=== PATIENT | female | born 1955 | race Caucasian/White ===

== ENCOUNTER → 2023-08-22 16:07 | Outpatient (REF) | payer MEDICARE, OTHER, SELFPAY | LOC: RAD 16:07 | PROVIDERS: ATTENDING PHYSICIAN Orthopaedic Surgery; FAMILY PHYSICIAN Family Medicine | DX: M19.011 Primary osteoarthritis, right shoulder (principal) | CPT/HCPCS: 73200 ==

== ENCOUNTER → 2023-10-01 15:14 | Outpatient (REF) | payer MEDICARE, OTHER, SELFPAY | LOC: RCS 15:14 | PROVIDERS: ATTENDING PHYSICIAN Internal Medicine Cardiovascular Disease; FAMILY PHYSICIAN Family Medicine | DX: R94.31 Abnormal electrocardiogram [ECG] [EKG] (principal); Z01.810 Encounter for preprocedural cardiovascular examination | CPT/HCPCS: 93017 ==

== ENCOUNTER 2023-11-14 11:59 | Inpatient (IN) | payer MEDICARE, OTHER, SELFPAY ==
[2023-11-11 21:44] VITALS: BP 138/75
[2023-11-11 22:17] LABS: % Basophils 0.5 % (0-2); % Eosinophils 3.3 % (0-6); % Immature Granulocytes 0.1 % (0-0.5); % Lymphocytes 22.7 % (20.5-51.1); % Monocytes 9.4 % (1.7-9.3); Absolute Eosinophils 0.3 10^3/uL (0-0.7); Absolute Lymphocytes 1.7 10^3/uL (1.2-3.4); Absolute Monocytes 0.7 10^3/uL (0.1-0.6); Absolute Neutrophils 4.9 10^3/uL (1.4-6.5); Hematocrit 33.3 % (37.0-47.0); Hemoglobin 10.8 g/dL (12.0-16.0); Mean Corp Hgb Conc. 32.4 g/dL (33.0-37.0); Mean Corpuscular Hgb 30.1 pg (27.0-31.0); Mean Corpuscular Volume 92.8 fL (81.0-99.0); Mean Platelet Volume 9.3 fL (7.4-10.4); Nucleated Red Blood Cells % 0 %; Platelet Count 256 10^3/uL (130-400); Red Blood Cell Count 3.59 10^6/uL (4.20-5.40); Red Cell Dist. Width 12.8 % (11.5-14.5); White Blood Cell Count 7.6 10^3/uL (4.8-10.8)
[2023-11-11 22:24] LABS: Lactic Acid 0.7 mmol/L (0.7-2.0)
[2023-11-11 22:31] LABS: ALT (SGPT) 15 U/L (0-35); AST (SGOT) 28 U/L (14-36); Albumin 3.9 g/dl (3.5-5.0); Alkaline Phosphatase 87 U/L (38-126); Blood Urea Nitrogen 15 mg/dl (7-17); Calcium 9.6 mg/dl (8.4-10.2); Carbon Dioxide 30 mmol/L (22-30); Chloride 98 mmol/L (98-107); Glucose 116 mg/dl (70-99); Potassium 4.3 mmol/L (3.5-5.1); Sodium 134 mmol/L (135-145); Total Bilirubin 0.3 mg/dl (0.2-1.3); Total Protein 6.5 g/dl (6.3-8.2); eGFR > 60.00
--- NOTE | 2023-11-11 23:16 | ED.GENMED ---
Addendum entered and electronically signed by Conner Virgen DO 11/12/23 02:30:
Reviewed with spouse labs urine, he is concerned that she could have taken extra pain meds or anxiolytics quantitative drug levels for salicylate acetaminophen are undetectable here
Reviewed indication for inpatient versus outpatient treatment spouse prefers that she be admitted
On exam vital signs are relatively stable the patient is resting, she was confused earlier
Original Note:
History of Present Illness
General
Chief Complaint: Fever
Source: patient, records and spouse
Exam Limitations: altered mental status
Time Seen by Provider: 11/11/23 22:53
Nursing documentation reviewed up to this point in time: agreed with
Travel History
Have you had any contact with someone who has COVID-19?: No
Do you have any symptoms of coronavirus? Fever > 100 degrees, chills, cough, shortness of breath, sore throat, loss of taste or smell, muscle aches, or headache?: No
History of Present Illness
History of Present Illness:
68-year-old female presents with fatigue fever confusion subacute onset fever of 100.3, spouse concerned could have UTI, she has no cough, no abdominal pain no diarrhea she underwent a total shoulder Memo few weeks ago healing well,
concerned she may be took her medications inappropriately, could explain her confusion denies any alcohol,
Past History
Past History
ED Past Medical History: Psychiatric (Anxiety, ) and Other ( Back problems. Colitis, UTI, Vertigo, Lyme, Chronic fatigue); Negative Asthma, HTN, Hypercholesterolemia or NIDDM
ED Past Surgical History: Orthopedic (Left hip replacement) and Other (Multiple breast surgery, Adenoid removed, Deviated septum)
Patient has exhibited threatening behavior?: No
PSI?: No
Social History
Tobacco: Non-smoker
Alcohol: None
Drug: None
Personal:
Living: with family
Employment: Employed
Review of Systems
Review of Systems
All Other Systems: Not applicable
Constitutional: Reports fever and fatigue
EENT: Reports no symptoms
Respiratory: Reports no symptoms
Cardiac: Reports no symptoms
ABD/GI: Reports no symptoms
: Reports urgency
Musculoskeletal: Reports no symptoms
Skin: Reports no symptoms
Neurological: Reports weakness
Hematologic/Lymphatic: Reports no symptoms
Phy Exam
Physical Exam
Physical Exam:
Physical Exam
General: Elderly female flat affect
Neck: No jaundice
Heart: s1/s2 regular rate and rhythm, no murmur. equal radial pulses.
Lungs: Faint crackles at the
Abdomen: Nontender
Neuro: alert and oriented. no focal neurological deficits
Skin: no rash
Psychiatric: cooperative
Extremities: Surgical scar in the right shoulder clean dry and intact no calf pain
Course
Orders/Labs/Results
Orders:
Orders
11/11/23 21:50
Electrocardiogram (*1) Urgent
Reason for Study: Other
Other Reason for Exam: Possible Sepsis
Cardiac Monitoring- Treatment ONCE
EKG- Treatment ONCE
IV Insert/Care/Rem.- Treatment PRN
Urinalysis Reflex To Culture Urgent
Date Specimen was Collected: 11/11/23
Time Specimen was Collected: 21:50
O2 Therapy [RESP] Urgent
Titrate/Wean O2 to maintain O2 sat greater than (%): 93
Special Instructions: TO MAINTAIN CONTINUOUS O2 SATS > OR = 93%
Pulse Ox/cont/shift [RESP] Urgent
Quantity: 1
Special Instructions: CONTINUOUS
11/11/23 22:06
Acetaminophen Urgent
Complete Blood Count/With Diff Urgent
Comprehensive Metabolic Panel Urgent
Lactic Acid Q4H
Comment: ON ICE, CANCEL 2ND ORDER IF FIRST LACTIC ACID LEVEL <2
Salicylate Urgent
Blood Culture Q30M
ASH Source: Blood/Venous
Specimen Description:
Comment: FROM 2 SEPARATE SITES
11/11/23 22:30
Blood Culture Q30M
ASH Source: Blood/Venous
Specimen Description:
Comment: FROM 2 SEPARATE SITES
11/11/23 23:09
0.9% Sodium Chloride 1000 ml [Nss] 1,000 ml IV BOLUS
Acetaminophen [Tylenol] 650 mg PO NOW STA
CR Chest - 2 Views Urgent
Comment:
Reason For Exam: fever
11/11/23 23:14
Add On- LAB Urgent
Tests Added?: Salicylate/acetaminophen
11/12/23 02:00
Lactic Acid Q4H
Comment: ON ICE, CANCEL 2ND ORDER IF FIRST LACTIC ACID LEVEL <2
Abnormal Lab Results
11/11/23
22:06
RBC 3.59 L 10^6/uL
(4.20-5.40)
Hgb 10.8 L g/dL
(12.0-16.0)
Hct 33.3 L %
(37.0-47.0)
MCHC 32.4 L g/dL
(33.0-37.0)
Absolute Monos (auto) 0.7 H 10^3/uL
(0.1-0.6)
Monocytes % 9.4 H %
(1.7-9.3)
Sodium 134 L mmol/L
(135-145)
Glucose 116 H mg/dl
(70-99)
11/11/23 22:06
11/11/23 22:06
Vital Signs
Initial and Last Documented VS:
Initial Vital Signs
Temp Pulse Resp BP Pulse Ox
100.0 F 102 18 138/75 96
11/11/23 21:44 11/11/23 21:44 11/11/23 21:44 11/11/23 21:44 11/11/23 21:44
Last Documented Vital Signs
Temp Pulse Resp BP Pulse Ox
100.0 F 102 18 138/75 96
11/11/23 21:44 11/11/23 21:44 11/11/23 21:44 11/11/23 21:44 11/11/23 21:44
MDM/Problems Addressed
Differential Diagnosis Includes:
Infection toxic metabolic deconditioning viral syndrome
MDM/Problems Addressed:
Fever confusion
Chronic conditions affecting care: Neurological disorder and Psychiatric illness
Acute Exacerbation and/or Progression of Chronic Illness: Neurological disorder and Psychiatric illness
*Radiology
Radiology exam reviewed: preliminary read by ED provider
*Pulse Oximetry
Patient hypoxic: no
*Oven Stripper Interpretation
Rate: normal
Interpretation: normal
Heart Rate: 78
Rhythm: sinus
*Critical Care Note
Total Time (30-74mins, 75-104mins- exclusive of procedures): Not Applicable
Data Reviewed
Review of Other/Old Records Reveals: Labs, Progress Notes and Discharge Summary
Source: patient and records
ED Attending Note
-
Portions of this chart may have been created with voice recognition software.� Occasional wrong word or��sound alike� substitutions may have occurred due to the inherent limitations of voice recognition software.
Discharge Plan
Departure
Prescriptions:
No Action
ascorbic acid (vitamin C) [Vitamin C] 500 MG tablet
500 mg PO DAILY
cholecalciferol (vitamin D3) 1,000 UNITS tablet
1,000 units PO DAILY
multivitamin with folic acid [Tab-A-Luis F] 1 TABLET tablet
1 tab PO DAILY
budesonide 3 mg capsule,delayed,extend.release
3 mg PO .TAPER
Rx Instructions:
TAKE 3 CAPS DAILY FOR 30 DAYS, THEN 2 CAPS DAILY FOR 2 WEEKS, THEN ONE CAP DAILY FOR 2 WEEKS, THEN STOP
diphenoxylate-atropine 2.5-0.025 mg tablet
1 tab PO TID PRN (Reason: diarrhea)
Patient Comments:
11/28/2022: last filled 11/18/22, 90 tabs for 30 days from [facility]
hydrocodone-acetaminophen 10-325 mg tablet
1 tab PO Q6H PRN (Reason: moderate pain)
Patient Comments:
11/28/2022: last filled 11/26/22, 120 tabs for 30 days from [facility]
vitamin B complex Tablet
1 tab PO DAILY
gabapentin 100 mg capsule
100 mg PO DAILY
gabapentin 100 mg capsule
200 mg PO HS
Acidophilus Capsule
100 mg PO BID
alprazolam 2 mg tablet
1 mg PO TID Qty: 0 0RF
Patient Comments:
11/28/2022: last filled 11/18/22, 90 tabs for 30 days from [facility]
Referrals:
Litzy Rios, [Family Provider] -
Interventions
Interventions:
*Risk Screen - Suicide Last Done: 11/11/23 21:44
*General Assessment Last Done: 11/11/23 21:44
*Neglect/Abuse Screening Last Done: 11/11/23 21:44
Discharge Date and Time
Print Language: SUDANESE
[2023-11-11 23:46] LABS: Acetaminophen < 10 ug/ml (10-30); Salicylate < 1.0 mg/dl (2.0-20.0)
[2023-11-11] MEDS: NSS 1000 IV (23:51)
[2023-11-12] VITALS (13 sets, daily range): BP systolic 93–165; BP diastolic 48–82; PULSE 100
[2023-11-12 00:20] LABS: Urine Albumin Negative (Neg - Trace); Urine Bilirubin Negative (Negative); Urine Color Yellow; Urine Glucose Negative (Negative); Urine Ketone Negative (Negative); Urine Leukocyte 2+ (Negative); Urine Nitrite Positive (Negative); Urine Occult Blood 1+ (Negative); Urine Urobilinogen Negative (Neg - 1+)
[2023-11-12 00:37] LABS: Urine Character Cloudy (Clear)
[2023-11-12 01:07] LABS: Urine Bacteria Many (Negative); Urine White Cell >100 /HPF (0-5)
[2023-11-12] MEDS: ROCEPHIN 1000 MG IV (02:22)
--- NOTE | 2023-11-12 02:27 | ED.GENMED ---
History of Present Illness
General
Chief Complaint: Fever
Time Seen by Provider: 11/11/23 22:53
Travel History
Have you had any contact with someone who has COVID-19?: No
Do you have any symptoms of coronavirus? Fever > 100 degrees, chills, cough, shortness of breath, sore throat, loss of taste or smell, muscle aches, or headache?: No
Past History
Past History
ED Past Medical History: Psychiatric (Anxiety, ) and Other ( Back problems. Colitis, UTI, Vertigo, Lyme, Chronic fatigue); Negative Asthma, HTN, Hypercholesterolemia or NIDDM
ED Past Surgical History: Orthopedic (Left hip replacement) and Other (Multiple breast surgery, Adenoid removed, Deviated septum)
Patient has exhibited threatening behavior?: No
PSI?: No
Social History
Tobacco: Non-smoker
Alcohol: None
Drug: None
Personal:
Living: with family
Employment: Employed
Course
Orders/Labs/Results
Orders:
Orders
11/11/23 21:50
Electrocardiogram (*1) Urgent
Reason for Study: Other
Other Reason for Exam: Possible Sepsis
Cardiac Monitoring- Treatment ONCE
EKG- Treatment ONCE
IV Insert/Care/Rem.- Treatment PRN
O2 Therapy [RESP] Urgent
Titrate/Wean O2 to maintain O2 sat greater than (%): 93
Special Instructions: TO MAINTAIN CONTINUOUS O2 SATS > OR = 93%
Pulse Ox/cont/shift [RESP] Urgent
Quantity: 1
Special Instructions: CONTINUOUS
11/11/23 22:06
Acetaminophen Urgent
Comment: ADD ON
Complete Blood Count/With Diff Urgent
Comprehensive Metabolic Panel Urgent
Lactic Acid Q4H
Comment: ON ICE, CANCEL 2ND ORDER IF FIRST LACTIC ACID LEVEL <2
Salicylate Urgent
Comment: ADD ON
Blood Culture Q30M
ASH Source: Blood/Venous
Specimen Description:
Comment: FROM 2 SEPARATE SITES
11/11/23 23:09
0.9% Sodium Chloride 1000 ml [Nss] 1,000 ml IV BOLUS
Acetaminophen [Tylenol] 650 mg PO NOW STA
11/11/23 23:14
Add On- LAB Urgent
Tests Added?: Salicylate/acetaminophen
11/11/23 23:32
Straight cath- Treatment ONCE
11/11/23 23:49
Urinalysis Reflex To Culture Urgent
Date Specimen was Collected: 11/11/23
Time Specimen was Collected: 21:50
Urine Microscopic Reflex Cult Urgent
Blood Culture Q30M
ASH Source: Blood/Venous
Specimen Description:
Comment: FROM 2 SEPARATE SITES
Urine Culture Urgent
ASH Source: U
Specimen Description:
Date Specimen was Collected: 11/11/23
Time Specimen was Collected: 21:50
11/12/23 00:00
CR Chest - 2 Views Urgent
Reason For Exam: fever
11/12/23 01:11
CefTRIAXone [Rocephin] 1,000 mg IV NOW STA
Abnormal Lab Results
11/11/23 11/11/23
22:06 23:49
RBC 3.59 L 10^6/uL
(4.20-5.40)
Hgb 10.8 L g/dL
(12.0-16.0)
Hct 33.3 L %
(37.0-47.0)
MCHC 32.4 L g/dL
(33.0-37.0)
Absolute Monos (auto) 0.7 H 10^3/uL
(0.1-0.6)
Monocytes % 9.4 H %
(1.7-9.3)
Sodium 134 L mmol/L
(135-145)
Glucose 116 H mg/dl
(70-99)
Ur Occult Blood Reflex 1+ A
(Negative)
Urine Nitrite (Reflex) Positive A
(Negative)
Leukocyte Esterase Rfl 2+ A
(Negative)
Urine RBC 3-6 A /HPF
(0-2)
Urine WBC (Reflex) >100 A /HPF
(0-5)
Urine Bacteria (Reflex) Many A
(Negative)
Salicylates < 1.0 L mg/dl
(2.0-20.0)
Acetaminophen < 10 L ug/ml
(10-30)
11/11/23 22:06
11/11/23 22:06
Vital Signs
Initial and Last Documented VS:
Initial Vital Signs
Temp Pulse Resp BP Pulse Ox
100.0 F 102 18 138/75 96
11/11/23 21:44 11/11/23 21:44 11/11/23 21:44 11/11/23 21:44 11/11/23 21:44
Last Documented Vital Signs
Temp Pulse Resp BP Pulse Ox
100.0 F 102 18 138/75 96
11/11/23 21:44 11/11/23 21:44 11/11/23 21:44 11/11/23 21:44 11/11/23 21:44
Update Note
Update Note:
Update labs noted urinalysis noted culture pending patient resting comfortably
Reviewed extensively with spouse he is concerned that she could have issues her pain meds or gabapentin or anxiolytics
He prefers that she be admitted for antibiotics and monitoring which is not unreasonable
ED Attending Note
-
Portions of this chart may have been created with voice recognition software.� Occasional wrong word or��sound alike� substitutions may have occurred due to the inherent limitations of voice recognition software.
Discharge Plan
Departure
Patient Disposition: Home (Routine Discharge)
Date of Disposition: 11/12/23
Time of Disposition: 02:28
Patient with high blood pressure during this ER visit?: No
Condition: Fair
Discharge Problem:
Stuporous, Urinary tract infection, Change in mental status, Fever
Prescriptions:
No Action
ascorbic acid (vitamin C) [Vitamin C] 500 MG tablet
500 mg PO DAILY
multivitamin with folic acid [Tab-A-Luis F] 1 TABLET tablet
1 tab PO DAILY
gabapentin 100 mg capsule
100 mg PO TID
gabapentin 100 mg capsule
200 mg PO HS
oxycodone 15 mg Tablet
15 mg PO QID PRN (Reason: Post surgical pain)
lamotrigine [Lamictal] 100 mg Tablet
100 mg BID PRN (Reason: diarrhea)
Rx Instructions:
unsure of mg
alprazolam 2 mg tablet
1 mg PO QIDPRN PRN (Reason: anxiety )
Patient Comments:
11/28/2022: last filled 11/18/22, 90 tabs for 30 days from [facility]
Referrals:
Litzy Rios DO [Family Provider] -
Interventions
Interventions:
*Risk Screen - Suicide Last Done: 11/11/23 21:44
*General Assessment Last Done: 11/11/23 21:44
*Neglect/Abuse Screening Last Done: 11/11/23 21:44
ED- Neurological Assessment Last Done: 11/11/23 23:26
Discharge Date and Time
Print Language: VIETNAMESE
--- NOTE | 2023-11-12 07:14 | HPS.HSE ---
Family Physician
-
Family Physician: Litzy Ott Rech, DO
Chief Complaint
-
Confusion
History of Present Illness
Patient is a 68y F with PMH significant for chronic pain and chronic anxiety on multiple medications who presents to ED for evaluation of confusion noted by family last PM. Family stated that patient was confused and had a temperature at home of
100.3. Patient seen and examined and states that she felt 'achy' all over and was pale and weak. She denies any focal symptoms including sore throat, cough, abdominal pain, N/V/D or urinary complaints.
Patient underwent a R TSA at [facility] on 10/08/23.
raised concern this evening that she may be taking her medication inappropriately.
At the time of my exam, patient is awake and alert and in no distress.
Medical History
Past Medical History
Past Medical History: Reports Other
Additional Past Medical History:
Chronic Pain
Chronic Anxiety
Chronic Opioid Dependence
DJD
Collagenous Colitis
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
Past Surgical History: Reports Other
Additional Past Surgical History:
Right TSA (10/08/23)
Left Hip ORIF
T&A
Septoplasty
Breast Biopsies
Social History
Tobacco: Non-smoker
Alcohol: None
Personal:
Living: With Family
Family History
Family History: Not pertinent
Allergies / Home Medications
Allergies reflects when Allergies were last updated in [employer].
Home Medications with original date entered in [facility]
Allergy/Medication List:
Allergies
Allergy/AdvReac Type Severity Reaction Status Date / Time
Sulfa (Sulfonamide Allergy Hives Verified 11/12/23 01:57
Antibiotics)
Home Medications
ascorbic acid (vitamin C) 500 mg tablet (Vitamin C) 500 mg PO DAILY Supplement 08/14/20
multivitamin with folic acid 400 mcg tablet (Tab-A-Luis F) 1 tab PO DAILY Supplement 08/14/20
gabapentin 100 mg capsule 100 mg PO TID Pain 11/28/22
gabapentin 100 mg capsule 200 mg PO HS Pain 11/28/22
alprazolam 2 mg tablet 1 mg PO QIDPRN PRN anxiety 11/12/23
lamotrigine 100 mg tablet (Lamictal) 100 mg BID PRN diarrhea 11/12/23
oxycodone 15 mg tablet 15 mg PO QID PRN Post surgical pain 11/12/23
Review of Systems
-
History Source: Patient
A 12 point ROS was completed and negative except as noted: Yes
Constitutional: Reports Fatigue; Denies Fever or Chills
EENT: Denies Sore Throat
Respiratory: Denies Cough or Trouble Breathing
Cardiac: Denies Chest Pain or Palpitations
Abdomen/GI: Denies Abdominal Pain, Nausea, Vomiting or Diarrhea
: Denies Dysuria, Frequency or Flank Pain
Musculoskeletal: Reports Joint Pain (R shoulder s/p surgery one month ago.); Denies Edema
Neurological: Denies Dizzy or Headache
Psych: Denies Depression or Anxiety
Physical Exam
Vital Signs
Vital Signs
Temp Pulse Resp BP Pulse Ox
98.5 F 92 20 112/50 94
11/12/23 05:40 11/12/23 06:45 11/12/23 06:45 11/12/23 06:00 11/12/23 04:12
Physical Exam
General: Other (68y F in no acute distress.)
HEENT: Moist mucous membranes and PERRLA
Respiratory: Clear; No Wheezes, Rales or Rhonchi
Cardiac: S1/S2 and Regular Rhythm; No Murmur
GI: Soft, Non Tender, Non Distended and Normal Bowel Sounds
Genito-urinary: No costovertebral tender
Musculoskeletal: No Clubbing, No Cyanosis, No Edema and Other (R shoulder incision healing well. No significant bleeding, ecchymosis, etc.)
Neuro: Other (Awake and alert. Mildly confused re: presenting details.)
Laboratory Results
-
11/11/23 22:06
11/11/23 22:06
Laboratory Results
Lactic Acid Cancelled 11/12/23 02:00
Total Bilirubin 0.3 mg/dl (0.2-1.3) 11/11/23 22:06
AST 28 U/L (14-36) 11/11/23 22:06
ALT 15 U/L (0-35) 11/11/23 22:06
Alkaline Phosphatase 87 U/L (38-126) 11/11/23 22:06
Impression/Plan
-
A/P: Patient is a 68y F with PMH significant for chronic pain and chronci anxiety on multiple medications who presents to ED for evaluation of confusion.
Acute TME
Chronic Pain Syndrome
Chronic Anxiety
Chronic Opioid Dependence
- Observe for further evaluation and treatment.
- Seems very likely that this is due to med effect / polypharmacy.
- Patient is on significant doses of narcotics and BZDs.
- Hold sedating meds acutely.
- Follow for continued clinical improvement.
- Treat / investigate possible urinary infection as noted below.
Abnormal UA
- Patient has had UTI in the past with similar presentations.
- No urinary symptoms whatsoever though.
- Continue IV ceftriaxone for now.
- Follow-up culture data.
- Patient is afebrile.
Collagenous Colitis
- Stable. No current / active symptoms.
- Patient takes PRN Lomotil - not Lamotrigine.
- Follow for any GI symptoms.
s/p R TSA
- Surgery was now > 1 month ago.
- PT / OT evaluations.
- Site is well-appearing.
DVT Prophylaxis: SCDs
Code Status: Full
[2023-11-12 08:49] LABS: Amphetamines Negative (Negative); Barbiturates Negative (Negative); Benzodiazepines Positive (Negative); Buprenorphine Negative (Negative); Cocaine Negative (Negative); Marijuana Negative (Negative); Methadone Negative (Negative); Methamphetamines Negative (Negative); Opiates Positive (Negative); Phencyclidine Negative (Negative); Tricyclic Antidepressants Negative (Negative)
[2023-11-12 09:04] LABS: Fentanyl, Urine Negative (Negative)
[2023-11-12] MEDS: NEURONTIN 100 MG PO ×3 (10:42→21:35)
--- NOTE | 2023-11-12 13:51 | W.PN.HOSP.TC ---
Today's Communication/Plan
-
monitor mental status
abx
f/u cultures
Assessment / Plan
Assessment / Plan
Physical Exam
General: Other (68y F in no acute distress.)
HEENT: Moist mucous membranes and PERRLA
Respiratory: Clear; No Wheezes, Rales or Rhonchi
Cardiac: S1/S2 and Regular Rhythm; No Murmur
GI: Soft, Non Tender, Non Distended and Normal Bowel Sounds
Genito-urinary: No costovertebral tender
Musculoskeletal: No Clubbing, No Cyanosis, No Edema and Other (R shoulder incision healing well. No significant bleeding, ecchymosis, etc.)
Neuro: Other (Awake and alert. Mildly confused re: presenting details.)
A/P: Patient is a 68y F with PMH significant for chronic pain and chronci anxiety on multiple medications who presents to ED for evaluation of confusion.
Acute TME
Chronic Pain Syndrome
Chronic Anxiety
Chronic Opioid Dependence
- most likely 2/2 to UTI
-Hold nacrotics, sedatives
- Hold sedating meds acutely.
- Follow for continued clinical improvement.
- Treat / investigate possible urinary infection as noted below.
UTI
- Patient has had UTI in the past with similar presentations.
- No urinary symptoms whatsoever though.
- Continue IV ceftriaxone for now.
- Follow-up culture data.
- Patient is afebrile.
#Hyponatremia
-mild
ctm
Collagenous Colitis
- Stable. No current / active symptoms.
- Patient takes PRN Lomotil - not Lamotrigine.
- Follow for any GI symptoms.
s/p R TSA
- Surgery was now > 1 month ago.
- PT / OT evaluations.
- Site is well-appearing.
DVT Prophylaxis: HSQ
Code Status: Full
Anticipated Discharge: 24 - 48 hours
Subjective/Interval History
-
Date of Service: November 12, 2023
no acute events
Objective Data
-
Vital Signs:
Vital Signs
Temp Pulse Resp BP Pulse Ox
98.5 F 109 22 155/65 96
11/12/23 05:40 11/12/23 12:30 11/12/23 12:30 11/12/23 11:00 11/12/23 10:47
Review of Systems
-
History Source: Patient
All other systems: Not reviewed unless documented
Data Reviewed
-
Diagnostic Radiology: Image personally visualized and interpreted and Report Reviewed by me
Labs: Labs Reviewed by me
--- NOTE | 2023-11-12 14:43 | CM ---
CM following re: discharge planning.
Reviewed pt's chart, met with pt and pt's Sergey at bedside.
Pt is a 68 year old female, admitted with OBS status and primary dx of Acute TME. OBS status explained to the pt, pt expressed her understanding, signed, placed on chart, pt has a copy.
Pt reports she lives with in a [place], has 2 supportive children, stays on the first floor. Pt reports she ambulates with a walker, has a cane, shower chair, helps as needed.
PT evaluation noted - pt has no skilled PT needs.
PCP: Litzy Rios
Pharmacy: [facility].
D/C plan: home with no needs. to transport at discharge.
CM will follow with discharge plan updates as needed.
[2023-11-12] MEDS: HEPARIN 5000 UNITS SC ×2 (16:20→23:34)
[2023-11-12] MEDS: TORADOL 15 MG IV ×2 (17:20→23:35)
[2023-11-12 17:21] LABS: TSH Reflex To Free T4 1.12 uIU/ml (0.47-4.68)
[2023-11-13] MEDS: STERILE WATER FOR INJECTION 10 ML IV (01:10)
[2023-11-13] MEDS: ROCEPHIN 1000 MG IV (01:10)
[2023-11-13 06:00] VITALS: BMI 18.9
[2023-11-13 06:02] LABS: Hematocrit 33.6 % (37.0-47.0); Hemoglobin 11.1 g/dL (12.0-16.0); Mean Corpuscular Hgb 30.8 pg (27.0-31.0); Mean Corpuscular Volume 93.3 fL (81.0-99.0); Mean Platelet Volume 9.7 fL (7.4-10.4); Platelet Count 238 10^3/uL (130-400); Red Cell Dist. Width 12.6 % (11.5-14.5); White Blood Cell Count 7.2 10^3/uL (4.8-10.8)
[2023-11-13] MEDS: TORADOL 15 MG IV ×2 (06:07→21:52)
[2023-11-13 06:27] LABS: Blood Urea Nitrogen 8 mg/dl (7-17); Calcium 9.3 mg/dl (8.4-10.2); Carbon Dioxide 25 mmol/L (22-30); Chloride 105 mmol/L (98-107); Estimated Creatinine Clearance 81 ml/min; Glucose 104 mg/dl (70-99); Potassium 3.7 mmol/L (3.5-5.1); Sodium 139 mmol/L (135-145); eGFR > 60.00
[2023-11-13 08:20] VITALS: BP 167/70
[2023-11-13 08:24] VITALS: BMI 18.8
[2023-11-13] MEDS: NEURONTIN 100 MG PO ×3 (08:38→21:51)
[2023-11-13] MEDS: HEPARIN 5000 UNITS SC ×2 (08:38→17:24)
[2023-11-13] MEDS: ZOFRAN 4 MG IV (12:02)
--- NOTE | 2023-11-13 14:04 | W.PN.HOSP.TC ---
Today's Communication/Plan
-
abd xr
antiemetics, ppi
abx
f/u cultures
Assessment / Plan
Assessment / Plan
Physical Exam
General: Other (68y F in no acute distress.)
HEENT: Moist mucous membranes and PERRLA
Respiratory: Clear; No Wheezes, Rales or Rhonchi
Cardiac: S1/S2 and Regular Rhythm; No Murmur
GI: Soft, Non Tender, Non Distended and Normal Bowel Sounds
Genito-urinary: No costovertebral tender
Musculoskeletal: No Clubbing, No Cyanosis, No Edema and Other (R shoulder incision healing well. No significant bleeding, ecchymosis, etc.)
Neuro: Other (Awake and alert. Mildly confused re: presenting details.)
A/P: Patient is a 68y F with PMH significant for chronic pain and chronci anxiety on multiple medications who presents to ED for evaluation of confusion.
Acute TME
Chronic Pain Syndrome
Chronic Anxiety
Chronic Opioid Dependence
� Resolved
- most likely 2/2 to UTI
-Hold nacrotics, sedatives
- Hold sedating meds acutely.
- Follow for continued clinical improvement.
- Treat / investigate possible urinary infection as noted below.
UTI
- Patient has had UTI in the past with similar presentations. Should follow-up urology outpatient
- No urinary symptoms whatsoever though.
- Continue IV ceftriaxone for now.
- Follow-up culture data.
- Patient is afebrile.
Nausea/vomiting
� Most likely secondary antibiotics
� PPI, Zofran
� Abdominal x-ray
#Hyponatremia
-mild
ctm
- resolved
Collagenous Colitis
- Stable. No current / active symptoms.
- Patient takes PRN Lomotil - not Lamotrigine.
- Follow for any GI symptoms.
s/p R TSA
- Surgery was now > 1 month ago.
- PT / OT evaluations.
- Site is well-appearing.
DVT Prophylaxis: HSQ
Code Status: Full
Anticipated Discharge: 24 - 48 hours
Subjective/Interval History
-
Date of Service: November 13, 2023
Nauseous although status resolved
Objective Data
-
Labs:
Laboratory Results
11/13/23
05:34
WBC 7.2
Hgb 11.1 L
Hct 33.6 L
Plt Count 238
Sodium 139
Potassium 3.7
Chloride 105
Carbon Dioxide 25
BUN 8
Creatinine 0.4 L
Glucose 104 H
Calcium 9.3
Vital Signs:
Vital Signs
Temp Pulse Resp BP Pulse Ox
98.3 F 91 18 167/70 95
11/13/23 08:20 11/13/23 08:20 11/13/23 08:20 11/13/23 08:20 11/13/23 08:24
I&O
11/12/23 11/13/23 11/14/23
06:59 06:59 06:59
Intake Total 600 / 600
Balance 600 / 600
Review of Systems
-
History Source: Patient
All other systems: Not reviewed unless documented
Data Reviewed
-
Diagnostic Radiology: Image personally visualized and interpreted and Report Reviewed by me
Labs: Labs Reviewed by me
--- NOTE | 2023-11-13 14:14 | EDRN ---
Patient taken to room 408-1 by service desk technician.
[2023-11-13 14:29] VITALS: BP 189/91
[2023-11-13 14:32] VITALS: BMI 18.6
[2023-11-13 15:00] VITALS: BP 159/91
[2023-11-13] MEDS: PROTONIX IV 40 MG IV (15:00)
[2023-11-13] MEDS: NSS (PRESERVATIVE FREE) 10 ML IV (15:01)
[2023-11-13 23:33] VITALS: BP 184/105
[2023-11-13] MEDS: BENADRYL 12.5 MG IV (23:39)
[2023-11-13 23:40] VITALS: BP 200/90
[2023-11-14] VITALS (15 sets, daily range): BP systolic 101–193; BP diastolic 75–102
[2023-11-14] MEDS: APRESOLINE 5 MG IV (00:26)
[2023-11-14] MEDS: HEPARIN 5000 UNITS SC ×2 (00:32→08:56)
[2023-11-14] MEDS: ROCEPHIN 1000 MG IV (02:26)
[2023-11-14] MEDS: STERILE WATER FOR INJECTION 10 ML IV (02:26)
--- NOTE | 2023-11-14 02:53 | PTCARENOTE ---
Addendum entered by Raquel Nix 11/14/23 05:21:
Pt tachycardic 140s in bathroom, pt with c/o diaphoresis- manual BP 172/90
Addendum entered by Raquel Nix 11/14/23 03:59:
BP remains elevated, clonidine given per order. Pt placed on telemetry.
Original Note:
2333: Pts BP 184/105 HR 105- rechecked manual 200/90- House CHECK VIEWER aware, IV benadryl for nausea (pt stating IV zofran ineffective) given, pt stating anxiety. rechecked BP 191/102. Given 5 mg IV hydralazine at 0026. Rechecked BP at 0222: BP 179/97 HR
101 manual 182/82. House CHECK VIEWER aware. Pt stating feeling of 'heart racing, palpitations'. EKG completed showing 'NSR nonspecific ST abnormality, new prolonged QT' CHECK VIEWER to review. Will continue to monitor.
[2023-11-14] MEDS: CATAPRES 0.100000000000000006 MG PO (03:46)
--- NOTE | 2023-11-14 03:48 | W.PN.UPDATE ---
Update Note
Progress Note Update
BP is been 175-200/90's-100's, HR 80's-90, stable VS, denies any pain, voiding without difficulty, No hx of HTN and not on any medications, 1x IV Hydralazine given without much relief, RN notified NUCLEAR PLANT OPERATOR IV may have leaked.
Patient c/o palpitation. EKG reviewed. Prolonged Q noted, will stop Zofran.
Also Patient was on Xanax, Vicodin, Oxycodone as need as needed at home and has been stopped. therefore will add COW's Protocol due to possible Withdrawal
last BP 192/90 will give clonidine 0.1mg POx1.
will check Troponin, CMP, Mag, Phos in AM due to EKG abnormality, may need Cardiology consult.
[2023-11-14 07:57] LABS: Hemoglobin 12.1 g/dL (12.0-16.0); Mean Corp Hgb Conc. 33.6 g/dL (33.0-37.0); Mean Corpuscular Hgb 30.1 pg (27.0-31.0); Mean Corpuscular Volume 89.6 fL (81.0-99.0); Mean Platelet Volume 10.1 fL (7.4-10.4); Platelet Count 283 10^3/uL (130-400); Red Blood Cell Count 4.02 10^6/uL (4.20-5.40); Red Cell Dist. Width 12.7 % (11.5-14.5); White Blood Cell Count 10.4 10^3/uL (4.8-10.8)
[2023-11-14 08:17] LABS: Troponin I 0.019 ng/ml
[2023-11-14 08:41] LABS: ALT (SGPT) 12 U/L (0-35); AST (SGOT) 24 U/L (14-36); Albumin 3.8 g/dl (3.5-5.0); Alkaline Phosphatase 94 U/L (38-126); Blood Urea Nitrogen 10 mg/dl (7-17); Calcium 9.6 mg/dl (8.4-10.2); Carbon Dioxide 23 mmol/L (22-30); Chloride 97 mmol/L (98-107); Estimated Creatinine Clearance 76 ml/min; Glucose 118 mg/dl (70-99); Magnesium 1.8 mg/dl (1.6-2.3); Phosphorus 3.6 mg/dl (2.5-4.5); Potassium 3.2 mmol/L (3.5-5.1); Sodium 132 mmol/L (135-145); Total Bilirubin 0.5 mg/dl (0.2-1.3); Total Protein 6.5 g/dl (6.3-8.2); eGFR > 60.00
[2023-11-14] MEDS: PROTONIX IV 40 MG IV (08:56)
[2023-11-14] MEDS: NSS (PRESERVATIVE FREE) 10 ML IV (08:56)
[2023-11-14] MEDS: NEURONTIN 100 MG PO ×2 (08:57→21:33)
[2023-11-14] MEDS: NORVASC 10 MG PO (09:50)
[2023-11-14] MEDS: KCL ELIXIR 40 MEQ PO (11:36)
--- NOTE | 2023-11-14 12:24 | PTCARENOTE ---
Received patient this am AAOx3, pt forgetful intermittently. B/P 160/[address] Lowe made aware. 0950- Pt's B/P 176/85, HR 90. Pt medicated with Norvasc 10mg PO as ordered. 11:10- B/P 160/85. Pt sent for CT head. 11:[address] Lowe made aware an evaluated patient. AAOx1-2. Pt having trouble remembering which hospital she was in and why. Pt having trouble remember events of Hypertension during the night. NIH-1. B/P 143/75. MRI of Brain an Neurology
Consult ordered. Made patient comfortable. Cont to assess patient status.
--- NOTE | 2023-11-14 14:46 | W.PN.HOSP.TC ---
Today's Communication/Plan
-
MRI brain
LP
abx
neuro recs
Assessment / Plan
Assessment / Plan
Physical Exam
General: Other (68y F in no acute distress.)
HEENT: Moist mucous membranes and PERRLA
Respiratory: Clear; No Wheezes, Rales or Rhonchi
Cardiac: S1/S2 and Regular Rhythm; No Murmur
GI: Soft, Non Tender, Non Distended and Normal Bowel Sounds
Genito-urinary: No costovertebral tender
Musculoskeletal: No Clubbing, No Cyanosis, No Edema and Other (R shoulder incision healing well. No significant bleeding, ecchymosis, etc.)
Neuro: Other (Awake and alert. Mildly confused re: presenting details.)
A/P: Patient is a 68y F with PMH significant for chronic pain and chronci anxiety on multiple medications who presents to ED for evaluation of confusion.
Acute TME
-Most likely 2/2 neurological pathology v less likely UTI
-Head CT with parietal involvement - possible cytotoxic or vasogenic edema
-MRI pending
-IR consulted for LP, including cytology
-neurology consulted
Chronic Pain Syndrome
Chronic Anxiety
Chronic Opioid Dependence
-Hold nacrotics, sedatives
- Hold sedating meds acutely.
- Follow for continued clinical improvement.
UTI , E-Coli
- Patient has had UTI in the past with similar presentations. Should follow-up urology outpatient
- No urinary symptoms whatsoever though.
- Continue IV ceftriaxone for now - give 5 day course abx
- Patient is afebrile.
Nausea/vomiting
� possibly 2/2 to neurological disease
- PPI, Zofran
-kub unremarkable
#Hyponatremia
-mild
ctm
- resolved
#Hypertension
-start amlodipine
#Hypokalemia
-monitor and replete
Collagenous Colitis
- Stable. No current / active symptoms.
- Patient takes PRN Lomotil - not Lamotrigine.
- Follow for any GI symptoms.
s/p R TSA
- Surgery was now > 1 month ago.
- PT / OT evaluations.
- Site is well-appearing.
DVT Prophylaxis: HSQ
Code Status: Full
Total time spent on today's encounter was 50 minutes which included time spent in counseling the patient/family regarding diagnosis and treatment plan as listed above, goals of care, and symptom management. Case was discussed with nursing staff,
specialists, and care coordinators/case management. All labs and imaging personally reviewed by me. Remainder the time spent in detailed review of previous records, lab data, imaging, and other medical provider documentation.
Anticipated Discharge: > 48 hours
Subjective/Interval History
-
Date of Service: November 14, 2023
patient altered again today
persistently hypertensive
Objective Data
-
Labs:
Laboratory Results
11/14/23 11/14/23
07:35 14:38
WBC 10.4
Hgb 12.1
Hct 36.0 L
Plt Count 283
PT Pending
INR Pending
Sodium 132 L
Potassium 3.2 L
Chloride 97 L
Carbon Dioxide 23
BUN 10
Creatinine 0.4 L
Glucose 118 H
Calcium 9.6
Total Bilirubin 0.5
AST 24
ALT 12
Alkaline Phosphatase 94
Vital Signs:
Vital Signs
Temp Pulse Resp BP Pulse Ox
98.6 F 86 18 143/75 96
11/14/23 11:09 11/14/23 11:48 11/14/23 11:48 11/14/23 11:48 11/14/23 11:48
I&O
11/13/23 11/14/23 11/15/23
06:59 06:59 06:59
Intake Total 600 / 600 1320 / 1320
Balance 600 / 600 1320 / 1320
Review of Systems
-
History Source: Patient
All other systems: Not reviewed unless documented
Data Reviewed
-
Diagnostic Radiology: Image personally visualized and interpreted and Report Reviewed by me
CT Scan: Image personally visualized and interpreted and Report Reviewed by me
Labs: Labs Reviewed by me
--- NOTE | 2023-11-14 14:51 | CON.NEURO4 ---
Consultation - Neurology 4
-
CONSULTING PHYSICIAN: Jorge Canseco
REFERRING PHYSICIAN: Hospitalist
DICTATED BY: Jorge Canseco
DATE/TIME OF REQUEST: 11/14/23
DATE/TIME OF CONSULTATION: 11/14/23
Reason for Consultation: Right parietal lobe abnormality on CT head, confusion
History of Present Illness:
Patient is a 68-year-old woman with a past no history of chronic pain presenting the hospital with confusion starting the past 1 to 2 days. Initially this was felt to be possibly urinary tract infection or related to home medication effects on
mental status, reported as having home temperature of 100.3 otherwise had no fevers or elevated temperatures here in this hospital during this stay. Yesterday for the hospitalist her mental status was much more clear and today has been a
significant change in mental status with confusion and memory loss.
Patient is aware that she feels confused feels somewhat disoriented with recall of recent events. Denies any headache or vision change or unilateral vision or weakness. It is hard for her to describe exactly confusion but knows that her brain
function is off. She denies any hallucinations.
Has had some high blood pressures here to the 190's and low 200's systolic.
She has no personal history of cancer. No unusual weight loss.
relates that before he had met her she had actually sought treatment at [facility] where Lyme disease was only just beginning to start to be discovered and treated. Patient had had 2 small pigmented lesions on the left shoulder and a
couple of weeks before her shoulder surgery on October 07 of this year. There have not been any recent rashes but her has noticed that the patient has told him about. No obvious bug bites and no recent international travel or animal exposures.
Past Medical History: Chronic pain with opioid dependence, degenerative joint disease, previous history of [employer] Lyme treated, anxiety
Surgical History: Left hip ORIF, tonsillectomy adenoidectomy, septoplasty, breast biopsy, right total shoulder replacement October 08, 2023
Family History: No familial neurologic disorders
Social History: Patient is lives with her she likes to garden no significant tobacco alcohol or recreational drug
Review of Symptoms:
Patient denies any fever, headache, chest pain, shortness of breath, GI or symptoms.
Physical Exam:
Middle-age woman well-appearing pleasant no distress head normocephalic no meningismus no trauma to the head or neck eyes are clear oropharynx is clear heart rate regular breathing unlabored abdomen soft nontender
Neurologic Examination:
Patient is awake and alert, she has difficulty with recall of recent events as well as impaired insight and judgment, cannot tell me her home address and cannot recollect recent events. She does have insight into feeling confused. Denies
hallucinations. Obeys multistep commands. Praxis is normal. No evidence of neglect. Difficult with complex cognitive tasks like calculation. There is no aphasia or dysarthria. On cranial nerve assessment, pupils are 3 mm bilateral, round and
reactive to light and accommodation. Visual gaming are full. Extraocular movements are intact. Facial sensations are intact and bilaterally symmetrical, there is no facial asymmetry. Hearing is intact bilaterally to normal conversation volume.
Tongue palate and uvula are midline. Sternocleidomastoid strengths are full bilaterally. Motor strengths are 5/5 bilateral upper and lower extremities on medical research Rincon scale. Right hand limited due to pain. There is no drift or
involuntary movement noted. Deep tendon reflexes are 2+ bilateral upper and lower extremities and Babinski is absent bilaterally. Sensations of pain, touch, temperature and vibration are intact and bilaterally symmetrical. There was no extinction
noted on double simultaneous stimulation. Coordination is intact by finger to nose bilaterally.
Neuro Imaging: MRI brain with right parietal lobe abnormality with FLAIR hyperintensity mostly along the cortex but also involving white matter, no significant diffusion restriction, there is a very small amount of postcontrast enhancement, no
hemorrhage in the area.
Impressions
Confusion is highly likely due to right parietal lobe brain lesion of unclear etiology at this time. My highest concerns are encephalitis or neoplasm. Subacute infarct would be on imaging differential diagnosis but patient does not seem to have a
corresponding history of an acute neurological change in the past few weeks thus the clinical history does not seem supportive of an ischemic stroke. The abnormality is restricted to one side so not at all consistent with PRES/hypertensive
encephalopathy.
Recommendations:
1. Recommend lumbar checking cell count protein glucose, culture meningitis/PCR panel, cytology
2. Neurologic checks
3. Would hold off steroids at this time
4. Not recommending antiplatelets at this time
5. Not typical for an HSV encephalitis and no fever, headache, leukocytosis so not going to recommend acyclovir at this time
6. If CSF not supportive of infection and unrevealing then would need to consider brain biopsy for diagnosis, no urgent neurosurgical needs at this time
Discussed patient care with: Patient, her over phone, Dr Lowe
[2023-11-14 15:13] LABS: INR 1.12; PT 14.2 Sec (11.4-14.6)
[2023-11-14] MEDS: NEURONTIN PO (16:00)
[2023-11-14] MEDS: HEPARIN SC (16:00)
--- NOTE | 2023-11-14 16:51 | CM ---
I met with Radha today with her longtime friend who was visiting. He advised that family is concerned about Radha's change in mental status which seems to come and go. She has been falling on a regular basis at home.
PT evaluated her today and found her to be (I) amb and adl's with no need for PT services.
Friend inquired about home services; I explained to Radha and her friend that insurance may cover home care services which are intermittent. We spoke about hiring a night custodian or home health aid for supervision and assistance in the home. I also
suggested considering a medical alert system.
Our visit was cut short due to Radha needing to go for several studies.
Plan: CM will continue to follow to assist with discharge planning and resources.
--- NOTE | 2023-11-14 18:21 | PTCARENOTE ---
Pt Off unit this afternoon to IR for Lumbar Puncture. Pt returned to unit at 1700. Pt AAOx1. Confused to place an time. VSS. Bandaid CDI at lumbar spine. Pt to remain flat x 2hrs. Pt voided on bedpan. Pt placed on bed alarm. Made patient
comfortable. Cont to assess patient status.
[2023-11-14 18:25] LABS: Spinal Fluid Glucose 70 mg/dl (40-70); Spinal Fluid Protein 45 mg/dl (12-60)
[2023-11-14 18:34] LABS: CSF Clarity Clear; CSF Color Colorless; CSF Tube # 1; Red Cell Count/CSF 31 mm^3; White Cell Count/CSF 1 mm^3 (0-5)
--- NOTE | 2023-11-14 19:45 | PTCARENOTE ---
Pt became aphasic w/ word salad at shift change. Pt disoriented to self, place, time, and unable to remember her husbands name who is present at bedside. stated her confusion has worsened from previous shift. VSS w/ temp 100.2- RN
administered Tylenol. RN reached out to WAITRESS and came to assess patient. Pt became AAOx3 and able to recall her husbands name shortly after. Pt is resting comfortably w/ call eric within reach. No new orders at this time.
[2023-11-14] MEDS: TYLENOL 650 MG PO (19:47)
[2023-11-14 20:07] LABS: CSF Clarity Clear; CSF Color Colorless; CSF Tube # 4
[2023-11-14 20:08] LABS: Red Cell Count/CSF 5 mm^3; White Cell Count/CSF 4 mm^3 (0-5)
[2023-11-15 00:50] VITALS: BP 152/75
[2023-11-15] MEDS: HEPARIN SC (01:04)
[2023-11-15] MEDS: STERILE WATER FOR INJECTION 10 ML IV (01:23)
[2023-11-15] MEDS: ROCEPHIN 1000 MG IV (01:24)
[2023-11-15 03:46] VITALS: BP 156/76
[2023-11-15 06:11] LABS: Hematocrit 35.4 % (37.0-47.0); Hemoglobin 12.2 g/dL (12.0-16.0); Mean Corp Hgb Conc. 34.5 g/dL (33.0-37.0); Mean Platelet Volume 10.2 fL (7.4-10.4); Platelet Count 311 10^3/uL (130-400); Red Blood Cell Count 4.07 10^6/uL (4.20-5.40); Red Cell Dist. Width 12.4 % (11.5-14.5); White Blood Cell Count 10.9 10^3/uL (4.8-10.8)
[2023-11-15 07:10] VITALS: BP 155/73
[2023-11-15] MEDS: NEURONTIN 100 MG PO ×3 (08:53→21:56)
[2023-11-15] MEDS: NORVASC 10 MG PO (08:53)
[2023-11-15] MEDS: HEPARIN 5000 UNITS SC ×2 (08:53→16:47)
[2023-11-15] MEDS: NSS (PRESERVATIVE FREE) 10 ML IV (08:53)
[2023-11-15] MEDS: PROTONIX IV 40 MG IV (08:54)
--- NOTE | 2023-11-15 09:51 | W.PN.NEURO.1 ---
Today's Communication / Plan
-
If CSF remains not supportive of infection and unrevealing would pursue brain biopsy for diagnosis, with neurosurgical consultation
check CT of chest, abdomen, and pelvis although not clearly metastatic lesion
Will discontinue ceftriaxone due to absence of meningitis
Initiate low-dose aspirin due to prior evidence of lacunar stroke
Check lipid profile
Consider recheck of MRI of brain at 72 hours to compare
Neuro Assessment/Plan
Assessment
Impressions
Confusion is highly likely due to right parietal lobe brain lesion of unclear etiology at this time. My highest concerns are encephalitis or neoplasm. Subacute infarct would be on imaging differential diagnosis but patient does not seem to have a
corresponding history of an acute neurological change in the past few weeks thus the clinical history does not seem supportive of an ischemic stroke. The abnormality is restricted to one side so not at all consistent with PRES/hypertensive
encephalopathy.
Lumbar puncture not currently unrevealing, awaiting results
Not typical for an HSV encephalitis and no fever, headache, leukocytosis
Plan
Recommendations:
If CSF remains not supportive of infection and unrevealing would pursue brain biopsy for diagnosis, with neurosurgical consultation
check CT of chest, abdomen, and pelvis although not clearly metastatic lesion
Will discontinue ceftriaxone due to absence of meningitis
Initiate low-dose aspirin due to prior evidence of lacunar stroke
Check lipid profile
Consider recheck of MRI of brain at 72 hours to compare
Would hold off steroids at this time
Not recommending antiplatelets at this time
not going to recommend acyclovir at this time
We will follow
Subjective/Objective
Subjective Data
Date of Service: November 15, 2023
Patient having less recall.
Objective Data
Vital Signs
Temp Pulse Resp BP Pulse Ox
37.1 C 78 16 155/73 95
11/15/23 07:10 11/15/23 08:53 11/15/23 07:10 11/15/23 08:53 11/15/23 07:10
Lab Results
11/15/23 05:33
11/14/23 07:35
PT 14.2 Sec (11.4-14.6) 11/14/23 14:46
INR 1.12 11/14/23 14:46
Sodium 132 mmol/L (135-145) L 11/14/23 07:35
Potassium 3.2 mmol/L (3.5-5.1) L 11/14/23 07:35
BUN 10 mg/dl (7-17) 11/14/23 07:35
Glucose 118 mg/dl (70-99) H 11/14/23 07:35
Calcium 9.6 mg/dl (8.4-10.2) 11/14/23 07:35
Phosphorus 3.6 mg/dl (2.5-4.5) 11/14/23 07:35
Ur Buprenorphine Negative (Negative) 11/12/23 23:55
Patient Allergies
Sulfa (Sulfonamide Antibiotics) Allergy (Verified 11/12/23 01:57)
Hives
Review of Systems
-
Unable to obtain full review of systems at this time due to: Dementia
History Source: Patient
All other systems: Reviewed and negative
Physical Exam
-
General: No Apparent Distress and Appears Stated Age
Eyes: Round OU, [place] Conjunctivae and No Ptosis
HEENT: Anicteric and Moist Mucous Membranes
Neck: Full Range of Motion
Respiratory: No Dyspnea
Cardiac: No JVD
GI: Non-distended
Skin: Unremarkable
Extremities: No Clubbing, No Cyanosis and No Edema
Psych: Intact Judgement/Insight
Extended Neurological Exam
Mood & Affect: Mood Unremarkable and Affect Unremarkable
Attention Span & Concentration: Awake, Alert, Interactive and Mild Difficulty with 2 Step Request
Memory: Unable to Recall Personal History
Tremor: Head Tremor Absent, Distal, Amplitude (low) and With Action; Negative At Rest
Speech: Quality Unremarkable and Quantity Unremarkable
Cranial Nerve II: Left Eye: Pupillary Size Unremarkable and Visual Wong Grossly Intact
Cranial Nerve II: Right Eye: Pupillary Size Unremarkable and Visual Wong Grossly Intact
Cranial Nerves III, IV, : Extraocular Movement: Grossly Intact
Cranial Nerve VII: Facial Symmetry: Normal Facial Symmetry
Cranial Nerve VIII: Hearing: Unremarkable Hearing to Normal Conversational Volume
Cranial Nerve XI: Shoulder Shrug: Unremarkable
Cranial Nerve XII: Tongue Protusion: Midline
Muscle Strength, Overall: Full in Upper Extremities
Muscle Bulk & Tone: Bulk Unremarkable and Tone Unremarkable
Pronator Drift: No Drift in Upper Extremities
Coordination: [id number]-[id number] Testing Unremarkable
Data Reviewed
-
MRI Head: Report Reviewed and Image Reviewed
Labs: Pending and Report Reviewed
Reviewed with: Physician, Patient and Family (By phone)
Old Records: Summarized
Past History
Past History
ED Past Medical History: Psychiatric (Anxiety) and Other (Back problems. Colitis, UTI, Vertigo, Lyme, Chronic fatigue, R parietal lesion)
ED Past Surgical History: Orthopedic (Left hip replacement) and Other (Multiple breast surgery, Adenoid removed, Deviated septum)
Patient has exhibited threatening behavior?: No
PSI?: No
Social History
Tobacco: Non-smoker
Alcohol: Occasional
Drug: None
Personal:
Living: with family
Employment: Employed
Medications
-
Medications:
Generic Name Dose Route Start Last Admin
Trade Name Freq PRN Reason Stop Dose Admin
Acetaminophen 650 mg 11/12/23 10:09 11/14/23 19:47
Acetaminophen 325 Mg Tablet PO 12/10/23 10:08 650 mg
Q4HPRN PRN Administration
Mild Pain / Temp > 101
Amlodipine Besylate 10 mg 11/14/23 10:00 11/15/23 08:53
Amlodipine 10 Mg Tablet PO 12/12/23 09:59 10 mg
DAILY FRANK Administration
Ceftriaxone Sodium 1,000 mg 11/13/23 02:00 11/15/23 01:24
Ceftriaxone 1000 Mg / 10 Ml Vial IV 1,000 mg
Q24H FRANK Administration
Gabapentin 100 mg 11/12/23 10:09 11/15/23 08:53
Gabapentin 100 Mg Capsule PO 12/10/23 10:08 100 mg
TID FRANK Administration
Heparin Sodium 5,000 units 11/12/23 16:00 11/15/23 08:53
Heparin 5,000 Units/Ml 1 Ml Vial SC 12/10/23 15:59 5,000 units
Q8 FRANK Administration
Ketorolac Tromethamine 15 mg 11/12/23 10:09 11/13/23 21:52
Ketorolac 15 Mg/Ml Injection IV 11/17/23 10:08 15 mg
Q6HPRN PRN Administration
Moderate Pain
Pantoprazole Sodium 40 mg 11/13/23 15:00 11/15/23 08:54
Pantoprazole Sodium 40 Mg/10 Ml Vial IV 12/11/23 14:59 40 mg
DAILY FRANK Administration
Sodium Chloride 0 flush 11/12/23 11:00
Sodium Chloride 0.9% (Flush) Syringe IV 12/10/23 10:59
PER PROTOCOL FRANK
Sodium Chloride 10 ml 11/13/23 15:00 11/15/23 08:53
Sodium Chloride 0.9% (Preservative Free) 10 Ml Vial IV 12/11/23 14:59 10 ml
DAILY FRANK Administration
Sterile Water 10 ml 11/13/23 02:00 11/15/23 01:23
Sterile Water For Injection 10 Ml Vial IV 12/11/23 01:59 10 ml
Q24H FRANK Administration
Tizanidine HCl 2 mg 11/14/23 03:29
Tizanidine 2 Mg Tablet PO 12/12/23 03:28
Q6HPRN PRN
restlessness,agitation,anxiety
[2023-11-15] MEDS: OMNIPAQUE 50 ML PO (10:58)
[2023-11-15] MEDS: ASPIR LOW (ENTERIC COATED) 81 MG PO (13:10)
[2023-11-15 14:53] LABS: Erythrocyte Sed Rate 19 mm/hour (0-20)
[2023-11-15 14:58] LABS: HDL Cholesterol 81 mg/dl; LDL Cholesterol, Calculated 122 mg/dl; Total Cholesterol 224 mg/dl (50-199); Triglyceride 108 mg/dl (10-149); Very Low Density Lipoprotein 21 mg/dl (0-30)
--- NOTE | 2023-11-15 15:19 | W.PN.HOSP.TC ---
Today's Communication/Plan
-
dc abx, f/u repeat ua to assess resolution
ct c/a/p
f/u lp results
Assessment / Plan
Assessment / Plan
Physical Exam
General: Other (68y F in no acute distress.)
HEENT: Moist mucous membranes and PERRLA
Respiratory: Clear; No Wheezes, Rales or Rhonchi
Cardiac: S1/S2 and Regular Rhythm; No Murmur
GI: Soft, Non Tender, Non Distended and Normal Bowel Sounds
Genito-urinary: No costovertebral tender
Musculoskeletal: No Clubbing, No Cyanosis, No Edema and Other (R shoulder incision healing well. No significant bleeding, ecchymosis, etc.)
Neuro: Other (Awake and alert. Mildly confused re: presenting details.)
A/P: Patient is a 68y F with PMH significant for chronic pain and chronci anxiety on multiple medications who presents to ED for evaluation of confusion.
Acute TME
-Most likely 2/2 neurological pathology v less likely UTI
-Head CT with parietal involvement - possible cytotoxic or vasogenic edema
-Confusion is highly likely due to right parietal lobe brain lesion of unclear etiology at this time. Concern is Encephalitis v tumor
-No clear Evidence of infection on LP; f/u cultures and cyto
-CT C/A/P to eval for malignancy
-neurology consulted
-Possible repeat MRI in 72 hours
Chronic Pain Syndrome
Chronic Anxiety
Chronic Opioid Dependence
-Hold nacrotics, sedatives
- Hold sedating meds acutely.
- Follow for continued clinical improvement.
#Asymptomatic Bacteruria
-Encephalopathy unlikely due to urine in setting of MRI findings (mental status has been waxing and waning)
� Received 3 days of antibiotics (Ceftriaxone)
� Follow-up repeat UA to ensure resolution
-Patient does not have UTI symptoms
Nausea/vomiting
� possibly 2/2 to neurological disease
- PPI, Zofran
-kub unremarkable
#Hyponatremia
-mild
ctm
- resolved
#Hypertension
-start amlodipine
#Hypokalemia
-monitor and replete
Collagenous Colitis
- Stable. No current / active symptoms.
- Patient takes PRN Lomotil - not Lamotrigine.
- Follow for any GI symptoms.
s/p R TSA
- Surgery was now > 1 month ago.
- PT / OT evaluations.
- Site is well-appearing.
DVT Prophylaxis: HSQ
Code Status: Full
Total time spent on today's encounter was 51 minutes which included time spent in counseling the patient/family regarding diagnosis and treatment plan as listed above, goals of care, and symptom management. Case was discussed with nursing staff,
specialists, and care coordinators/case management. All labs and imaging personally reviewed by me. Remainder the time spent in detailed review of previous records, lab data, imaging, and other medical provider documentation.
Anticipated Discharge: > 48 hours
Subjective/Interval History
-
Date of Service: November 15, 2023
Still altered this morning
Objective Data
-
Labs:
Laboratory Results
11/15/23
05:33
WBC 10.9 H
Hgb 12.2
Hct 35.4 L
Plt Count 311
Vital Signs:
Vital Signs
Temp Pulse Resp BP Pulse Ox
98.7 F 78 16 155/73 95
11/15/23 07:10 11/15/23 08:53 11/15/23 07:10 11/15/23 08:53 11/15/23 07:10
I&O
11/14/23 11/15/23 11/16/23
06:59 06:59 06:59
Intake Total 1320 / 1320 600 / 600
Output Total 4 / 4
Balance 1320 / 1320 596 / 596
Review of Systems
-
History Source: Patient
All other systems: Not reviewed unless documented
Data Reviewed
-
Diagnostic Radiology: Image personally visualized and interpreted and Report Reviewed by me
CT Scan: Image personally visualized and interpreted and Report Reviewed by me
Labs: Labs Reviewed by me
[2023-11-15 15:33] VITALS: BP 155/73
[2023-11-15 16:17] LABS: Urine Albumin Trace (Neg - Trace); Urine Bilirubin Negative (Negative); Urine Character Clear (Clear); Urine Color Yellow; Urine Glucose Negative (Negative); Urine Ketone 3+ (Negative); Urine Leukocyte Negative (Negative); Urine Nitrite Negative (Negative); Urine Occult Blood Negative (Negative); Urine Specific Gravity 1.015 (<1.030); Urine Urobilinogen Negative (Neg - 1+)
[2023-11-15 16:24] LABS: Blood Urea Nitrogen 15 mg/dl (7-17); Calcium 9.7 mg/dl (8.4-10.2); Carbon Dioxide 26 mmol/L (22-30); Chloride 93 mmol/L (98-107); Estimated Creatinine Clearance 76 ml/min; Glucose 132 mg/dl (70-99); Sodium 133 mmol/L (135-145); eGFR > 60.00
[2023-11-15] MEDS: KCL ELIXIR 40 MEQ PO ×2 (16:47→20:21)
[2023-11-15 19:30] VITALS: BP 149/81
[2023-11-15 23:12] VITALS: BP 166/88
[2023-11-16] VITALS (8 sets, daily range): BP systolic 122–160; BP diastolic 70–82
[2023-11-16] MEDS: HEPARIN SC (00:32)
--- NOTE | 2023-11-16 05:40 | PTCARENOTE ---
Pt hr in 160's while using the bathroom and became symptomatic with SOB, lightheadedness, and appeared flushed. Pt denies chest pain and palpitations. RN assisted pt into the bed. Pt bp 122/77, sating 97% on room air, resp 24. After pt laid down bp
139/74, hr 112, resp 22, sating 98% on room air. Pt stated she is feeling better now. Pt is resting comfortably w/ call eric within reach.
[2023-11-16 08:06] LABS: Hematocrit 38.6 % (37.0-47.0); Hemoglobin 13.1 g/dL (12.0-16.0); Mean Corp Hgb Conc. 33.9 g/dL (33.0-37.0); Mean Corpuscular Volume 88.5 fL (81.0-99.0); Mean Platelet Volume 10.9 fL (7.4-10.4); Platelet Count 253 10^3/uL (130-400); Red Blood Cell Count 4.36 10^6/uL (4.20-5.40); Red Cell Dist. Width 12.3 % (11.5-14.5); White Blood Cell Count 9.7 10^3/uL (4.8-10.8)
[2023-11-16 08:18] LABS: ALT (SGPT) 16 U/L (0-35); AST (SGOT) 31 U/L (14-36); Albumin 4.1 g/dl (3.5-5.0); Alkaline Phosphatase 86 U/L (38-126); Blood Urea Nitrogen 10 mg/dl (7-17); Calcium 9.6 mg/dl (8.4-10.2); Carbon Dioxide 26 mmol/L (22-30); Chloride 97 mmol/L (98-107); Estimated Creatinine Clearance 76 ml/min; Glucose 107 mg/dl (70-99); Potassium 3.4 mmol/L (3.5-5.1); Sodium 133 mmol/L (135-145); Total Bilirubin 0.7 mg/dl (0.2-1.3); Total Protein 6.7 g/dl (6.3-8.2); eGFR > 60.00
[2023-11-16] MEDS: NORVASC 10 MG PO (08:50)
[2023-11-16] MEDS: ASPIR LOW (ENTERIC COATED) 81 MG PO (08:50)
[2023-11-16] MEDS: NEURONTIN 100 MG PO ×3 (08:51→22:28)
[2023-11-16] MEDS: HEPARIN 5000 UNITS SC ×2 (08:51→16:29)
[2023-11-16] MEDS: PROTONIX IV 40 MG IV (08:51)
[2023-11-16] MEDS: NSS (PRESERVATIVE FREE) 10 ML IV (08:51)
[2023-11-16] MEDS: KCL ELIXIR 40 MEQ PO (08:53)
--- NOTE | 2023-11-16 08:56 | W.PN.NEURO.1 ---
Today's Communication / Plan
-
Recheck of MRI of brain with and without at 72 hours to compare (November 17, 2023)
If CSF remains not supportive of infection and unrevealing would pursue brain biopsy for diagnosis, with neurosurgical consultation
Neuro Assessment/Plan
Assessment
Impressions
Confusion is highly likely due to right parietal lobe brain lesion of unclear etiology at this time. My highest concerns are encephalitis or neoplasm. Subacute infarct would be on imaging differential diagnosis but patient does not seem to have a
corresponding history of an acute neurological change in the past few weeks thus the clinical history does not seem supportive of an ischemic stroke. The abnormality is restricted to one side so not at all consistent with PRES/hypertensive
encephalopathy.
Lumbar puncture not currently unrevealing, awaiting results
Not typical for an HSV encephalitis and no fever, headache, leukocytosis
CT of chest, abdomen, and pelvis no clearly metastatic lesion
Plan
Recommendations:
Recheck of MRI of brain with and without at 72 hours to compare (November 17, 2023)
If CSF remains not supportive of infection and unrevealing would pursue brain biopsy for diagnosis, with neurosurgical consultation
Discontinued ceftriaxone due to absence of meningitis
Initiated low-dose aspirin due to prior evidence of lacunar stroke
Check lipid profile
We will follow
Subjective/Objective
Subjective Data
Date of Service: November 16, 2023
No change to confusion.
Objective Data
Vital Signs
Temp Pulse Resp BP Pulse Ox
36.9 C 73 16 153/74 97
11/16/23 07:49 11/16/23 07:49 11/16/23 07:49 11/16/23 07:49 11/16/23 07:49
Lab Results
11/16/23 06:27
11/16/23 06:27
PT 14.2 Sec (11.4-14.6) 11/14/23 14:46
INR 1.12 11/14/23 14:46
Sodium 133 mmol/L (135-145) L 11/16/23 06:27
Potassium 3.4 mmol/L (3.5-5.1) L 11/16/23 06:27
BUN 10 mg/dl (7-17) 11/16/23 06:27
Glucose 107 mg/dl (70-99) H 11/16/23 06:27
Calcium 9.6 mg/dl (8.4-10.2) 11/16/23 06:27
Phosphorus 3.6 mg/dl (2.5-4.5) 11/14/23 07:35
LDL Cholesterol, Calc 122 mg/dl 11/15/23 13:33
Ur Buprenorphine Negative (Negative) 11/12/23 23:55
Patient Allergies
Sulfa (Sulfonamide Antibiotics) Allergy (Verified 11/12/23 01:57)
Hives
Review of Systems
-
Unable to obtain full review of systems at this time due to: Other (confusion)
History Source: Patient
All other systems: Reviewed and negative
EENT: Negative Decreased Vision
Neuro: Negative Dizzy or Headache
Physical Exam
-
General: No Apparent Distress and Appears Stated Age
Eyes: Round OU, [place] Conjunctivae and No Ptosis
HEENT: Anicteric and Moist Mucous Membranes
Neck: Full Range of Motion
Respiratory: No Dyspnea
Cardiac: No JVD
GI: Non-distended
Skin: Unremarkable
Extremities: No Clubbing, No Cyanosis and No Edema
Psych: Intact Judgement/Insight
Extended Neurological Exam
Mood & Affect: Mood Unremarkable and Affect Unremarkable
Attention Span & Concentration: Awake, Alert, Interactive and Mild Difficulty with 2 Step Request
Memory: Able to Recall (current location), Reduced (month, year) and Unable to Recall Personal History
Tremor: Head Tremor Absent, Distal, Amplitude (low) and With Action; Negative At Rest
Speech: Quality Unremarkable and Quantity Unremarkable
Cranial Nerve II: Left Eye: Pupillary Size Unremarkable and Visual Wong Grossly Intact
Cranial Nerve II: Right Eye: Pupillary Size Unremarkable and Visual Wong Grossly Intact
Cranial Nerves III, IV, : Extraocular Movement: Grossly Intact
Cranial Nerve VII: Facial Symmetry: Normal Facial Symmetry
Cranial Nerve VIII: Hearing: Unremarkable Hearing to Normal Conversational Volume
Cranial Nerve XI: Shoulder Shrug: Unremarkable
Muscle Strength, Overall: Full in Upper Extremities
Muscle Bulk & Tone: Bulk Unremarkable and Tone Unremarkable
Pronator Drift: No Drift in Upper Extremities
Coordination: [id number] Testing Unremarkable
Data Reviewed
-
Labs: Report Reviewed
Reviewed with: Patient and Family (at year)
Old Records: Summarized
Past History
Past History
ED Past Medical History: Psychiatric (Anxiety) and Other (Back problems. Colitis, UTI, Vertigo, Lyme, Chronic fatigue, R parietal lesion)
ED Past Surgical History: Orthopedic (Left hip replacement) and Other (Multiple breast surgery, Adenoid removed, Deviated septum)
Patient has exhibited threatening behavior?: No
PSI?: No
Social History
Tobacco: Non-smoker
Alcohol: Occasional
Drug: None
Personal:
Living: with family
Employment: Employed
Medications
-
Medications:
Generic Name Dose Route Start Last Admin
Trade Name Freq PRN Reason Stop Dose Admin
Acetaminophen 650 mg 11/12/23 10:09 11/14/23 19:47
Acetaminophen 325 Mg Tablet PO 12/10/23 10:08 650 mg
Q4HPRN PRN Administration
Mild Pain / Temp > 101
Amlodipine Besylate 10 mg 11/14/23 10:00 11/16/23 08:50
Amlodipine 10 Mg Tablet PO 12/12/23 09:59 10 mg
DAILY FRANK Administration
Aspirin 81 mg 11/15/23 14:00 11/16/23 08:50
Aspirin 81 Mg (Enteric Coated) Tablet PO 12/13/23 13:59 81 mg
DAILY FRANK Administration
Gabapentin 100 mg 11/12/23 10:09 11/16/23 08:51
Gabapentin 100 Mg Capsule PO 12/10/23 10:08 100 mg
TID FRANK Administration
Heparin Sodium 5,000 units 11/12/23 16:00 11/16/23 08:51
Heparin 5,000 Units/Ml 1 Ml Vial SC 12/10/23 15:59 5,000 units
Q8 FRANK Administration
Ketorolac Tromethamine 15 mg 11/12/23 10:09 11/13/23 21:52
Ketorolac 15 Mg/Ml Injection IV 11/17/23 10:08 15 mg
Q6HPRN PRN Administration
Moderate Pain
Pantoprazole Sodium 40 mg 11/13/23 15:00 11/16/23 08:51
Pantoprazole Sodium 40 Mg/10 Ml Vial IV 12/11/23 14:59 40 mg
DAILY FRANK Administration
Sodium Chloride 0 flush 11/12/23 11:00
Sodium Chloride 0.9% (Flush) Syringe IV 12/10/23 10:59
PER PROTOCOL FRANK
Sodium Chloride 10 ml 11/13/23 15:00 11/16/23 08:51
Sodium Chloride 0.9% (Preservative Free) 10 Ml Vial IV 12/11/23 14:59 10 ml
DAILY FRANK Administration
Tizanidine HCl 2 mg 11/14/23 03:29
Tizanidine 2 Mg Tablet PO 12/12/23 03:28
Q6HPRN PRN
restlessness,agitation,anxiety
--- NOTE | 2023-11-16 10:22 | CM ---
Patient seen , reports she is feeling much better today, was not aware she was in hospital. inquiring about potential home care/VN needs. CM will continue to follow for all discharge planning needs.
Plan; per PT, no skilled need, watch for home care/VN needs upon discharge.
--- NOTE | 2023-11-16 13:10 | W.PN.HOSP.TC ---
Today's Communication/Plan
-
f/u csf cultures, cytology
anticipate repeat MRI brain
NSG consultation for brain bx
Assessment / Plan
Assessment / Plan
Physical Exam
General: Other (68y F in no acute distress.)
HEENT: Moist mucous membranes and PERRLA
Respiratory: Clear; No Wheezes, Rales or Rhonchi
Cardiac: S1/S2 and Regular Rhythm; No Murmur
GI: Soft, Non Tender, Non Distended and Normal Bowel Sounds
Genito-urinary: No costovertebral tender
Musculoskeletal: No Clubbing, No Cyanosis, No Edema and Other (R shoulder incision healing well. No significant bleeding, ecchymosis, etc.)
Neuro: Other (Awake and alert. Mildly confused re: presenting details.)
A/P: Patient is a 68y F with PMH significant for chronic pain and chronci anxiety on multiple medications who presents to ED for evaluation of confusion.
Acute TME
-Most likely 2/2 neurological pathology v less likely UTI
-Head CT with parietal involvement - possible cytotoxic or vasogenic edema
-Confusion is highly likely due to right parietal lobe brain lesion of unclear etiology at this time. Concern is Encephalitis v tumor
-No clear Evidence of infection on LP; f/u cultures and cyto
-CT C/A/P to eval for malignancy - negative
-neurology consulted; will need to engage NSG
-Possible repeat MRI in 72 hours
Chronic Pain Syndrome
Chronic Anxiety
Chronic Opioid Dependence
-Hold nacrotics, sedatives
- Hold sedating meds acutely.
- Follow for continued clinical improvement.
#Asymptomatic Bacteruria
-Encephalopathy unlikely due to urine in setting of MRI findings (mental status has been waxing and waning)
� Received 3 days of antibiotics (Ceftriaxone)
� Follow-up repeat UA : negative
-Patient does not have UTI symptoms
Nausea/vomiting
� possibly 2/2 to neurological disease
- PPI, Zofran
-kub unremarkable
#Hyponatremia
-mild
ctm
#Hypertension
-start amlodipine
#Hypokalemia
-monitor and replete
Collagenous Colitis
- Stable. No current / active symptoms.
- Patient takes PRN Lomotil - not Lamotrigine.
- Follow for any GI symptoms.
s/p R TSA
- Surgery was now > 1 month ago.
- PT / OT evaluations.
- Site is well-appearing.
DVT Prophylaxis: HSQ
Code Status: Full
Total time spent on today's encounter was 52 minutes which included time spent in counseling the patient/family regarding diagnosis and treatment plan as listed above, goals of care, and symptom management. Case was discussed with nursing staff,
specialists, and care coordinators/case management. All labs and imaging personally reviewed by me. Remainder the time spent in detailed review of previous records, lab data, imaging, and other medical provider documentation.
Anticipated Discharge: > 48 hours
Subjective/Interval History
-
Date of Service: November 16, 2023
no changes
Objective Data
-
Labs:
Laboratory Results
11/16/23
06:27
WBC 9.7
Hgb 13.1
Hct 38.6
Plt Count 253
Sodium 133 L
Potassium 3.4 L
Chloride 97 L
Carbon Dioxide 26
BUN 10
Creatinine 0.5 L
Glucose 107 H
Calcium 9.6
Total Bilirubin 0.7
AST 31
ALT 16
Alkaline Phosphatase 86
Vital Signs:
Vital Signs
Temp Pulse Resp BP Pulse Ox
99.1 F 77 22 155/80 97
11/16/23 11:57 11/16/23 11:39 11/16/23 11:39 11/16/23 11:39 11/16/23 11:39
I&O
11/15/23 11/16/23 11/17/23
06:59 06:59 06:59
Intake Total 600 / 600 1440 / 1440
Output Total 153 / 153
Balance 596 / 596 1287 / 1287
Review of Systems
-
History Source: Patient
All other systems: Not reviewed unless documented
Data Reviewed
-
Diagnostic Radiology: Image personally visualized and interpreted and Report Reviewed by me
CT Scan: Image personally visualized and interpreted and Report Reviewed by me
Labs: Labs Reviewed by me
[2023-11-16] MEDS: TYLENOL 650 MG PO (22:29)
[2023-11-17] VITALS (7 sets, daily range): BP systolic 143–179; BP diastolic 76–97
[2023-11-17] MEDS: HEPARIN 5000 UNITS SC ×4 (00:58→23:36)
[2023-11-17 06:41] LABS: Hematocrit 35.1 % (37.0-47.0); Hemoglobin 12.3 g/dL (12.0-16.0); Mean Corpuscular Hgb 30.4 pg (27.0-31.0); Mean Corpuscular Volume 86.7 fL (81.0-99.0); Mean Platelet Volume 10.6 fL (7.4-10.4); Platelet Count 285 10^3/uL (130-400); Red Blood Cell Count 4.05 10^6/uL (4.20-5.40); Red Cell Dist. Width 12.3 % (11.5-14.5); White Blood Cell Count 9.4 10^3/uL (4.8-10.8)
[2023-11-17 06:50] LABS: ALT (SGPT) 15 U/L (0-35); AST (SGOT) 26 U/L (14-36); Albumin 3.6 g/dl (3.5-5.0); Alkaline Phosphatase 80 U/L (38-126); Blood Urea Nitrogen 11 mg/dl (7-17); Carbon Dioxide 27 mmol/L (22-30); Chloride 98 mmol/L (98-107); Estimated Creatinine Clearance 76 ml/min; Glucose 98 mg/dl (70-99); Potassium 2.7 mmol/L (3.5-5.1); Sodium 134 mmol/L (135-145); Total Bilirubin 0.5 mg/dl (0.2-1.3); eGFR > 60.00
[2023-11-17] MEDS: KCL 40 MEQ PO (07:49)
--- NOTE | 2023-11-17 08:12 | W.PN.NEURO.1 ---
Addendum entered and electronically signed by Jacob Canseco MD 11/17/23 14:28:
Additionally I feel can cancel neurosurgery consult given with more clear picture of a likely subacute ischemic stroke I would not pursue any type of brain biopsy.
Addendum entered and electronically signed by Jacob Canseco MD 11/17/23 14:27:
I saw and evaluate the patient reviewed note by Michelle Quick agree to find the following comments:
68 woman who presented to hospital initially with confusion was thought to be urinary tract infection based on abnormal urinalysis and abnormal mental status, she received treatment with IV ceftriaxone and then neurology was consulted given abnormal
findings on CT head noncontrast in the right parietal lobe area.
Patient's has not seen any sudden unusual change in her mental status in the time period of more than a week ago. No unusual headaches or head or neck trauma no history of stroke or TIA. Patient did have significantly elevated blood
pressure early on in her hospital course to 190s and low 200s at the highest systolic.
Neurologic examination remains unchanged patient is awake and alert and has some insight but still has difficulty with complex concepts and recent events, no overt neglect no cranial nerve or motor asymmetries.
CSF from lumbar puncture showed normal white blood cells no elevated protein no findings of growth from culture and negative Gram stain CSF [employer] meningitis/encephalitis panel was negative. Patient with no fever or systemic leukocytosis here.
Repeated brain MRI does show 2 areas of acute infarct around the right parietal lobe abnormality. No areas of hemorrhage are seen.
Assessment: Repeated brain MRI gives a more clear picture that this is probably a subacute ischemic stroke as cause of patient's mental status changes. Elevated blood pressure early on in the hospital course is also supportive of this type of
pathology. The more recent small acute ischemic strokes may have led to her more noticeable change in mental status recently. CSF testing has not suggested any type of infectious process.
Stroke etiology is probably embolic, atheroembolic versus cardioembolic.
Discussed with patient's over the phone the repeated MRI brain has pointed towards stroke and away from neoplasm as cause, reviewed with him my thoughts on that there have not been any data to suggest infection in the brain given normal CSF
and no white blood cell count systemic circulation or fever, he had great concern over a previous instance of confusion associated with a foot infection back in 2010.
Recommendations
-NIH and neurologic checks
-Start aspirin 81 mg daily, not going to recommend DAPT at this point
-Check lipid panel and hemoglobin A1c
-Continue monitoring cardiac telemetry
-Check carotid ultrasound and transthoracic echocardiogram
-Speech physical Occupational Therapy evaluations
Original Note:
Documented by User: Michelle Hernandez NP 11/17/23 13:54
Today's Communication / Plan
-
.
Neuro Assessment/Plan
Assessment
Impressions
Confusion is possibly due to subacute right parietal infarct on imaging but patient does not seem to have a corresponding history of an acute neurological change in the past few weeks, the clinical history is less supportive of an ischemic stroke.
CSF is not suggestive of an infectious process. Some concern for neoplasm, but less concern now based on repeat MRI brain imaging. The abnormality is restricted to one side so not at all consistent with PRES/hypertensive encephalopathy.
Lumbar puncture unremarkable, final cultures pending.
Not typical for an HSV encephalitis and no fever, headache, leukocytosis.
CT of chest, abdomen, and pelvis no clearly metastatic lesion.
Repeat MRI brain mostly unchanged but slightly more suggestive of ischemic stroke than prior imaging.
Plan
-Initiated low-dose aspirin due to prior evidence of lacunar stroke, possible new stroke.
-Discontinued ceftriaxone due to absence of meningitis.
-Neurosurgery consultation to discuss potential brain biopsy.
-Goal normotension.
-LDL goal <70. LDL is 122. Initiate atorvastatin 40mg daily for stroke prevention.
-Goal normoglycemia, hbA1c pending.
-NIHSS and neurological checks per unit guidelines.
-Provide patient/family with a stroke education packet.
-PT/OT/ST evaluations.
-DVT prophylaxis.
Subjective/Objective
Subjective Data
Date of Service: November 17, 2023
No acute events overnight. Patient denies any headache, dizziness, speech/swallow difficulty, numbness, weakness, chest pain, palpitations, and shortness of breath.
Objective Data
Vital Signs
Temp Pulse Resp BP Pulse Ox
98.6 F 75 16 148/76 97
11/17/23 07:00 11/17/23 07:00 11/17/23 07:00 11/17/23 07:00 11/17/23 07:00
Lab Results
11/17/23 05:30
PT 14.2 Sec (11.4-14.6) 11/14/23 14:46
INR 1.12 11/14/23 14:46
Sodium 134 mmol/L (135-145) L 11/17/23 05:30
Potassium 2.7 mmol/L (3.5-5.1) L* 11/17/23 05:30
BUN 11 mg/dl (7-17) 11/17/23 05:30
Glucose 98 mg/dl (70-99) 11/17/23 05:30
Calcium 9.0 mg/dl (8.4-10.2) 11/17/23 05:30
Phosphorus 3.6 mg/dl (2.5-4.5) 11/14/23 07:35
LDL Cholesterol, Calc 122 mg/dl 11/15/23 13:33
Ur Buprenorphine Negative (Negative) 11/12/23 23:55
Patient Allergies
Sulfa (Sulfonamide Antibiotics) Allergy (Verified 11/12/23 01:57)
Hives
Review of Systems
-
History Source: Patient
EENT: Negative Blurry Vision, Decreased Vision or Swallowing Difficulty
Respiratory: Negative Cough or Trouble Breathing
Cardiac: Negative Chest Pain or Palpitations
Abdomen/GI: Nausea
Neuro: Negative Dizzy, Headache, Weakness, Numbness, Ataxia, Tremors or Speech Problem
Physical Exam
-
General: No Apparent Distress
Eyes: No Ptosis and PERRLA
HEENT: Normocephalic and Atraumatic
Neck: Full Range of Motion
Respiratory: No Dyspnea
GI: Non-distended
Extremities: No Clubbing, No Cyanosis and No Edema
Psych: Confused
Extended Neurological Exam
Mood & Affect: Mood Unremarkable and Affect Unremarkable
Attention Span & Concentration: Awake, Alert, Interactive and Mild Difficulty with 2 Step Request
Memory: Reduced (oriented to name and place, not time, situation, or recent events)
Tremor: Hand Tremor Absent and Head Tremor Absent
Involuntary Movement: None
Speech: Quality Unremarkable, Quantity Unremarkable and Rate of Production Unremarkable
Cranial Nerve II: Left Eye: Pupillary Reactivity Unremarkable, Pupillary Size Unremarkable and Visual Wong Intact
Cranial Nerve II: Right Eye: Pupillary Reactivity Unremarkable, Pupillary Size Unremarkable and Visual Wong Intact
Cranial Nerves III, IV, : Extraocular Movement: Extraocular Movement Full in all Directions
Cranial Nerve VII: Facial Symmetry: Normal Facial Symmetry
Cranial Nerve VIII: Hearing: Unremarkable Hearing to Normal Conversational Volume
Cranial Nerves IX, X: Palate Movement: Palate Elevation Symmetric
Cranial Nerve XI: Shoulder Shrug: Unremarkable
Cranial Nerve XII: Tongue Protusion: Midline
Muscle Strength, Overall: Full Throughout
Muscle Bulk & Tone: Bulk Unremarkable and Tone Unremarkable
Pronator Drift: No Drift in Upper Extremities and No Drift in Lower Extremities
Coordination: Cohusj-ykwx-alyowf Testing Unremarkable
Data Reviewed
-
MRI Head: Report Reviewed and Image Reviewed
Medical Test Reports: Report Reviewed (CSF)
Labs: Report Reviewed
Lipid Profile: Report Reviewed
HgbA1C: Report Reviewed
Reviewed with: Physician, Patient and Family
NIH Stroke Score
Subsequent NIH Scale
Date of Subsequent NIH Scale: 11/17/23
Time of Subsequent NIH Scale: 09:45
NIH Stroke Score
Level of Consciousness: 0 - Alert
LOC Questions: 2-Neither correct
LOC Commands: 0-Performs both correctly
Best Horizontal Gaze: 0-Normal
Visual Wong: 0=Normal, no visual loss
Facial Palsy: 0=Normal, symmetrical
Motor - Right Arm: 0=No drift 10 seconds
Motor - Left Arm: 0=No drift 10 seconds
Motor - Right Le-No drift 5 seconds
Motor - Left Le-No drift 5 seconds
Limb Ataxia: 0-Absent
Sensation: 0-Normal
Best Language: 0-No aphasia
Dysarthria: 0-Normal
Extinction and Inattention: 0-No abnormality
Total Score:: 2
Modified [place] (mRS) Score
Modified [place] Scale (mRS): Moderate disability. Requires some help, able to walk unassisted.
Score: 3

Documented by User: Jacob Canseco MD 11/17/23 14:21
NIH Stroke Score
NIH Stroke Score
Total Score:: 2
Modified [place] (mRS) Score
Score: 3
[2023-11-17] MEDS: KCL 260 MEQ IV (09:25)
[2023-11-17] MEDS: NORVASC 10 MG PO (09:25)
[2023-11-17] MEDS: NEURONTIN 100 MG PO ×3 (09:25→21:33)
[2023-11-17] MEDS: PROTONIX IV 40 MG IV (09:26)
[2023-11-17] MEDS: NSS (PRESERVATIVE FREE) 10 ML IV (09:26)
[2023-11-17] MEDS: ASPIR LOW (ENTERIC COATED) 81 MG PO (09:26)
[2023-11-17 10:08] LABS: Magnesium 2.2 mg/dl (1.6-2.3)
--- NOTE | 2023-11-17 12:03 | W.PN.HOSP.TC ---
Addendum entered and electronically signed by Luanne Lincoln MD 11/17/23 12:11:
Hypokalemia
-replete and recheck
Original Note:
Today's Communication/Plan
-
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
F/U neurosurgery recommendations
Assessment / Plan
Assessment / Plan
Physical Exam
General: Other (68y F in no acute distress.)
HEENT: Moist mucous membranes and PERRLA
Respiratory: Clear; No Wheezes, Rales or Rhonchi
Cardiac: S1/S2 and Regular Rhythm; No Murmur
GI: Soft, Non Tender, Non Distended and Normal Bowel Sounds
Genito-urinary: No costovertebral tender
Musculoskeletal: No Clubbing, No Cyanosis, No Edema and Other (R shoulder incision healing well. No significant bleeding, ecchymosis, etc.)
Neuro: Other (Awake and alert. confused
MRI
IMPRESSION:
1. Tiny 3 mm acute ischemic infarct in the posterior right frontal lobe centrum semiovale which appears unchanged.
2. Large 6.7 cm region of cortical hernadez matter and subcortical white matter signal abnormality in the posterior right parietal and occipital lobes which appears similar to 11/14/2023. A SUBACUTE TRANSCORTICAL ISCHEMIC INFARCT is considered most
likely. Alternative diagnostic possibilities are posterior reversible encephalopathy syndrome (PRES), vasculitis, or a primary brain tumor.
3. Mild white matter leukoaraiosis in both frontal lobes.
4. 6.7 mm chronic lacunar infarct in the left thalamus.
5. Mild diffuse cerebral and cerebellar volume loss.
6. Severe discogenic degenerative disease at C3/C4 with a large disc-osteophyte complex causing mild to moderate spinal cord compression and central canal stenosis.
A/P: Patient is a 68y F with PMH significant for chronic pain and chronci anxiety on multiple medications who presents to ED for evaluation of confusion.
Acute TME with finding of right parietal lobe lesion on MRI
-Head CT with parietal involvement - possible cytotoxic or vasogenic edema
-No clear Evidence of infection on LP; f/u cultures and cyto
-CT C/A/P to eval for malignancy - negative
-neurology consulted; Neurosurgery consulted
Chronic Pain Syndrome
Chronic Anxiety
Chronic Opioid Dependence
- confirmed patient was taking Xanax 1mg QID for 2-3 years
-will resume at lower dosing to prevent withdrawal - 0.5mg TID with as needed on board
-pain seems to be controlled; will add on lower dose oxycodone
#Asymptomatic Bacteruria
-Encephalopathy unlikely due to urine in setting of MRI findings (mental status has been waxing and waning)
� Received 3 days of antibiotics (Ceftriaxone)
� Follow-up repeat UA : negative
-Patient does not have UTI symptoms
Nausea/vomiting
� possibly 2/2 to neurological disease
- PPI, Zofran
-kub unremarkable
#Hyponatremia
-mild
ctm
#Hypertension
-start amlodipine
#Hypokalemia
-monitor and replete
Collagenous Colitis
- Stable. No current / active symptoms.
- Patient takes PRN Lomotil - not Lamotrigine.
- Follow for any GI symptoms.
s/p R TSA
- Surgery was now > 1 month ago.
- PT / OT evaluations.
- Site is well-appearing.
DVT Prophylaxis: HSQ
Code Status: Full
Total time spent on today's encounter was 52 minutes which included time spent in counseling the patient/family regarding diagnosis and treatment plan as listed above, goals of care, and symptom management. Case was discussed with nursing staff,
specialists, and care coordinators/case management. All labs and imaging personally reviewed by me. Remainder the time spent in detailed review of previous records, lab data, imaging, and other medical provider documentation.
Anticipated Discharge: > 48 hours
Subjective/Interval History
-
Date of Service: November 17, 2023
patient is confused
seen with at bedside
Objective Data
-
Labs:
Laboratory Results
11/17/23 11/17/23
05:30 14:00
WBC 9.4
Hgb 12.3
Hct 35.1 L
Plt Count 285
Sodium 134 L
Potassium 2.7 L* Pending
Chloride 98
Carbon Dioxide 27
BUN 11
Creatinine 0.5 L
Glucose 98
Calcium 9.0
Total Bilirubin 0.5
AST 26
ALT 15
Alkaline Phosphatase 80
Vital Signs:
Vital Signs
Temp Pulse Resp BP Pulse Ox
98.9 F 75 14 143/77 97
11/17/23 11:00 11/17/23 11:00 11/17/23 11:00 11/17/23 11:00 11/17/23 11:00
I&O
11/16/23 11/17/23 11/18/23
06:59 06:59 06:59
Intake Total 1440 / 1440 600 / 600
Output Total 153 / 153
Balance 1287 / 1287 600 / 600
Review of Systems
-
History Source: Patient
All other systems: Reviewed and negative
Data Reviewed
-
Diagnostic Radiology: Report Reviewed by me
Labs: Labs Reviewed by me
[2023-11-17] MEDS: XANAX 0.5 MG PO ×3 (12:35→21:33)
[2023-11-17 16:28] LABS: Potassium 3.4 mmol/L (3.5-5.1)
[2023-11-17] MEDS: KCL 20 MEQ PO (16:42)
[2023-11-17] MEDS: LIPITOR 40 MG PO (16:42)
[2023-11-18] VITALS (8 sets, daily range): BP systolic 123–158; BP diastolic 73–83; PULSE 83; O2SAT 98
[2023-11-18] MEDS: TYLENOL 650 MG PO ×4 (03:07→23:30)
[2023-11-18 05:16] LABS: CSF VDRL (T. pallidum) Non Reactive (Non Reactive)
[2023-11-18 05:37] LABS: Hematocrit 37.7 % (37.0-47.0); Hemoglobin 12.7 g/dL (12.0-16.0); Mean Corp Hgb Conc. 33.7 g/dL (33.0-37.0); Mean Corpuscular Volume 89.1 fL (81.0-99.0); Mean Platelet Volume 10.4 fL (7.4-10.4); Platelet Count 270 10^3/uL (130-400); Red Blood Cell Count 4.23 10^6/uL (4.20-5.40); Red Cell Dist. Width 12.4 % (11.5-14.5); White Blood Cell Count 10.2 10^3/uL (4.8-10.8)
[2023-11-18 06:04] LABS: HDL Cholesterol 67 mg/dl; LDL Cholesterol, Calculated 93 mg/dl; Total Cholesterol 178 mg/dl (50-199); Triglyceride 91 mg/dl (10-149); Very Low Density Lipoprotein 18 mg/dl (0-30)
[2023-11-18] MEDS: NEURONTIN 100 MG PO ×3 (07:59→21:09)
[2023-11-18] MEDS: NSS (PRESERVATIVE FREE) 10 ML IV (07:59)
[2023-11-18] MEDS: HEPARIN 5000 UNITS SC ×3 (07:59→23:30)
[2023-11-18] MEDS: NORVASC 10 MG PO (07:59)
[2023-11-18] MEDS: PROTONIX IV 40 MG IV (07:59)
[2023-11-18] MEDS: XANAX 0.5 MG PO ×3 (07:59→21:09)
[2023-11-18] MEDS: ASPIR LOW (ENTERIC COATED) 81 MG PO (07:59)
[2023-11-18 09:42] LABS: Glycohemoglobin (HgbA1c) 5.3 % (4.0-5.6)
--- NOTE | 2023-11-18 10:00 | PTOTSP ---
Speech Language Pathology
Pt seen for cognitive-linguistic evaluation. Evaluation completed via the Alexy Cognitive Assessment (MOCA), version 7.1. Pt with a score of 13/30 where normal range is 26-30. Mod-severe cognitive deficits noted.
Pt also seen for clinical bedside swallow evaluation. P.O. trials of regular solids and thin liquids provided. Adequate mastication, bolus formation, and A-P transit noted with no oral residue. No overt signs of aspiration.
Recommend:
(1) Continue regular solids/thin liquids
(2) Meds as tolerated
(3) Acute rehab given significant cognitive deficits post acute CVA with baseline independent functioning
(4) Reconsult PT/OT given findings of acute CVA with consideration for acute rehab
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
--- NOTE | 2023-11-18 10:06 | W.PN.HOSP.TC ---
Addendum entered and electronically signed by Luanne Lincoln MD 11/18/23 13:58:
UTI was ruled out
'
underweight
-appreciate dietary
Original Note:
Today's Communication/Plan
-
vascular surgery consult
Assessment / Plan
Assessment / Plan
Physical Exam
General: Other (68y F in no acute distress.)
HEENT: Moist mucous membranes and PERRLA
Respiratory: Clear; No Wheezes, Rales or Rhonchi
Cardiac: S1/S2 and Regular Rhythm; No Murmur
GI: Soft, Non Tender, Non Distended and Normal Bowel Sounds
Genito-urinary: No costovertebral tender
Musculoskeletal: No Clubbing, No Cyanosis, No Edema and Other (R shoulder incision healing well. No significant bleeding, ecchymosis, etc.)
Neuro: Other (Awake and alert. confused but appears more lucid this morning
MRI
IMPRESSION:
1. Tiny 3 mm acute ischemic infarct in the posterior right frontal lobe centrum semiovale which appears unchanged.
2. Large 6.7 cm region of cortical hernadez matter and subcortical white matter signal abnormality in the posterior right parietal and occipital lobes which appears similar to 11/14/2023. A SUBACUTE TRANSCORTICAL ISCHEMIC INFARCT is considered most
likely. Alternative diagnostic possibilities are posterior reversible encephalopathy syndrome (PRES), vasculitis, or a primary brain tumor.
3. Mild white matter leukoaraiosis in both frontal lobes.
4. 6.7 mm chronic lacunar infarct in the left thalamus.
5. Mild diffuse cerebral and cerebellar volume loss.
6. Severe discogenic degenerative disease at C3/C4 with a large disc-osteophyte complex causing mild to moderate spinal cord compression and central canal stenosis.
Cerebrovascular US:
IMPRESSION:
1. By velocity criteria, there is greater than 70% stenosis of the right internal carotid artery.
2. By velocity criteria, any left internal carotid artery stenosis present is in the range of 0-49%.
3. Antegrade flow bilateral vertebral arteries.
A/P: Patient is a 68y F with PMH significant for chronic pain and chronci anxiety on multiple medications who presents to ED for evaluation of confusion.
Acute TME with finding of right parietal lobe lesion on MRI with repeat more suggestive of subacute CVA
Right ICA Stenosis
-Head CT with parietal involvement - possible cytotoxic or vasogenic edema
-No clear Evidence of infection on LP
-CT C/A/P to eval for malignancy - negative
-neurology consult appreciated
-will consult Vascular given carotid US findings
-continue asa/statin
-F/U TTE
Chronic Pain Syndrome
Chronic Anxiety
Chronic Opioid Dependence
- confirmed patient was taking Xanax 1mg QID for 2-3 years
-will resume at lower dosing to prevent withdrawal - 0.5mg TID with as needed on board
-pain seems to be controlled; will add on lower dose oxycodone
#Asymptomatic Bacteruria
-Encephalopathy unlikely due to urine in setting of MRI findings (mental status has been waxing and waning)
� Received 3 days of antibiotics (Ceftriaxone)
� Follow-up repeat UA : negative
-Patient does not have UTI symptoms
Nausea/vomiting
� possibly 2/2 to neurological disease
- PPI, Zofran
-kub unremarkable
#Hyponatremia
-mild
ctm
#Hypertension
-start amlodipine
#Hypokalemia
-monitor and replete
Collagenous Colitis
- Stable. No current / active symptoms.
- Patient takes PRN Lomotil - not Lamotrigine.
- Follow for any GI symptoms.
s/p R TSA
- Surgery was now > 1 month ago.
- PT / OT evaluations.
- Site is well-appearing.
DVT Prophylaxis: HSQ
Code Status: Full
Total time spent on today's encounter was 52 minutes which included time spent in counseling the patient/family regarding diagnosis and treatment plan as listed above, goals of care, and symptom management. Case was discussed with nursing staff,
specialists, and care coordinators/case management. All labs and imaging personally reviewed by me. Remainder the time spent in detailed review of previous records, lab data, imaging, and other medical provider documentation.
Anticipated Discharge: 24 - 48 hours
Subjective/Interval History
-
Date of Service: November 18, 2023
seems more lucid this morning
seen with at bedside
Objective Data
-
Labs:
Laboratory Results
11/18/23
04:29
WBC 10.2
Hgb 12.7
Hct 37.7
Plt Count 270
Vital Signs:
Vital Signs
Temp Pulse Resp BP Pulse Ox
98.3 F 90 16 133/83 96
11/18/23 07:10 11/18/23 07:10 11/18/23 07:10 11/18/23 07:10 11/18/23 08:00
I&O
11/17/23 11/18/23 11/19/23
06:59 06:59 06:59
Intake Total 600 / 600 920 / 920
Balance 600 / 600 920 / 920
Review of Systems
-
History Source: Patient
All other systems: Reviewed and negative
Data Reviewed
-
Diagnostic Radiology: Discussed with Physician
Labs: Labs Reviewed by me
--- NOTE | 2023-11-18 10:33 | PN.CDI ---
CDI
- -
CDI:
Physician Documentation Request
Admit Date: 11/14/23 11:59
Dear Doctor Latonia,
Please review the following and provide your response in the progress notes.
Clinical Indicators:
Height: 5'7
Weight: 118
BMI: 18.6
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
If possible, please provide an associated diagnosis related to the abnormal BMI, such as:
Underweight
BMI is not significant
Other
Use of terms such as suspected, likely, concern for, or probable (associated with a specific diagnosis that is being evaluated, monitored, or treated as if it exists) are acceptable and can be coded in the inpatient setting, when documented at the
time of discharge.
Thank you,
Edin Graham RN
CDI Specialist
Please use your independent medical judgment in providing your response.
--- NOTE | 2023-11-18 10:48 | PN.CDI ---
CDI
- -
CDI:
Physician Documentation Request
Admit Date: 11/14/23 11:59
Dear Doctor Latonia,
Please review the following and provide your response in the progress notes.
Clinical Indicators:
The diagnosis of UTI was documented on 6/7 PN but is not consistently noted in subsequent documentation.
- 6/7 PN 'UTI , E-Coli'
- 11/16 PN 'Asymptomatic Bacteruria'
- 'Received 3 days of antibiotics (Ceftriaxone)'
- 'Patient does not have UTI symptoms'
Please clarify the following:
____ - UTI was present on admission and is now resolved.
____ - UTI was present on admission and is still being monitored, evaluated or treated
____ - UTI was ruled out
____ - UTI is still a likely, suspected, probable diagnosis
____ - Other
Use of terms such as suspected, likely, concern for, or probable (associated with a specific diagnosis that is being evaluated, monitored, or treated as if it exists) are acceptable and can be coded in the inpatient setting, when documented at the
time of discharge.
Thank you,
Edin Graham RN
CDI Specialist
Please use your independent medical judgment in providing your response.
--- NOTE | 2023-11-18 10:48 | CON.VAS ---
Addendum entered and electronically signed by Elvis Hill III, MD 11/18/23 17:27:
This patient was seen and examined with JEWELS Tate and Stephanie. I agree with the history and physical exam as well as the assessment and plan. I have the following additions:
68-year-old female with no reported risk factors for arterial disease-denies hypertension, hypercholesterolemia, diabetes and smoking history
Additional elements of the history obtained in a telephone conversation with the
brought her to the emergency department for overall confusion and bizarre behavior at home. No lateralizing symptoms. No known history of carotid stenosis. No known history of stroke.
Imaging workup including MRI reveals a small acute ischemic infarct in the posterior aspect of the right frontal lobe, a likely subacute infarct in the parietal/occipital lobe and a chronic lacunar infarct in the left thalamus.
Carotid duplex revealed velocity profile consistent with greater than 70% stenosis on the right.
CT angiogram obtained and demonstrates significant right internal carotid artery stenosis with soft plaque.
Currently patient only complaint is shoulder pain on the right with some right hand weakness that she attributes to chronic shoulder issues. She just had right shoulder surgery at the beginning of October.
On physical exam she is nontoxic-appearing
She is alert and oriented
Her neck is soft with no incisions and normal range of motion
Nonlabored breathing
Grossly nonfocal peripheral neuro exam
I discussed this case in detail with Dr. Canseco. I reviewed the CT angiogram images personally. I reviewed the carotid duplex personally. I reviewed the MRI.
I suspect that her right-sided subacute and acute infarcts are related to the right internal carotid artery stenosis. My recommendation is for right carotid intervention. Will plan for right CEA on this admission. Continue medical therapy. OR
11/21/2023
Call with questions or concerns
Signed:
Elvis Hill III, MD
[facility]
[phone] (cell)
Original Note:
Consultation
Consultation Request
Date/Time Consultation Performed: 11/18/2023 1330
Requesting Provider: Luanne Lincoln MD
Performing Provider: Zee Goodwin, SENIOR ARCHITECTURAL DESIGNER-C for Elvis Hill III, MD
Reason for Consultation: Carotid stenosis
Medical History
-
Chief Complaint: Confusion
History of Present Illness:
This is a 68-year-old right-handed female patient with significant past medical history of anxiety, degenerative joint disease, and chronic pain who presented to [facility] on 11/12/2023 for reports of acute onset of confusion which led to
admission for suspected UTI attributing to toxic metabolic encephalopathy. Subsequent hospital admission and workup included a brain MRI on 11/14/2023 which showed concern for right parietal lobe brain lesion of unclear etiology. This led to further
work up including a lumbar puncture for CSF analysis and then eventual repeat brain MRI on 11/17/2023, repeat brain MRI confirmed ischemic stroke as etiology for right parietal lobe signal abnormality. As part of ischemic stroke workup bilateral
carotid ultrasound duplex was obtained which demonstrated greater than 70% stenosis at right internal carotid artery. Currently, patient has had improvement in confusion and is awake alert oriented x 3. However, she cannot recall events that led
to her admission or details of any confusion. She does have a hard time continuing her train of thought during discussion and is repetitive. She denies unilateral weakness, aphasia, dysarthria, fever, chills, nausea, vomiting, chest pain,
shortness of breath, and vision loss. She does endorse some degree of right upper extremity paresthesia/pain but attributes that to her recent right shoulder replacement surgery done on 10/08/2023. She denies personal history of stroke but does note
familial history of stroke in her mother.
Past Medical History
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
Past Surgical History: Other (Left hip ORIF, tonsillectomy adenoidectomy, septoplasty, breast biopsy, right total shoulder replacement October 08, 2023)
Social History
Tobacco: Non-Smoker
Alcohol: None
Drug: None
Personal:
Living: With Family
Family History
Family History: Other (CVA mother)
Allergies / Home Medications
Allergy/AdvReac Type Severity Reaction Status Date / Time
Sulfa (Sulfonamide Allergy Hives Verified 11/12/23 01:57
Antibiotics)
�Medication �Instructions �Recorded �Confirmed �Type
ascorbic acid (vitamin C) 500 mg 500 mg PO DAILY Supplement 08/14/20 11/12/23 History
tablet (Vitamin C)
gabapentin 100 mg capsule 100 mg PO TID Pain 11/28/22 11/12/23 History
alprazolam 1 mg tablet 1 mg PO QIDPRN PRN anxiety 11/12/23 11/12/23 History
hydrocodone 10 mg-acetaminophen 1 tab PO Q6HPRN PRN severe pain 11/12/23 11/12/23 History
300 mg tablet
oxycodone 15 mg tablet 15 mg PO Q4HPRN PRN Post surgical 11/12/23 11/12/23 History
pain
vitamin B complex 1 cap PO DAILY Supplement 11/12/23 11/12/23 History
Review of Systems
-
Unable to obtain full review of systems at this time due to: Dementia
History Source: Patient
Constitutional: Reports No Symptoms
EENT: Reports No Symptoms
Respiratory: Reports No Symptoms
Cardiac: Reports No Symptoms
Abdomen/GI: Reports No Symptoms
: Reports No Symptoms
Musculoskeletal: Reports No Symptoms
Skin: Reports No Symptoms
Neurological: Reports Other (Confusion)
Physical Exam
Vital Signs
Temp Pulse Resp BP Pulse Ox
98.3 F 90 16 133/83 96
11/18/23 07:10 11/18/23 07:10 11/18/23 07:10 11/18/23 07:10 11/18/23 08:00
Lab Results
11/18/23 04:29
11/17/23 15:57
Troponin I 0.019 ng/ml 11/14/23 07:35
Physical Exam
General: No Apparent Distress and Comfortable
HEENT: Normocephalic, Anicteric and Atraumatic
Respiratory: Clear
Cardiac: Negative JVD
GI: Non Distended
Musculoskeletal: No Edema
Skin: Warm
Neuro: AO x 3 and Other (Patient cannot recall recent events that brought her to the hospital, easily loses train of thought)
Assessment / Plan
-
Assessment: 68-year-old female with confirmed ischemic strokes at posterior right frontal lobe, posterior right parietal/occipital, and left thalamus as evidence by MRI presenting on 11/12/2023 with chief complaint of confusion.
Plan:
Will obtain CT angio of head and neck to better visualize/quantify carotid stenosis
Surgical plan pending CTA results
I performed this shared service with the attending. I evaluated the patient [id number] and have entered clinical documentation as shown in the encounter note. I performed the following component(s): history and physical exam. Note that medical
decision making is not final until attested by vascular attending.
[2023-11-18 13:26] LABS: ANA, IgG Reflex to HEp-2 None Detected (None Detected)
[2023-11-18 14:50] LABS: Blood Urea Nitrogen 9 mg/dl (7-17); Calcium 9.2 mg/dl (8.4-10.2); Carbon Dioxide 22 mmol/L (22-30); Chloride 101 mmol/L (98-107); Estimated Creatinine Clearance 76 ml/min; Glucose 97 mg/dl (70-99); Potassium 3.5 mmol/L (3.5-5.1); Sodium 132 mmol/L (135-145); eGFR > 60.00
[2023-11-18 15:21] LABS: Varicella-Zoster Source Serum; Varicella-Zoster Virus by PCR Not Detected
--- NOTE | 2023-11-18 16:00 | CM ---
Pt at Cat scan .
requested PT OT reevaluate pt for possible acute rehab.
Spoke with [facility] .She will make Dr Goss aware.
Pt has Sergey and son .
PLAN Will depend on PT OT evals
[2023-11-18] MEDS: LIPITOR 40 MG PO (17:26)
[2023-11-19] VITALS (8 sets, daily range): BP systolic 130–152; BP diastolic 69–90; PULSE 113
[2023-11-19 00:17] LABS: Babesia microti IgG < 1:16 (< 1:16); Babesia microti IgM <1:20 (<1:20)
[2023-11-19] MEDS: TYLENOL 650 MG PO ×4 (04:46→20:47)
[2023-11-19 05:57] LABS: Blood Urea Nitrogen 10 mg/dl (7-17); Calcium 9.1 mg/dl (8.4-10.2); Carbon Dioxide 27 mmol/L (22-30); Chloride 100 mmol/L (98-107); Estimated Creatinine Clearance 76 ml/min; Glucose 96 mg/dl (70-99); Potassium 3.5 mmol/L (3.5-5.1); Sodium 135 mmol/L (135-145); eGFR > 60.00
[2023-11-19 06:33] LABS: Lyme Disease DNA by PCR Not Detected; Lyme Source Serum
[2023-11-19] MEDS: XANAX 0.5 MG PO ×3 (08:14→21:23)
[2023-11-19] MEDS: NORVASC 10 MG PO (08:14)
[2023-11-19] MEDS: ASPIR LOW (ENTERIC COATED) 81 MG PO (08:14)
[2023-11-19] MEDS: NSS (PRESERVATIVE FREE) 10 ML IV (08:15)
[2023-11-19] MEDS: NEURONTIN 100 MG PO ×3 (08:15→21:23)
[2023-11-19] MEDS: PROTONIX IV 40 MG IV (08:15)
[2023-11-19] MEDS: HEPARIN 5000 UNITS SC ×3 (08:16→23:11)
--- NOTE | 2023-11-19 10:29 | W.PN.HOSP.TC ---
Today's Communication/Plan
-
CEA Monday 11/20
Assessment / Plan
Assessment / Plan
Physical Exam
General: Other (68y F in no acute distress.)
HEENT: Moist mucous membranes and PERRLA
Respiratory: Clear; No Wheezes, Rales or Rhonchi
Cardiac: S1/S2 and Regular Rhythm; No Murmur
GI: Soft, Non Tender, Non Distended and Normal Bowel Sounds
Genito-urinary: No costovertebral tender
Musculoskeletal: No Clubbing, No Cyanosis, No Edema and Other (R shoulder incision healing well. No significant bleeding, ecchymosis, etc.)
Neuro: Other (Awake and alert. confused but appears more lucid this morning
MRI
IMPRESSION:
1. Tiny 3 mm acute ischemic infarct in the posterior right frontal lobe centrum semiovale which appears unchanged.
2. Large 6.7 cm region of cortical hernadez matter and subcortical white matter signal abnormality in the posterior right parietal and occipital lobes which appears similar to 11/14/2023. A SUBACUTE TRANSCORTICAL ISCHEMIC INFARCT is considered most
likely. Alternative diagnostic possibilities are posterior reversible encephalopathy syndrome (PRES), vasculitis, or a primary brain tumor.
3. Mild white matter leukoaraiosis in both frontal lobes.
4. 6.7 mm chronic lacunar infarct in the left thalamus.
5. Mild diffuse cerebral and cerebellar volume loss.
6. Severe discogenic degenerative disease at C3/C4 with a large disc-osteophyte complex causing mild to moderate spinal cord compression and central canal stenosis.
Cerebrovascular US:
IMPRESSION:
1. By velocity criteria, there is greater than 70% stenosis of the right internal carotid artery.
2. By velocity criteria, any left internal carotid artery stenosis present is in the range of 0-49%.
3. Antegrade flow bilateral vertebral arteries.
CT Angio Head/Neck:
IMPRESSION: Severe mixed soft and calcific plaque in the right carotid bulb resulting in focal approximate 74% stenosis of the proximal right internal carotid artery over a length of approximately 2 cm.
The left internal carotid artery is grossly patent with only mild calcific plaque in the carotid bulb resulting in less than 25% stenosis.
Bilateral hypoattenuating thyroid nodules measuring up to 1.1 cm on the left. Consider further evaluation with dedicated thyroid ultrasound if not previously performed.
A/P: Patient is a 68y F with PMH significant for chronic pain and chronci anxiety on multiple medications who presents to ED for evaluation of confusion.
Acute TME with finding of right parietal lobe lesion on MRI with repeat more suggestive of subacute CVA
Right ICA Stenosis seen on cerebrovascular US and CTA
-Head CT with parietal involvement - possible cytotoxic or vasogenic edema
-No clear Evidence of infection on LP
-CT C/A/P to eval for malignancy - negative
-neurology consult appreciated
-appreciate vascular surgery consult; plan for CEA on Friday
-continue asa/statin
-PT/OT - eventual [facility]
Chronic Pain Syndrome
Chronic Anxiety
Chronic Opioid Dependence
- confirmed patient was taking Xanax 1mg QID for 2-3 years
-will resume at lower dosing to prevent withdrawal - 0.5mg TID with as needed on board
-pain seems to be controlled; will add on lower dose oxycodone
#Asymptomatic Bacteruria
-Encephalopathy unlikely due to urine in setting of MRI findings (mental status has been waxing and waning)
� Received 3 days of antibiotics (Ceftriaxone)
� Follow-up repeat UA : negative
-Patient does not have UTI symptoms
Nausea/vomiting
� possibly 2/2 to neurological disease
- PPI, Zofran
-kub unremarkable
#Hyponatremia
-mild
ctm
#Hypertension
-start amlodipine
#Hypokalemia
-monitor and replete
Collagenous Colitis
- Stable. No current / active symptoms.
- Patient takes PRN Lomotil - not Lamotrigine.
- Follow for any GI symptoms.
s/p R TSA
- Surgery was now > 1 month ago.
- PT / OT evaluations.
- Site is well-appearing.
DVT Prophylaxis: HSQ
Code Status: Full
Total time spent on today's encounter was 52 minutes which included time spent in counseling the patient/family regarding diagnosis and treatment plan as listed above, goals of care, and symptom management. Case was discussed with nursing staff,
specialists, and care coordinators/case management. All labs and imaging personally reviewed by me. Remainder the time spent in detailed review of previous records, lab data, imaging, and other medical provider documentation.
Anticipated Discharge: > 48 hours
Subjective/Interval History
-
Date of Service: November 19, 2023
no new complaints
Objective Data
-
Labs:
Laboratory Results
11/19/23
04:43
Sodium 135
Potassium 3.5
Chloride 100
Carbon Dioxide 27
BUN 10
Creatinine 0.6
Glucose 96
Calcium 9.1
Vital Signs:
Vital Signs
Temp Pulse Resp BP Pulse Ox
98.7 F 84 16 149/70 95
11/19/23 07:10 11/19/23 08:14 11/19/23 07:10 11/19/23 08:14 11/19/23 07:10
I&O
11/18/23 11/19/23 11/20/23
06:59 06:59 06:59
Intake Total 920 / 920 1200 / 1200
Balance 920 / 920 1200 / 1200
Review of Systems
-
History Source: Patient
All other systems: Reviewed and negative
Data Reviewed
-
Diagnostic Radiology: Report Reviewed by me
Labs: Labs Reviewed by me
--- NOTE | 2023-11-19 13:05 | W.PN.NEURO.1 ---
Today's Communication / Plan
-
-Continue aspirin 81 mg daily and atorvastatin
-Goal normotension
-Discussed the prognosis and expect improvement although may be the slowing from the ischemic stroke, physical occupational speech therapies and plan for acute rehab following discharge
-Neurologic checks NIH stroke scale
-Cardiac telemetry
-Planning for right-sided carotid endarterectomy on Friday of this with
Neuro Assessment/Plan
Assessment
Impressions
Confusion is possibly due to subacute right parietal infarct on imaging but patient does not seem to have a corresponding history of an acute neurological change in the past few weeks, the clinical history is less supportive of an ischemic stroke.
CSF is not suggestive of an infectious process. Some concern for neoplasm, but less concern now based on repeat MRI brain imaging. The abnormality is restricted to one side so not at all consistent with PRES/hypertensive encephalopathy.
Lumbar puncture unremarkable, final cultures pending.
Not typical for an HSV encephalitis and no fever, headache, leukocytosis.
CT of chest, abdomen, and pelvis no clearly metastatic lesion.
Repeat MRI brain showing clearly there are acute ischemic strokes in right parietal area, these findings along with right ICA high grade 70% stenosis make it very likely that the observed abnormality is a subacute stroke which can often look similar
to neoplasm.Patient did not have any obvious change in mental status or neurologic function in the past couple of weeks highly suggestive of clinical stroke but an infarct of the right parietal lobe can often produce subtle symptoms that would be
missed and very hard to detect even for patient's close family.
Very likely we are dealing with a symptomatic right carotid stenosis
Subjective/Objective
Subjective Data
Date of Service: November 19, 2023
No acute events, patient still with some memory difficulties and confusion these symptoms are stable to improving, discussed stroke as cause, CEA, stroke prevention
Objective Data
Vital Signs
Temp Pulse Resp BP Pulse Ox
98.2 F 88 16 136/69 97
11/19/23 11:00 11/19/23 11:11/19/23 11:00 11/19/23 11:00 11/19/23 11:00
Lab Results
11/18/23 04:29
11/19/23 04:43
PT 14.2 Sec (11.4-14.6) 11/14/23 14:46
INR 1.12 11/14/23 14:46
Sodium 135 mmol/L (135-145) 11/19/23 04:43
Potassium 3.5 mmol/L (3.5-5.1) 11/19/23 04:43
BUN 10 mg/dl (7-17) 11/19/23 04:43
Glucose 96 mg/dl (70-99) 11/19/23 04:43
Calcium 9.1 mg/dl (8.4-10.2) 11/19/23 04:43
Phosphorus 3.6 mg/dl (2.5-4.5) 11/14/23 07:35
LDL Cholesterol, Calc 93 mg/dl 11/18/23 04:29
Ur Buprenorphine Negative (Negative) 11/12/23 23:55
Patient Allergies
Sulfa (Sulfonamide Antibiotics) Allergy (Verified 11/12/23 01:57)
Hives
LDL Level: >70, statin ordered
Review of Systems
-
History Source: Patient
All other systems: Reviewed and negative
Constitutional: No Symptoms
EENT: No Symptoms Reported
Respiratory: No Symptoms
Cardiac: No Symptoms
Abdomen/GI: No Symptoms
Genitourinary: No Symptoms
Musculoskeletal: No Symptoms
Skin: No Symptoms
Neuro: Speech Problem and See existing Neuro Note; Negative Headache or Weakness
Endocrine: No Symptoms
Hematologic / Lymphatic: No Symptoms
Allergy / Immunology: No Symptoms
Physical Exam
-
General: Comfortable
Eyes: No Ptosis
HEENT: Normocephalic
Neck: No Bruits Bilaterally
Respiratory: Clear to Auscultation
Cardiac: Regular Rhythm
GI: Normal Bowel Sounds
Skin: Unremarkable
Extremities: No Clubbing
Psych: Confused
Extended Neurological Exam
Mood & Affect: Mood Unremarkable and Affect Unremarkable
Attention Span & Concentration: Awake, Alert and Interactive
Memory: Reduced and Other (Difficulty with some recent memories)
Tremor: Hand Tremor Absent
Involuntary Movement: None
Speech: Quality Unremarkable and Quantity Unremarkable; Negative Expressive Aphasia, Receptive Aphasia or Dysarthric
Cranial Nerve II: Left Eye: Pupillary Reactivity Unremarkable, Pupillary Size Unremarkable and Visual Wong Intact
Cranial Nerve II: Right Eye: Pupillary Reactivity Unremarkable, Pupillary Size Unremarkable and Visual Wong Intact
Cranial Nerves III, IV, : Extraocular Movement: Extraocular Movement Full in all Directions
Muscle Strength, Overall: Full Throughout
Pronator Drift: No Drift in Upper Extremities
Deep Tendon Reflexes: Trace Throughout
Data Reviewed
-
CT-A: Report Reviewed and Image Reviewed
MRI Head: Report Reviewed and Image Reviewed
Labs: Report Reviewed
--- NOTE | 2023-11-19 15:32 | CM ---
Spoke with pt and in room.
Pt is for a carotid enterectomy Friday.
Will need PT OT evals reordered postop .
Will need to have PT OT evals for dc planning.
PLAN Will depend on postop PT OT evals
[2023-11-19] MEDS: LIPITOR 40 MG PO (16:56)
[2023-11-20 03:23] VITALS: BP 143/78
[2023-11-20] MEDS: TYLENOL 650 MG PO ×2 (05:39→21:03)
[2023-11-20 07:50] VITALS: BP 143/72
[2023-11-20] MEDS: HEPARIN 5000 UNITS SC ×2 (08:05→17:22)
[2023-11-20] MEDS: PROTONIX 40 MG PO (08:12)
[2023-11-20] MEDS: ASPIR LOW (ENTERIC COATED) 81 MG PO (08:12)
[2023-11-20] MEDS: XANAX 0.5 MG PO ×3 (08:12→21:03)
[2023-11-20] MEDS: NORVASC 10 MG PO (08:13)
[2023-11-20] MEDS: NEURONTIN 100 MG PO ×3 (08:13→21:03)
--- NOTE | 2023-11-20 10:15 | W.PN.HOSP.TC ---
Today's Communication/Plan
-
NPO after MN, CEA tomorrow
Assessment / Plan
Assessment / Plan
Physical Exam
General: Other (68y F in no acute distress.)
HEENT: Moist mucous membranes and PERRLA
Respiratory: Clear; No Wheezes, Rales or Rhonchi
Cardiac: S1/S2 and Regular Rhythm; No Murmur
GI: Soft, Non Tender, Non Distended and Normal Bowel Sounds
Genito-urinary: No costovertebral tender
Musculoskeletal: No Clubbing, No Cyanosis, No Edema and Other (R shoulder incision healing well. No significant bleeding, ecchymosis, etc.)
Neuro: Other (Awake and alert. confused but appears more lucid this morning
MRI
IMPRESSION:
1. Tiny 3 mm acute ischemic infarct in the posterior right frontal lobe centrum semiovale which appears unchanged.
2. Large 6.7 cm region of cortical hernadez matter and subcortical white matter signal abnormality in the posterior right parietal and occipital lobes which appears similar to 11/14/2023. A SUBACUTE TRANSCORTICAL ISCHEMIC INFARCT is considered most
likely. Alternative diagnostic possibilities are posterior reversible encephalopathy syndrome (PRES), vasculitis, or a primary brain tumor.
3. Mild white matter leukoaraiosis in both frontal lobes.
4. 6.7 mm chronic lacunar infarct in the left thalamus.
5. Mild diffuse cerebral and cerebellar volume loss.
6. Severe discogenic degenerative disease at C3/C4 with a large disc-osteophyte complex causing mild to moderate spinal cord compression and central canal stenosis.
Cerebrovascular US:
IMPRESSION:
1. By velocity criteria, there is greater than 70% stenosis of the right internal carotid artery.
2. By velocity criteria, any left internal carotid artery stenosis present is in the range of 0-49%.
3. Antegrade flow bilateral vertebral arteries.
CT Angio Head/Neck:
IMPRESSION: Severe mixed soft and calcific plaque in the right carotid bulb resulting in focal approximate 74% stenosis of the proximal right internal carotid artery over a length of approximately 2 cm.
The left internal carotid artery is grossly patent with only mild calcific plaque in the carotid bulb resulting in less than 25% stenosis.
Bilateral hypoattenuating thyroid nodules measuring up to 1.1 cm on the left. Consider further evaluation with dedicated thyroid ultrasound if not previously performed.
A/P: Patient is a 68y F with PMH significant for chronic pain and chronci anxiety on multiple medications who presents to ED for evaluation of confusion.
Acute TME with finding of right parietal lobe lesion on MRI with repeat more suggestive of subacute CVA
Right ICA Stenosis seen on cerebrovascular US and CTA
-Head CT with parietal involvement - possible cytotoxic or vasogenic edema
-No clear Evidence of infection on LP
-CT C/A/P to eval for malignancy - negative
-neurology consult appreciated
-appreciate vascular surgery consult; plan for CEA on Friday
-continue asa/statin
-PT/OT - eventual [facility]
Chronic Pain Syndrome
Chronic Anxiety
Chronic Opioid Dependence
- confirmed patient was taking Xanax 1mg QID for 2-3 years
-will resume at lower dosing to prevent withdrawal - 0.5mg TID with as needed on board
-pain seems to be controlled; will add on lower dose oxycodone
Collagenous Colitis
-C. Diff negative on 11/16
-lomotil PRN
-add on labs today
#Asymptomatic Bacteruria
-Encephalopathy unlikely due to urine in setting of MRI findings (mental status has been waxing and waning)
� Received 3 days of antibiotics (Ceftriaxone)
� Follow-up repeat UA : negative
-Patient does not have UTI symptoms
Nausea/vomiting
� possibly 2/2 to neurological disease
- PPI, Zofran
-kub unremarkable
#Hyponatremia
-mild
ctm
#Hypertension
-start amlodipine
#Hypokalemia
-monitor and replete
Collagenous Colitis
- Stable. No current / active symptoms.
- Patient takes PRN Lomotil - not Lamotrigine.
- Follow for any GI symptoms.
s/p R TSA
- Surgery was now > 1 month ago.
- PT / OT evaluations.
- Site is well-appearing.
DVT Prophylaxis: HSQ
Code Status: Full
Total time spent on today's encounter was 52 minutes which included time spent in counseling the patient/family regarding diagnosis and treatment plan as listed above, goals of care, and symptom management. Case was discussed with nursing staff,
specialists, and care coordinators/case management. All labs and imaging personally reviewed by me. Remainder the time spent in detailed review of previous records, lab data, imaging, and other medical provider documentation.
Anticipated Discharge: > 48 hours
Subjective/Interval History
-
Date of Service: November 20, 2023
feeling well this morning
thinking more clearly
had loose stools earlier, has a history of collagenous colitis
Objective Data
-
Labs:
Laboratory Results
11/20/23
10:12
Sodium Pending
Potassium Pending
Chloride Pending
Carbon Dioxide Pending
BUN Pending
Creatinine Pending
Glucose Pending
Calcium Pending
Vital Signs:
Vital Signs
Temp Pulse Resp BP Pulse Ox
97.0 F 82 18 143/72 97
11/20/23 07:50 11/20/23 07:50 11/20/23 07:50 11/20/23 07:50 11/20/23 07:50
I&O
11/19/23 11/20/23 11/21/23
06:59 06:59 06:59
Intake Total 1200 / 1200 1320 / 1320
Balance 1200 / 1200 1320 / 1320
Review of Systems
-
History Source: Patient
All other systems: Reviewed and negative
Physical Exam
-
General: No Apparent Distress
HEENT: PERRLA
Respiratory: Clear to Auscultation; Negative Wheezes
Cardiac: Regular Rhythm and S1/S2
GI: Soft and Nontender
Musculoskeletal: No Edema
Skin: Warm and Dry; Negative Rash
Neuro: AO x 3
Psych: Calm
Data Reviewed
-
Diagnostic Radiology: Report Reviewed by me
Labs: Labs Reviewed by me
[2023-11-20 11:08] LABS: Blood Urea Nitrogen 12 mg/dl (7-17); Calcium 8.8 mg/dl (8.4-10.2); Carbon Dioxide 27 mmol/L (22-30); Chloride 100 mmol/L (98-107); Estimated Creatinine Clearance 76 ml/min; Glucose 107 mg/dl (70-99); Potassium 3.3 mmol/L (3.5-5.1); Sodium 134 mmol/L (135-145); eGFR > 60.00
[2023-11-20 11:12] VITALS: BP 142/69
[2023-11-20] MEDS: LOMOTIL 1 TABLET PO ×2 (11:17→17:30)
[2023-11-20] MEDS: KLOR-CON 40 MEQ PO (12:05)
--- NOTE | 2023-11-20 12:19 | W.PN.SURGUPD ---
Surgical Update
Surgical Update
Discussed case in detail with Dr. Canseco.
Imaging reviewed once again.
Planning for right carotid endarterectomy 11/21/2023
The technical aspects of this procedure were discussed with Radha as well as her in detail. The benefits and rationale for this approach were discussed with both of them in detail. Operative risks were discussed with them in detail
including but not limited to stroke, heart attack, bleeding, infection, cranial nerve injury. The anticipated postoperative recovery was discussed with her in detail.
They expressed a clear understanding of our conversation and agrees to proceed with surgery as detailed above.
Elvis Hill III, MD
[facility] Vascular Surgery
[phone] (cell)
--- NOTE | 2023-11-20 14:54 | CM ---
CM met with Radha and friend, Lionel this afternoon. Radha is still having memory issues, but does feel like she has had some minor improvements. She is scheduled for carotid endarterectomy and is hopeful that improved bloodflow will provide
additional improvement.
Radha asked about going to [facility] after surgery. Information provided regarding levels of rehabilitation. CM to follow post-op to make referrals for post-acute services based on patient needs for PT/OT/ST.
Plan: Watch for therapy notes to determine rehab needs post-op. Pt intends to return to her home when she is cleared.
[2023-11-20 15:06] VITALS: BP 146/71
[2023-11-20] MEDS: LIPITOR 40 MG PO (17:30)
--- NOTE | 2023-11-20 18:36 | PTCARENOTE ---
PRN Lomotil ordered for multiple episodes of diarrhea. History of colitis. Negative C.diff sample on 11/16.
[2023-11-20 19:36] VITALS: BP 138/66
[2023-11-20 23:25] VITALS: BP 121/59
[2023-11-21] VITALS (17 sets, daily range): BP systolic 104–140; BP diastolic 53–117; BMI 17.9
[2023-11-21] MEDS: HEPARIN 5000 UNITS SC ×4 (00:05→23:24)
[2023-11-21] MEDS: LOMOTIL 1 TABLET PO ×2 (05:42→18:07)
[2023-11-21] MEDS: TYLENOL 650 MG PO ×2 (06:34→20:37)
[2023-11-21 07:23] LABS: Hematocrit 38.4 % (37.0-47.0); Mean Corp Hgb Conc. 33.9 g/dL (33.0-37.0); Mean Corpuscular Hgb 30.1 pg (27.0-31.0); Mean Corpuscular Volume 88.9 fL (81.0-99.0); Mean Platelet Volume 10.7 fL (7.4-10.4); Platelet Count 314 10^3/uL (130-400); Red Blood Cell Count 4.32 10^6/uL (4.20-5.40); Red Cell Dist. Width 13.2 % (11.5-14.5); White Blood Cell Count 9.6 10^3/uL (4.8-10.8)
[2023-11-21 07:25] LABS: INR 1.02; PT 13.4 Sec (11.4-14.6)
[2023-11-21] MEDS: PROTONIX 40 MG PO (07:44)
[2023-11-21] MEDS: XANAX 0.5 MG PO ×2 (07:44→23:24)
[2023-11-21] MEDS: NEURONTIN 100 MG PO ×3 (07:44→23:24)
[2023-11-21] MEDS: ASPIR LOW (ENTERIC COATED) 81 MG PO (07:44)
[2023-11-21] MEDS: NORVASC 10 MG PO (07:45)
[2023-11-21 07:52] LABS: Blood Urea Nitrogen 9 mg/dl (7-17); Calcium 9.5 mg/dl (8.4-10.2); Carbon Dioxide 24 mmol/L (22-30); Chloride 103 mmol/L (98-107); Estimated Creatinine Clearance 76 ml/min; Glucose 123 mg/dl (70-99); Potassium 3.5 mmol/L (3.5-5.1); Sodium 138 mmol/L (135-145); eGFR > 60.00
--- NOTE | 2023-11-21 09:04 | PTCARENOTE ---
Chorhexadine wipes completed times two. New gown and bed linen. Nasal swabs completed. Patient NPO since last night. Patient assisted to bathroom to empty bladder. 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
--- NOTE | 2023-11-21 09:08 | PTOTSP ---
Patient is scheduled for right CEA today - will require updated PT/OT orders postop to resume therapy when appropriate to assist with discharge planning.
[2023-11-21] MEDS: BACTROBAN 2% OINTMENT 1 APPLIC NASAL (09:19)
--- NOTE | 2023-11-21 10:42 | CM ---
Pt for a carotid enterectomy today.
Will need PT OT evals reordered postop .
Will need to have PT OT evals for dc planning.
PLAN DC plan will depend on postop PT OT evals
--- NOTE | 2023-11-21 10:47 | W.SUR.PREOP ---
Pre-Operative Surgical Note
-
I have examined this patient prior to the performance of the scheduled procedure.
The patient's condition is unchanged from the time of the current History and
Physical and the patient is able to undergo the scheduled procedure.
--- NOTE | 2023-11-21 10:48 | W.PN.HOSP.TC ---
Today's Communication/Plan
-
s/p CEA
Assessment / Plan
Assessment / Plan
Physical Exam
General: Other (68y F in no acute distress.)
HEENT: Moist mucous membranes and PERRLA
Respiratory: Clear; No Wheezes, Rales or Rhonchi
Cardiac: S1/S2 and Regular Rhythm; No Murmur
GI: Soft, Non Tender, Non Distended and Normal Bowel Sounds
Genito-urinary: No costovertebral tender
Musculoskeletal: No Clubbing, No Cyanosis, No Edema and Other (R shoulder incision healing well. No significant bleeding, ecchymosis, etc.)
Neuro: Other (Awake and alert. confused but appears more lucid this morning
MRI
IMPRESSION:
1. Tiny 3 mm acute ischemic infarct in the posterior right frontal lobe centrum semiovale which appears unchanged.
2. Large 6.7 cm region of cortical hernadez matter and subcortical white matter signal abnormality in the posterior right parietal and occipital lobes which appears similar to 11/14/2023. A SUBACUTE TRANSCORTICAL ISCHEMIC INFARCT is considered most
likely. Alternative diagnostic possibilities are posterior reversible encephalopathy syndrome (PRES), vasculitis, or a primary brain tumor.
3. Mild white matter leukoaraiosis in both frontal lobes.
4. 6.7 mm chronic lacunar infarct in the left thalamus.
5. Mild diffuse cerebral and cerebellar volume loss.
6. Severe discogenic degenerative disease at C3/C4 with a large disc-osteophyte complex causing mild to moderate spinal cord compression and central canal stenosis.
Cerebrovascular US:
IMPRESSION:
1. By velocity criteria, there is greater than 70% stenosis of the right internal carotid artery.
2. By velocity criteria, any left internal carotid artery stenosis present is in the range of 0-49%.
3. Antegrade flow bilateral vertebral arteries.
CT Angio Head/Neck:
IMPRESSION: Severe mixed soft and calcific plaque in the right carotid bulb resulting in focal approximate 74% stenosis of the proximal right internal carotid artery over a length of approximately 2 cm.
The left internal carotid artery is grossly patent with only mild calcific plaque in the carotid bulb resulting in less than 25% stenosis.
Bilateral hypoattenuating thyroid nodules measuring up to 1.1 cm on the left. Consider further evaluation with dedicated thyroid ultrasound if not previously performed.
A/P: Patient is a 68y F with PMH significant for chronic pain and chronci anxiety on multiple medications who presents to ED for evaluation of confusion.
Acute TME with finding of right parietal lobe lesion on MRI with repeat more suggestive of subacute CVA
Right ICA Stenosis seen on cerebrovascular US and CTA
-initial work-up unclear if mass versus ischemic stroke; repeat MRI more convincing of CVA. Cerebral US and CTA with e/o right ICA stenosis
-appreciate vascular surgery consult; plan for CEA today
-continue asa/statin
-PT/OT - eventual [facility]
Chronic Pain Syndrome
Chronic Anxiety
Chronic Opioid Dependence
- confirmed patient was taking Xanax 1mg QID for 2-3 years
-will resume at lower dosing to prevent withdrawal - 0.5mg TID with as needed on board
-pain seems to be controlled; will add on lower dose oxycodone
Collagenous Colitis
-C. Diff negative on 11/16
-lomotil PRN
#Asymptomatic Bacteruria
-Encephalopathy unlikely due to urine in setting of MRI findings (mental status has been waxing and waning)
� Received 3 days of antibiotics (Ceftriaxone)
� Follow-up repeat UA : negative
-Patient does not have UTI symptoms
Nausea/vomiting
� possibly 2/2 to neurological disease
- PPI, Zofran
-kub unremarkable
#Hyponatremia
-mild
ctm
#Hypertension
-started on amlodipine
#Hypokalemia
-monitor and replete
s/p R TSA
- Surgery was now > 1 month ago.
- PT / OT evaluations.
- Site is well-appearing.
DVT Prophylaxis: HSQ
Code Status: Full
Total time spent on today's encounter was 52 minutes which included time spent in counseling the patient/family regarding diagnosis and treatment plan as listed above, goals of care, and symptom management. Case was discussed with nursing staff,
specialists, and care coordinators/case management. All labs and imaging personally reviewed by me. Remainder the time spent in detailed review of previous records, lab data, imaging, and other medical provider documentation.
Anticipated Discharge: > 48 hours
Subjective/Interval History
-
Date of Service: November 21, 2023
seen post-op
feeling well
surgery went well
Objective Data
-
Labs:
Laboratory Results
11/21/23
06:19
WBC 9.6
Hgb 13.0
Hct 38.4
Plt Count 314
PT 13.4
INR 1.02
Sodium 138
Potassium 3.5
Chloride 103
Carbon Dioxide 24
BUN 9
Creatinine 0.6
Glucose 123 H
Calcium 9.5
Vital Signs:
Vital Signs
Temp Pulse Resp BP Pulse Ox
98.6 F 81 16 140/60 96
11/21/23 09:22 11/21/23 09:22 11/21/23 09:22 11/21/23 09:22 11/21/23 09:22
I&O
11/20/23 11/21/23 11/22/23
06:59 06:59 06:59
Intake Total 1320 / 1320 960 / 960 60 / 60
Balance 1320 / 1320 960 / 960 60 / 60
Review of Systems
-
History Source: Patient
All other systems: Reviewed and negative
Physical Exam
-
General: No Apparent Distress
HEENT: PERRLA and Other (right CEA surgical site CDI)
Respiratory: Clear to Auscultation; Negative Wheezes
Cardiac: Regular Rhythm and S1/S2
GI: Soft and Nontender
Musculoskeletal: No Edema
Skin: Warm and Dry; Negative Rash
Neuro: AO x 3
Psych: Calm
Data Reviewed
-
Diagnostic Radiology: Report Reviewed by me
Labs: Labs Reviewed by me
[2023-11-21 11:42] LABS: ACT-LR - POC 321 Seconds (116-155)
[2023-11-21 12:31] LABS: ACT-LR - POC 255 Seconds (116-155)
--- NOTE | 2023-11-21 13:15 | OR.RPT ---
Operative Report
Operative Report
Date of Operation: 11/21/2023
Pre Op Diagnosis: Symptomatic right carotid artery stenosis
Post Op Diagnosis: Symptomatic right carotid artery stenosis
Procedure: RIGHT carotid endarterectomy with patch angioplasty using bovine pericardium
Surgeon: Elvis Hill III, MD
Tassel Maker: Sam Campos MD PhD, PGY1
Anesthesia: General
Complications: None
History and Indications for Procedure: 68-year-old female with symptomatic carotid artery stenosis
Procedure in Detail: Radha Brown was correctly identified and placed supine on the operating table. After adequate induction of anesthesia the right neck was positioned, prepped and draped in the usual sterile fashion. Preoperative antibiotics were
administered. A timeout procedure was performed with the nursing and anesthesia staff confirming the patients identity as well as the nature and laterality of the procedure.
The carotid bifurcation was marked with ultrasound at the beginning of the case. The incision was planned accordingly. An incision was made along the anterior border of the right sternocleidomastoid muscle. Electrocautery was used to divide the
subcutaneous tissue and platysma. The carotid sheath was entered with sharp dissection. The internal jugular vein was retracted laterally. The vagus nerve was identified and protected throughout the case. The common carotid artery was identified at
the base of this incision and carefully encircled with a vessel loop. The patient was systemically heparinized. The dissection was continued distally towards the carotid bifurcation. The facial vein was skeletonized, ligated and divided between ties
and clips. The proximal external carotid artery was encircled with a vessel loop. The distal internal carotid artery was encircled with a vessel loop at a soft spot on the artery beyond the plaque. The hypoglossal nerve was identified and protected.
The internal vessel loop was secured followed by the common and external. An arteriotomy was made on the distal common carotid artery with an 11-blade. This was extended proximally and distally with Ch scissors. The arteriotomy was extended
distally through the plaque to an area of normal appearing internal carotid artery. The distal vessel loop was replaced with a short tip hockey-stick type vascular clamp. An endarterectomy was performed with a [place] elevator in the standard
fashion. The proximal extent of the plaque was transected with scissors. The distal end of the plaque in the internal carotid artery feathered very nicely with the assistance of an 11 blade and no distal intimal flap was identified. The plaque
extending into the external carotid artery was everted. Once the plaque was fully removed the endarterectomy plane was irrigated with heparinized saline and any loose fronds of tissue were removed. A pre-cut piece of bovine pericardium was sewn in
place using a running 6-0 Prolene suture. Prior to the completion of the patch the common carotid was allowed to forward bleed and the external was allowed to back bleed. The area under the patch was irrigated with heparinized saline to remove any
potential thrombus or debris. The anastomosis was completed.
The external vessel loop was released first, followed by the common and then the internal. There was an excellent pulse in the distal internal carotid artery. An excellent quality Doppler signal in the distal internal carotid artery was also
confirmed. The patch suture line was closely inspected for hemostasis and was achieved. Protamine was administered. Hemostasis was achieved in the wound bed. The wound was irrigated with saline solution.
The wound was then closed in layers. Sterile skin glue was applied. The patient awoke from anesthesia with no immediate neuro deficits and was taken to the PACU in stable condition.
Attestation: I was present and responsible for the entire procedure
Signed:
Elvis Hill III, MD
[facility] Vascular Surgery
[phone] (cell)
[2023-11-21 13:48] LABS: Hematocrit 34.6 % (37.0-47.0); Hemoglobin 11.4 g/dL (12.0-16.0); Mean Corp Hgb Conc. 32.9 g/dL (33.0-37.0); Mean Corpuscular Hgb 30.3 pg (27.0-31.0); Mean Platelet Volume 9.4 fL (7.4-10.4); Platelet Count 215 10^3/uL (130-400); Red Blood Cell Count 3.76 10^6/uL (4.20-5.40); Red Cell Dist. Width 13.3 % (11.5-14.5); White Blood Cell Count 8.6 10^3/uL (4.8-10.8)
--- NOTE | 2023-11-21 13:50 | SUR.PHASEI ---
Pt. ART MAPs in the 90s, Vascular team Dr. Hill and JEWELS Koch made aware, MAP was no correlating with the ART and BP CUFF, team request to hold any antihypertensives at this time and reevaluate goal perimeters. Pt. neurovascular intact per normal
baseline, will continue to monitor
--- NOTE | 2023-11-21 14:16 | W.PN.UPDATE ---
Update Note
Progress Note Update
Blood exposure occurred during intraoperative period, consent for source patient testing provided by patient's spouse. Labs ordered.
[2023-11-21 14:24] LABS: Blood Urea Nitrogen 9 mg/dl (7-17); Calcium 8.6 mg/dl (8.4-10.2); Carbon Dioxide 22 mmol/L (22-30); Chloride 107 mmol/L (98-107); Estimated Creatinine Clearance 76 ml/min; Glucose 122 mg/dl (70-99); Potassium 3.4 mmol/L (3.5-5.1); Sodium 137 mmol/L (135-145); eGFR > 60.00
[2023-11-21 14:26] LABS: Hepatitis B Surface Antigen Negative (Negative)
[2023-11-21 14:39] LABS: HIV Combo Negative (Negative)
[2023-11-21 14:43] LABS: Hepatitis B Surface Antibody Negative; Hepatitis C Antibody Negative (Negative)
--- NOTE | 2023-11-21 14:48 | PTCARENOTE ---
14:10 received from PACU S/P RIGHT carotid endarterectomy with patch angioplasty using bovine pericardium; AAO x3. Neuro check WNL ( see neuro check assessment. ). RT neck incision STEW, well approximated, no swelling, no drainage, mild ecchymosis
around surrounding area of incision noted. RT Radial A/line +blood return, Jane properly, Zero per protocol. BP via A/line 135/53 MAP 81) BP via left upper arm 126/72 MAP 87. denies pain at incision side. c/o of headache 5/10 pain scale level .
Patient states that it's a chronic headache b/c she did not eat yet. RA. chronic rash left anterior upper leg. Peripheral lines RT FA flushed capped. left AC #18 NSS 80/hr HoB elevated call eric within reach
--- NOTE | 2023-11-21 15:28 | CON.INTV ---
Consultation
Consultation Request
Date/Time Consultation Requested: 11/21/2023
Date/Time Consultation Performed: 11/21/2023
Requesting Provider: Dr. Lincoln
Performing Provider: Dr. Bart Otoole
Reason for Consultation: Status post right carotic endarterectomy
Medical History
-
History of Present Illness:
68-year-old woman with past medical history significant for chronic opioid dependence, arthritis, collagenous colitis, chronic pain presented to the hospital with confusion. Workup was initially unrevealing.
She got treated for UTI infection.
No improvement in symptoms.
MRI was consistent with a subacute stroke.
Past Medical History
Past Medical History: Other (See assessment and plan section)
Social History
Tobacco: Non-smoker
Alcohol: None
Personal:
Family History
Family History: Reviewed & Not Pertinent
Allergies / Home Medications
Allergies
Allergy/AdvReac Type Severity Reaction Status Date / Time
Sulfa (Sulfonamide Allergy Hives Verified 11/12/23 01:57
Antibiotics)
Home Medications
�Medication �Instructions �Recorded �Confirmed �Last Taken �Type
ascorbic acid (vitamin C) 500 mg 500 mg PO DAILY Supplement 08/14/20 11/12/23 Unknown History
tablet (Vitamin C)
gabapentin 100 mg capsule 100 mg PO TID Pain 11/28/22 11/12/23 Unknown History
alprazolam 1 mg tablet 1 mg PO QIDPRN PRN anxiety 11/12/23 11/12/23 Unknown History
hydrocodone 10 mg-acetaminophen 1 tab PO Q6HPRN PRN severe pain 11/12/23 11/12/23 Unknown History
300 mg tablet
oxycodone 15 mg tablet 15 mg PO Q4HPRN PRN Post surgical 11/12/23 11/12/23 Unknown History
pain
vitamin B complex 1 cap PO DAILY Supplement 11/12/23 11/12/23 Unknown History
Review of Systems
-
History Source: Patient
All other systems: Negative unless noted
Vitals / Labs / Diagnostic Testing
Vital Signs
Temp Pulse Resp BP Pulse Ox
97.9 F 71 17 120/69 98
11/21/23 14:13 11/21/23 14:00 11/21/23 14:00 11/21/23 14:00 11/21/23 14:00
Lab Data
11/21/23 13:32
11/21/23 13:32
Laboratory Results
11/21/23
06:19
PT 13.4
INR 1.02
Microbiology
11/14/23 14:19 Csf CSF Culture - Final
No Growth After 5 Days - Final Report
11/14/23 14:19 Csf Gram Stain - Final
Diagnostic Testing:
Physical Exam
-
HEENT: Normocephalic and Other (Cervical incision intact. No stridor on exam)
Cardiovascular: S1/S2
Respiratory: Clear and Non-Labored Respirations
GI: Soft and Non Distended
Neurology: Awake and Oriented
Skin: Warm
General: Comfortable
Assessment
-
68-year-old woman initially admitted for change in mental status. Workup initially negative. Treated for possible UTI. Underwent MRI that demonstrated subacute CVA. Found to have significant right carotid stenosis. Underwent carotic
endarterectomy 11/21/2023.
Critical care consulted for postoperative care
Status post right carotic endarterectomy with patch angioplasty
Diagnosed this admission: Subacute CVA
70% stenosis of the right internal carotid artery.
Conditions present on admission
Collagenous colitis
Status post right total shoulder arthroplasty
Chronic opiate use
Chronic pain
Osteoarthritis.
Assessment and plan:
Postoperative surgical intensive care unit monitoring
Supplemental oxygen as needed
Incentive spirometry
Aspiration precautions
Incision is intact.
No stridor on exam
Neuro and vascular checks per protocol
Vascular surgery following-correspondence and operative notes reviewed
Monitor blood pressure
Allow for mild permissive hypertension
Cardene drip if needed
Tony-Synephrine as needed arterial blood pressure
Follow hemoglobin
Follow blood sugars
Insulin supplementation as needed
For CVA
Continue antiplatelet
Eventual physical therapy Occupational Therapy
Monitor mental status
Eventual transfer to [facility]
DVT prophylaxis
Early nutrition
Early mobilization

Reviewed imaging:
MRI brain:
1. Tiny 3 mm acute ischemic infarct in the posterior right frontal lobe centrum semiovale which appears unchanged.
2. Large 6.7 cm region of cortical hernadez matter and subcortical white matter signal abnormality in the posterior right parietal and occipital lobes which appears similar to 11/14/2023. A SUBACUTE TRANSCORTICAL ISCHEMIC INFARCT is considered most
likely. Alternative diagnostic possibilities are posterior reversible encephalopathy syndrome (PRES), vasculitis, or a primary brain tumor.
3. Mild white matter leukoaraiosis in both frontal lobes.
4. 6.7 mm chronic lacunar infarct in the left thalamus.
5. Mild diffuse cerebral and cerebellar volume loss.
6. Severe discogenic degenerative disease at C3/C4 with a large disc-osteophyte complex causing mild to moderate spinal cord compression and central canal stenosis.
Echocardiogram 11/18/2023: Showed normal LVEF. No significant valvular abnormalities. Report reviewed
-
--- NOTE | 2023-11-21 15:36 | CON.MD ---
Addendum entered and electronically signed by Stanley Melton MD 11/24/23 21:09:
Patient was seen by me this afternoon on 11/24/23. See above for information and recommendations
Original Note:
Documented by User: Fifi Andersen PA-C 11/24/23 17:02
Consultation - Medical
-
Referring Provider: Dr. Luanne Dlae
Chief Complaint:CVA
History of Present Illness: Patient is a 68-year-old woman with PMH of ( chronic pain, Anxiety, back problems, Colitis, UTI, Vertigo, Lyme, Chronic fatigue) presenting the hospital with confusion starting the past 1 to 2 days. Initially this was
felt to be possibly urinary tract infection or related to home medication effects on mental status, reported as having home temperature of 100.3 otherwise had no fevers or elevated temperatures here in this hospital during this stay. Yesterday for
the hospitalist her mental status was much more clear and today has been a significant change in mental status with confusion and memory loss.
MRI brain with right parietal lobe abnormality with FLAIR hyperintensity mostly along the cortex but also involving white matter, no significant diffusion restriction, there is a very small amount of postcontrast enhancement, no hemorrhage in the
area. Neurology thinks confusion is highly likely due to right parietal lobe brain lesion of unclear etiology with highest concerns for encephalitis or neoplasm. CSF from lumbar puncture showed normal white blood cells no elevated protein no
findings of growth from culture and negative Gram stain CSF [facility] meningitis/encephalitis panel was negative.
Repeated brain MRI does show 2 areas of acute infarct around the right parietal lobe abnormality. No areas of hemorrhage are seen.Stroke etiology is probably embolic, atheroembolic versus cardioembolic. Neuro recommended starting [id number]. Hold off
DAPT at this point. Check carotid ultrasound and transthoracic echocardiogram
Carotid duplex revealed velocity profile consistent with greater than 70% stenosis on the right. CT angiogram obtained and demonstrates significant right internal carotid artery stenosis with soft plaque. Vascular recommended right right CEA.
11/21/23 -Patient is s/p RIGHT carotid endarterectomy with patch angioplasty. patient admitted to ICU post-op; required nicardipine gtt to keep SBP goal now off gtt and on telemetry (transferred 11/21)
Past Medical History: Anxiety, back problems. Colitis, UTI, Vertigo, Lyme, Chronic fatigue
Procedure History: Left hip ORIF, multiple breast surgery, Adenoid removed, Deviated septum,T&A, right total shoulder arthroplasty on 10/08/2023.
Family History: Not pertinent
Social History:
Functional Level Premorbidly: Independent with all activities
Functional Level Currently: Bed mobility�min assist, transfer�min assist, ambulated 60 feet without assistive device, eating�min assist, toileting�supervision, grooming - min assist
Tobacco: Denies
Alcohol: Denies
Drug use: Denies
Lives with: Spouse
24-hour assistance available:
Number of floors: multi level- farm house
# steps to enter: 1 to get in on one side of the house.
# steps to second floor: Spiral stairs FF
Potential First floor set up:yes
Driving: prior to shoulder replacement in October 2023
Occupation: Retired
�
Allergies:
Allergy/AdvReac Type Severity Reaction Status Date / Time
Sulfa (Sulfonamide Allergy Hives Verified 11/12/23 01:57
Antibiotics)
Review of Systems:
Constitutional: (x) Fatigued
Eye: (x) Normal _
Ear/Nose/Throat: (x) Normal _
Respiratory: (x) Normal _
Cardiovascular: (x)s/p carotid endarterectomy
Gastrointestinal: (x) Normal _
Genitourinary: (x) Normal _
Musculoskeletal: (x) Normal _
Integumentary: (x) Normal _
Neurologic: (x) CVA
Psychiatric: (x) Normal _
Endocrine: (x) Normal _
Hematologic/Lymphatic: (x) Normal _
Allergic/Immunologic: (x) Normal _
Medications:
Active Current Visit Medication List
Category Date Time Status
Acetaminophen [Tylenol] Med 11/12/23 10:09 Active
650 mg PO Q4HPRN PRN
Alprazolam [Xanax] Med 11/22/23 13:00 Active
1 mg PO TID
Amlodipine [Norvasc] Med 11/14/23 10:00 Active
10 mg PO DAILY
Aspirin Low Dose EC [Aspir Low (Enteric Coated)] Med 11/15/23 14:00 Active
81 mg PO DAILY
Atorvastatin [Lipitor] Med 11/17/23 18:00 Active
40 mg PO QPM
Bisacodyl [Dulcolax] Med 11/21/23 12:28 Active
10 mg RECTAL DAILYPRN PRN
Diclofenac 1% Topical Gel Med 11/23/23 13:00 Active
See Protocol TOPICAL QID
Diphenoxylate / Atropine [Lomotil] Med 11/20/23 10:14 Active
1 tablet PO Q6HPRN PRN
Flush (0.9% Sodium Chloride) [Flush (Nss)] Med 11/12/23 11:00 Active
See Dose Instructions IV PER PROTOCOL
Gabapentin [Neurontin] Med 11/12/23 10:09 Active
100 mg PO TID
Heparin Med 11/12/23 16:00 Active
5,000 units SC Q8
Lidocaine [Lidocaine 4% Patch] Med 11/23/23 11:00 Active
1 patch TOPICAL DAILY
Oxycodone [Roxicodone] Med 11/17/23 12:09 Active
5 mg PO Q4HPRN PRN
Pantoprazole [Protonix] Med 11/20/23 08:00 Active
40 mg PO DAILY
Phenyleph/Mineral Oil/Petrolat [Preparation H Ointment] Med 11/20/23 16:28 Active
See Dose Instructions RECTAL BIDPRN PRN
Remove Patch [Remove Lidocaine Patch] Med 11/23/23 20:00 Active
See Dose Instructions REMOVE DAILY@1999
Vitals:
Temp Pulse Resp BP Pulse Ox
98.2 F 87 18 147/78 98
11/24/23 07:00 11/24/23 07:00 11/24/23 07:00 11/24/23 07:00 11/24/23 07:00
Height 5 ft 7 in
Actual Weight 50.604 kg
Body Mass Index (BMI) 17.5
Physical Exam:
General Appearance/Observation: Well-developed, well-nourished individual in no apparent distress.
Pain/Comfort Assessment: currently Denies
Mood/Affect: Appropriate
Integumentary/Operative Site:(right CEA surgical site with intact sutures, surrounding bruising, no discharge )
�� Pressure Ulcer Evaluation: absent over heels.
��
�� Other Type of Wound: Healed right shoulder incision
��
Eyes: Conjunctiva/Lids: normal ��� Pupils: pupils equal round and reactive to light and Accommodation
Ears/Nose/Throat: oral mucosa moist,� throat -not visualized. ����������� Lips/Teeth/Gums: normal
Neck: No muscle spasm or tenderness
Cardiovascular: Heart: regular, no murmur
Pulses: dorsalis pedis 2+ bilaterally
Respiratory: Respiratory Effort/Chest Expansion: normal ������� Auscultation: Clear to auscultation bilaterally
Gastrointestinal: abdomen not tender, no distension, normal abdominal bowel sounds
Genitourinary: No Hill
Extremities: Edema: None Cyanosis: None Trophic changes: None
Neurology Exam:
Orientation: Alert, Oriented to self, knows year, month because had recent conversation with , does not know date, does not recall shoulder surgery
Memory: Impaired for immediate medical concerns
Higher cortical function
Repetition: impaired
Comprehension: slow to process.
Two step command: slow processing. Needs repeating and cues
Naming: impaired
Cranial Nerves:
�� CNII: Pupillary light reflex: Intact��� Visual Field: Intact
�� CN III, IV, : Extraocular muscles: Intact
�� CN V: Facial Sensation at Forehead: Intact, Maxilla: Intact, Mandible: Intact
�� CN VII: Facial movement: Symmetric
�� CN VIII: Hearing: Normal
�� CN IX/X: Speech & swallow: expressive > receptive aphasia Position of Uvula: Midline
�� CN XI: Shoulder shrug: weakness on the right not sure if due to shoulder surgery and/or CVA
�� CN XII: Tongue protrusion: Midline
Sensory:
�� Light touch: Intact in bilateral upper and lower extremities
��
Reflexes:
�� Biceps: 1 bilaterally
�� Brachioradialis: 2+ bilaterally
�� Triceps: 1 bilaterally
�� Patellar: 1 bilaterally
�� Achilles: trace bilaterally
�� Babinski: up going left, downgoing right
�� Clonus: None
�� Kaycee: Negative bilaterally
Cerebellar: Dysmetria/Ataxia: difficulty assessing on the right side due to limitation with lifting arm. Impaired on the left with nose to finger coordination
Musculoskeletal:
Motor: (Manual muscle scale 0-5)
Muscle SA EF WE EE FF FA HF KE DF EHL PF
Right� NT 3 5 3 3 3 4 4 4 4 5
Left 3 4 4 4 3 3 4- 4 4 4 5
Tone: Normal in all extremities
Range of Motion: Passively within normal limits in all extremities. Deferred RUE due to surgery and restrictions
Lab Results
Labs
WBC 9.1 10^3/uL (4.8-10.8) 11/23/23 06:19
RBC 3.61 10^6/uL (4.20-5.40) L 11/23/23 06:19
Hgb 10.7 g/dL (12.0-16.0) L 11/23/23 06:19
Hct 33.2 % (37.0-47.0) L 11/23/23 06:19
MCV 92.0 fL (81.0-99.0) 11/23/23 06:19
MCH 29.6 pg (27.0-31.0) 11/23/23 06:19
MCHC 32.2 g/dL (33.0-37.0) L 11/23/23 06:19
RDW 13.4 % (11.5-14.5) 11/23/23 06:19
Plt Count 223 10^3/uL (130-400) 11/23/23 06:19
MPV 9.7 fL (7.4-10.4) 11/23/23 06:19
Abs Immat Gran (auto) 0.0 10^3/uL (0-0.05) 11/11/23 22:06
Absolute Neuts (auto) 4.9 10^3/uL (1.4-6.5) 11/11/23 22:06
Absolute Lymphs (auto) 1.7 10^3/uL (1.2-3.4) 11/11/23 22:06
Absolute Monos (auto) 0.7 10^3/uL (0.1-0.6) H 11/11/23 22:06
Absolute Eos (auto) 0.3 10^3/uL (0-0.7) 11/11/23 22:06
Absolute Basos (auto) 0.0 10^3/uL (0-0.2) 11/11/23 22:06
Immature Gran % 0.1 % (0-0.5) 11/11/23 22:06
Neutrophils % 64.0 % (42.2-75.2) 11/11/23 22:06
Lymphocytes % 22.7 % (20.5-51.1) 11/11/23 22:06
Monocytes % 9.4 % (1.7-9.3) H 11/11/23 22:06
Eosinophils % 3.3 % (0-6) 11/11/23 22:06
Basophils % 0.5 % (0-2) 11/11/23 22:06
Nucleated RBC % 0 % 11/11/23 22:06
ESR 19 mm/hour (0-20) 11/15/23 13:33
PT 15.2 Sec (11.4-14.6) H 11/22/23 03:59
INR 1.22 11/22/23 03:59
APTT 67.9 Sec (23.4-35.0) H 11/22/23 03:59
Sodium 141 mmol/L (135-145) 11/24/23 05:18
Potassium 3.6 mmol/L (3.5-5.1) 11/24/23 05:18
Chloride 107 mmol/L (98-107) 11/24/23 05:18
Carbon Dioxide 29 mmol/L (22-30) 11/24/23 05:18
BUN 8 mg/dl (7-17) 11/24/23 05:18
Creatinine 0.5 mg/dL (0.6-1.0) L 11/24/23 05:18
Estimated Creat Clear 72 ml/min 11/24/23 05:18
eGFR > 60.00 11/24/23 05:18
Glucose 99 mg/dl (70-99) 11/24/23 05:18
Hemoglobin A1c 5.3 % (4.0-5.6) 11/18/23 04:29
Lactic Acid Cancelled 11/12/23 02:00
Calcium 9.1 mg/dl (8.4-10.2) 11/24/23 05:18
Phosphorus 3.6 mg/dl (2.5-4.5) 11/14/23 07:35
Magnesium 1.9 mg/dl (1.6-2.3) 11/23/23 06:19
Total Bilirubin 0.5 mg/dl (0.2-1.3) 11/17/23 05:30
AST 26 U/L (14-36) 11/17/23 05:30
ALT 15 U/L (0-35) 11/17/23 05:30
Alkaline Phosphatase 80 U/L (38-126) 11/17/23 05:30
Troponin I 0.019 ng/ml 11/14/23 07:35
C-Reactive Protein 6.40 mg/L (0.0-10.00) 11/15/23 13:33
Total Protein 6.0 g/dl (6.3-8.2) L 11/17/23 05:30
Albumin 3.6 g/dl (3.5-5.0) 11/17/23 05:30
Triglycerides 91 mg/dl (10-149) 11/18/23 04:29
Total Cholesterol 178 mg/dl (50-199) 11/18/23 04:29
LDL Cholesterol, Calc 93 mg/dl 11/18/23 04:29
VLDL Cholesterol, Calc 18 mg/dl (0-30) 11/18/23 04:29
HDL Cholesterol 67 mg/dl 11/18/23 04:29
TSH Cancelled 11/12/23 22:06
TSH (Reflex) 1.12 uIU/ml (0.47-4.68) 11/12/23 22:06
Urine Color Yellow 11/15/23 15:59
Urine Clarity Clear (Clear) 11/15/23 15:59
Urine pH 6.0 (5.0-9.0) 11/15/23 15:59
Ur Specific Henriette 1.015 (<1.030) 11/15/23 15:59
Urine Ketones 3+ (Negative) A 11/15/23 15:59
Ur Occult Blood Reflex Negative (Negative) 11/15/23 15:59
Urine Nitrite (Reflex) Negative (Negative) 11/15/23 15:59
Urine Bilirubin Negative (Negative) 11/15/23 15:59
Urine Urobilinogen Negative (Neg - 1+) 11/15/23 15:59
Leukocyte Esterase Rfl Negative (Negative) 11/15/23 15:59
Urine RBC 3-6 /HPF (0-2) A 11/11/23 23:49
Urine WBC (Reflex) >100 /HPF (0-5) A 11/11/23 23:49
Ur Squamous Epith Cells 6-10 /LPF (Few) 11/11/23 23:49
Urine Bacteria (Reflex) Many (Negative) A 11/11/23 23:49
Urine Glucose Negative (Negative) 11/15/23 15:59
Urine Albumin (Reflex) Trace (Neg - Trace) 11/15/23 15:59
CSF Appearance Clear 11/14/23 14:22
CSF Color Colorless 11/14/23 14:22
CSF WBC 1 mm^3 (0-5) 11/14/23 14:22
CSF RBC 31 mm^3 11/14/23 14:22
CSF Cell Count Tube # 1 11/14/23 14:22
CSF Comment 11/14/23 14:22
CSF Glucose 70 mg/dl (40-70) 11/14/23 14:19
CSF Total Protein 45 mg/dl (12-60) 11/14/23 14:19
CSF VDRL Non reactive (Non Reactive) 11/14/23 14:19
Salicylates < 1.0 mg/dl (2.0-20.0) L 11/11/23 22:06
Urine Opiates Screen Positive (Negative) H 11/12/23 23:55
Ur Buprenorphine Negative (Negative) 11/12/23 23:55
Ur Oxycodone Screen Positive (Negative) H 11/12/23 23:55
Urine Methadone Screen Negative (Negative) 11/12/23 23:55
Urine Fentanyl Screen Negative (Negative) 11/12/23 23:55
Acetaminophen < 10 ug/ml (10-30) L 11/11/23 22:06
Ur Barbiturates Screen Negative (Negative) 11/12/23 23:55
Ur Tricyclics Screen Negative (Negative) 11/12/23 23:55
Ur Phencyclidine Scrn Negative (Negative) 11/12/23 23:55
Ur Amphetamines Screen Negative (Negative) 11/12/23 23:55
U Methamphetamines Scrn Negative (Negative) 11/12/23 23:55
U Benzodiazepines Scrn Positive (Negative) H 11/12/23 23:55
Urine Cocaine Screen Negative (Negative) 11/12/23 23:55
U Marijuana (THC) Screen Negative (Negative) 11/12/23 23:55
GRECIA IgG Screen None detected (None Detected) 11/15/23 13:33
Babesia microti IgG Ab < 1:16 (< 1:16) 11/15/23 13:33
Babesia microti IgM Ab <1:20 (<1:20) 11/15/23 13:33
Lyme Specimen Source Serum 11/15/23 13:33
Lyme Disease DNA (PCR) Not detected 11/15/23 13:33
Hep Bs Antigen Negative (Negative) 11/21/23 13:14
Hep Bs Antibody Negative 11/21/23 13:14
Hepatitis C Antibody Negative (Negative) 11/21/23 13:14
HIV Ag/Ab Combo Qual Negative (Negative) 11/21/23 13:14
VZV (PCR) Source Serum 11/14/23 14:39
VZV DNA (PCR) Not detected 11/14/23 14:39
POC ACT Low Range 255 Seconds (116-155) H 11/21/23 12:25
Blood Type B POS 11/21/23 08:16
Antibody Screen Negative (Negative) 11/21/23 08:16
�
Diagnostic Results: as per HPI
Assessment Patient is a 68-year-old woman with PMH of ( chronic pain, Anxiety, back problems, Colitis, UTI, Vertigo, Lyme, Chronic fatigue) presenting the hospital with confusion starting the past 1 to 2 days. Repeated brain MRI does show 2 areas
of acute infarct around the right parietal lobe abnormality. No areas of hemorrhage are seen.Stroke etiology is probably embolic, atheroembolic versus cardioembolic. She is s/p CEA 11/21/23.
Plan
PT/OT to increase independence with ADLs, improve balance, coordination, endurance, strength, mobility, community reintegration, decreased burden of care on others and family education.
CVA: Secondary prophylaxis with aspirin, statin, and blood pressure control (SBP less than 180 and diastolic less than 100 to participate with therapy for ischemic stroke). Continue to monitor neurologic status.
right dominant hemiparesis: High risk for falls and sliding out of chair/bed. Safety reinforced.
- Avoid using affected arm to help lift or pull patient as this will cause trauma to the shoulder.
Aphasia: Receptive and expressive. Speech evaluation
HTN: New- Amlodipine 10 mg daily, monitor closely
Hypokalemia- monitor and replete
HLD: Atorvastatin 40
Carotid stenosis: s/p right carotid endarterectomy-11/20
S/P Right Total Reversed Shoulder- 10/08/23. Had post op follow up. cancelled 2nd follow up due to hospitalization. Rom with ortho restrictions for right shoulder
Chronic pain syndrome: Gabapentin 100 mg 3 times daily, oxycodone 5 every 4 as needed
Anemia: Likely multifactorial.� Continue to monitor.
Psych: Chronic anxiety, chronic opioid dependence, chronic pain syndrome. Psychology consult.� Xanax 1 mg 3 times daily
Confusion: Could be due to post cva, polypharmacy. Monitor
Skin: monitor for pressure sores/rashes/lesions.
Pain: acetaminophen , oxycodone as needed, gabapentin. Lidocaine patch, diclofenac topical gel 4 times daily
Bowel: Colace and Senna, PRN bisacodyl.
Bladder: Time void, PVRs, PRN straight cath.
GI Prophylaxis: Pantoprazole 40mg
DVT Prophylaxis: Mechanical and heparin 5000 units every 8
Abnormal UA: Asymptomatic.Received 3 days of antibiotics (Ceftriaxone). Follow-up repeat UA : negative. Patient does not have UTI symptoms
Collagenous Colitis: As needed Lomotil
Nausea/vomiting - PPI, Zofran. kub unremarkable
Pulmonary: Incentive spirometry
Safety: Continue to reinforce assistance with all transfers.
Code Status:� Full code
Dispo (date/plan/equipment needs): Home with family care.� Social history reviewed.
Functional and Medical Goals: Modified Independent with ADL�s, ambulation, transfers
Discharge Destination: Acute Inpatient Rehabilitation
Summary of recommendations:
- Discharge Destination: Patient with history of recent CVA associated with weakness, deconditioning, aphasia and also s/p right total reversed shoulder arthroplasty currently functional at Bed mobility�min assist, transfer�min assist, ambulated 60
feet without assistive device, unsteady, eating�min assist, toileting�supervision, grooming - min assist woud benefit from Acute Inpatient Rehabilitation for PT/OT/speech to increase independence with ADLs, improve balance, coordination, endurance,
strength, mobility, community reintegration, decreased burden of care on others and family education.
CVA: Secondary prophylaxis with aspirin, statin, and blood pressure control (SBP less than 180 and diastolic less than 100 to participate with therapy for ischemic stroke). Continue to monitor neurologic status.
right dominant hemiparesis: High risk for falls and sliding out of chair/bed. Safety reinforced.
- Avoid using affected arm to help lift or pull patient as this will cause trauma to the shoulder.
Aphasia: Receptive and expressive. Speech evaluation
Pain: acetaminophen , oxycodone as needed, gabapentin. Lidocaine patch, diclofenac topical gel 4 times daily
Bowel: Colace and Senna, PRN bisacodyl.
Bladder: Time void, PVRs, PRN straight cath.
GI Prophylaxis: Pantoprazole 40mg
DVT Prophylaxis: Mechanical and heparin 5000 units every 8 hours
Pulmonary: Incentive spirometry
Safety: Continue to reinforce assistance with all transfers.
Thank you for allowing me to care for your patient. Please contact me with any questions or concerns.
This note was dictated using a voice recognition system. Please excuse any typographical errors from director hr communications. If you believe there are any discrepancies, please notify our office.

Documented by User: Stanley Melton MD 11/24/23 17:17
Consultation - Medical
-
Referring Provider: Dr. Luanne Dale
Chief Complaint:CVA
History of Present Illness: Patient is a 68-year-old woman with PMH of ( chronic pain, Anxiety, back problems, Colitis, UTI, Vertigo, Lyme, Chronic fatigue) presenting the hospital with confusion starting the past 1 to 2 days. Initially this was
felt to be possibly urinary tract infection or related to home medication effects on mental status, reported as having home temperature of 100.3 otherwise had no fevers or elevated temperatures here in this hospital during this stay. Yesterday for
the hospitalist her mental status was much more clear and today has been a significant change in mental status with confusion and memory loss.
MRI brain with right parietal lobe abnormality with FLAIR hyperintensity mostly along the cortex but also involving white matter, no significant diffusion restriction, there is a very small amount of postcontrast enhancement, no hemorrhage in the
area. Neurology thinks confusion is highly likely due to right parietal lobe brain lesion of unclear etiology with highest concerns for encephalitis or neoplasm. CSF from lumbar puncture showed normal white blood cells no elevated protein no
findings of growth from culture and negative Gram stain CSF [employer] meningitis/encephalitis panel was negative.
Repeated brain MRI does show 2 areas of acute infarct around the right parietal lobe abnormality. No areas of hemorrhage are seen.Stroke etiology is probably embolic, atheroembolic versus cardioembolic. Neuro recommended starting [id number]. Hold off
DAPT at this point. Check carotid ultrasound and transthoracic echocardiogram
Carotid duplex revealed velocity profile consistent with greater than 70% stenosis on the right. CT angiogram obtained and demonstrates significant right internal carotid artery stenosis with soft plaque. Vascular recommended right right CEA.
11/21/23 -Patient is s/p RIGHT carotid endarterectomy with patch angioplasty. patient admitted to ICU post-op; required nicardipine gtt to keep SBP goal now off gtt and on telemetry (transferred 11/21)
Past Medical History: Anxiety, back problems. Colitis, UTI, Vertigo, Lyme, Chronic fatigue
Procedure History: Left hip ORIF, multiple breast surgery, Adenoid removed, Deviated septum,T&A, right total shoulder arthroplasty on 10/08/2023.
Family History: Not pertinent
Social History:
Functional Level Premorbidly: Independent with all activities
Functional Level Currently: Bed mobility�min assist, transfer�min assist, ambulated 60 feet without assistive device, eating�min assist, toileting�supervision, grooming - min assist
Tobacco: Denies
Alcohol: Denies
Drug use: Denies
Lives with: Spouse
24-hour assistance available:
Number of floors: multi level- farm house
# steps to enter: 1 to get in on one side of the house.
# steps to second floor: Spiral stairs FF
Potential First floor set up:yes
Driving: prior to shoulder replacement in October 2023
Occupation: Retired
�
Allergies:
Allergy/AdvReac Type Severity Reaction Status Date / Time
Sulfa (Sulfonamide Allergy Hives Verified 11/12/23 01:57
Antibiotics)
Review of Systems:
Constitutional: (x) Fatigued
Eye: (x) Normal _
Ear/Nose/Throat: (x) Normal _
Respiratory: (x) Normal _
Cardiovascular: (x)s/p carotid endarterectomy
Gastrointestinal: (x) Normal _
Genitourinary: (x) Normal _
Musculoskeletal: (x) Normal _
Integumentary: (x) Normal _
Neurologic: (x) CVA
Psychiatric: (x) Normal _
Endocrine: (x) Normal _
Hematologic/Lymphatic: (x) Normal _
Allergic/Immunologic: (x) Normal _
Medications:
Active Current Visit Medication List
Category Date Time Status
Acetaminophen [Tylenol] Med 11/12/23 10:09 Active
650 mg PO Q4HPRN PRN
Alprazolam [Xanax] Med 11/22/23 13:00 Active
1 mg PO TID
Amlodipine [Norvasc] Med 11/14/23 10:00 Active
10 mg PO DAILY
Aspirin Low Dose EC [Aspir Low (Enteric Coated)] Med 11/15/23 14:00 Active
81 mg PO DAILY
Atorvastatin [Lipitor] Med 11/17/23 18:00 Active
40 mg PO QPM
Bisacodyl [Dulcolax] Med 11/21/23 12:28 Active
10 mg RECTAL DAILYPRN PRN
Diclofenac 1% Topical Gel Med 11/23/23 13:00 Active
See Protocol TOPICAL QID
Diphenoxylate / Atropine [Lomotil] Med 11/20/23 10:14 Active
1 tablet PO Q6HPRN PRN
Flush (0.9% Sodium Chloride) [Flush (Nss)] Med 11/12/23 11:00 Active
See Dose Instructions IV PER PROTOCOL
Gabapentin [Neurontin] Med 11/12/23 10:09 Active
100 mg PO TID
Heparin Med 11/12/23 16:00 Active
5,000 units SC Q8
Lidocaine [Lidocaine 4% Patch] Med 11/23/23 11:00 Active
1 patch TOPICAL DAILY
Oxycodone [Roxicodone] Med 11/17/23 12:09 Active
5 mg PO Q4HPRN PRN
Pantoprazole [Protonix] Med 11/20/23 08:00 Active
40 mg PO DAILY
Phenyleph/Mineral Oil/Petrolat [Preparation H Ointment] Med 11/20/23 16:28 Active
See Dose Instructions RECTAL BIDPRN PRN
Remove Patch [Remove Lidocaine Patch] Med 11/23/23 20:00 Active
See Dose Instructions REMOVE DAILY@1999
Vitals:
Temp Pulse Resp BP Pulse Ox
98.2 F 87 18 147/78 98
11/24/23 07:00 11/24/23 07:00 11/24/23 07:00 11/24/23 07:00 11/24/23 07:00
Height 5 ft 7 in
Actual Weight 50.604 kg
Body Mass Index (BMI) 17.5
Physical Exam:
General Appearance/Observation: Well-developed, well-nourished individual in no apparent distress.
Pain/Comfort Assessment: currently Denies
Mood/Affect: Appropriate
Integumentary/Operative Site:(right CEA surgical site with intact sutures, surrounding bruising, no discharge )
�� Pressure Ulcer Evaluation: absent over heels.
��
�� Other Type of Wound: Healed right shoulder incision
��
Eyes: Conjunctiva/Lids: normal ��� Pupils: pupils equal round and reactive to light and Accommodation
Ears/Nose/Throat: oral mucosa moist,� throat -not visualized. ����������� Lips/Teeth/Gums: normal
Neck: No muscle spasm or tenderness
Cardiovascular: Heart: regular, no murmur
Pulses: dorsalis pedis 2+ bilaterally
Respiratory: Respiratory Effort/Chest Expansion: normal ������� Auscultation: Clear to auscultation bilaterally
Gastrointestinal: abdomen not tender, no distension, normal abdominal bowel sounds
Genitourinary: No Hill
Extremities: Edema: None Cyanosis: None Trophic changes: None
Neurology Exam:
Orientation: Alert, Oriented to self, knows year, month because had recent conversation with , does not know date, does not recall shoulder surgery
Memory: Impaired for immediate medical concerns
Higher cortical function
Repetition: impaired
Comprehension: slow to process.
Two step command: slow processing. Needs repeating and cues
Naming: impaired
Cranial Nerves:
�� CNII: Pupillary light reflex: Intact��� Visual Field: Intact
�� CN III, IV, : Extraocular muscles: Intact
�� CN V: Facial Sensation at Forehead: Intact, Maxilla: Intact, Mandible: Intact
�� CN VII: Facial movement: Symmetric
�� CN VIII: Hearing: Normal
�� CN IX/X: Speech & swallow: expressive > receptive aphasia Position of Uvula: Midline
�� CN XI: Shoulder shrug: weakness on the right not sure if due to shoulder surgery and/or CVA
�� CN XII: Tongue protrusion: Midline
Sensory:
�� Light touch: Intact in bilateral upper and lower extremities
��
Reflexes:
�� Biceps: 1 bilaterally
�� Brachioradialis: 2+ bilaterally
�� Triceps: 1 bilaterally
�� Patellar: 1 bilaterally
�� Achilles: trace bilaterally
�� Babinski: up going left, downgoing right
�� Clonus: None
�� Kaycee: Negative bilaterally
Cerebellar: Dysmetria/Ataxia: difficulty assessing on the right side due to limitation with lifting arm. Impaired on the left with nose to finger coordination
Musculoskeletal:
Motor: (Manual muscle scale 0-5)
Muscle SA EF WE EE FF FA HF KE DF EHL PF
Right� NT 3 5 3 3 3 4 4 4 4 5
Left 3 4 4 4 3 3 4- 4 4 4 5
Tone: Normal in all extremities
Range of Motion: Passively within normal limits in all extremities. Deferred RUE due to surgery and restrictions
Lab Results
Labs
WBC 9.1 10^3/uL (4.8-10.8) 11/23/23 06:19
RBC 3.61 10^6/uL (4.20-5.40) L 11/23/23 06:19
Hgb 10.7 g/dL (12.0-16.0) L 11/23/23 06:19
Hct 33.2 % (37.0-47.0) L 11/23/23 06:19
MCV 92.0 fL (81.0-99.0) 11/23/23 06:19
MCH 29.6 pg (27.0-31.0) 11/23/23 06:19
MCHC 32.2 g/dL (33.0-37.0) L 11/23/23 06:19
RDW 13.4 % (11.5-14.5) 11/23/23 06:19
Plt Count 223 10^3/uL (130-400) 11/23/23 06:19
MPV 9.7 fL (7.4-10.4) 11/23/23 06:19
Abs Immat Gran (auto) 0.0 10^3/uL (0-0.05) 11/11/23 22:06
Absolute Neuts (auto) 4.9 10^3/uL (1.4-6.5) 11/11/23 22:06
Absolute Lymphs (auto) 1.7 10^3/uL (1.2-3.4) 11/11/23 22:06
Absolute Monos (auto) 0.7 10^3/uL (0.1-0.6) H 11/11/23 22:06
Absolute Eos (auto) 0.3 10^3/uL (0-0.7) 11/11/23 22:06
Absolute Basos (auto) 0.0 10^3/uL (0-0.2) 11/11/23 22:06
Immature Gran % 0.1 % (0-0.5) 11/11/23 22:06
Neutrophils % 64.0 % (42.2-75.2) 11/11/23 22:06
Lymphocytes % 22.7 % (20.5-51.1) 11/11/23 22:06
Monocytes % 9.4 % (1.7-9.3) H 11/11/23 22:06
Eosinophils % 3.3 % (0-6) 11/11/23 22:06
Basophils % 0.5 % (0-2) 11/11/23 22:06
Nucleated RBC % 0 % 11/11/23 22:06
ESR 19 mm/hour (0-20) 11/15/23 13:33
PT 15.2 Sec (11.4-14.6) H 11/22/23 03:59
INR 1.22 11/22/23 03:59
APTT 67.9 Sec (23.4-35.0) H 11/22/23 03:59
Sodium 141 mmol/L (135-145) 11/24/23 05:18
Potassium 3.6 mmol/L (3.5-5.1) 11/24/23 05:18
Chloride 107 mmol/L (98-107) 11/24/23 05:18
Carbon Dioxide 29 mmol/L (22-30) 11/24/23 05:18
BUN 8 mg/dl (7-17) 11/24/23 05:18
Creatinine 0.5 mg/dL (0.6-1.0) L 11/24/23 05:18
Estimated Creat Clear 72 ml/min 11/24/23 05:18
eGFR > 60.00 11/24/23 05:18
Glucose 99 mg/dl (70-99) 11/24/23 05:18
Hemoglobin A1c 5.3 % (4.0-5.6) 11/18/23 04:29
Lactic Acid Cancelled 11/12/23 02:00
Calcium 9.1 mg/dl (8.4-10.2) 11/24/23 05:18
Phosphorus 3.6 mg/dl (2.5-4.5) 11/14/23 07:35
Magnesium 1.9 mg/dl (1.6-2.3) 11/23/23 06:19
Total Bilirubin 0.5 mg/dl (0.2-1.3) 11/17/23 05:30
AST 26 U/L (14-36) 11/17/23 05:30
ALT 15 U/L (0-35) 11/17/23 05:30
Alkaline Phosphatase 80 U/L (38-126) 11/17/23 05:30
Troponin I 0.019 ng/ml 11/14/23 07:35
C-Reactive Protein 6.40 mg/L (0.0-10.00) 11/15/23 13:33
Total Protein 6.0 g/dl (6.3-8.2) L 11/17/23 05:30
Albumin 3.6 g/dl (3.5-5.0) 11/17/23 05:30
Triglycerides 91 mg/dl (10-149) 11/18/23 04:29
Total Cholesterol 178 mg/dl (50-199) 11/18/23 04:29
LDL Cholesterol, Calc 93 mg/dl 11/18/23 04:29
VLDL Cholesterol, Calc 18 mg/dl (0-30) 11/18/23 04:29
HDL Cholesterol 67 mg/dl 11/18/23 04:29
TSH Cancelled 11/12/23 22:06
TSH (Reflex) 1.12 uIU/ml (0.47-4.68) 11/12/23 22:06
Urine Color Yellow 11/15/23 15:59
Urine Clarity Clear (Clear) 11/15/23 15:59
Urine pH 6.0 (5.0-9.0) 11/15/23 15:59
Ur Specific Henriette 1.015 (<1.030) 11/15/23 15:59
Urine Ketones 3+ (Negative) A 11/15/23 15:59
Ur Occult Blood Reflex Negative (Negative) 11/15/23 15:59
Urine Nitrite (Reflex) Negative (Negative) 11/15/23 15:59
Urine Bilirubin Negative (Negative) 11/15/23 15:59
Urine Urobilinogen Negative (Neg - 1+) 11/15/23 15:59
Leukocyte Esterase Rfl Negative (Negative) 11/15/23 15:59
Urine RBC 3-6 /HPF (0-2) A 11/11/23 23:49
Urine WBC (Reflex) >100 /HPF (0-5) A 11/11/23 23:49
Ur Squamous Epith Cells 6-10 /LPF (Few) 11/11/23 23:49
Urine Bacteria (Reflex) Many (Negative) A 11/11/23 23:49
Urine Glucose Negative (Negative) 11/15/23 15:59
Urine Albumin (Reflex) Trace (Neg - Trace) 11/15/23 15:59
CSF Appearance Clear 11/14/23 14:22
CSF Color Colorless 11/14/23 14:22
CSF WBC 1 mm^3 (0-5) 11/14/23 14:22
CSF RBC 31 mm^3 11/14/23 14:22
CSF Cell Count Tube # 1 11/14/23 14:22
CSF Comment 11/14/23 14:22
CSF Glucose 70 mg/dl (40-70) 11/14/23 14:19
CSF Total Protein 45 mg/dl (12-60) 11/14/23 14:19
CSF VDRL Non reactive (Non Reactive) 11/14/23 14:19
Salicylates < 1.0 mg/dl (2.0-20.0) L 11/11/23 22:06
Urine Opiates Screen Positive (Negative) H 11/12/23 23:55
Ur Buprenorphine Negative (Negative) 11/12/23 23:55
Ur Oxycodone Screen Positive (Negative) H 11/12/23 23:55
Urine Methadone Screen Negative (Negative) 11/12/23 23:55
Urine Fentanyl Screen Negative (Negative) 11/12/23 23:55
Acetaminophen < 10 ug/ml (10-30) L 11/11/23 22:06
Ur Barbiturates Screen Negative (Negative) 11/12/23 23:55
Ur Tricyclics Screen Negative (Negative) 11/12/23 23:55
Ur Phencyclidine Scrn Negative (Negative) 11/12/23 23:55
Ur Amphetamines Screen Negative (Negative) 11/12/23 23:55
U Methamphetamines Scrn Negative (Negative) 11/12/23 23:55
U Benzodiazepines Scrn Positive (Negative) H 11/12/23 23:55
Urine Cocaine Screen Negative (Negative) 11/12/23 23:55
U Marijuana (THC) Screen Negative (Negative) 11/12/23 23:55
GRECIA IgG Screen None detected (None Detected) 11/15/23 13:33
Babesia microti IgG Ab < 1:16 (< 1:16) 11/15/23 13:33
Babesia microti IgM Ab <1:20 (<1:20) 11/15/23 13:33
Lyme Specimen Source Serum 11/15/23 13:33
Lyme Disease DNA (PCR) Not detected 11/15/23 13:33
Hep Bs Antigen Negative (Negative) 11/21/23 13:14
Hep Bs Antibody Negative 11/21/23 13:14
Hepatitis C Antibody Negative (Negative) 11/21/23 13:14
HIV Ag/Ab Combo Qual Negative (Negative) 11/21/23 13:14
VZV (PCR) Source Serum 11/14/23 14:39
VZV DNA (PCR) Not detected 11/14/23 14:39
POC ACT Low Range 255 Seconds (116-155) H 11/21/23 12:25
Blood Type B POS 11/21/23 08:16
Antibody Screen Negative (Negative) 11/21/23 08:16
�
Diagnostic Results: as per HPI
Assessment Patient is a 68-year-old woman with PMH of ( chronic pain, Anxiety, back problems, Colitis, UTI, Vertigo, Lyme, Chronic fatigue) presenting the hospital with confusion starting the past 1 to 2 days. Repeated brain MRI does show 2 areas
of acute infarct around the right parietal lobe abnormality. No areas of hemorrhage are seen.Stroke etiology is probably embolic, atheroembolic versus cardioembolic. She is s/p CEA 11/21/23.
Plan
PT/OT to increase independence with ADLs, improve balance, coordination, endurance, strength, mobility, community reintegration, decreased burden of care on others and family education.
CVA: Secondary prophylaxis with aspirin, statin, and blood pressure control (SBP less than 180 and diastolic less than 100 to participate with therapy for ischemic stroke). Continue to monitor neurologic status.
right dominant hemiparesis: High risk for falls and sliding out of chair/bed. Safety reinforced.
- Avoid using affected arm to help lift or pull patient as this will cause trauma to the shoulder.
Aphasia: Receptive and expressive. Speech evaluation
HTN: New- Amlodipine 10 mg daily, monitor closely
Hypokalemia- monitor and replete
HLD: Atorvastatin 40
Carotid stenosis: s/p right carotid endarterectomy-11/20
S/P Right Total Reversed Shoulder- 10/08/23. Had post op follow up. cancelled 2nd follow up due to hospitalization. Rom with ortho restrictions for right shoulder
Chronic pain syndrome: Gabapentin 100 mg 3 times daily, oxycodone 5 every 4 as needed
Anemia: Likely multifactorial.� Continue to monitor.
Psych: Chronic anxiety, chronic opioid dependence, chronic pain syndrome. Psychology consult.� Xanax 1 mg 3 times daily
Confusion: Could be due to post cva, polypharmacy. Monitor
Skin: monitor for pressure sores/rashes/lesions.
Pain: acetaminophen , oxycodone as needed, gabapentin. Lidocaine patch, diclofenac topical gel 4 times daily
Bowel: Colace and Senna, PRN bisacodyl.
Bladder: Time void, PVRs, PRN straight cath.
GI Prophylaxis: Pantoprazole 40mg
DVT Prophylaxis: Mechanical and heparin 5000 units every 8
Abnormal UA: Asymptomatic.Received 3 days of antibiotics (Ceftriaxone). Follow-up repeat UA : negative. Patient does not have UTI symptoms
Collagenous Colitis: As needed Lomotil
Nausea/vomiting - PPI, Zofran. kub unremarkable
Pulmonary: Incentive spirometry
Safety: Continue to reinforce assistance with all transfers.
Code Status:� Full code
Dispo (date/plan/equipment needs): Home with family care.� Social history reviewed.
Functional and Medical Goals: Modified Independent with ADL�s, ambulation, transfers
Discharge Destination: Acute Inpatient Rehabilitation
Summary of recommendations:
- Discharge Destination: Patient with history of recent CVA associated with weakness, deconditioning, aphasia and also s/p right total reversed shoulder arthroplasty currently functional at Bed mobility�min assist, transfer�min assist, ambulated 60
feet without assistive device, unsteady, eating�min assist, toileting�supervision, grooming - min assist woud benefit from Acute Inpatient Rehabilitation for PT/OT/speech to increase independence with ADLs, improve balance, coordination, endurance,
strength, mobility, community reintegration, decreased burden of care on others and family education.
CVA: Secondary prophylaxis with aspirin, statin, and blood pressure control (SBP less than 180 and diastolic less than 100 to participate with therapy for ischemic stroke). Continue to monitor neurologic status.
right dominant hemiparesis: High risk for falls and sliding out of chair/bed. Safety reinforced.
- Avoid using affected arm to help lift or pull patient as this will cause trauma to the shoulder.
Aphasia: Receptive and expressive. Speech evaluation
Pain: acetaminophen , oxycodone as needed, gabapentin. Lidocaine patch, diclofenac topical gel 4 times daily
Bowel: Colace and Senna, PRN bisacodyl.
Bladder: Time void, PVRs, PRN straight cath.
GI Prophylaxis: Pantoprazole 40mg
DVT Prophylaxis: Mechanical and heparin 5000 units every 8 hours
Pulmonary: Incentive spirometry
Safety: Continue to reinforce assistance with all transfers.
Thank you for allowing me to care for your patient. Please contact me with any questions or concerns.
This note was dictated using a voice recognition system. Please excuse any typographical errors from director hr communications. If you believe there are any discrepancies, please notify our office.
Attending Statement:
Patient seen and examined by me this afternoon. Discussed with Fifi Andersen PA-C and agree with above note, examination and plan as outlined.
Patient still with limited mobility with therapy today - only able to do 60' and with min A due to weakness, and balance and CVA. Use of assistive device will be limited due to recent right shoulder arthroplasty which will impact her speed of
recovery of mobility post stroke. Also with cognitive affects from CVA requiring speech and cognitive therapy. Would certainly benefit from acute level rehab to improve strength, mobility, balance, ADL's including RUE rehab from shoulder
arthroplasty, and speech/cognitive therapy. She will be able to tolerate 3hrs/therapy a day to improve to goals of modified independent with above before discharge home with .
[2023-11-21] MEDS: NSS 1000 IV ×3 (16:00→23:34)
[2023-11-21] MEDS: LIPITOR 40 MG PO (16:09)
--- NOTE | 2023-11-21 17:22 | W.IMMPOSTOP ---
Surgical Immed Post Op Note
-
Primary Surgeon: Dr. Elvis Hill III, MD
Assisting Surgeon: Dr. Sam Campos MD, PhD (PGY-1)
Pre-op Diagnosis: Symptomatic severe stenosis of right carotid artery
Post-op Diagnosis: Symptomatic severe stenosis of right carotid artery
Procedure Performed: Right carotid endarterectomy
Anesthesia Type: General
Specimen / Cultures: None
Estimated Blood Loss: Minimal
Complications: None
Operative Findings: The patient was brought to the OR and placed in the supine position. After induction with anesthesia and neuromonitoring, the patient was prepped and draped in usual sterile fashion. Ultrasound guidance was used to map the
pathway of the common carotid, bifurcation, and proximal internal and external carotid artery vessels; which were marked at the skin level. Incision was made and sharp and electrocautery dissection was performed to expose the common carotid artery.
The vessel was dissected circumferentially and a vessel loop was passed for proximal control. Distal control was obtained by passing vessel loops around the external and internal carotid arteries. The vessels were clamped in the order of internal,
common, external. Arteriotomy was made and extended with Ch scissors. A freer was used to perform the endarterectomy. A bovine pericardial patch was brought to the field and a patch angioplasty was performed with running 6-0 prolene suture. After
sewing the patch, the clamps were removed and doppler confirmed strong signals in the internal, external and proximal common carotids. Hemostasis was achieved, and the soft tissue and skin layers were closed with suture. Skin glue was used at the
level of the skin. At the conclusion of the case, the patient demonstrated equal and symmetric good motor strength in her lower and upper extremities as well as hypoglossal nerve function. The patient was transported to the PACU in stable condition.
[2023-11-21] MEDS: ZANAFLEX 2 MG PO (20:37)
--- NOTE | 2023-11-21 20:45 | PTCARENOTE ---
Assumed care of pt at 1900. Pt is A/O x4, forgetful at times, NIHSS = 0. Neurological assessments ongoing Q1 hour, WNL. Reporting aching pain to right shoulder/right neck area, medicated with PRN Tylenol. Ice pack given to patient as well, which she
states helps the pain. Pt has been maintaining BP without the use of Phenylephrine or Nicardipine, BP from right radial arterial line. Physical assessment completed, see nursing shift assessment flowsheet for full details. Call eric and personal
items within reach.
[2023-11-21] MEDS: NEO-SYNEPHRINE 250 IV (22:43)
--- NOTE | 2023-11-22 00:04 | PTCARENOTE ---
Physical assessment and neurological assessments unchanged. Around 2129 pt's BP starting to trend down, with systolic going as low as 87. 1000mL NS bolus given but ultimately Phenylephrine was needed to maintain ordered BP parameters, infusing at
20mcg/min at this time. Pt given Zanaflex at start of shift, which was ordered for increased anxiety/agitation--pt normally takes Xanax TID at home, has been for >20 years per patient, and had been getting it while in the hospital but it was put on
hold this afternoon. Pt becoming increasingly anxious making statements such as 'I don't think I'm going to make it out of here' and stating that she was 'scared' and 'why is all of this happening to me?' (nothing was happening). Discussed with K.
Waylon DONIS, Xanax reordered, given to patient just before 0. SR/SB on monitor, 50s-60s. Maintaining SpO2 96% on RA. Pt now resting with eyes closed. Call eric within reach, bed alarm activated.
[2023-11-22 01:58] VITALS: BP 125/64
[2023-11-22] MEDS: LOMOTIL 1 TABLET PO ×2 (02:43→09:36)
[2023-11-22 02:44] VITALS: BMI 18.2
[2023-11-22] MEDS: TYLENOL 650 MG PO ×3 (03:54→17:06)
--- NOTE | 2023-11-22 04:05 | PTCARENOTE ---
Physical assessment and neurological assessments unchanged. Pt opens eyes spontaneously or to voice, was able to fall asleep after receiving her Xanax and gabapentin. SR 80s on monitor. Able to turn Phenylephrine off at around 0100 and pt has been
maintaining BP within parameters (systolic 100-160). Medicated with PRN Tylenol for pain to right shoulder/right neck, ice pack refilled and given as well. Bed alarm activated.
[2023-11-22 04:13] LABS: Hematocrit 28.9 % (37.0-47.0); Hemoglobin 9.6 g/dL (12.0-16.0); Mean Corp Hgb Conc. 33.2 g/dL (33.0-37.0); Mean Corpuscular Hgb 29.7 pg (27.0-31.0); Mean Corpuscular Volume 89.5 fL (81.0-99.0); Mean Platelet Volume 9.7 fL (7.4-10.4); Platelet Count 222 10^3/uL (130-400); Red Blood Cell Count 3.23 10^6/uL (4.20-5.40); Red Cell Dist. Width 13.3 % (11.5-14.5); White Blood Cell Count 11.2 10^3/uL (4.8-10.8)
[2023-11-22 04:22] LABS: INR 1.22; PT 15.2 Sec (11.4-14.6)
[2023-11-22 04:23] LABS: APTT 67.9 Sec (23.4-35.0)
[2023-11-22 04:34] LABS: Blood Urea Nitrogen 6 mg/dl (7-17); Calcium 8.6 mg/dl (8.4-10.2); Carbon Dioxide 22 mmol/L (22-30); Chloride 109 mmol/L (98-107); Estimated Creatinine Clearance 75 ml/min; Glucose 96 mg/dl (70-99); Potassium 3.5 mmol/L (3.5-5.1); Sodium 137 mmol/L (135-145); eGFR > 60.00
[2023-11-22 04:50] VITALS: BP 134/65
[2023-11-22] MEDS: CARDENE 200 IV (05:57)
--- NOTE | 2023-11-22 06:04 | PTCARENOTE ---
Pt's BP starting to increase, reaching as high as 170s, would come down briefly to 150s but then go back up again. Cardene started at around 0600 at 2.5mg/hr. Pt's neurological assessment unchanged. Pt denies pain at this time.
--- NOTE | 2023-11-22 08:26 | W.PN.HOSP.TC ---
Addendum entered and electronically signed by Luanne Lincoln MD 11/22/23 13:00:
Patient is on Alprazolam QID at home; getting much less dosing here and feeling anxious --> will increase to 1mg TID with first dose now.
Original Note:
Today's Communication/Plan
-
see plan
Assessment / Plan
Assessment / Plan
Physical Exam
General: Other (68y F in no acute distress.)
HEENT: Moist mucous membranes and PERRLA
Respiratory: Clear; No Wheezes, Rales or Rhonchi
Cardiac: S1/S2 and Regular Rhythm; No Murmur
GI: Soft, Non Tender, Non Distended and Normal Bowel Sounds
Genito-urinary: No costovertebral tender
Musculoskeletal: No Clubbing, No Cyanosis, No Edema and Other (R shoulder incision healing well. No significant bleeding, ecchymosis, etc.)
Neuro: Other (Awake and alert. confused but appears more lucid this morning
MRI
IMPRESSION:
1. Tiny 3 mm acute ischemic infarct in the posterior right frontal lobe centrum semiovale which appears unchanged.
2. Large 6.7 cm region of cortical hernadez matter and subcortical white matter signal abnormality in the posterior right parietal and occipital lobes which appears similar to 11/14/2023. A SUBACUTE TRANSCORTICAL ISCHEMIC INFARCT is considered most
likely. Alternative diagnostic possibilities are posterior reversible encephalopathy syndrome (PRES), vasculitis, or a primary brain tumor.
3. Mild white matter leukoaraiosis in both frontal lobes.
4. 6.7 mm chronic lacunar infarct in the left thalamus.
5. Mild diffuse cerebral and cerebellar volume loss.
6. Severe discogenic degenerative disease at C3/C4 with a large disc-osteophyte complex causing mild to moderate spinal cord compression and central canal stenosis.
Cerebrovascular US:
IMPRESSION:
1. By velocity criteria, there is greater than 70% stenosis of the right internal carotid artery.
2. By velocity criteria, any left internal carotid artery stenosis present is in the range of 0-49%.
3. Antegrade flow bilateral vertebral arteries.
CT Angio Head/Neck:
IMPRESSION: Severe mixed soft and calcific plaque in the right carotid bulb resulting in focal approximate 74% stenosis of the proximal right internal carotid artery over a length of approximately 2 cm.
The left internal carotid artery is grossly patent with only mild calcific plaque in the carotid bulb resulting in less than 25% stenosis.
Bilateral hypoattenuating thyroid nodules measuring up to 1.1 cm on the left. Consider further evaluation with dedicated thyroid ultrasound if not previously performed.
A/P: Patient is a 68y F with PMH significant for chronic pain and chronci anxiety on multiple medications who presents to ED for evaluation of confusion.
Acute TME with finding of right parietal lobe lesion on MRI with repeat more suggestive of subacute CVA
Right ICA Stenosis seen on cerebrovascular US and CTA
-initial work-up unclear if mass versus ischemic stroke; repeat MRI more convincing of CVA. Cerebral US and CTA with e/o right ICA stenosis
-appreciate vascular surgery consult; s/p CEA 11/20
-patient admitted to ICU post-op; required nicardipine gtt to keep SBP goal
-continue COOK SOUP Amlodipine, hopefully wean off nicardipine and transfer out of ICU today
-F/U further vascular surgery recs; will need to reorder PT/OT
-continue asa/statin
-PHysiatry consult - Dr. Goss will evaluate for [place] on Friday
Chronic Pain Syndrome
Chronic Anxiety
Chronic Opioid Dependence
- confirmed patient was taking Xanax 1mg QID for 2-3 years
-will resume at lower dosing to prevent withdrawal - 0.5mg TID with as needed on board
-pain seems to be controlled; will add on lower dose oxycodone PRN
Collagenous Colitis
-C. Diff negative on 11/16
-lomotil PRN
#Asymptomatic Bacteruria
-Encephalopathy unlikely due to urine in setting of MRI findings (mental status has been waxing and waning)
� Received 3 days of antibiotics (Ceftriaxone)
� Follow-up repeat UA : negative
-Patient does not have UTI symptoms
Nausea/vomiting
� possibly 2/2 to neurological disease
- PPI, Zofran
-kub unremarkable
#Hyponatremia
-resolved
#Hypertension
-new start amlodipine this admission
#Hypokalemia
-monitor and replete
s/p R TSA
- Surgery was now > 1 month ago.
- PT / OT evaluations.
- Site is well-appearing.
DVT Prophylaxis: HSQ
Code Status: Full
Total time spent on today's encounter was 52 minutes which included time spent in counseling the patient/family regarding diagnosis and treatment plan as listed above, goals of care, and symptom management. Case was discussed with nursing staff,
specialists, and care coordinators/case management. All labs and imaging personally reviewed by me. Remainder the time spent in detailed review of previous records, lab data, imaging, and other medical provider documentation.
Anticipated Discharge: > 48 hours
Subjective/Interval History
-
Date of Service: November 22, 2023
anxious this morning
denies pain
Objective Data
-
Labs:
Laboratory Results
11/22/23
03:59
WBC 11.2 H
Hgb 9.6 L
Hct 28.9 L
Plt Count 222
PT 15.2 H
INR 1.22
APTT 67.9 H
Sodium 137
Potassium 3.5
Chloride 109 H
Carbon Dioxide 22
BUN 6 L
Creatinine 0.4 L
Glucose 96
Calcium 8.6
Vital Signs:
Vital Signs
Temp Pulse Resp BP Pulse Ox
98.7 F 74 15 134/65 97
11/22/23 03:55 11/22/23 06:00 11/22/23 06:00 11/22/23 04:50 11/22/23 06:00
I&O
11/21/23 11/22/23 11/23/23
06:59 06:59 06:59
Intake Total 960 / 960 3227 / 3227
Output Total 0 / 0
Balance 960 / 960 1007 / 1007
Review of Systems
-
History Source: Patient
All other systems: Reviewed and negative
Physical Exam
-
General: No Apparent Distress
HEENT: PERRLA and Other (right CEA surgical site with intact sutures, surrounding bruising, no discharge )
Respiratory: Clear to Auscultation; Negative Wheezes
Cardiac: Regular Rhythm and S1/S2
GI: Soft and Nontender
Musculoskeletal: No Edema
Skin: Warm and Dry; Negative Rash
Neuro: AO x 3
Psych: Calm
Data Reviewed
-
Diagnostic Radiology: Report Reviewed by me
Labs: Labs Reviewed by me
[2023-11-22] MEDS: NEURONTIN 100 MG PO ×3 (08:53→22:11)
[2023-11-22] MEDS: ASPIR LOW (ENTERIC COATED) 81 MG PO (08:53)
[2023-11-22] MEDS: HEPARIN 5000 UNITS SC ×2 (08:53→16:26)
[2023-11-22] MEDS: PROTONIX 40 MG PO (08:53)
[2023-11-22] MEDS: NORVASC 10 MG PO (08:53)
[2023-11-22] MEDS: XANAX 0.5 MG PO (08:54)
--- NOTE | 2023-11-22 08:56 | W.PN.INTV ---
Today's Communication / Plan
Recommendations
Physical therapy
Occupational Therapy
Wean off Cardene drip
Continue oral antihypertensive
Eventual transfer to [facility]
Hopefully can transfer out of the ICU later today.
Assessment
-
68-year-old woman initially admitted for change in mental status. Workup initially negative. Treated for possible UTI. Underwent MRI that demonstrated subacute CVA. Found to have significant right carotid stenosis. Underwent carotic
endarterectomy 11/21/2023.
Critical care consulted for postoperative care
Status post right carotic endarterectomy with patch angioplasty
Diagnosed this admission: Subacute CVA
70% stenosis of the right internal carotid artery.
Conditions present on admission
Collagenous colitis
Status post right total shoulder arthroplasty
Chronic opiate use
Chronic pain
Osteoarthritis.
Assessment and plan:
Postoperative day 1
Stable overnight
No neurological changes.
Incentive spirometry encouraged.
Incision is intact.
Pain is controlled
No stridor on exam
Neuro and vascular checks per protocol
Vascular surgery following-correspondence and operative notes reviewed
Monitor blood pressure
DC arterial line
DC IV fluids
Wean off Cardene drip as able
Oral antihypertensive restarted
Follow blood sugars
Insulin supplementation as needed
For CVA
Continue antiplatelet
Eventual physical therapy Occupational Therapy
Monitor mental status
Eventual transfer to [facility]
DVT prophylaxis
Once Cardene drip is weaned off transfer to telemetry. If transfer out of the ICU critical care team will sign off, call pulmonary if any respiratory issues arise.

Reviewed imaging:
MRI brain:
1. Tiny 3 mm acute ischemic infarct in the posterior right frontal lobe centrum semiovale which appears unchanged.
2. Large 6.7 cm region of cortical hernadez matter and subcortical white matter signal abnormality in the posterior right parietal and occipital lobes which appears similar to 11/14/2023. A SUBACUTE TRANSCORTICAL ISCHEMIC INFARCT is considered most
likely. Alternative diagnostic possibilities are posterior reversible encephalopathy syndrome (PRES), vasculitis, or a primary brain tumor.
3. Mild white matter leukoaraiosis in both frontal lobes.
4. 6.7 mm chronic lacunar infarct in the left thalamus.
5. Mild diffuse cerebral and cerebellar volume loss.
6. Severe discogenic degenerative disease at C3/C4 with a large disc-osteophyte complex causing mild to moderate spinal cord compression and central canal stenosis.
Echocardiogram 11/18/2023: Showed normal LVEF. No significant valvular abnormalities. Report reviewed
-
Subjective Dataa
Subjective Data
Date of Service:
Date of Service: November 22, 2023
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
Subjective:
Overnight started on Cardene drip.
This morning relatively asymptomatic
Pain is controlled
Denies stridor.
Denies shortness of breath
Review of Systems
General: Fever (n)
Cardiopulmonary: Dyspnea (n)
GI: Nausea (n) and Vomiting (n)
Neuro: Headache (n) and Dizziness (n)
Objective Data
Data Reviewed
Vital Signs / I&O / Oxygen:
Vital Signs
Temp Pulse Resp BP Pulse Ox
98.7 F 83 15 142/57 97
11/22/23 03:55 11/22/23 08:53 11/22/23 06:00 11/22/23 08:53 11/22/23 06:00
Intake and Output
11/21/23 11/22/23 11/23/23
06:59 06:59 06:59
Intake Total 960 / 960 3227 / 3227
Output Total 2220 / 2220
Balance 960 / 960 1007 / 1007
SaO2 97
Nasal Cannula flow liters per 6
minute
Physical Exam
General: Respiratory Distress (n) and Comfortable
HEENT: Normocephalic and Other (Cervical incision is intact. No stridor on exam.)
Cardiovascular: S1-S2 and Regular Rhythm
Respiratory: Clear and Non-Labored Respirations
GI: Soft and Non Distended
Neurology: Awake and Alert
Labs/Micro/Reports
Lab Data
11/22/23 03:59
11/22/23 03:59
Laboratory Results
11/22/23
03:59
PT 15.2 H
INR 1.22
APTT 67.9 H
Microbiology
11/14/23 14:19 Csf CSF Culture - Final
No Growth After 5 Days - Final Report
11/14/23 14:19 Csf Gram Stain - Final
[2023-11-22 10:36] VITALS: BP 145/89
--- NOTE | 2023-11-22 11:27 | W.PN.VS ---
Today's Communication / Plan
-
POD 1 R CEA
- target SBP 100-140
- recommend spending the day in ICU with continued close BP monitoring to be sure no IV meds required to maintain target
- mobilize, PT/OT
- daily ASA and statin
- follow-up with Dr. Hill as outpatient
- vascular surgery signs off. Call with concerns.
Assessment/Plan
-
POD 1 R CEA
- target SBP 100-140
- recommend spending the day in ICU with continued close BP monitoring to be sure no IV meds required to maintain target
- mobilize, PT/OT
- daily ASA and statin
- follow-up with Dr. Hill as outpatient
- vascular surgery signs off. Call with concerns.
Subjective Data
-
Date of Service: November 22, 2023
POD 1 R CEA
no headache
no vision change, no facial droop, no unilateral weakness or numbness, no slurred speech
required IV meds overnight
SBP in the 140s this AM with oral meds
Objective Data
-
Vital Signs
Temp Pulse Resp BP Pulse Ox
98.7 F 83 15 142/57 97
11/22/23 03:55 11/22/23 08:53 11/22/23 06:00 11/22/23 08:53 11/22/23 06:00
Intake and Output
11/21/23 11/22/23 11/23/23
06:59 06:59 06:59
Intake Total 960 / 960 3227 / 3227 480 / 480
Output Total 2220 / 2220 500 / 500
Balance 960 / 960 1007 / 1007 -20 / -20
Intake:
Oral fluids 960 / 960 1100 / 1100 480 / 480
IV fluids (Total) 2126
Neosynephrine 12 / 12
Nss 1,000 ml @ 80 mls/hr IV . 2039
[id number] FRANK Rx#:[id number]
normosol 75 / 75
Output:
Urine, Voided 2219 / 2219 500 / 500
Other:
Number of approximated MODERATE 5 1
amounts of urine
Number of approximated LARGE 5
amounts of urine
Lab Results
11/22/23 03:59
11/22/23 03:59
Calcium 8.6 mg/dl (8.4-10.2) 11/22/23 03:59
Phosphorus 3.6 mg/dl (2.5-4.5) 11/14/23 07:35
Magnesium 2.0 mg/dl (1.6-2.3) 11/20/23 10:25
Total Bilirubin 0.5 mg/dl (0.2-1.3) 11/17/23 05:30
AST 26 U/L (14-36) 11/17/23 05:30
ALT 15 U/L (0-35) 11/17/23 05:30
Alkaline Phosphatase 80 U/L (38-126) 11/17/23 05:30
Total Protein 6.0 g/dl (6.3-8.2) L 11/17/23 05:30
Albumin 3.6 g/dl (3.5-5.0) 11/17/23 05:30
Physical Exam
-
tongue midline
smile equal
incision with ecchymosis but no hematoma
strength 5/5 in all 4
--- NOTE | 2023-11-22 11:34 | PTCARENOTE ---
0700 patient received in bed . AAO x3 s/s Anxiety Forgetful. Rt radial A/line. Neuro check WNL ( see neuro assessment ) pt denies headache, denies visual changes . VSS; c/o of Rt shoulder pain due to recent surgery. Rt radial A/line removed,
pressure applied until bleeding was stopped, pressure dressing applied. Patient ambulates in a room with no assistance. Gait steady denies dizziness. Continent of bladder and bowel. Tylenol adm for RT shoulder pain with + pain relieve, lomital adm
for stomach cramps due to recent colitis . Appetite poor; good fluid intact. At this time pt in bed call eric within reach
[2023-11-22] MEDS: XANAX 1 MG PO ×2 (13:38→22:11)
--- NOTE | 2023-11-22 14:25 | PTCARENOTE ---
oral temp 98.0; SR to ST while ambulating HR 112; BP 105/82 MAP 93; 95RA. Denies pain . Xanax adm per schedule order. pt will be transfer to telemetry floor per current order 337/2 at the bedside aware of transfer. pt continent of urine will
be transfer via w/c
[2023-11-22 15:07] VITALS: BP 139/63
--- NOTE | 2023-11-22 15:47 | PTCARENOTE ---
pt arrived to unit via wheel chair from ICU w/ at bedside. this nurse assessed pt, placed on tele #[phone], VSS. pt and oriented to unit, call eric in reach.
[2023-11-22] MEDS: LIPITOR 40 MG PO (17:03)
[2023-11-22 19:00] VITALS: BP 160/77
[2023-11-22 23:00] VITALS: BP 128/68
[2023-11-23] VITALS (7 sets, daily range): BP systolic 121–143; BP diastolic 62–77; PULSE 96; O2SAT 95; BMI 17.7
[2023-11-23] MEDS: HEPARIN 5000 UNITS SC ×4 (00:36→23:02)
[2023-11-23] MEDS: TYLENOL 650 MG PO ×4 (01:32→21:18)
[2023-11-23 06:32] LABS: Hematocrit 33.2 % (37.0-47.0); Hemoglobin 10.7 g/dL (12.0-16.0); Mean Corp Hgb Conc. 32.2 g/dL (33.0-37.0); Mean Corpuscular Hgb 29.6 pg (27.0-31.0); Mean Platelet Volume 9.7 fL (7.4-10.4); Platelet Count 223 10^3/uL (130-400); Red Blood Cell Count 3.61 10^6/uL (4.20-5.40); Red Cell Dist. Width 13.4 % (11.5-14.5); White Blood Cell Count 9.1 10^3/uL (4.8-10.8)
[2023-11-23 07:11] LABS: Blood Urea Nitrogen 6 mg/dl (7-17); Calcium 8.9 mg/dl (8.4-10.2); Carbon Dioxide 26 mmol/L (22-30); Chloride 106 mmol/L (98-107); Estimated Creatinine Clearance 73 ml/min; Glucose 100 mg/dl (70-99); Potassium 3.3 mmol/L (3.5-5.1); Sodium 138 mmol/L (135-145); eGFR > 60.00
[2023-11-23] MEDS: PROTONIX 40 MG PO (08:29)
[2023-11-23] MEDS: ASPIR LOW (ENTERIC COATED) 81 MG PO (08:30)
[2023-11-23] MEDS: XANAX 1 MG PO ×3 (08:30→21:18)
[2023-11-23] MEDS: NORVASC 10 MG PO (08:30)
[2023-11-23] MEDS: NEURONTIN 100 MG PO ×3 (08:31→21:18)
--- NOTE | 2023-11-23 10:44 | W.PN.HOSP.TC ---
Today's Communication/Plan
-
dispo planning for rehab
topical lidocaine and Voltaren for shoulder pain
Assessment / Plan
Assessment / Plan
MRI
IMPRESSION:
1. Tiny 3 mm acute ischemic infarct in the posterior right frontal lobe centrum semiovale which appears unchanged.
2. Large 6.7 cm region of cortical hernadez matter and subcortical white matter signal abnormality in the posterior right parietal and occipital lobes which appears similar to 11/14/2023. A SUBACUTE TRANSCORTICAL ISCHEMIC INFARCT is considered most
likely. Alternative diagnostic possibilities are posterior reversible encephalopathy syndrome (PRES), vasculitis, or a primary brain tumor.
3. Mild white matter leukoaraiosis in both frontal lobes.
4. 6.7 mm chronic lacunar infarct in the left thalamus.
5. Mild diffuse cerebral and cerebellar volume loss.
6. Severe discogenic degenerative disease at C3/C4 with a large disc-osteophyte complex causing mild to moderate spinal cord compression and central canal stenosis.
Cerebrovascular US:
IMPRESSION:
1. By velocity criteria, there is greater than 70% stenosis of the right internal carotid artery.
2. By velocity criteria, any left internal carotid artery stenosis present is in the range of 0-49%.
3. Antegrade flow bilateral vertebral arteries.
CT Angio Head/Neck:
IMPRESSION: Severe mixed soft and calcific plaque in the right carotid bulb resulting in focal approximate 74% stenosis of the proximal right internal carotid artery over a length of approximately 2 cm.
The left internal carotid artery is grossly patent with only mild calcific plaque in the carotid bulb resulting in less than 25% stenosis.
Bilateral hypoattenuating thyroid nodules measuring up to 1.1 cm on the left. Consider further evaluation with dedicated thyroid ultrasound if not previously performed.
A/P: Patient is a 68y F with PMH significant for chronic pain and chronci anxiety on multiple medications who presents to ED for evaluation of confusion.
Acute TME with finding of right parietal lobe lesion on MRI with repeat more suggestive of subacute CVA
Right ICA Stenosis seen on cerebrovascular US and CTA
-initial work-up unclear if mass versus ischemic stroke; repeat MRI more convincing of CVA. Cerebral US and CTA with e/o right ICA stenosis
-appreciate vascular surgery consult; s/p CEA 11/20
-patient admitted to ICU post-op; required nicardipine gtt to keep SBP goal now off gtt and on telemetry (transferred 11/21)
-continue asa/statin
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
-PT/OT
-PHysiatry consult - Dr. Goss will evaluate for [facility] on Friday
Chronic Pain Syndrome
Chronic Anxiety
Chronic Opioid Dependence
- confirmed patient was taking Xanax 1mg QID for 2-3 years
-will resume at lower dosing to prevent withdrawal - initially 0.5mg TID increased to 1mg TID on 11/21 patient was anxious.
-trial of lidocaine patch and topical voltaren for pain
Collagenous Colitis
-C. Diff negative on 11/16
-lomotil PRN
#Asymptomatic Bacteruria
-Encephalopathy unlikely due to urine in setting of MRI findings (mental status has been waxing and waning)
� Received 3 days of antibiotics (Ceftriaxone)
� Follow-up repeat UA : negative
-Patient does not have UTI symptoms
Nausea/vomiting
� possibly 2/2 to neurological disease
- PPI, Zofran
-kub unremarkable
#Hyponatremia
-resolved
#Hypertension
-new start amlodipine this admission
#Hypokalemia
-monitor and replete
s/p R TSA
- Surgery was now > 1 month ago.
- PT / OT evaluations.
- Site is well-appearing.
DVT Prophylaxis: HSQ
Code Status: Full
Total time spent on today's encounter was 52 minutes which included time spent in counseling the patient/family regarding diagnosis and treatment plan as listed above, goals of care, and symptom management. Case was discussed with nursing staff,
specialists, and care coordinators/case management. All labs and imaging personally reviewed by me. Remainder the time spent in detailed review of previous records, lab data, imaging, and other medical provider documentation.
Anticipated Discharge: 24 - 48 hours
Subjective/Interval History
-
Date of Service: November 23, 2023
right shoulder pain. does not want opiates
short term memory loss
Objective Data
-
Labs:
Laboratory Results
11/23/23
06:19
WBC 9.1
Hgb 10.7 L
Hct 33.2 L
Plt Count 223
Sodium 138
Potassium 3.3 L
Chloride 106
Carbon Dioxide 26
BUN 6 L
Creatinine 0.4 L
Glucose 100 H
Calcium 8.9
Vital Signs:
Vital Signs
Temp Pulse Resp BP Pulse Ox
98.4 F 83 17 143/68 98
11/23/23 07:30 11/23/23 08:30 11/23/23 07:30 11/23/23 08:30 11/23/23 07:30
I&O
11/22/23 11/23/23 11/24/23
06:59 06:59 06:59
Intake Total 3227 / 3227 960 / 960 240 / 240
Output Total 2220 / 2220 500 / 500
Balance 1007 / 1007 460 / 460 240 / 240
Review of Systems
-
History Source: Patient
All other systems: Reviewed and negative
Physical Exam
-
General: No Apparent Distress
HEENT: PERRLA and Other (right CEA surgical site with intact sutures, surrounding bruising, no discharge )
Respiratory: Clear to Auscultation; Negative Wheezes
Cardiac: Regular Rhythm and S1/S2
GI: Soft and Nontender
Musculoskeletal: No Edema
Skin: Warm and Dry; Negative Rash
Neuro: AO x 3 and Other (short term memory loss; expressive aphasia improving )
Psych: Calm
Data Reviewed
-
Diagnostic Radiology: Report Reviewed by me
Labs: Labs Reviewed by me
[2023-11-23] MEDS: LIDOCAINE 4% PATCH 1 PATCH TOPICAL (11:52)
[2023-11-23] MEDS: DICLOFENAC 1% TOPICAL GEL 2 GRAM TOPICAL ×3 (11:52→21:20)
[2023-11-23] MEDS: KCL 40 MEQ PO (14:12)
[2023-11-23 14:39] LABS: Magnesium 1.9 mg/dl (1.6-2.3)
[2023-11-23] MEDS: LIPITOR 40 MG PO (18:25)
[2023-11-24] VITALS (8 sets, daily range): BP systolic 130–162; BP diastolic 66–94; PULSE 94–138; O2SAT 98; BMI 17.5
[2023-11-24] MEDS: TYLENOL 650 MG PO ×3 (03:11→21:10)
[2023-11-24 06:27] LABS: Blood Urea Nitrogen 8 mg/dl (7-17); Calcium 9.1 mg/dl (8.4-10.2); Carbon Dioxide 29 mmol/L (22-30); Chloride 107 mmol/L (98-107); Estimated Creatinine Clearance 72 ml/min; Glucose 99 mg/dl (70-99); Potassium 3.6 mmol/L (3.5-5.1); Sodium 141 mmol/L (135-145); eGFR > 60.00
[2023-11-24] MEDS: DICLOFENAC 1% TOPICAL GEL 2 GRAM TOPICAL ×3 (08:09→22:53)
[2023-11-24] MEDS: XANAX 1 MG PO ×3 (08:10→22:51)
[2023-11-24] MEDS: NEURONTIN 100 MG PO ×3 (08:11→22:52)
[2023-11-24] MEDS: ASPIR LOW (ENTERIC COATED) 81 MG PO (08:11)
[2023-11-24] MEDS: LIDOCAINE 4% PATCH 1 PATCH TOPICAL (08:11)
[2023-11-24] MEDS: HEPARIN 5000 UNITS SC ×3 (08:11→23:00)
[2023-11-24] MEDS: NORVASC 10 MG PO (08:11)
[2023-11-24] MEDS: PROTONIX 40 MG PO (08:11)
--- NOTE | 2023-11-24 11:50 | CM ---
Addendum entered by Alexsandra Esposito RN 11/24/23 14:51:
PT recommends acute rehab.
Spoke with pt she requests for [facility] to reevaluate her .
Spoke with Sedrick at [facility] will look at pt and PT .
Original Note:
Post op carotid enterectomy
Spoke with [facility] rep Sedrick pt not appropriate for [facility].
Requested PT OT to reevaluate patient today.
AWill discuss dc plan after evals.
PLAN DC plan will depend on postop PT OT evals Probable Home VS SNF.
[2023-11-24] MEDS: DICLOFENAC 1% TOPICAL GEL TOPICAL (12:35)
[2023-11-24] MEDS: PREPARATION H OINTMENT 1 APPLIC RECTAL (12:36)
[2023-11-24] MEDS: LOMOTIL 1 TABLET PO (12:39)
--- NOTE | 2023-11-24 13:53 | W.PN.HOSP.TC ---
Today's Communication/Plan
-
dispo planning
topical lidocaine and Voltaren for shoulder pain
Assessment / Plan
Assessment / Plan
MRI
IMPRESSION:
1. Tiny 3 mm acute ischemic infarct in the posterior right frontal lobe centrum semiovale which appears unchanged.
2. Large 6.7 cm region of cortical hernadez matter and subcortical white matter signal abnormality in the posterior right parietal and occipital lobes which appears similar to 11/14/2023. A SUBACUTE TRANSCORTICAL ISCHEMIC INFARCT is considered most
likely. Alternative diagnostic possibilities are posterior reversible encephalopathy syndrome (PRES), vasculitis, or a primary brain tumor.
3. Mild white matter leukoaraiosis in both frontal lobes.
4. 6.7 mm chronic lacunar infarct in the left thalamus.
5. Mild diffuse cerebral and cerebellar volume loss.
6. Severe discogenic degenerative disease at C3/C4 with a large disc-osteophyte complex causing mild to moderate spinal cord compression and central canal stenosis.
Cerebrovascular US:
IMPRESSION:
1. By velocity criteria, there is greater than 70% stenosis of the right internal carotid artery.
2. By velocity criteria, any left internal carotid artery stenosis present is in the range of 0-49%.
3. Antegrade flow bilateral vertebral arteries.
CT Angio Head/Neck:
IMPRESSION: Severe mixed soft and calcific plaque in the right carotid bulb resulting in focal approximate 74% stenosis of the proximal right internal carotid artery over a length of approximately 2 cm.
The left internal carotid artery is grossly patent with only mild calcific plaque in the carotid bulb resulting in less than 25% stenosis.
Bilateral hypoattenuating thyroid nodules measuring up to 1.1 cm on the left. Consider further evaluation with dedicated thyroid ultrasound if not previously performed.
A/P: Patient is a 68y F with PMH significant for chronic pain and chronci anxiety on multiple medications who presents to ED for evaluation of confusion.
Acute TME with finding of right parietal lobe lesion on MRI with repeat more suggestive of subacute CVA
Right ICA Stenosis seen on cerebrovascular US and CTA
-initial work-up unclear if mass versus ischemic stroke; repeat MRI more convincing of CVA. Cerebral US and CTA with e/o right ICA stenosis
-appreciate vascular surgery consult; s/p CEA 11/20
-patient admitted to ICU post-op; required nicardipine gtt to keep SBP goal now off gtt and on telemetry (transferred 11/21)
-continue asa/statin
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
-PT/OT
-PHysiatry consult - Dr. Goss will evaluate for [facility] on Friday : not candidate - dispo to SNF v home
Chronic Pain Syndrome
Chronic Anxiety
Chronic Opioid Dependence
- confirmed patient was taking Xanax 1mg QID for 2-3 years
-will resume at lower dosing to prevent withdrawal - initially 0.5mg TID increased to 1mg TID on 11/21 patient was anxious.
-trial of lidocaine patch and topical voltaren for pain
Collagenous Colitis
-C. Diff negative on 11/16
-lomotil PRN
#Asymptomatic Bacteruria
-Encephalopathy unlikely due to urine in setting of MRI findings (mental status has been waxing and waning)
� Received 3 days of antibiotics (Ceftriaxone)
� Follow-up repeat UA : negative
-Patient does not have UTI symptoms
Nausea/vomiting
� possibly 2/2 to neurological disease
- PPI, Zofran
-kub unremarkable
#Hyponatremia
-resolved
#Hypertension
-new start amlodipine this admission
#Hypokalemia
-monitor and replete
s/p R TSA
- Surgery was now > 1 month ago.
- PT / OT evaluations.
- Site is well-appearing.
DVT Prophylaxis: HSQ
Code Status: Full
Anticipated Discharge: Within 24 hours
Subjective/Interval History
-
Date of Service: November 24, 2023
No acute events overnight
Objective Data
-
Labs:
Laboratory Results
11/24/23
05:18
Sodium 141
Potassium 3.6
Chloride 107
Carbon Dioxide 29
BUN 8
Creatinine 0.5 L
Glucose 99
Calcium 9.1
Vital Signs:
Vital Signs
Temp Pulse Resp BP Pulse Ox
97.9 F 94 16 136/74 97
11/24/23 11:00 11/24/23 11:00 11/24/23 11:00 11/24/23 11:00 11/24/23 11:00
I&O
11/23/23 11/24/23 11/25/23
06:59 06:59 06:59
Intake Total 960 / 960 1500 / 1500
Output Total 500 / 500
Balance 460 / 460 1500 / 1500
Review of Systems
-
History Source: Patient
All other systems: Reviewed and negative
Physical Exam
-
General: No Apparent Distress
HEENT: PERRLA and Other (right CEA surgical site with intact sutures, surrounding bruising, no discharge )
Respiratory: Clear to Auscultation; Negative Wheezes
Cardiac: Regular Rhythm and S1/S2
GI: Soft and Nontender
Musculoskeletal: No Edema
Skin: Warm and Dry; Negative Rash
Neuro: AO x 3 and Other (short term memory loss; expressive aphasia improving )
Psych: Calm
Data Reviewed
-
Diagnostic Radiology: Report Reviewed by me
Labs: Labs Reviewed by me
[2023-11-24] MEDS: LIPITOR 40 MG PO (17:26)
[2023-11-25 03:00] VITALS: BP 144/81
[2023-11-25 05:37] LABS: Hematocrit 33.1 % (37.0-47.0); Mean Corp Hgb Conc. 33.2 g/dL (33.0-37.0); Mean Corpuscular Hgb 30.7 pg (27.0-31.0); Mean Corpuscular Volume 92.5 fL (81.0-99.0); Mean Platelet Volume 9.7 fL (7.4-10.4); Platelet Count 238 10^3/uL (130-400); Red Blood Cell Count 3.58 10^6/uL (4.20-5.40); Red Cell Dist. Width 13.5 % (11.5-14.5); White Blood Cell Count 9.2 10^3/uL (4.8-10.8)
[2023-11-25 06:26] LABS: ALT (SGPT) 16 U/L (0-35); AST (SGOT) 18 U/L (14-36); Albumin 3.3 g/dl (3.5-5.0); Alkaline Phosphatase 101 U/L (38-126); Blood Urea Nitrogen 13 mg/dl (7-17); Calcium 9.4 mg/dl (8.4-10.2); Carbon Dioxide 26 mmol/L (22-30); Chloride 106 mmol/L (98-107); Estimated Creatinine Clearance 72 ml/min; Glucose 100 mg/dl (70-99); Potassium 3.3 mmol/L (3.5-5.1); Sodium 139 mmol/L (135-145); Total Bilirubin 0.3 mg/dl (0.2-1.3); Total Protein 5.6 g/dl (6.3-8.2); eGFR > 60.00
[2023-11-25 07:39] VITALS: BP 153/71
[2023-11-25] MEDS: LIDOCAINE 4% PATCH 1 PATCH TOPICAL (07:46)
[2023-11-25] MEDS: XANAX 1 MG PO (07:46)
[2023-11-25] MEDS: NEURONTIN 100 MG PO (07:46)
[2023-11-25] MEDS: DICLOFENAC 1% TOPICAL GEL 2 GRAM TOPICAL ×2 (07:47→13:29)
[2023-11-25] MEDS: HEPARIN 5000 UNITS SC (07:47)
[2023-11-25] MEDS: PROTONIX 40 MG PO (07:47)
[2023-11-25] MEDS: ASPIR LOW (ENTERIC COATED) 81 MG PO (07:47)
[2023-11-25] MEDS: NORVASC 10 MG PO (07:47)
[2023-11-25] MEDS: KCL ELIXIR 40 MEQ PO (09:06)
--- NOTE | 2023-11-25 10:09 | CM ---
PT recommends acute rehab.
Spoke with Sedrick at [facility] pt accepted at [facility] today.
Spoke with pt she said she is happy that she is going to [facility]
Pt agreed with [facility] and dc today.
[facility]
report [phone]
fax [phone]
PLAN To Marcelina via
[2023-11-25] MEDS: LOMOTIL 1 TABLET PO (11:11)
[2023-11-25 11:44] VITALS: BP 158/83
--- NOTE | 2023-11-25 12:21 | W.PN.HOSP.TC ---
Addendum entered and electronically signed by Carson Lowe MD 11/25/23 16:05:
[id number]
Original Note:
Today's Communication/Plan
-
dc today
asa/statin
f/u neuro/vascular/pcp outpatient
Assessment / Plan
Assessment / Plan
MRI
IMPRESSION:
1. Tiny 3 mm acute ischemic infarct in the posterior right frontal lobe centrum semiovale which appears unchanged.
2. Large 6.7 cm region of cortical hernadez matter and subcortical white matter signal abnormality in the posterior right parietal and occipital lobes which appears similar to 11/14/2023. A SUBACUTE TRANSCORTICAL ISCHEMIC INFARCT is considered most
likely. Alternative diagnostic possibilities are posterior reversible encephalopathy syndrome (PRES), vasculitis, or a primary brain tumor.
3. Mild white matter leukoaraiosis in both frontal lobes.
4. 6.7 mm chronic lacunar infarct in the left thalamus.
5. Mild diffuse cerebral and cerebellar volume loss.
6. Severe discogenic degenerative disease at C3/C4 with a large disc-osteophyte complex causing mild to moderate spinal cord compression and central canal stenosis.
Cerebrovascular US:
IMPRESSION:
1. By velocity criteria, there is greater than 70% stenosis of the right internal carotid artery.
2. By velocity criteria, any left internal carotid artery stenosis present is in the range of 0-49%.
3. Antegrade flow bilateral vertebral arteries.
CT Angio Head/Neck:
IMPRESSION: Severe mixed soft and calcific plaque in the right carotid bulb resulting in focal approximate 74% stenosis of the proximal right internal carotid artery over a length of approximately 2 cm.
The left internal carotid artery is grossly patent with only mild calcific plaque in the carotid bulb resulting in less than 25% stenosis.
Bilateral hypoattenuating thyroid nodules measuring up to 1.1 cm on the left. Consider further evaluation with dedicated thyroid ultrasound if not previously performed.
A/P: Patient is a 68y F with PMH significant for chronic pain and chronci anxiety on multiple medications who presents to ED for evaluation of confusion.
Acute TME with finding of right parietal lobe lesion on MRI with repeat more suggestive of subacute CVA
Right ICA Stenosis seen on cerebrovascular US and CTA
-initial work-up unclear if mass versus ischemic stroke; repeat MRI more convincing of CVA. Cerebral US and CTA with e/o right ICA stenosis
-appreciate vascular surgery consult; s/p CEA 11/20
-patient admitted to ICU post-op; required nicardipine gtt to keep SBP goal now off gtt and on telemetry (transferred 11/21)
-continue asa/statin
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
-PT/OT
-Physiatry consult - Dr. Goss will evaluate for [facility] on Friday : not candidate - dispo to SNF v home
-F/u neuro,vascular outpatient
Chronic Pain Syndrome
Chronic Anxiety
Chronic Opioid Dependence
- confirmed patient was taking Xanax 1mg QID for 2-3 years - although PRN on medrec. Can attempt slow wean.
-will resume at lower dosing to prevent withdrawal - initially 0.5mg TID increased to 1mg TID on 11/21 patient was anxious.
-trial of lidocaine patch and topical voltaren for pain
Collagenous Colitis
-C. Diff negative on 11/16
-lomotil PRN
#Asymptomatic Bacteruria
-Encephalopathy unlikely due to urine in setting of MRI findings (mental status has been waxing and waning)
� Received 3 days of antibiotics (Ceftriaxone)
� Follow-up repeat UA : negative
-Patient does not have UTI symptoms
Nausea/vomiting
� possibly 2/2 to neurological disease
- PPI, Zofran
-kub unremarkable
#Hyponatremia
-resolved
#Hypertension
-new start amlodipine this admission
#Hypokalemia
-monitor and replete
-f/u bmp in 3-5 days ]
s/p R TSA
- Surgery was now > 1 month ago.
- PT / OT evaluations.
- Site is well-appearing.
DVT Prophylaxis: HSQ
Code Status: Full
More than 30 minutes spent in discharge including
Final examination of the patient
Summarizing hospital stay
Instructions for continuing care to all relevant caregivers
Preparation of discharge records, prescriptions, and referral forms
Total time spent (35 in minutes):
Anticipated Discharge: Today
Subjective/Interval History
-
Date of Service: November 25, 2023
Shoulder pain, headache, with no motor or sensory loss
Objective Data
-
Labs:
Laboratory Results
11/25/23
05:18
WBC 9.2
Hgb 11.0 L
Hct 33.1 L
Plt Count 238
Sodium 139
Potassium 3.3 L
Chloride 106
Carbon Dioxide 26
BUN 13
Creatinine 0.5 L
Glucose 100 H
Calcium 9.4
Total Bilirubin 0.3
AST 18
ALT 16
Alkaline Phosphatase 101
Vital Signs:
Vital Signs
Temp Pulse Resp BP Pulse Ox
98.6 F 103 16 158/83 98
11/25/23 11:44 11/25/23 11:44 11/25/23 11:44 11/25/23 11:44 11/25/23 11:44
I&O
11/24/23 11/25/23 11/26/23
06:59 06:59 06:59
Intake Total 1500 / 1500 1320 / 1320
Balance 1500 / 1500 1320 / 1320
Review of Systems
-
History Source: Patient
All other systems: Reviewed and negative
Physical Exam
-
General: No Apparent Distress
HEENT: PERRLA and Other (right CEA surgical site with intact sutures, surrounding bruising, no discharge )
Respiratory: Clear to Auscultation; Negative Wheezes
Cardiac: Regular Rhythm and S1/S2
GI: Soft and Nontender
Musculoskeletal: No Edema
Skin: Warm and Dry; Negative Rash
Neuro: AO x 3 and Other (short term memory loss; expressive aphasia improving )
Psych: Calm
Data Reviewed
-
Diagnostic Radiology: Report Reviewed by me
Labs: Labs Reviewed by me
--- NOTE | 2023-11-25 12:27 | W.DS.TRANS ---
DC Summary - [employer]
-
Discharge Instructions:
Discharge Diagnosis/Procedures Acute TME with finding of right parietal lobe
lesion on MRI with repeat more suggestive of
subacute CVA
Right ICA Stenosis s/p CEA
Diet As tolerated,Low Cholesterol,Low Fat
Activity No strenuous activity
Driving Restrictions Not until seen by your Dr
Bathing Restrictions OK to Shower
Blood Work bmp in 3-5 days
Instructions:
Stand-Alone Forms: DC Instr - Vascular OR
Changes to Home Medications: Yes
Discharge Medications:
DC Medications w/original date entered in [facility]
ascorbic acid (vitamin C) 500 mg tablet (Vitamin C) 500 mg PO DAILY Supplement 08/14/20
gabapentin 100 mg capsule 100 mg PO TID Pain 11/28/22
vitamin B complex 1 cap PO DAILY Supplement 11/12/23
acetaminophen 325 mg tablet 650 mg (2 x 325 mg) PO Q4HPRN PRN Mild Pain / Temp > 101 #7 tabs 11/25/23
alprazolam 0.5 mg tablet 1 mg (2 x 0.5 mg) PO TID #1 tab 11/25/23
amlodipine 10 mg tablet 10 mg PO DAILY #0 tabs 11/25/23
aspirin 81 mg tablet,delayed release 81 mg PO DAILY #0 tabs 11/25/23
atorvastatin 40 mg tablet 40 mg PO QPM #0 tabs 11/25/23
bisacodyl 10 mg rectal suppository 10 mg NE DAILYPRN PRN constipation #0 ea 11/25/23
diclofenac sodium 1 % topical gel 0 g topical QID #0 grams 11/25/23
diphenoxylate-atropine 2.5 mg-0.025 mg tablet 1 tab PO Q6HPRN PRN loose stools #0 tabs 11/25/23
lidocaine 4 % topical patch 1 patch topical DAILY #0 ea 11/25/23
pantoprazole 40 mg tablet,delayed release 40 mg PO DAILY #0 tabs 11/25/23
phenylephrine 0.25 %-mineral oil 14 %-petrolatm 74.9 % rectal ointment (Hemorrhoidal(phenyleph-min oil-petrolat)) 1 applic NE BIDPRN PRN hemorrhoids #57 grams 11/25/23
Home Medication Changes
alprazolam 0.5 mg tablet 1 mg (2 x 0.5 mg) PO TID #1 tab 11/25/23
amlodipine 10 mg tablet 10 mg PO DAILY #0 tabs 11/25/23
aspirin 81 mg tablet,delayed release 81 mg PO DAILY #0 tabs 11/25/23
atorvastatin 40 mg tablet 40 mg PO QPM #0 tabs 11/25/23
bisacodyl 10 mg rectal suppository 10 mg NE DAILYPRN PRN constipation #0 ea 11/25/23
diclofenac sodium 1 % topical gel 0 g topical QID #0 grams 11/25/23
diphenoxylate-atropine 2.5 mg-0.025 mg tablet 1 tab PO Q6HPRN PRN loose stools #0 tabs 11/25/23
lidocaine 4 % topical patch 1 patch topical DAILY #0 ea 11/25/23
pantoprazole 40 mg tablet,delayed release 40 mg PO DAILY #0 tabs 11/25/23
phenylephrine 0.25 %-mineral oil 14 %-petrolatm 74.9 % rectal ointment (Hemorrhoidal(phenyleph-min oil-petrolat)) 1 applic NE BIDPRN PRN hemorrhoids #57 grams 11/25/23
Pending Results: No
[2023-11-25] MEDS: TORADOL 15 MG IV (13:29)
== END 2023-11-25 14:39 | DRG 37 ==
LOC: 3 WEST ACU 11:59
PROVIDERS: Nurse Practitioner; Nurse Practitioner Gerontology; Psychiatry & Neurology Neurology; Radiology Diagnostic Radiology; Student in an Organized Health Care Education/Training Program; ADMITTING PHYSICIAN Hospitalist; ATTENDING PHYSICIAN Internal Medicine; CONSULT PHYSICIAN Student in an Organized Health Care Education/Training Program; EMERGENCY PHYSICIAN Emergency Medicine; FAMILY PHYSICIAN Family Medicine; OTHER PHYSICIAN Internal Medicine Critical Care Medicine; OTHER PHYSICIAN Physical Medicine & Rehabilitation; OTHER PHYSICIAN Surgery Vascular Surgery
PROC: 009U3ZX Drainage of Spinal Canal, Percutaneous Approach, Diagnostic (ICD-10-PCS; 2023-11-14)
PROC: 03CK0ZZ Extirpation of Matter from Right Internal Carotid Artery, Open Approach (ICD-10-PCS; 2023-11-21)
PROC: 03UK0KZ Supplement Right Internal Carotid Artery with Nonautologous Tissue Substitute, Open Approach (ICD-10-PCS; 2023-11-21)
DX: I63.231 Cerebral infarction due to unspecified occlusion or stenosis of right carotid arteries (principal); G92.8 Other toxic encephalopathy; F11.20 Opioid dependence, uncomplicated; E87.1 Hypo-osmolality and hyponatremia; G93.89 Other specified disorders of brain; I10 Essential (primary) hypertension; E11.9 Type 2 diabetes mellitus without complications; G89.4 Chronic pain syndrome; K52.831 Collagenous colitis; E78.00 Pure hypercholesterolemia, unspecified; F41.9 Anxiety disorder, unspecified; M19.90 Unspecified osteoarthritis, unspecified site; R82.71 Bacteriuria; R20.2 Paresthesia of skin; R53.83 Other fatigue; R53.1 Weakness; Z79.84 Long term (current) use of oral hypoglycemic drugs; Z79.899 Other long term (current) drug therapy; Z87.19 Personal history of other diseases of the digestive system; Z87.440 Personal history of urinary (tract) infections; Z88.2 Allergy status to sulfonamides; Z96.611 Presence of right artificial shoulder joint; Z96.642 Presence of left artificial hip joint; Z82.3 Family history of stroke
CPT/HCPCS: 88304; 88311; 35301; 62328; 70450; 70496; 70498; 70553; 71045; 71046; 71260; 74022; 74177; 80048; 80053; 80061; 80143; 80179; 80306; 80307; 81003; 81015; 82945; 83036; 83605; 83735; 84100; 84132; 84157; 84443; 84484; 85025; 85027; 85610; 85652; 85730; 86038; 86140; 86592; 86706; 86753; 86803; 86850; 86900; 86901; 87015; 87040; 87070; 87077; 87086; 87116; 87186; 87205; 87324; 87340; 87389; 87449; 87476; 87483; 87798; 88108; 89051; 92507; 92523; 92526; 92610; 93005; 93306; 93880; 95941; 97116; 97161; 97164; 97166; 97530; 97535; A9575; Q9967

== ENCOUNTER 2024-01-07 13:07 | Outpatient (RCR) | payer MEDICARE, OTHER, SELFPAY | END 2024-01-07 23:59 | disposition home or self-care (01) | LOC: RPT 13:07 | PROVIDERS: ATTENDING PHYSICIAN Physical Medicine & Rehabilitation; FAMILY PHYSICIAN Family Medicine | DX: I69.318 Other symptoms and signs involving cognitive functions following cerebral infarction (principal); I69.314 Frontal lobe and executive function deficit following cerebral infarction; I69.310 Attention and concentration deficit following cerebral infarction; I69.398 Other sequelae of cerebral infarction; Z73.6 Limitation of activities due to disability; Z96.611 Presence of right artificial shoulder joint | CPT/HCPCS: 96125; 97010; 97110; 97112; 97129; 97130; 97140; 97163; 97167; 97530; 97535 ==

== ENCOUNTER → 2024-01-08 09:08 | Outpatient (REF) | payer MEDICARE, OTHER, SELFPAY | LOC: RAD 09:08 | PROVIDERS: ATTENDING PHYSICIAN Registered Nurse; FAMILY PHYSICIAN Family Medicine | DX: I65.23 Occlusion and stenosis of bilateral carotid arteries (principal) | CPT/HCPCS: 93880 ==

== ENCOUNTER 2024-01-31 19:10 | Emergency (ER) | payer MEDICARE, OTHER, SELFPAY ==
[2024-01-31 19:12] VITALS: BP 148/79
--- NOTE | 2024-01-31 20:22 | ED.GENMED ---
History of Present Illness
General
Chief Complaint: Skin Problem
Source: patient and spouse
Time Seen by Provider: 01/31/24 20:10
History of Present Illness
History of Present Illness:
This patient is a 68-year-old female presents emergency department with complaints of right leg swelling that she first noticed today. She states that she has been doing a lot of exercising and her right calf has been sore but she attributed that
to her exercising. She denies associated weakness, bleeding, chest pain, dyspnea, new numbness or tingling, swelling elsewhere, fever, chills, or other complaints. Patient takes aspirin given her diagnosis of CVA, otherwise no
anticoagulant/antiplatelet agents.
Past History
Past History
ED Past Medical History: Psychiatric (Anxiety) and Other (Back problems. Colitis, UTI, Vertigo, Lyme, Chronic fatigue, R parietal lesion)
ED Past Surgical History: Orthopedic (Left hip replacement) and Other (Multiple breast surgery, Adenoid removed, Deviated septum)
Patient has exhibited threatening behavior?: No
PSI?: No
Social History
Tobacco: Non-smoker
Alcohol: Occasional
Drug: None
Personal:
Living: with family
Employment: Employed
Phy Exam
Physical Exam
Physical Exam:
GENERAL: Alert , in no apparent distress
EYE: pupils equal and reactive
NECK: Supple, no significant adenopathy.
ENT: o/p clr, mmm.
CARDIAC: Regular rate and rhythm .
LUNGS: Clear breath sounds bilaterally, no acute respiratory distress, no wheezes/rales/rhonchi
ABDOMEN: Soft, without focal tenderness, no r/g, no cvat
NEUROLOGICAL: Alert and oriented, no focal neuro deficits
SKIN: Warm and dry, skin intact.
MUSCULOSKELETAL: Right lower extremity 1+ edema from calf to the foot without associated tenderness, normal pulses, no redness or warmth, scattered bruising noted, well perfused.
PSYCH: Normal and appropriate interaction.
Course
Orders/Labs/Results
Orders:
Orders
01/31/24 20:22
US Periph Venous LOWER Ext RT Urgent
Comment:
Reason For Exam: swelling
01/31/24 22:22
Basic Metabolic Panel Urgent
Complete Blood Count/No Diff Urgent
PTT Urgent
Prothrombin Time Urgent
Abnormal Lab Results
01/31/24
22:22
RBC 3.64 L 10^6/uL
(4.20-5.40)
Hgb 10.6 L g/dL
(12.0-16.0)
Hct 31.5 L %
(37.0-47.0)
RDW 16.5 H %
(11.5-14.5)
APTT 36.0 H Sec
(23.4-35.0)
01/31/24 22:22
01/31/24 22:22
Vital Signs
Initial and Last Documented VS:
Initial Vital Signs
Temp Pulse Resp BP Pulse Ox
98.5 F 93 14 148/79 98
01/31/24 19:12 01/31/24 19:12 01/31/24 19:12 01/31/24 19:12 01/31/24 19:12
Last Documented Vital Signs
Temp Pulse Resp BP Pulse Ox
98.5 F 93 14 119/49 95
01/31/24 19:12 01/31/24 19:12 01/31/24 19:12 01/31/24 22:25 01/31/24 22:45
*Critical Care Note
Total Time (30-74mins, 75-104mins- exclusive of procedures): Not Applicable
Update Note
Update Note:
Patient presents to the Emergency Department with right leg/foot
Number and Complexity of Problems Addressed at the Encounter
� Chronic conditions affecting care:
� Acute Exacerbation and/or Progression of Chronic Illness:
� Differential Diagnosis includes: But not limited to dependent edema, DVT, superficial thrombophlebitis, etc.
Amount and/or Complexity of Data to be Reviewed and Analyzed
� I performed an independent evaluation of and my interpretation is:
EKG:
CT:
Xrays:
Laboratory Studies: Anemia
Other:US vision report: No evidence of DVT, calf veins are patent. Complex suspected murillo's cyst measuring up to 4.5 cm.
� Review of other/old records reveals:
� Clinical information was obtained by an independent historian: who is bedside
� Prescriptions/Medications Considered but not given:
� Further testing considered but not performed:
Risk of Complications and/or Morbidity or Mortality of Patient Management
� Social determinants of health affecting care:
� Discussion with other providers (PCP, Hospitalists, Consultants, etc):
� Escalation of care including admission/observation vs risk of discharge considered: Long discussion with patient and regarding diagnosis of Murillo's cyst and importance of follow-up. Of note, patient also has anemia
which is not far from her baseline but nonetheless remarkable. Patient denies symptoms related to this. Patient will see her doctor this week for both concerns.
ED Attending Note
-
Portions of this chart may have been created with voice recognition software.� Occasional wrong word or��sound alike� substitutions may have occurred due to the inherent limitations of voice recognition software.
Discharge Plan
Departure
Patient Disposition: Home (Routine Discharge)
Date of Disposition: 01/31/24
Time of Disposition: 23:01
Patient with high blood pressure during this ER visit?: Yes
Condition: Good
Discharge Problem:
Murillo's cyst of knee
Instructions: Murillo's Cyst (DC), Normocytic Normochromic Anemia, BLOOD PRESSURE
Prescriptions:
No Action
alprazolam 1 mg Tablet
1 mg PO TID 5 Days Qty: 15 0RF
gabapentin 100 mg Capsule
100 mg PO TID 30 Days Qty: 90 0RF
metoprolol tartrate 25 mg Tablet
12.5 mg PO BID 30 Days Qty: 15 0RF
multivitamin with folic acid [Tab-A-Luis F] 400 mcg Tablet
1 tab PO DAILY Qty: 30 0RF
tramadol 50 mg Tablet
50 mg PO Q6HPRN PRN (Reason: pain-moderate) 3 Days Qty: 15 0RF
cyanocobalamin (vitamin B-12) 5,000 mcg tablet, sublingual
5,000 mcg sublingual DAILY 30 Days Qty: 30 0RF
calcitriol 0.25 mcg capsule
0.25 mcg PO DAILY 30 Days Qty: 30 0RF
atorvastatin 40 mg Tablet
40 mg PO QPM Qty: 0 0RF
aspirin 81 mg Tablet,Delayed Release (Dr/Ec)
81 mg PO DAILY Qty: 0 0RF
pantoprazole 40 mg Tablet,Delayed Release (Dr/Ec)
40 mg PO DAILY 30 Days Qty: 30 0RF
lidocaine 5 % adhesive patch,medicated
1 patch topical DAILY 30 Days Qty: 30 1RF
diphenoxylate-atropine 2.5-0.025 mg Tablet
1 tab PO Q6HPRN PRN (Reason: loose stools, colitis) 10 Days Qty: 40 0RF
Referrals:
Josue Hart MD [Active] - Next open appointment
Litzy Rios DO [Family Provider] - Follow up in 2-3 days
Activity Restrictions/Additional Instructions:
IF YOU DEVELOP CHEST PAIN, TROUBLE BREATHING, FEVER, VOMITING, DIZZINESS, INCREASING/NEW SWELLING, REDNESS, WARMTH, WEAKNESS, OR OTHER WORRISOME SIGNS, GO TO THE ER IMMEDIATELY!
Interventions
Interventions:
*Risk Screen - Suicide Last Done: 01/31/24 19:12
*General Assessment Last Done: 01/31/24 19:12
*Neglect/Abuse Screening Last Done: 01/31/24 19:12
ED- Fall Risk Assessment Last Done: 01/31/24 21:13
*ED COVID-19 Vaccine History Last Done: 01/31/24 19:12
Discharge Date and Time
Print Language: HUNGARIAN
[2024-01-31 20:49] VITALS: BMI 19.3
[2024-01-31 22:25] VITALS: BP 119/49
[2024-01-31 22:27] LABS: Hematocrit 31.5 % (37.0-47.0); Hemoglobin 10.6 g/dL (12.0-16.0); Mean Corp Hgb Conc. 33.7 g/dL (33.0-37.0); Mean Corpuscular Hgb 29.1 pg (27.0-31.0); Mean Corpuscular Volume 86.5 fL (81.0-99.0); Mean Platelet Volume 9.7 fL (7.4-10.4); Platelet Count 224 10^3/uL (130-400); Red Blood Cell Count 3.64 10^6/uL (4.20-5.40); Red Cell Dist. Width 16.5 % (11.5-14.5); White Blood Cell Count 6.9 10^3/uL (4.8-10.8)
[2024-01-31 22:38] LABS: INR 1.11; PT 14.1 Sec (11.4-14.6)
[2024-01-31 22:41] LABS: Blood Urea Nitrogen 14 mg/dl (7-17); Calcium 9.4 mg/dl (8.4-10.2); Carbon Dioxide 30 mmol/L (22-30); Chloride 102 mmol/L (98-107); Estimated Creatinine Clearance 79 ml/min; Glucose 89 mg/dl (70-99); Potassium 4.2 mmol/L (3.5-5.1); Sodium 139 mmol/L (135-145); eGFR > 60.00
[2024-01-31 23:27] VITALS: BP 117/50
== END 2024-01-31 23:59 | disposition home or self-care (01) ==
LOC: EMR 19:10
PROVIDERS: EMERGENCY PHYSICIAN Emergency Medicine; FAMILY PHYSICIAN Family Medicine
DX: M71.21 Synovial cyst of popliteal space [Baker], right knee (principal); F41.9 Anxiety disorder, unspecified; D64.9 Anemia, unspecified; Z87.440 Personal history of urinary (tract) infections; Z96.642 Presence of left artificial hip joint
CPT/HCPCS: 99284; 80048; 85027; 85610; 85730; 93971

== ENCOUNTER 2024-02-04 09:25 | Outpatient (RCR) | payer MEDICARE, OTHER, SELFPAY | END 2024-02-04 23:59 | disposition home or self-care (01) | LOC: RPT 09:25 | PROVIDERS: ATTENDING PHYSICIAN Physical Medicine & Rehabilitation; FAMILY PHYSICIAN Family Medicine | DX: I69.398 Other sequelae of cerebral infarction (principal); Z73.6 Limitation of activities due to disability; I69.318 Other symptoms and signs involving cognitive functions following cerebral infarction; I69.314 Frontal lobe and executive function deficit following cerebral infarction; I69.310 Attention and concentration deficit following cerebral infarction; Z96.611 Presence of right artificial shoulder joint | CPT/HCPCS: 97110; 97112; 97129; 97130; 97140; 97530; 97535 ==

== ENCOUNTER 2024-03-08 08:23 | Outpatient (RCR) | payer MEDICARE, OTHER, SELFPAY | END 2024-03-08 23:59 | disposition home or self-care (01) | LOC: RPT 08:23 | PROVIDERS: ATTENDING PHYSICIAN Physical Medicine & Rehabilitation; FAMILY PHYSICIAN Family Medicine | DX: I69.318 Other symptoms and signs involving cognitive functions following cerebral infarction (principal); I69.314 Frontal lobe and executive function deficit following cerebral infarction; I69.310 Attention and concentration deficit following cerebral infarction; Z96.611 Presence of right artificial shoulder joint; Z73.6 Limitation of activities due to disability | CPT/HCPCS: 97110; 97112; 97129; 97130; 97530; 97535 ==

== ENCOUNTER 2024-04-07 09:28 | Outpatient (RCR) | payer MEDICARE, OTHER, SELFPAY | END 2024-04-07 23:59 | disposition home or self-care (01) | LOC: RPT 09:28 | PROVIDERS: ATTENDING PHYSICIAN Physical Medicine & Rehabilitation; FAMILY PHYSICIAN Family Medicine | DX: I69.318 Other symptoms and signs involving cognitive functions following cerebral infarction (principal); I69.310 Attention and concentration deficit following cerebral infarction; I69.314 Frontal lobe and executive function deficit following cerebral infarction | CPT/HCPCS: 97110; 97112; 97129; 97130; 97530; 97535 ==

== ENCOUNTER 2024-05-05 09:30 | Outpatient (RCR) | payer MEDICARE, OTHER, SELFPAY | END 2024-05-05 23:59 | disposition home or self-care (01) | LOC: RPT 09:30 | PROVIDERS: ATTENDING PHYSICIAN Physical Medicine & Rehabilitation; FAMILY PHYSICIAN Family Medicine | DX: I69.318 Other symptoms and signs involving cognitive functions following cerebral infarction (principal); I69.314 Frontal lobe and executive function deficit following cerebral infarction; I69.310 Attention and concentration deficit following cerebral infarction; Z73.6 Limitation of activities due to disability; Z96.611 Presence of right artificial shoulder joint | CPT/HCPCS: 97110; 97112; 97129; 97130; 97530; 97535 ==

== ENCOUNTER 2024-05-31 09:33 | Outpatient (RCR) | payer MEDICARE, OTHER, SELFPAY | END 2024-05-31 23:59 | disposition home or self-care (01) | LOC: RPT 09:33 | PROVIDERS: ATTENDING PHYSICIAN Physical Medicine & Rehabilitation; FAMILY PHYSICIAN Family Medicine | DX: I69.318 Other symptoms and signs involving cognitive functions following cerebral infarction (principal); I69.314 Frontal lobe and executive function deficit following cerebral infarction; I69.310 Attention and concentration deficit following cerebral infarction; Z73.6 Limitation of activities due to disability; Z96.611 Presence of right artificial shoulder joint | CPT/HCPCS: 97129; 97130; 97530; 97535 ==

== ENCOUNTER 2024-06-24 09:28 | Outpatient (RCR) | payer MEDICARE, OTHER, SELFPAY | END 2024-06-24 23:59 | disposition home or self-care (01) | LOC: RPT 09:28 | PROVIDERS: ATTENDING PHYSICIAN Physical Medicine & Rehabilitation; FAMILY PHYSICIAN Family Medicine | DX: I69.318 Other symptoms and signs involving cognitive functions following cerebral infarction (principal); I69.314 Frontal lobe and executive function deficit following cerebral infarction; I69.310 Attention and concentration deficit following cerebral infarction; Z73.6 Limitation of activities due to disability; Z96.611 Presence of right artificial shoulder joint; I69.311 Memory deficit following cerebral infarction | CPT/HCPCS: 97129; 97130; 97535 ==

== ENCOUNTER 2024-07-15 15:14 | Emergency (ER) | payer MEDICARE, OTHER, SELFPAY ==
[2024-07-15 15:28] VITALS: BP 113/73
[2024-07-15 15:57] LABS: % Basophils 0.2 % (0-2); % Immature Granulocytes 0.3 % (0-0.5); % Lymphocytes 11.5 % (20.5-51.1); % Monocytes 8.5 % (1.7-9.3); % Neutrophils 79.5 % (42.2-75.2); Absolute Lymphocytes 1.1 10^3/uL (1.2-3.4); Absolute Monocytes 0.8 10^3/uL (0.1-0.6); Absolute Neutrophils 7.3 10^3/uL (1.4-6.5); Hematocrit 37.1 % (37.0-47.0); Hemoglobin 12.4 g/dL (12.0-16.0); Mean Corp Hgb Conc. 33.4 g/dL (33.0-37.0); Mean Corpuscular Hgb 31.1 pg (27.0-31.0); Mean Platelet Volume 9.8 fL (7.4-10.4); Nucleated Red Blood Cells % 0 %; Platelet Count 261 10^3/uL (130-400); Red Blood Cell Count 3.99 10^6/uL (4.20-5.40); Red Cell Dist. Width 13.1 % (11.5-14.5); White Blood Cell Count 9.2 10^3/uL (4.8-10.8)
[2024-07-15 16:12] LABS: ALT (SGPT) 23 U/L (0-35); AST (SGOT) 33 U/L (14-36); Alkaline Phosphatase 85 U/L (38-126); Blood Urea Nitrogen 12 mg/dl (7-17); Calcium 9.3 mg/dl (8.4-10.2); Carbon Dioxide 31 mmol/L (22-30); Chloride 99 mmol/L (98-107); Glucose 104 mg/dl (70-99); Potassium 3.2 mmol/L (3.5-5.1); Sodium 137 mmol/L (135-145); Total Bilirubin 0.9 mg/dl (0.2-1.3); Total Protein 6.8 g/dl (6.3-8.2); eGFR > 60.00
[2024-07-15 16:46] VITALS: BMI 19.6
[2024-07-15 17:00] VITALS: BP 160/82
--- NOTE | 2024-07-15 17:28 | ED.GENMED ---
History of Present Illness
General
Chief Complaint: Fall
Source: patient and spouse
Exam Limitations: none
Time Seen by Provider: 07/15/24 16:58
Nursing documentation reviewed up to this point in time: agreed with
History of Present Illness
History of Present Illness:
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
of her Xanax a few days ago fairly soon afterward [place] felt dizzy fell struck her face, had some bleeding above her right eye, did not seek medical attention apparently she did have another fall struck the right side of her
face, she did call her PCP got her Xanax refilled, she took 1 mg a few hours ago now is feeling back to her normal self
Past History
Past History
ED Past Medical History: Psychiatric (Anxiety) and Other (Back problems. Colitis, UTI, Vertigo, Lyme, Chronic fatigue, R parietal lesion)
ED Past Surgical History: Orthopedic (Left hip replacement) and Other (Multiple breast surgery, Adenoid removed, Deviated septum)
Patient has exhibited threatening behavior?: No
PSI?: No
Social History
Tobacco: Non-smoker
Alcohol: Occasional
Drug: None
Personal:
Living: with family
Employment: Employed
Review of Systems
Review of Systems
All Other Systems: Not applicable
Constitutional: Denies fever
Respiratory: Reports no symptoms
Cardiac: Reports syncope
ABD/GI: Reports no symptoms
: Reports no symptoms
Musculoskeletal: Reports joint pain
Neurological: Reports no symptoms
Hematologic/Lymphatic: Reports no symptoms
Phy Exam
Physical Exam
Physical Exam:
Physical Exam
General: no apparent distress, not acutely ill obvious subacute bruising to the right side of the face
Neck: Bruising right mandible under the right eye no posterior neck pain no tongue bite extraocular movements intact no entrapment
Heart: Regular
Lungs: no acute respiratory distress. clear bilaterally
Abdomen: Nontender
Neuro: alert and oriented. no focal neurological deficits
Skin: no rash
Psychiatric: Cooperative
Extremities: no edema.
Course
Orders/Labs/Results
Orders:
Orders
07/15/24 15:33
Electrocardiogram (*1) Urgent
Reason for Study: Vertigo / Dizzy
EKG- Treatment ONCE
07/15/24 15:37
CT Cervical Spine W/o Iv Contr Urgent
Comment:
Reason For Exam: fall, head injury
CT Facial Bones W/o Iv Contras Urgent
Comment:
Reason For Exam: fall, head injury
CT Head W/o Iv Contrast Urgent
Comment:
Reason For Exam: dizzy, fall
07/15/24 15:41
Complete Blood Count/With Diff Urgent
Comprehensive Metabolic Panel Urgent
07/15/24 17:22
Wound Dressing- Treatment ONCE
Location of Wound: face
Forearm, Right 2 View [CR Forearm - Right 2 View] Urgent
Comment:
Reason For Exam: fall
Humerus, Right 2 Views [CR Humerus - Right Min 2 View*] Urgent
Comment:
Reason For Exam: fall TSR
07/15/24 17:23
Tetanus/Diphth/Acelpertussis [Adacel] 0.5 ml IM .ONCE ONE
07/15/24 17:32
CR Chest - 2 Views Urgent
Comment:
Reason For Exam: weston
07/15/24 19:05
Amoxicillin 875 mg/Clav 125 mg [Augmentin 875 mg/125 mg] 1 tablet PO NOW STA
Potassium Chloride [KCl] 40 meq PO NOW STA
Abnormal Lab Results
07/15/24
15:41
RBC 3.99 L 10^6/uL
(4.20-5.40)
MCH 31.1 H pg
(27.0-31.0)
Absolute Neuts (auto) 7.3 H 10^3/uL
(1.4-6.5)
Absolute Lymphs (auto) 1.1 L 10^3/uL
(1.2-3.4)
Absolute Monos (auto) 0.8 H 10^3/uL
(0.1-0.6)
Neutrophils % 79.5 H %
(42.2-75.2)
Lymphocytes % 11.5 L %
(20.5-51.1)
Potassium 3.2 L mmol/L
(3.5-5.1)
Carbon Dioxide 31 H mmol/L
(22-30)
Glucose 104 H mg/dl
(70-99)
07/15/24 15:41
07/15/24 15:41
Vital Signs
Initial and Last Documented VS:
Initial Vital Signs
Temp Pulse Resp BP Pulse Ox
98.2 F 89 16 113/73 98
07/15/24 15:28 07/15/24 15:28 07/15/24 15:28 07/15/24 15:28 07/15/24 15:28
Last Documented Vital Signs
Temp Pulse Resp BP Pulse Ox
98.2 F 76 18 167/81 99
07/15/24 15:28 07/15/24 18:04 07/15/24 18:04 07/15/24 18:04 07/15/24 18:04
MDM/Problems Addressed
Differential Diagnosis Includes:
Fall syncope seizure med withdrawal arrhythmia
MDM/Problems Addressed:
Fall versus syncope head and neck trauma right arm trauma
Chronic conditions affecting care:
Chronic anxiety chronic pain
Acute Exacerbation and/or Progression of Chronic Illness:
Chronic anxiety chronic
*Radiology
Radiology exam reviewed: radiology read reviewed
*Pulse Oximetry
Patient hypoxic: no
*EKG
Interpreted by ED Provider?: Yes
Interpretation: normal
Comparison EKG: no comparison EKG present
Heart Rate: 78
Rate: normal
Rhythm: sinus
Ischemia: no ischemia
*Web Software Engineer Interpretation
Rate: normal
Interpretation: normal
Heart Rate: 78
Rhythm: sinus
*Critical Care Note
Total Time (30-74mins, 75-104mins- exclusive of procedures): Not Applicable
Update Note
Update Note:
Update inciting event not entirely clear but from a time standpoint benzo withdrawal would fit, perhaps a seizure versus agitation with fall, of note she states she feels better after taking Xanax a few hours ago not appear to be intoxicated, had a
fairly extensive workup. CT head C-spine facial bones EKG electrolytes all reasonably normal exception of potassium which I will replete doubt that is the primary issue will also check x-ray of the right humerus forearm chest x-ray to the fall
prior shoulder surgery
Update, CT reports noted, plain films noted, will repleat electrolytes, started on antibiotics, refer to oculoplastics non-urgently
ED Attending Note
-
Portions of this chart may have been created with voice recognition software.� Occasional wrong word or��sound alike� substitutions may have occurred due to the inherent limitations of voice recognition software.
Discharge Plan
Departure
Patient Disposition: Home (Routine Discharge)
Date of Disposition: 07/15/24
Time of Disposition: 19:07
Patient with high blood pressure during this ER visit?: No
Condition: Good
Discharge Problem:
Hypokalemia, Orbital fracture
Instructions: Preventing falls in adults, Skin Abrasions (DC), Facial Fracture (DC)
Prescriptions:
No Action
alprazolam 1 mg Tablet
1 mg PO TID 5 Days Qty: 15 0RF
gabapentin 100 mg Capsule
100 mg PO TID 30 Days Qty: 90 0RF
metoprolol tartrate 25 mg Tablet
12.5 mg PO BID 30 Days Qty: 15 0RF
multivitamin with folic acid [Tab-A-Luis F] 400 mcg Tablet
1 tab PO DAILY Qty: 30 0RF
tramadol 50 mg Tablet
50 mg PO Q6HPRN PRN (Reason: pain-moderate) 3 Days Qty: 15 0RF
cyanocobalamin (vitamin B-12) 5,000 mcg tablet, sublingual
5,000 mcg sublingual DAILY 30 Days Qty: 30 0RF
calcitriol 0.25 mcg capsule
0.25 mcg PO DAILY 30 Days Qty: 30 0RF
atorvastatin 40 mg Tablet
40 mg PO QPM Qty: 0 0RF
aspirin 81 mg Tablet,Delayed Release (Dr/Ec)
81 mg PO DAILY Qty: 0 0RF
pantoprazole 40 mg Tablet,Delayed Release (Dr/Ec)
40 mg PO DAILY 30 Days Qty: 30 0RF
lidocaine 5 % adhesive patch,medicated
1 patch topical DAILY 30 Days Qty: 30 1RF
diphenoxylate-atropine 2.5-0.025 mg Tablet
1 tab PO Q6HPRN PRN (Reason: loose stools, colitis) 10 Days Qty: 40 0RF
Referrals:
Litzy Rios DO [Family Provider] - Next open appointment
Santi Ma MD [Active] - Next open appointment
Interventions
Interventions:
*Risk Screen - Suicide Last Done: 07/15/24 15:28
*General Assessment Last Done: 07/15/24 15:28
*Neglect/Abuse Screening Last Done: 07/15/24 16:46
*ED COVID-19 Vaccine History Last Done: 07/15/24 15:28
ED-Musculoskeletal Assessment Last Done: 07/15/24 16:46
ED- Neurological Assessment Last Done: 07/15/24 16:46
ED-Skin Assessment Last Done: 07/15/24 16:53
Discharge Date and Time
Print Language: YAKUT
[2024-07-15 18:00] VITALS: BP 191/91
[2024-07-15 18:04] VITALS: BP 167/81
[2024-07-15] MEDS: ADACEL 0.5 ML IM (18:39)
[2024-07-15 19:00] VITALS: BP 172/79
[2024-07-15] MEDS: AUGMENTIN 875 MG/125 MG 1 TABLET PO (19:15)
[2024-07-15] MEDS: KCL 40 MEQ PO (19:16)
[2024-07-15] MEDS: XANAX 1 MG PO (19:35)
== END 2024-07-15 20:10 | disposition home or self-care (01) ==
LOC: EMR 15:14
PROVIDERS: EMERGENCY PHYSICIAN Emergency Medicine; FAMILY PHYSICIAN Family Medicine
DX: S02.31XA Fracture of orbital floor, right side, initial encounter for closed fracture (principal); S00.83XA Contusion of other part of head, initial encounter; W19.XXXA Unspecified fall, initial encounter; E87.6 Hypokalemia; F41.9 Anxiety disorder, unspecified; G89.29 Other chronic pain; Z79.899 Other long term (current) drug therapy; Z23 Encounter for immunization
CPT/HCPCS: 99285; 90471; 70450; 70486; 71046; 72125; 73060; 73090; 80053; 85025; 90715; 93005

== ENCOUNTER → 2024-07-20 15:01 | Outpatient (REF) | payer MEDICARE, OTHER, SELFPAY | LOC: RAD 15:01 | PROVIDERS: ATTENDING PHYSICIAN Surgery Vascular Surgery; FAMILY PHYSICIAN Family Medicine | DX: I65.23 Occlusion and stenosis of bilateral carotid arteries (principal) | CPT/HCPCS: 93880 ==

== ENCOUNTER 2024-09-06 21:53 | Inpatient (IN) | payer MEDICARE, OTHER, SELFPAY ==
[2024-09-06] VITALS (15 sets, daily range): BP systolic 91–122; BP diastolic 47–89; BMI 19.5; BMI 18.8
[2024-09-06 17:06] LABS: Glucose - Point of Care 90 mg/dl (70-99)
--- NOTE | 2024-09-06 17:26 | ED.GENMED ---
History of Present Illness
<JEWELS Welch - Last Filed: 09/06/24 20:27>
General
Chief Complaint: Change in Mental Status
Source: patient
Exam Limitations: none
Time Seen by Provider: 09/06/24 17:17
Nursing documentation reviewed up to this point in time: agreed with
History of Present Illness
History of Present Illness:
69 yr old female presents with past medical history of stroke, carotid endarterectomy to the ER via EMS. at bedside giving history reports patient seemed very confused last night. reports he noticed that the patient was feeling on
envelope and addressing the envelope wrong. He wanted her to come to the ER last night but she refused. He went to work this morning and had not heard from her. He finally sent a neighbor to check on her and she was very confused. This occurred
around 1:30 PM. Patient presents very sleepy she is able to tell me her name she is aware of the president she is aware of place but at times can confused conversation. She has no complaints. She does follow commands.
reports pt has not been sick, no fevers.
Past History
<JEWELS Welch - Last Filed: 09/06/24 20:27>
Past History
ED Past Medical History: Psychiatric (Anxiety) and Other (Back problems. Colitis, UTI, Vertigo, Lyme, Chronic fatigue, R parietal lesion)
ED Past Surgical History: Orthopedic (Left hip replacement) and Other (Multiple breast surgery, Adenoid removed, Deviated septum)
Patient has exhibited threatening behavior?: No
PSI?: No
Social History
Tobacco: Non-smoker
Alcohol: Occasional
Drug: None
Personal:
Living: with family
Employment: Employed
Review of Systems
<JEWELS Welch - Last Filed: 09/06/24 20:27>
Review of Systems
Allergies reviewed?: Yes
Other source history: family
All Other Systems: ROS reviewed and negative except as documented in HPI and ROS
Constitutional: Reports no symptoms; Denies fever, fatigue or chills
EENT: Reports no symptoms
Respiratory: Reports no symptoms
Cardiac: Reports no symptoms
ABD/GI: Reports no symptoms
Musculoskeletal: Reports no symptoms
Skin: Reports no symptoms
Neurological: Reports other (confused as per )
Psychiatric: Reports no symptoms
Phy Exam
<JEWELS Welch - Last Filed: 09/06/24 20:27>
General Physical Exam
General Presentation: no apparent distress and other (pt appears sleepy )
General age: appears stated age
General Skin: warm and dry
General Habitus: elderly
General Hydration: dry mucous membranes
Cardiovascular Exam
Cardiovascular Exam: regular rate/rhythm, no murmur and normal peripheral pulses
Pulmonary Exam
Pulmonary Exam: lungs clear and no respiratory distress
Neurological Exam
Neurological Exam: alert, no motor deficits, no sensory deficits and other (mildly confused conversation )
Tiffany Coma Scale
Eye Opening: Spontaneous
Verbal Response: Confused
Motor Response: Obeys Commands
GCS Total Score: 14
Musculoskeletal Exam
Musculoskeletal Exam: full ROM and other (redness to left lateral thigh (chronic as per pt and ) since age 18)
Skin Exam
Skin Exam: normal color and warm/dry
Psychiatric Exam
Psychiatric Exam: normal mood/affect
Course
<JEWELS Welch - Last Filed: 09/06/24 20:27>
Orders/Labs/Results
Orders:
Orders
09/06/24 17:06
Electrocardiogram (*1) Urgent
Reason for Study: Fatigue / Weakness
EKG- Treatment ONCE
09/06/24 17:16
Alcohol Urgent
Complete Blood Count/With Diff Urgent
Comprehensive Metabolic Panel Urgent
09/06/24 17:50
CT Head & Neck Angio W/wo IV Urgent
Comment:
Reason For Exam: change in ms
Straight cath- Treatment ONCE
09/06/24 18:13
Add On- LAB Urgent
Tests Added?: alcohol
09/06/24 19:35
Alcohol Urgent
UA Reflex to Culture [Urinalysis Reflex To Culture] Urgent
Date Specimen was Collected: 09/06/24
Time Specimen was Collected: 19:34
Urine Microscopic Reflex Cult Urgent
Urine Culture Urgent
ASH Source: U
Specimen Description:
Date Specimen was Collected: 09/06/24
Time Specimen was Collected: 19:34
Abnormal Lab Results
09/06/24 09/06/24
17:16 19:35
WBC 11.0 H 10^3/uL
(4.8-10.8)
RBC 3.68 L 10^6/uL
(4.20-5.40)
Hgb 11.6 L g/dL
(12.0-16.0)
Hct 35.1 L %
(37.0-47.0)
MCH 31.5 H pg
(27.0-31.0)
Absolute Neuts (auto) 8.4 H 10^3/uL
(1.4-6.5)
Absolute Monos (auto) 0.7 H 10^3/uL
(0.1-0.6)
Neutrophils % 76.0 H %
(42.2-75.2)
Lymphocytes % 16.2 L %
(20.5-51.1)
Carbon Dioxide 33 H mmol/L
(22-30)
BUN 18 H mg/dl
(7-17)
Total Protein 6.1 L g/dl
(6.3-8.2)
Ur Occult Blood Reflex 4+ A
(Negative)
Urine Nitrite (Reflex) Positive A
(Negative)
Leukocyte Esterase Rfl 3+ A
(Negative)
Urine RBC 3-6 A /HPF
(0-2)
Urine WBC (Reflex) 70-80 A /HPF
(0-5)
Urine Bacteria (Reflex) Many A
(Negative)
Urine Albumin (Reflex) 3+ A
(Neg - Trace)
09/06/24 17:16
09/06/24 17:16
Vital Signs
Initial and Last Documented VS:
Initial Vital Signs
Temp Pulse Resp BP Pulse Ox
98.7 F 72 12 99/69 96
09/06/24 17:02 09/06/24 17:02 09/06/24 17:02 09/06/24 17:02 09/06/24 17:02
Last Documented Vital Signs
Temp Pulse Resp BP Pulse Ox
98.7 F 69 16 106/89 96
09/06/24 17:02 09/06/24 19:45 09/06/24 19:45 09/06/24 19:30 09/06/24 17:02
Gambling Box Person consulted with Physician
Gambling Box Person consulted with physician?: Yes
Name of Physician Consulted: Belinda
<Santi Trevino, DO - Last Filed: 09/06/24 20:15>
Orders/Labs/Results
Orders:
Orders
09/06/24 17:06
Electrocardiogram (*1) Urgent
Reason for Study: Fatigue / Weakness
EKG- Treatment ONCE
09/06/24 17:16
Alcohol Urgent
Complete Blood Count/With Diff Urgent
Comprehensive Metabolic Panel Urgent
09/06/24 17:50
CT Head & Neck Angio W/wo IV Urgent
Comment:
Reason For Exam: change in ms
Straight cath- Treatment ONCE
09/06/24 18:13
Add On- LAB Urgent
Tests Added?: alcohol
09/06/24 19:35
Alcohol Urgent
UA Reflex to Culture [Urinalysis Reflex To Culture] Urgent
Date Specimen was Collected: 09/06/24
Time Specimen was Collected: 19:34
Urine Microscopic Reflex Cult Urgent
Urine Culture Urgent
ASH Source: U
Specimen Description:
Date Specimen was Collected: 09/06/24
Time Specimen was Collected: 19:34
Abnormal Lab Results
09/06/24 09/06/24
17:16 19:35
WBC 11.0 H 10^3/uL
(4.8-10.8)
RBC 3.68 L 10^6/uL
(4.20-5.40)
Hgb 11.6 L g/dL
(12.0-16.0)
Hct 35.1 L %
(37.0-47.0)
MCH 31.5 H pg
(27.0-31.0)
Absolute Neuts (auto) 8.4 H 10^3/uL
(1.4-6.5)
Absolute Monos (auto) 0.7 H 10^3/uL
(0.1-0.6)
Neutrophils % 76.0 H %
(42.2-75.2)
Lymphocytes % 16.2 L %
(20.5-51.1)
Carbon Dioxide 33 H mmol/L
(22-30)
BUN 18 H mg/dl
(7-17)
Total Protein 6.1 L g/dl
(6.3-8.2)
Ur Occult Blood Reflex 4+ A
(Negative)
Urine Nitrite (Reflex) Positive A
(Negative)
Leukocyte Esterase Rfl 3+ A
(Negative)
Urine RBC 3-6 A /HPF
(0-2)
Urine WBC (Reflex) 70-80 A /HPF
(0-5)
Urine Bacteria (Reflex) Many A
(Negative)
Urine Albumin (Reflex) 3+ A
(Neg - Trace)
09/06/24 17:16
09/06/24 17:16
Vital Signs
Initial and Last Documented VS:
Initial Vital Signs
Temp Pulse Resp BP Pulse Ox
98.7 F 72 12 99/69 96
09/06/24 17:02 09/06/24 17:02 09/06/24 17:02 09/06/24 17:02 09/06/24 17:02
Last Documented Vital Signs
Temp Pulse Resp BP Pulse Ox
98.7 F 69 16 106/89 96
09/06/24 17:02 09/06/24 19:45 09/06/24 19:45 09/06/24 19:30 09/06/24 17:02
<JEWELS Welch - Last Filed: 09/06/24 20:27>
MDM/Problems Addressed
Differential Diagnosis Includes:
Not limited to stroke, infection
MDM/Problems Addressed:
Patient is a 69-year female who was brought to the ER by EMS for evaluation of confusion. reports patient started to be confused last night into today. Patient presents awake alert she does answer questions and follows commands but is
minimally confused conversation. She appears very sleepy drowsy. She has no focal neurological deficits. CAT scan and CTA head and neck were done after discussion with orthopedics which is negative for acute findings. Urinalysis however appears
infected with 70�80 white blood cells and nitrates; she is afebrile however white count minimally elevated 11.0
Patient was eval by ED physician with confusion with UTI will need admission
<JEWELS Welch - Last Filed: 09/06/24 20:27>
*Radiology
Radiology exam reviewed: radiology read reviewed
*Pulse Oximetry
Patient hypoxic: no
*EKG
Interpreted by ED Provider?: Yes
Heart Rate: 70
Rate: normal
Rhythm: sinus
Ischemia: no ischemia
*Critical Care Note
Total Time (30-74mins, 75-104mins- exclusive of procedures): Not Applicable
ED Attending Note
<JEWELS Welch - Last Filed: 09/06/24 20:27>
-
Portions of this chart may have been created with voice recognition software.� Occasional wrong word or��sound alike� substitutions may have occurred due to the inherent limitations of voice recognition software.
<Santi Trevino DO - Last Filed: 09/06/24 20:15>
ED Attending Note
Patient seen and examined by attending physician: Yes
ED Attending Note:
I reviewed and agree with history and treatment plan by Erin Brock. My exam reveals 69-year-old female, who is alert and oriented x 3, but confused to situation. Moving all extremities out difficulty. Urinalysis consistent with UTI. This is
likely the cause of her change in mental status. Will treat with Rocephin, admit to hospitalist.
Discharge Plan
Departure
Patient Disposition: Admit
Date of Disposition: 09/06/24
Time of Disposition: 20:26
Admit to: Med/Surg
Admit to doctor: hospitalist
Presentation/result/management discussed w/ accepting MD/DO: Hospitalist
Patient with high blood pressure during this ER visit?: No
Condition: Fair
Covid-19: Not Applicable
Discharge Problem:
Acute UTI, Acute alteration in mental status
Prescriptions:
No Action
amoxicillin-pot clavulanate [Augmentin] 500-125 mg tablet
1 tab PO BID Qty: 14 0RF
alprazolam 1 mg Tablet
1 mg PO TID 5 Days Qty: 15 0RF
gabapentin 100 mg Capsule
100 mg PO TID 30 Days Qty: 90 0RF
metoprolol tartrate 25 mg Tablet
12.5 mg PO BID 30 Days Qty: 15 0RF
multivitamin with folic acid [Tab-A-Luis F] 400 mcg Tablet
1 tab PO DAILY Qty: 30 0RF
tramadol 50 mg Tablet
50 mg PO Q6HPRN PRN (Reason: pain-moderate) 3 Days Qty: 15 0RF
cyanocobalamin (vitamin B-12) 5,000 mcg tablet, sublingual
5,000 mcg sublingual DAILY 30 Days Qty: 30 0RF
calcitriol 0.25 mcg capsule
0.25 mcg PO DAILY 30 Days Qty: 30 0RF
atorvastatin 40 mg Tablet
40 mg PO QPM Qty: 0 0RF
aspirin 81 mg Tablet,Delayed Release (Dr/Ec)
81 mg PO DAILY Qty: 0 0RF
pantoprazole 40 mg Tablet,Delayed Release (Dr/Ec)
40 mg PO DAILY 30 Days Qty: 30 0RF
lidocaine 5 % adhesive patch,medicated
1 patch topical DAILY 30 Days Qty: 30 1RF
diphenoxylate-atropine 2.5-0.025 mg Tablet
1 tab PO Q6HPRN PRN (Reason: loose stools, colitis) 10 Days Qty: 40 0RF
Referrals:
Litzy Rios DO [Family Provider] -
Interventions
Interventions:
*Risk Screen - Suicide Last Done: 09/06/24 17:11
*General Assessment Last Done: 09/06/24 17:11
*Neglect/Abuse Screening Last Done: 09/06/24 17:11
*ED- Fall Risk Assessment Last Done: 09/06/24 17:11
*ED COVID-19 Vaccine History Last Done: 09/06/24 17:11
ED- Pulmonary Assessment Last Done: 09/06/24 17:13
ED- Neurological Assessment Last Done: 09/06/24 17:13
ED- Cardiac Assessment Last Done: 09/06/24 17:13
Discharge Date and Time
Print Language: GABONESE
[2024-09-06 17:28] LABS: % Basophils 0.3 % (0-2); % Eosinophils 0.5 % (0-6); % Immature Granulocytes 0.3 % (0-0.5); % Lymphocytes 16.2 % (20.5-51.1); % Monocytes 6.7 % (1.7-9.3); Absolute Eosinophils 0.1 10^3/uL (0-0.7); Absolute Lymphocytes 1.8 10^3/uL (1.2-3.4); Absolute Monocytes 0.7 10^3/uL (0.1-0.6); Absolute Neutrophils 8.4 10^3/uL (1.4-6.5); Hematocrit 35.1 % (37.0-47.0); Hemoglobin 11.6 g/dL (12.0-16.0); Mean Corpuscular Hgb 31.5 pg (27.0-31.0); Mean Corpuscular Volume 95.4 fL (81.0-99.0); Mean Platelet Volume 9.7 fL (7.4-10.4); Nucleated Red Blood Cells % 0 %; Platelet Count 180 10^3/uL (130-400); Red Blood Cell Count 3.68 10^6/uL (4.20-5.40)
[2024-09-06 17:43] LABS: ALT (SGPT) 14 U/L (0-35); AST (SGOT) 20 U/L (14-36); Alkaline Phosphatase 85 U/L (38-126); Blood Urea Nitrogen 18 mg/dl (7-17); Calcium 9.2 mg/dl (8.4-10.2); Carbon Dioxide 33 mmol/L (22-30); Chloride 101 mmol/L (98-107); Estimated Creatinine Clearance 72 ml/min; Glucose 96 mg/dl (70-99); Potassium 4.3 mmol/L (3.5-5.1); Sodium 139 mmol/L (135-145); Total Bilirubin 0.7 mg/dl (0.2-1.3); Total Protein 6.1 g/dl (6.3-8.2); eGFR > 60.00
[2024-09-06 19:12] LABS: Alcohol None Detected
[2024-09-06 19:45] LABS: Urine Albumin 3+ (Neg - Trace); Urine Bilirubin Negative (Negative); Urine Character Clear (Clear); Urine Color Yellow; Urine Glucose Negative (Negative); Urine Ketone Negative (Negative); Urine Leukocyte 3+ (Negative); Urine Nitrite Positive (Negative); Urine Occult Blood 4+ (Negative); Urine Urobilinogen Negative (Neg - 1+)
[2024-09-06 19:51] LABS: Urine Squamous Cell 0-2 /LPF (Few)
[2024-09-06 19:52] LABS: Urine Bacteria Many (Negative); Urine Triple Phosphate Crystal Present
[2024-09-06 19:53] LABS: Urine White Cell 70-80 /HPF (0-5)
[2024-09-06] MEDS: ROCEPHIN 1000 MG IV (20:23)
[2024-09-06] MEDS: NSS 500 IV (20:24)
[2024-09-06 20:26] LABS: Alcohol None Detected
--- NOTE | 2024-09-06 20:26 | HPS.HSE ---
Family Physician
-
Family Physician: Litzy Ott Rech, DO
Chief Complaint
-
confusion
History of Present Illness
69 yr old female presents with past medical history of stroke, carotid endarterectomy, colitis, UTI, anxiety presented with burning with urination since yesterday. On Friday, she was sweaty and she felt hot at that time. she never measured the
temperature. yesterday she seemed very confused. reports he noticed that the patient was feeling on envelope and addressing the envelope wrong. He wanted her to come to the ER last night but she refused. He went to work this morning and
had not heard from her. He finally sent a neighbor to check on her and she was very confused. denied FORD, dizzy or syncope. denied chest pain,sob. denied abdominal pain,n,v,d. denied hematuria.
positive UA in ER. admitting for further management.
Medical History
Past Medical History
Past Medical History: Reports Other
Additional Past Medical History:
Osteoarthritis
Colitis
Cervical disc disease
UTI
Lyme disease
Vaginal prolapse
B12 deficiency
Past Surgical History: Reports Other
Additional Past Surgical History:
ORIF of left hip
Right breast biopsy
Right carotid endarterectomy
Social History
Tobacco: Non-smoker
Alcohol: Occasional
Drug: None
Personal:
Living: With Family
Family History
Family History: Not pertinent
Allergies / Home Medications
Allergies reflects when Allergies were last updated in [facility].
Home Medications with original date entered in [facility]
Allergy/Medication List:
Allergies
Allergy/AdvReac Type Severity Reaction Status Date / Time
Sulfa (Sulfonamide Allergy Hives Verified 09/06/24 17:02
Antibiotics)
Home Medications
alprazolam 1 mg tablet 1 mg PO TID anxiety 5 days #15 tabs 12/04/23
aspirin 81 mg tablet,delayed release 81 mg PO DAILY CVA #0 tabs 12/04/23
atorvastatin 40 mg tablet 40 mg PO QPM cholesterol #0 tabs 12/04/23
calcitriol 0.25 mcg capsule 0.25 mcg PO DAILY supplement 30 days #30 caps 12/04/23
cyanocobalamin (vitamin B-12) 5,000 mcg sublingual tablet 5,000 mcg sublingual DAILY Supplement 30 days #30 tabs 12/04/23
gabapentin 100 mg capsule 100 mg PO TID neuropathic pain-fingers 30 days #90 caps 12/04/23
metoprolol tartrate 25 mg tablet 12.5 mg (1/2 x 25 mg) PO BID blood pressure 30 days #15 tabs 12/04/23
multivitamin with folic acid 400 mcg tablet (Tab-A-Luis F) 1 tab PO DAILY Supplement #30 tabs 12/04/23
tramadol 50 mg tablet 50 mg PO Q6HPRN PRN pain-moderate 3 days #15 tabs 12/04/23
diphenoxylate-atropine 2.5 mg-0.025 mg tablet 1 tab PO Q6HPRN PRN loose stools, colitis 10 days #40 tabs 12/05/23
lidocaine 5 % topical patch 1 patch topical DAILY shoulder pain 30 days #30 ea 12/05/23
pantoprazole 40 mg tablet,delayed release 40 mg PO DAILY GERD 30 days #30 tabs 12/05/23
amoxicillin 500 mg-potassium clavulanate 125 mg tablet (Augmentin) 1 tab PO BID #14 tabs 07/15/24
Review of Systems
-
Constitutional: Reports No Symptoms
EENT: Reports No Symptoms
Respiratory: Reports No Symptoms
Cardiac: Reports No Symptoms
Abdomen/GI: Reports No Symptoms
: Reports Dysuria
Musculoskeletal: Reports No Symptoms
Skin: Reports No Symptoms
Neurological: Reports No Symptoms
Endocrine: Reports No Symptoms
Hematologic/Lymphatic: Reports No Symptoms
Psych: Reports No Symptoms
Physical Exam
Vital Signs
Vital Signs
Temp Pulse Resp BP Pulse Ox
98.7 F 69 16 106/89 96
09/06/24 17:02 09/06/24 19:45 09/06/24 19:45 09/06/24 19:30 09/06/24 17:02
Physical Exam
General: Well Developed, Well Nourished and No Apparent Distress
HEENT: NormoCephalic, Moist mucous membranes and Atraumatic
Respiratory: Clear
Cardiac: S1/S2 and Regular Rhythm; No Murmur or Rub
GI: Soft, Non Tender, Non Distended and Normal Bowel Sounds; No Organomegaly
Rectal: Deferred by Provider
Musculoskeletal: No Clubbing, No Cyanosis and No Edema
Skin: No Rash
Neuro: AO x 3 and Nonfocal/grossly intact
Psych: Confused
Laboratory Results
-
09/06/24 17:16
09/06/24 17:16
Laboratory Results
Total Bilirubin 0.7 mg/dl (0.2-1.3) 09/06/24 17:16
AST 20 U/L (14-36) 09/06/24 17:16
ALT 14 U/L (0-35) 09/06/24 17:16
Alkaline Phosphatase 85 U/L (38-126) 09/06/24 17:16
Data Reviewed
-
CT Scan: Report Reviewed by me
Lab Data: Labs Reviewed by me
Impression/Plan
-
# toxic Metabolic encephalopathy secondary to urinary tract infection/ ativan and tramdol
-CT head and CTA negative
-WBCs 11.0
-History of E. coli UTI
-iv ceftriaxone continued
-Tylenol prn for fever
-urine culture pending
# Anemia of chronic disease
-Hemoglobin 11.6
-No active bleeding
-Continue to monitor
# CVA
-on asa/statin
#Chronic Pain Syndrome
#Chronic Anxiety
#Chronic Opioid Dependence
-tramadol hed due to drowsiness
-hold alprazolam due to drowsiness, continue iv prn for signs of opiates withdrawal.
#hxt of Collagenous Colitis
#Hypertension
-metoprolol continued with hold parameter
DVT Prophylaxis: HSQ
Code Status: Full
--- NOTE | 2024-09-06 21:37 | W.PN.UPDATE ---
Update Note
Progress Note Update
I could not get any information from the patient due to TME
Information gathered by chart review and speaking with the ER staff and
This note serves as an addendum to the H&P by personal lines insurance advisor SHEREE Alexandra JEREZ
HPI
69F HX stroke, carotid endarterectomy, colitis, floyd ABx sensitive UTI, anxiet pw dysuria and frequency , diaphoresis yesterday. noted she seemed very confused. He went to work this morning and had not heard from her. He finally sent a
neighbor to check on her and she was very confused.
PHX;
Reviewed VS:
Vital Signs
Temp Pulse Resp BP Pulse Ox
98.7 F 67 18 106/61 96
09/06/24 17:02 09/06/24 21:15 09/06/24 21:11 09/06/24 21:11 09/06/24 17:02
PE
Gen: drowsy but arousable, non [id number] wakefulness
HEENT: symmetric face. Nl sppech and language
Neck: supple
Lungs: CTA
Cor: RRR S1 S2
Abdomen: benign exam
VIBRATING SCREED OPERATOR: confused and lethrgic on and off
MS: no edema
Psych: confused
Lab
09/06/24 09/06/24
17:16 19:35
WBC 11.0 H
Hgb 11.6 L
Carbon Dioxide 33 H
BUN 18 H
Creatinine 0.7
eGFR > 60.00
Urine WBC (Reflex) 70-80 A
Urine Bacteria (Reflex) Many A
CT Head & Neck Angio W/wo IV
- CT Brain: No acute intracranial process. Specifically, no evidence of acute hemorrhage. Chronic fractures of the right maxillary sinus and right orbit, unchanged from prior. There is mild mucosal thickening of the right maxillary sinus.
- CTA Head: No significant arterial stenosis. No aneurysm.
- CTA Neck: No significant arterial stenosis. Postoperative changes of right carotid endarterectomy. Atherosclerotic calcifications of the left carotid bifurcation without significant stenosis.
7 mm hypodense nodule within the right hemithyroid.
ASSESSMENT & PLAN
Hypoactive TME due to UTI plus possible prescription Xanax ( 1mg q6h for yrs) over use disorder
Mild Leucocytosis
- NEG HCT and NEG CTA
- HX E. Coli UTI
- agree with IV CFTZ
- Tylenol prn for fever
- UCx pending
- see plan for BZD use as below
Element of Lethargy is likely element of prescription Xanax ( 1mg q6h for yrs) over use disorder
Hi risk of Xanax WD syndrome
- Currently very lethargic to take POs and possible overuse of Xanax
- IV Ativan 0.5 mg q6Hr PRN just enough to prevent BZD withdrawal
- cont to hold Xanax which is holding for current lethargic TME
Anemia of chronic dz
- Hgb 11.6
- No active bleeding
Benign HTN
- c/w MANAGER EXPORT metoprolol tartrate
HX CVA
- MANAGER EXPORT ASA/ Statin
Chronic Pain Syndrome HX
Chronic Anxiety
Chronic Opioid Dependence
- Holding MANAGER EXPORT tramadol, Xanax due to lethargic TME
HX Collagenous Colitis
DVT Prophylaxis: SQH
Full code
IP MS
[2024-09-06 22:37] LABS: Amphetamines Negative (Negative); Barbiturates Negative (Negative); Benzodiazepines Positive (Negative); Buprenorphine Negative (Negative); Cocaine Negative (Negative); Marijuana Negative (Negative); Methadone Negative (Negative); Methamphetamines Negative (Negative); Opiates Negative (Negative); Phencyclidine Negative (Negative); Tricyclic Antidepressants Negative (Negative)
--- NOTE | 2024-09-06 22:51 | PTCARENOTE ---
Pt received from ED to [facility]2. Pt oriented to room and call eric.
[2024-09-06 23:35] LABS: Fentanyl, Urine Negative (Negative)
[2024-09-06] MEDS: NEURONTIN 100 MG PO (23:53)
[2024-09-06] MEDS: LIPITOR 40 MG PO (23:53)
[2024-09-07] VITALS (7 sets, daily range): BP systolic 90–130; BP diastolic 56–69
[2024-09-07] MEDS: VITAMIN B-12 5000 MCG PO (08:14)
[2024-09-07 08:15] LABS: Hematocrit 35.1 % (37.0-47.0); Hemoglobin 11.5 g/dL (12.0-16.0); Mean Corp Hgb Conc. 32.8 g/dL (33.0-37.0); Mean Corpuscular Hgb 31.4 pg (27.0-31.0); Mean Corpuscular Volume 95.9 fL (81.0-99.0); Mean Platelet Volume 10.3 fL (7.4-10.4); Platelet Count 157 10^3/uL (130-400); Red Blood Cell Count 3.66 10^6/uL (4.20-5.40); Red Cell Dist. Width 13.1 % (11.5-14.5); White Blood Cell Count 8.8 10^3/uL (4.8-10.8)
[2024-09-07] MEDS: NEURONTIN 100 MG PO ×3 (08:15→21:56)
[2024-09-07] MEDS: LOPRESSOR 12.5 MG PO (08:15)
[2024-09-07] MEDS: ASPIR LOW (ENTERIC COATED) 81 MG PO (08:15)
[2024-09-07] MEDS: ROCALTROL 0.25 MCG PO (08:15)
--- NOTE | 2024-09-07 08:32 | PTCARENOTE ---
09/07- Patient was prescribed Xanax 0.5mg TID that she took regularly. She was not prescribed that during this stay d/t change of mental status and lethargy. Patient currently has Ativan Sliding Scale PRN, but no MSAS assessment. Notified Physician
and obtained MSAS assessment. Current MSAS score=1. AAOX3 but slow speech, forgetful, mildly lethargic. No other S/S currently observed or reported. Continue to monitor.
--- NOTE | 2024-09-07 13:57 | W.PN.HOSP.TC ---
Today's Communication/Plan
-
Continue antibiotics
Assessment / Plan
Assessment / Plan
Assessment.
Patient is 69 years old with history of anemia, CVA, chronic pain syndrome, anxiety who came to the ER with change in mental status secondary to UTI but also concern of polypharmacy
Assessment/plan
Acute metabolic encephalopathy secondary to urinary tract infection/superimposed with chronic use of ativan and tramdol
-CT head and CTA negative
-WBCs 11.0
-History of E. coli UTI
-iv ceftriaxone continued
-Tylenol prn for fever
-urine culture pending
Anemia of chronic disease
-Hemoglobin 11.6
-No active bleeding
-Continue to monitor
History of stroke
-on asa/statin
Chronic Pain Syndrome
Resume tramadol as needed and hold for sedation.
Chronic Anxiety
Resumed Xanax as needed and hold for sedation.
History of hypertension
Continue home metoprolol continued with hold parameter
CODE STATUS: Full code
DVT prophylaxis: Heparin
Diet: Cardiac diet
Total time spent on today's encounter was 40 minutes which included time spent in counseling the patient/family regarding diagnosis and treatment plan as listed above, goals of care, and symptom management. Case was discussed with nursing staff,
specialists, and care coordinators/case management. All labs and imaging personally reviewed by me. Remainder the time spent in detailed review of previous records, lab data, imaging, and other medical provider documentation.
Anticipated Discharge: Within 24 hours
Subjective/Interval History
-
Date of Service: September 07, 2024
Patient seen and examined at bedside, slightly more awake but not fully oriented, ordered Xanax as needed and tramadol as needed, patient otherwise denies any chest pain or shortness of breath, no abdominal pain, no nausea, no vomiting, no diarrhea
or constipation.
Objective Data
-
Labs:
Laboratory Results
09/07/24
07:05
WBC 8.8
Hgb 11.5 L
Hct 35.1 L
Plt Count 157
Vital Signs:
Vital Signs
Temp Pulse Resp BP Pulse Ox
97.6 F 69 18 122/56 98
09/07/24 11:00 09/07/24 12:08 09/07/24 11:00 09/07/24 12:08 09/07/24 11:00
Physical Exam
-
General: Well Developed, Well Nourished, No Apparent Distress and Comfortable
HEENT: Normocephalic, Atraumatic, Moist Mucous Membranes, No Ptosis, PERRLA and Nose Appears Normal
Respiratory: Clear to Auscultation and Non Labored Respirations
Cardiac: Regular Rhythm and S1/S2
Breast: Deferred by me
GI: Soft, Nontender, Nondistended and Normal Bowel Sounds
Genito-urinary: No Costovertebral Tender
Musculoskeletal: No Clubbing, No Cyanosis and No Edema
Skin: Warm
Neuro: Awake, Alert, No Motor Deficits and Other (Not fully oriented)
Psych: Calm
Data Reviewed
-
Diagnostic Radiology: Image personally visualized and interpreted and Report Reviewed by me
CT Scan: Image personally visualized and interpreted and Report Reviewed by me
Ultrasound: Image personally visualized and interpreted and Report Reviewed by me
MRI: Image personally visualized and interpreted and Report Reviewed by me
Medical Tests (Nuc Med, Echo etc): Image personally visualized and interpreted and Report Reviewed by me
Labs: Labs Reviewed by me
Old Records: Reviewed
[2024-09-07] MEDS: LOMOTIL 1 TABLET PO (17:33)
[2024-09-07] MEDS: STERILE WATER FOR INJECTION 10 ML IV (20:00)
[2024-09-07] MEDS: ROCEPHIN 1000 MG IV (20:00)
[2024-09-07] MEDS: LIPITOR 40 MG PO (22:00)
[2024-09-08 03:31] VITALS: BP 129/76
[2024-09-08 07:00] VITALS: BP 137/90
[2024-09-08 07:25] LABS: Hemoglobin 12.6 g/dL (12.0-16.0); Mean Corp Hgb Conc. 34.1 g/dL (33.0-37.0); Mean Corpuscular Hgb 31.7 pg (27.0-31.0); Mean Corpuscular Volume 93.2 fL (81.0-99.0); Mean Platelet Volume 9.8 fL (7.4-10.4); Platelet Count 172 10^3/uL (130-400); Red Blood Cell Count 3.97 10^6/uL (4.20-5.40); Red Cell Dist. Width 12.8 % (11.5-14.5); White Blood Cell Count 6.3 10^3/uL (4.8-10.8)
[2024-09-08 07:53] LABS: Blood Urea Nitrogen 15 mg/dl (7-17); Calcium 9.4 mg/dl (8.4-10.2); Carbon Dioxide 28 mmol/L (22-30); Chloride 108 mmol/L (98-107); Estimated Creatinine Clearance 81 ml/min; Glucose 117 mg/dl (70-99); Potassium 3.6 mmol/L (3.5-5.1); Sodium 143 mmol/L (135-145); eGFR > 60.00
[2024-09-08] MEDS: ASPIR LOW (ENTERIC COATED) 81 MG PO (08:37)
[2024-09-08] MEDS: ROCALTROL 0.25 MCG PO (08:37)
[2024-09-08] MEDS: LOPRESSOR 12.5 MG PO (08:37)
[2024-09-08] MEDS: NEURONTIN 100 MG PO (08:38)
[2024-09-08] MEDS: XANAX 1 MG PO (08:44)
[2024-09-08] MEDS: VITAMIN B-12 5000 MCG PO (09:12)
[2024-09-08 11:00] VITALS: BP 161/84
[2024-09-08 11:35] VITALS: BP 161/84
--- NOTE | 2024-09-08 11:53 | W.PN.HOSP.TC ---
Today's Communication/Plan
-
Discharge home today
Assessment / Plan
Assessment / Plan
Assessment.
Patient is 69 years old with history of anemia, CVA, chronic pain syndrome, anxiety who came to the ER with change in mental status secondary to UTI but also concern of polypharmacy
Patient treated for UTI.
Urine culture came back positive for Proteus.
Will be discharged on Ceftin
Discussed with at bedside to change Xanax to be as needed on discharge and hold for lethargy or sedation.
Assessment/plan
Acute metabolic encephalopathy secondary to urinary tract infection/superimposed with chronic use of ativan and tramdol
-CT head and CTA negative
-WBCs 11.0
-History of E. coli UTI
-iv ceftriaxone continued
-Tylenol prn for fever
-urine culture pending
09/08
Urine culture came back positive for Proteus.
Will be discharged on Ceftin
Anemia of chronic disease
-Hemoglobin 11.6
-No active bleeding
-Continue to monitor
History of stroke
-on asa/statin
Chronic Pain Syndrome
Resume tramadol as needed and hold for sedation.
Chronic Anxiety
Resumed Xanax as needed and hold for sedation.
History of hypertension
Continue home metoprolol continued with hold parameter
CODE STATUS: Full code
DVT prophylaxis: Heparin
Diet: Cardiac diet
Total time spent on today's encounter was 40 minutes which included time spent in counseling the patient/family regarding diagnosis and treatment plan as listed above, goals of care, and symptom management. Case was discussed with nursing staff,
specialists, and care coordinators/case management. All labs and imaging personally reviewed by me. Remainder the time spent in detailed review of previous records, lab data, imaging, and other medical provider documentation.
Anticipated Discharge: Today
Subjective/Interval History
-
Date of Service: September 08, 2024
Patient seen and examined at bedside, denies any chest pain or shortness of breath, no abdominal pain, no nausea, no vomiting, no diarrhea or constipation.
Discussed with at bedside, patient back to her baseline.
Will be discharged home on Ceftin
Change Xanax to be as needed on discharge.
Objective Data
-
Labs:
Laboratory Results
09/08/24
06:54
WBC 6.3
Hgb 12.6
Hct 37.0
Plt Count 172
Sodium 143
Potassium 3.6
Chloride 108 H
Carbon Dioxide 28
BUN 15
Creatinine 0.6
Glucose 117 H
Calcium 9.4
Vital Signs:
Vital Signs
Temp Pulse Resp BP Pulse Ox
98 F 95 20 161/84 100
09/08/24 11:00 09/08/24 11:00 09/08/24 11:00 09/08/24 11:00 09/08/24 11:00
Physical Exam
-
General: Well Developed, Well Nourished, No Apparent Distress and Comfortable
HEENT: Normocephalic, Atraumatic, Moist Mucous Membranes, No Ptosis, PERRLA and Nose Appears Normal
Respiratory: Clear to Auscultation and Non Labored Respirations
Cardiac: Regular Rhythm and S1/S2
Breast: Deferred by me
GI: Soft, Nontender, Nondistended and Normal Bowel Sounds
Genito-urinary: No Costovertebral Tender
Musculoskeletal: No Clubbing, No Cyanosis and No Edema
Skin: Warm
Neuro: Awake, Alert, Oriented, AO x 3 and No Motor Deficits
Psych: Calm
Data Reviewed
-
Diagnostic Radiology: Image personally visualized and interpreted and Report Reviewed by me
CT Scan: Image personally visualized and interpreted and Report Reviewed by me
Ultrasound: Image personally visualized and interpreted and Report Reviewed by me
MRI: Image personally visualized and interpreted and Report Reviewed by me
Medical Tests (Nuc Med, Echo etc): Image personally visualized and interpreted and Report Reviewed by me
Labs: Labs Reviewed by me
Old Records: Reviewed
--- NOTE | 2024-09-08 11:58 | W.DCSUMMARY ---
Discharge Summary
Discharge Data
Date of Admission: 09/06/24
Date of Discharge: 09/08/24
-
Pending Results: No
Hospital Course
Assessment.
Patient is 69 years old with history of anemia, CVA, chronic pain syndrome, anxiety who came to the ER with change in mental status secondary to UTI but also concern of polypharmacy
Patient treated for UTI.
Urine culture came back positive for Proteus.
Will be discharged on Ceftin
Discussed with at bedside to change Xanax to be as needed on discharge and hold for lethargy or sedation.
Assessment/plan
Acute metabolic encephalopathy secondary to urinary tract infection/superimposed with chronic use of ativan and tramdol
-CT head and CTA negative
-WBCs 11.0
-History of E. coli UTI
-iv ceftriaxone continued
-Tylenol prn for fever
-urine culture pending
09/08
Urine culture came back positive for Proteus.
Will be discharged on Ceftin
Anemia of chronic disease
-Hemoglobin 11.6
-No active bleeding
-Continue to monitor
History of stroke
-on asa/statin
Chronic Pain Syndrome
Resume tramadol as needed and hold for sedation.
Chronic Anxiety
Resumed Xanax as needed and hold for sedation.
History of hypertension
Continue home metoprolol continued with hold parameter
CODE STATUS: Full code
DVT prophylaxis: Heparin
Diet: Cardiac diet
Total time spent on today's encounter was 40 minutes which included time spent in counseling the patient/family regarding diagnosis and treatment plan as listed above, goals of care, and symptom management. Case was discussed with nursing staff,
specialists, and care coordinators/case management. All labs and imaging personally reviewed by me. Remainder the time spent in detailed review of previous records, lab data, imaging, and other medical provider documentation.
Anticipated Discharge: Today
Discharge Plan
-
Patient Disposition: Home (Routine Discharge)
Discharge Diagnosis/Procedures: UTI
Condition: Good
Diet: As tolerated
Activity: As tolerated
Other Services: PT and OT
Referrals:
Litzy Rios, [Family Provider] -
Additional Discharge Medication Instructions: Change Xanax to be as needed for anxiety
Prescriptions:
New
cefuroxime axetil 500 mg tablet
500 mg PO BID 5 Days Qty: 10 0RF
Continued
therapeutic multivitamin Tablet
1 tab PO HS
atorvastatin 40 mg tablet
40 mg PO HS
tramadol 50 mg tablet
50 mg PO [id number] PRN (Reason: moderate pain)
Patient Comments:
09/06/24: patient may be taking more than prescribed, TID per her medication list
metoprolol tartrate 25 mg tablet
12.5 mg PO DAILY
gabapentin 100 mg Capsule
100 mg PO TID 30 Days Qty: 90 0RF
cyanocobalamin (vitamin B-12) 5,000 mcg tablet, sublingual
5,000 mcg sublingual DAILY 30 Days Qty: 30 0RF
calcitriol 0.25 mcg capsule
0.25 mcg PO DAILY 30 Days Qty: 30 0RF
aspirin 81 mg Tablet,Delayed Release (Dr/Ec)
81 mg PO DAILY Qty: 0 0RF
diphenoxylate-atropine 2.5-0.025 mg Tablet
1 tab PO Q6HPRN PRN (Reason: loose stools, colitis) 10 Days Qty: 40 0RF
Changed
alprazolam 1 mg tablet
1 mg PO TIDPRN PRN (Reason: anxiety) Qty: 0 0RF
Discharge Orders:
Discharge Patient (As Directed); Ordered 09/08/24
Ordered By: Aubree Jung
Discharge Date and Time
Print Language: [place] ISLAND[place]
[2024-09-08] MEDS: ROCEPHIN 1000 MG IV (12:19)
[2024-09-08] MEDS: STERILE WATER FOR INJECTION 10 ML IV (12:19)
--- NOTE | 2024-09-08 12:39 | CM ---
Patient stable for d/c today. Patient seen bedside w/ spouse, initial assessment completed. Patient is a 69 yr old female presents with past medical history of stroke, carotid endarterectomy, colitis, UTI, anxiety presented with burning with
urination since yesterday. Patient CC confusion.
Patient reports that she resides w/ spouse in 2 story [facility]- 2 steps to enter the home. Patient is independent w/ ambulation, no device required. Independent w/ ADLs. Patient has tub grab bar in the bathroom. Patient prev was at [facility] and OP
therapy following that. Patient denies SNF hx, had VN in the past but doesn't recall provider as it was 10+ years ago. No current OP or home services at this time.
Address, points of contact and insurance verified
PCP: Litzy Rios
[facility]
IMM verbally reviewed, patient given copy, copy placed on chart
Plan: Home; no needs
[2024-09-08] MEDS: LOMOTIL 1 TABLET PO (13:05)
== END 2024-09-08 14:53 | disposition home or self-care (01) | DRG 689 ==
LOC: 4 WEST ACU 21:53
PROVIDERS: Nurse Practitioner; Registered Nurse; ADMITTING PHYSICIAN Internal Medicine; ATTENDING PHYSICIAN General Practice; EMERGENCY PHYSICIAN Emergency Medicine; FAMILY PHYSICIAN Family Medicine
DX: N39.0 Urinary tract infection, site not specified (principal); G93.41 Metabolic encephalopathy; B96.4 Proteus (mirabilis) (morganii) as the cause of diseases classified elsewhere; Z86.73 Personal history of transient ischemic attack (TIA), and cerebral infarction without residual deficits; G89.4 Chronic pain syndrome; F41.9 Anxiety disorder, unspecified; D63.8 Anemia in other chronic diseases classified elsewhere; I10 Essential (primary) hypertension
CPT/HCPCS: 51701; 70496; 70498; 80048; 80053; 80306; 80307; 81003; 81015; 82077; 82962; 85025; 85027; 87077; 87086; 87186; 93005; 96361; 96374; 99285; Q9967

== ENCOUNTER 2024-09-27 02:48 | Observation (INO) | payer MEDICARE, OTHER, SELFPAY ==
[2024-09-26 21:39] VITALS: BP 171/100
[2024-09-26 22:22] VITALS: BP 146/75
[2024-09-26 22:23] VITALS: BMI 19.9
[2024-09-26 23:00] VITALS: BP 153/66
--- NOTE | 2024-09-26 23:58 | ED.GENMED ---
History of Present Illness
General
Chief Complaint: Urinary Symptoms
Source: patient, records and spouse
Exam Limitations: none
Time Seen by Provider: 09/26/24 23:27
Nursing documentation reviewed up to this point in time: agreed with
History of Present Illness
History of Present Illness:
69-year-old female with a past medical history as noted presents to the ER for evaluation of confusion and urinary symptoms. Patient was notably admitted to this hospital 09/06 until 2�presented with confusion and urinary symptoms and was treated
for urinary tract infection�urine culture at that time positive for Proteus. She was discharged on cefdinir and completed additional 5-day course on 09/13/24. It was felt during this hospitalization that patient's Xanax which patient was taking
regularly was contributing to her change in mental status at the time and this was changed to an as needed. She presents to the ER with her today with similar presentation�started with confusion today and complaining of lower abdominal
discomfort ('bladder pain') and dysuria. She also has urinary frequency. She reports some mild left flank pain. No fever noted. No nausea but poor appetite today; no vomiting or diarrhea. She has not had any URI symptoms, cough, chest pain.
She does have a headache. She denies any other complaints. Of note, patient has been out of her alprazolam and did not take any today but did take a dose of Benadryl for anxiety this morning.
Past History
Past History
ED Past Medical History: Psychiatric (Anxiety) and Other (Back problems. Colitis, UTI, Vertigo, Lyme, Chronic fatigue, R parietal lesion)
ED Past Surgical History: Orthopedic (Left hip replacement) and Other (Multiple breast surgery, Adenoid removed, Deviated septum)
Patient has exhibited threatening behavior?: No
PSI?: No
Social History
Tobacco: Non-smoker
Alcohol: Occasional
Drug: None
Personal:
Living: with family
Employment: Employed
Review of Systems
Review of Systems
All Other Systems: ROS reviewed and negative except as documented in HPI and ROS
Constitutional: Denies fever
Respiratory: Denies cough or trouble breathing
Cardiac: Denies chest pain
ABD/GI: Reports anorexia; Denies abdominal pain, nausea, vomiting or diarrhea
: Reports dysuria, frequency and flank pain
Musculoskeletal: Denies neck pain
Neurological: Reports headache; Denies dizzy
Phy Exam
Physical Exam
Physical Exam:
General: Awake, alert, oriented x3 but occasionally confused remarks�for example in the middle of conversation about her symptoms today will abruptly start talking about unrelated topic without logical transition; no acute distress
Head: Normocephalic, atraumatic
Eyes: Conjunctiva normal, EOMI, pupils equal round and reactive to light bilaterally
Throat: Airway intact, handling secretions
Neck: Trachea midline, supple without meningismus
Lungs: Clear to auscultation bilaterally, no wheezing, rales, rhonchi
Heart: Regular rate and rhythm, no murmurs, gallops, or rubs
Abd: Soft, non distended, mild suprapubic tenderness
Back: No CVA tenderness
Neuro: Cranial nerves intact, speech fluid without dysarthria, motor and sensory intact in all extremities
Extremities: No edema in extremities, warm and well-perfused
Scores
Heart Failure Risk
Heart Failure Risk Score: Not Applicable
Heart Score for Chest Pain Patients
STEMI patient?: Not applicable
Withdrawal Assessment of Alcohol
Withdrawal Assessment Completed?: Not applicable
Sepsis
Sepsis Screening
Sepsis Assessment: Sepsis Ruled Out
Sepsis Screen
Sepsis Screen: Sepsis Ruled Out
Date: 09/27/24
Time: 00:24
Course
Orders/Labs/Results
Orders:
Orders
09/26/24 23:46
Complete Blood Count/With Diff Urgent
Comprehensive Metabolic Panel Urgent
Urinalysis Reflex To Culture Urgent
Date Specimen was Collected: 09/26/24
Time Specimen was Collected: 23:37
Urine Microscopic Reflex Cult Urgent
Urine Culture Urgent
ASH Source: U
Specimen Description:
Date Specimen was Collected: 09/26/24
Time Specimen was Collected: 23:37
09/27/24 00:01
CT Abd/pel Without Iv Or Oral Urgent
Reason For Exam: lower abd/left flank pain, confusion
CT Head W/o Iv Contrast Urgent
Reason For Exam: confusion
Abnormal Lab Results
09/26/24
23:46
RBC 3.98 L 10^6/uL
(4.20-5.40)
Hct 36.3 L %
(37.0-47.0)
MCH 31.4 H pg
(27.0-31.0)
Potassium 3.4 L mmol/L
(3.5-5.1)
Creatinine 0.5 L mg/dL
(0.6-1.0)
Glucose 118 H mg/dl
(70-99)
Urine Ketones 3+ A
(Negative)
Ur Occult Blood Reflex 1+ A
(Negative)
Urine Nitrite (Reflex) Positive A
(Negative)
Leukocyte Esterase Rfl 2+ A
(Negative)
Urine Albumin (Reflex) 1+ A
(Neg - Trace)
09/26/24 23:46
09/26/24 23:46
Vital Signs
Initial and Last Documented VS:
Initial Vital Signs
Temp Pulse Resp BP Pulse Ox
37.1 C 88 20 171/100 100
09/26/24 21:39 09/26/24 21:39 09/26/24 21:39 09/26/24 21:39 09/26/24 21:39
Last Documented Vital Signs
Temp Pulse Resp BP Pulse Ox
37.1 C 88 20 153/66 98
09/26/24 21:39 09/26/24 21:39 09/26/24 21:39 09/26/24 23:00 09/26/24 23:46
MDM/Problems Addressed
Differential Diagnosis Includes:
Confusion: UTI, electrolyte derangement, stroke/brain bleed, polypharmacy
MDM/Problems Addressed:
69-year-old female presents for evaluation of confusion today associated with urinary symptoms�similar presentation recently for urinary tract infection. Hypertensive otherwise normal vitals. Physical exam as above. Will place an IV check labs
including a CBC and a CMP; will check urinalysis. Will check CT abdomen pelvis. Given her headache and confusion we will check CT head. Clinical suspicion at this point is for encephalopathy related to UTI. No focal findings to suggest acute
CVA. Will monitor closely reassess after the above.
Acute Exacerbation and/or Progression of Chronic Illness:
Acutely hypertensive
Acute Exacerbation and/or Progression of Chronic Illness: HTN
*Radiology
Radiology exam reviewed: radiology read reviewed
*Pulse Oximetry
Patient hypoxic: no
*Critical Care Note
Total Time (30-74mins, 75-104mins- exclusive of procedures): Not Applicable
Data Reviewed
Review of Other/Old Records Reveals: Labs and Records
Source: patient and spouse
Patient Management
Discussion with other providers: Hospitalist (Discussed with hospitalist)
Escalation/DeEscalation of care consider admission/obs:
Admission indicated
ED Attending Note
-
Portions of this chart may have been created with voice recognition software.� Occasional wrong word or��sound alike� substitutions may have occurred due to the inherent limitations of voice recognition software.
Discharge Plan
Departure
Prescriptions:
No Action
therapeutic multivitamin Tablet
1 tab PO HS
atorvastatin 40 mg tablet
40 mg PO HS
tramadol 50 mg tablet
50 mg PO [id number] PRN (Reason: moderate pain)
Patient Comments:
09/06/24: patient may be taking more than prescribed, TID per her medication list
cefuroxime axetil 500 mg tablet
500 mg PO BID 5 Days Qty: 10 0RF
alprazolam 1 mg tablet
1 mg PO TIDPRN PRN (Reason: anxiety) Qty: 0 0RF
(DME) Outpatient physical therapy
See Rx Instructions .Route .MEDSUPPLY Qty: 1 0RF
Rx Instructions:
Outpatient physical therapy.
3 times weekly.
Diagnosis: Ambulatory dysfunction.
metoprolol tartrate 25 mg tablet
12.5 mg PO DAILY Qty: 30 0RF
gabapentin 100 mg Capsule
100 mg PO TID 30 Days Qty: 90 0RF
cyanocobalamin (vitamin B-12) 5,000 mcg tablet, sublingual
5,000 mcg sublingual DAILY 30 Days Qty: 30 0RF
calcitriol 0.25 mcg capsule
0.25 mcg PO DAILY 30 Days Qty: 30 0RF
aspirin 81 mg Tablet,Delayed Release (Dr/Ec)
81 mg PO DAILY Qty: 0 0RF
diphenoxylate-atropine 2.5-0.025 mg Tablet
1 tab PO Q6HPRN PRN (Reason: loose stools, colitis) 10 Days Qty: 40 0RF
Referrals:
UNKNOWN - PT DOES,NOT KNOW [Unknown Provider] -
Interventions
Interventions:
*Risk Screen - Suicide Last Done: 09/26/24 21:39
*General Assessment Last Done: 09/26/24 22:23
*Neglect/Abuse Screening Last Done: 09/26/24 21:39
*ED- Fall Risk Assessment Last Done: 09/26/24 22:23
*ED COVID-19 Vaccine History Last Done: 09/26/24 22:23
ED-Female Genitourinary Assessment Last Done: 09/26/24 22:23
Discharge Date and Time
Print Language: LUX[place]
[2024-09-27] VITALS (9 sets, daily range): BP systolic 124–172; BP diastolic 60–88
[2024-09-27 00:03] LABS: % Basophils 0.3 % (0-2); % Eosinophils 0.1 % (0-6); % Immature Granulocytes 0.2 % (0-0.5); % Lymphocytes 22.6 % (20.5-51.1); % Monocytes 7.1 % (1.7-9.3); % Neutrophils 69.7 % (42.2-75.2); Absolute Monocytes 0.6 10^3/uL (0.1-0.6); Absolute Neutrophils 6.1 10^3/uL (1.4-6.5); Hematocrit 36.3 % (37.0-47.0); Hemoglobin 12.5 g/dL (12.0-16.0); Mean Corp Hgb Conc. 34.4 g/dL (33.0-37.0); Mean Corpuscular Hgb 31.4 pg (27.0-31.0); Mean Corpuscular Volume 91.2 fL (81.0-99.0); Mean Platelet Volume 9.4 fL (7.4-10.4); Nucleated Red Blood Cells % 0 %; Platelet Count 199 10^3/uL (130-400); Red Blood Cell Count 3.98 10^6/uL (4.20-5.40); Red Cell Dist. Width 13.2 % (11.5-14.5); White Blood Cell Count 8.8 10^3/uL (4.8-10.8)
[2024-09-27 00:09] LABS: Urine Albumin 1+ (Neg - Trace); Urine Bilirubin Negative (Negative); Urine Character Clear (Clear); Urine Color Yellow; Urine Glucose Negative (Negative); Urine Ketone 3+ (Negative); Urine Leukocyte 2+ (Negative); Urine Nitrite Positive (Negative); Urine Occult Blood 1+ (Negative); Urine Urobilinogen 1+ (Neg - 1+); Urine pH 6.5 (5.0-9.0)
[2024-09-27 00:11] LABS: ALT (SGPT) 17 U/L (0-35); AST (SGOT) 26 U/L (14-36); Albumin 4.6 g/dl (3.5-5.0); Alkaline Phosphatase 97 U/L (38-126); Blood Urea Nitrogen 11 mg/dl (7-17); Calcium 9.6 mg/dl (8.4-10.2); Carbon Dioxide 23 mmol/L (22-30); Chloride 101 mmol/L (98-107); Estimated Creatinine Clearance 78 ml/min; Glucose 118 mg/dl (70-99); Potassium 3.4 mmol/L (3.5-5.1); Sodium 138 mmol/L (135-145); Total Bilirubin 0.8 mg/dl (0.2-1.3); Total Protein 6.9 g/dl (6.3-8.2); eGFR > 60.00
[2024-09-27] MEDS: ZOSYN 50 IV (00:38)
[2024-09-27 00:51] LABS: Urine Amorphous Seen; Urine Squamous Cell >30 /LPF (Few)
[2024-09-27 00:52] LABS: Urine Bacteria Moderate (Negative)
--- NOTE | 2024-09-27 02:40 | HPS.HSE ---
Family Physician
-
Family Physician: Litzy Rios, DO
Chief Complaint
-
Confusion
History of Present Illness
Patient is a 69y F with PMH significant for chronic pain and anxiety who presents to ED for evaluation of confusion. Patient was recently hospitalized from 09/06 - 09/08 after similar presentation. She was treated at that time for Proteus UTI as
well as suspected polypharmacy on chronic tramadol and alprazolam x years. Patient clinically improved and was discharged to home. She completed her course of abx on 09/13.
Patient presents today complaining of L flank discomfort, urinary urgency and dysuria. her has again appreciated increased confusion.
Patient notes that she has not taken any Xanax since Thursday 09/21. She apparently ran out and has been having some difficulty getting a new/ refilled Rx.
At the time of my examination, patient is awake and conversant. Her speech is rambling and somewhat nonsensical. Additional detailed history is difficulty to obtain as speech tends to be wandering / tangential and patient has some difficulty
answering direct questions.
Medical History
Past Medical History
Past Medical History: Reports Other
Additional Past Medical History:
Anxiety
Chronic Pain Syndrome (Back)
CVA
Colitis
Past Surgical History: Reports Other
Additional Past Surgical History:
Left ANGEL
Shoulder Surgery
Septoplasty
Breast Surgeries
Adenoidectomy
Social History
Tobacco: Non-smoker
Alcohol: Occasional
Drug: None
Personal:
Living: With Family
Family History
Family History: Not pertinent
Allergies / Home Medications
Allergies reflects when Allergies were last updated in [facility].
Home Medications with original date entered in [facility]
Allergy/Medication List:
Allergies
Allergy/AdvReac Type Severity Reaction Status Date / Time
Sulfa (Sulfonamide Allergy Hives Verified 09/26/24 21:37
Antibiotics)
Home Medications
aspirin 81 mg tablet,delayed release 81 mg PO DAILY CVA #0 tabs 12/04/23
calcitriol 0.25 mcg capsule 0.25 mcg PO DAILY supplement 30 days #30 caps 12/04/23
cyanocobalamin (vitamin B-12) 5,000 mcg sublingual tablet 5,000 mcg sublingual DAILY Supplement 30 days #30 tabs 12/04/23
gabapentin 100 mg capsule 100 mg PO TID neuropathic pain-fingers 30 days #90 caps 12/04/23
diphenoxylate-atropine 2.5 mg-0.025 mg tablet 1 tab PO Q6HPRN PRN loose stools, colitis 10 days #40 tabs 12/05/23
atorvastatin 40 mg tablet 40 mg PO HS cholesterol 09/06/24
therapeutic multivitamin 1 tab PO HS Supplement 09/06/24
tramadol 50 mg tablet 50 mg PO [id number] PRN moderate pain 09/06/24
Outpatient physical therapy #1 ea 09/08/24
alprazolam 1 mg tablet 1 mg PO TIDPRN PRN anxiety #0 tabs 09/08/24
cefuroxime axetil 500 mg tablet 500 mg PO BID 5 days #10 tabs 09/08/24
metoprolol tartrate 25 mg tablet 12.5 mg (1/2 x 25 mg) PO DAILY blood pressure #30 tabs 09/08/24
Review of Systems
-
History Source: Patient
A 12 point ROS was completed and negative except as noted: Yes
Constitutional: Reports Fatigue; Denies Fever or Chills
EENT: Denies Sore Throat
Respiratory: Denies Cough or Trouble Breathing
Cardiac: Denies Chest Pain or Palpitations
Abdomen/GI: Reports Abdominal Pain and Nausea; Denies Vomiting, Diarrhea, Bloody Stools or Black Stools
: Reports Dysuria, Flank Pain and Urgency
Musculoskeletal: Denies Joint Pain or Edema
Neurological: Reports Headache; Denies Dizzy
Psych: Denies Depression or Anxiety
Physical Exam
Vital Signs
Vital Signs
Temp Pulse Resp BP Pulse Ox
98.7 F 88 20 134/65 94
09/26/24 21:39 09/26/24 21:39 09/26/24 21:39 09/27/24 02:00 09/27/24 02:00
Physical Exam
General: Other (69y F awake and alert. Rambling / tangential speech. Difficulty answering direct questions.)
HEENT: Moist mucous membranes and PERRLA
Respiratory: Clear; No Wheezes, Rales or Rhonchi
Cardiac: S1/S2 and Regular Rhythm; No Murmur
GI: Soft, Non Tender, Non Distended and Normal Bowel Sounds
Musculoskeletal: No Clubbing, No Cyanosis and No Edema
Neuro: Awake, Alert and Nonfocal/grossly intact
Laboratory Results
-
09/26/24 23:46
09/26/24 23:46
Laboratory Results
Total Bilirubin 0.8 mg/dl (0.2-1.3) 09/26/24 23:46
AST 26 U/L (14-36) 09/26/24 23:46
ALT 17 U/L (0-35) 09/26/24 23:46
Alkaline Phosphatase 97 U/L (38-126) 09/26/24 23:46
Impression/Plan
-
A/P: Patient is a 69y F with PMH significant for chronic pain and anxiety and recent visit for confusion who presents to ED complaining of recurrent confusion.
Acute TME
- Observe overnight for further evaluation and treatment.
- Not clear that current mental status issues are related to a UTI.
- Given recent history - ? benzodiazepine withdrawal as primary issue here.
- Will give low dose of alprazolam now and then TID. (0.25mg - was previously taking 1mg TID).
- Follow for changes in symptoms.
- Treat possible UTI as noted below.
- Follow for improvement in mental status / confusion.
- ? Neuro +/- Psych evals if symptoms worsen or persist.
UTI
- Recent Proteus UTI s/p 7 days of abx therapy.
- Patient does endorse urinary complaints at present - though history is somewhat unreliable as noted in HPI.
- UA today is contaminated with > 30 squamous cells / hpf.
- Repeat UA to attempt clean-catch sample.
- Continue ceftriaxone for now. Follow-up culture data.
Chronic Anxiety
Chronic Pain Syndrome
- Patient on combination of tramadol and alprazolam x many, many years.
- Has been without alprazolam since Thursday 09/21 - which is likely contributing to current presentation.
- Low-dose replacement / taper as noted above.
- Hold tramadol for now and monitor for any pain complaints. Continue gabapentin.
- Discontinuing 3mg alprazolam daily that she has been taking x years will likely be a bit of a process.
Benign Hypertension
- Stable. Continue metoprolol.
ASCVD / Prior CVA
- Stable. Continue ASA, statin, etc.
DVT Prophylaxis: SCDs
Code Status: Full
[2024-09-27] MEDS: XANAX 0.25 MG PO ×2 (02:58→08:04)
[2024-09-27] MEDS: LR 1000 IV ×2 (03:46→20:41)
[2024-09-27 04:53] LABS: TSH Reflex To Free T4 0.03 uIU/ml (0.47-4.68)
[2024-09-27] MEDS: ROCEPHIN 1000 MG IV (05:11)
[2024-09-27 05:23] LABS: Free T4 1.96 ng/dl (0.78-2.19)
[2024-09-27 05:26] LABS: Hematocrit 35.3 % (37.0-47.0); Hemoglobin 12.3 g/dL (12.0-16.0); Mean Corp Hgb Conc. 34.8 g/dL (33.0-37.0); Mean Corpuscular Hgb 31.6 pg (27.0-31.0); Mean Corpuscular Volume 90.7 fL (81.0-99.0); Mean Platelet Volume 9.4 fL (7.4-10.4); Platelet Count 206 10^3/uL (130-400); Red Blood Cell Count 3.89 10^6/uL (4.20-5.40); Red Cell Dist. Width 13.2 % (11.5-14.5); White Blood Cell Count 7.4 10^3/uL (4.8-10.8)
[2024-09-27 05:53] LABS: Blood Urea Nitrogen 10 mg/dl (7-17); Calcium 9.4 mg/dl (8.4-10.2); Carbon Dioxide 24 mmol/L (22-30); Chloride 102 mmol/L (98-107); Estimated Creatinine Clearance 78 ml/min; Glucose 114 mg/dl (70-99); Magnesium 1.8 mg/dl (1.6-2.3); Potassium 3.4 mmol/L (3.5-5.1); Sodium 138 mmol/L (135-145); eGFR > 60.00
[2024-09-27 06:45] LABS: Urine Albumin 1+ (Neg - Trace); Urine Bilirubin Negative (Negative); Urine Character Clear (Clear); Urine Color Yellow; Urine Glucose Negative (Negative); Urine Ketone 2+ (Negative); Urine Leukocyte Negative (Negative); Urine Nitrite Negative (Negative); Urine Occult Blood 1+ (Negative); Urine Urobilinogen Negative (Neg - 1+)
[2024-09-27] MEDS: NEURONTIN 100 MG PO ×3 (08:03→21:04)
[2024-09-27] MEDS: ASPIR LOW (ENTERIC COATED) 81 MG PO (08:03)
[2024-09-27] MEDS: LOPRESSOR 12.5 MG PO (08:08)
[2024-09-27] MEDS: ROCALTROL 0.25 MCG PO (08:09)
[2024-09-27] MEDS: VITAMIN B-12 5000 MCG PO (08:10)
[2024-09-27] MEDS: ZOFRAN 4 MG IV ×2 (08:19→16:54)
[2024-09-27 08:55] LABS: Urine Amorphous Seen
[2024-09-27 08:56] LABS: Urine Red Blood Cell 0-2 /HPF (0-2); Urine Urothelial Cell 0-2 /LPF (FEW); Urine White Cell 0-2 /HPF (0-5)
[2024-09-27] MEDS: KCL 40 MEQ PO (09:57)
[2024-09-27] MEDS: TYLENOL 650 MG PO (12:44)
--- NOTE | 2024-09-27 13:38 | W.PN.UPDATE ---
Update Note
Progress Note Update
Seen and examined independent of overnight physician. Nonbillable note.
Patient states of weakness. States some mild dysuria. No pressured speech noted. States feeling little bit better compared to earlier today. States she has been on Xanax for prolonged period of time.
General: Awake alert, calm
HEENT: Moist mucous membranes and PERRLA
Respiratory: Clear; No Wheezes, Rales or Rhonchi
Cardiac: S1/S2 and Regular Rhythm; No Murmur
GI: Soft, Non Tender, Non Distended and Normal Bowel Sounds
Musculoskeletal: No Clubbing, No Cyanosis and No Edema
Neuro: Awake, Alert and Nonfocal/grossly intact
A/P: Patient is a 69y F with PMH significant for chronic pain and anxiety and recent visit for confusion who presents to ED complaining of recurrent confusion.
Acute TME
- Given recent history - ? benzodiazepine withdrawal as primary issue here.
- Restart Xanax TID 0.5 mg 3 times daily (was previously taking 1mg QID). And increase dosing if needed
- Follow for changes in symptoms.
- Treat possible UTI as noted below.
- Follow for improvement in mental status / confusion.
- Seems to have significantly improved in mentation.
UTI
- Recent Proteus UTI s/p 7 days of abx therapy.
- Patient does endorse urinary complaints at present
- Repeat UA with moderate bacteremia.
- Continue ceftriaxone for now till culture results. Follow-up culture data.
- Due to see outpatient urologist
Chronic Anxiety
Chronic Pain Syndrome
- Patient on combination of tramadol and alprazolam x many, many years.
- Has been without alprazolam since Thursday 09/21 - which is likely contributing to current presentation.
- Low-dose replacement / taper as noted above.
- Hold tramadol for now and monitor for any pain complaints. Continue gabapentin.
- Discontinuing 3mg alprazolam daily that she has been taking x years will likely be a bit of a process.
Benign Hypertension
- Stable. Continue metoprolol.
ASCVD / Prior CVA
- Stable. Continue ASA, statin, etc.
DVT Prophylaxis: SCDs
Code Status: Full
[2024-09-27] MEDS: Pyridium 200 MG PO (14:25)
[2024-09-27] MEDS: LR IV (14:30)
[2024-09-27] MEDS: XANAX 0.5 MG PO ×2 (16:41→21:03)
[2024-09-27] MEDS: VISBIOME 2 CAP PO (18:33)
[2024-09-27] MEDS: THERAGRAN 1 TABLET PO (21:03)
[2024-09-27] MEDS: LIPITOR 40 MG PO (21:03)
[2024-09-28] MEDS: STERILE WATER FOR INJECTION 10 ML IV (05:22)
[2024-09-28] MEDS: ROCEPHIN 1000 MG IV (05:22)
[2024-09-28 07:45] VITALS: BP 160/78
[2024-09-28] MEDS: XANAX 0.5 MG PO (07:59)
[2024-09-28] MEDS: VISBIOME 2 CAP PO (07:59)
[2024-09-28] MEDS: LOPRESSOR 12.5 MG PO (07:59)
[2024-09-28] MEDS: ROCALTROL 0.25 MCG PO (07:59)
[2024-09-28] MEDS: NEURONTIN 100 MG PO (08:00)
[2024-09-28] MEDS: VITAMIN B-12 5000 MCG PO (08:00)
[2024-09-28] MEDS: ASPIR LOW (ENTERIC COATED) 81 MG PO (08:00)
[2024-09-28 08:17] LABS: % Basophils 0.4 % (0-2); % Eosinophils 0.7 % (0-6); % Immature Granulocytes 0.2 % (0-0.5); % Lymphocytes 13.7 % (20.5-51.1); % Monocytes 5.9 % (1.7-9.3); % Neutrophils 79.1 % (42.2-75.2); Absolute Eosinophils 0.1 10^3/uL (0-0.7); Absolute Lymphocytes 1.2 10^3/uL (1.2-3.4); Absolute Monocytes 0.5 10^3/uL (0.1-0.6); Absolute Neutrophils 6.7 10^3/uL (1.4-6.5); Hematocrit 37.5 % (37.0-47.0); Hemoglobin 12.4 g/dL (12.0-16.0); Mean Corp Hgb Conc. 33.1 g/dL (33.0-37.0); Mean Corpuscular Hgb 31.4 pg (27.0-31.0); Mean Corpuscular Volume 94.9 fL (81.0-99.0); Mean Platelet Volume 10.2 fL (7.4-10.4); Nucleated Red Blood Cells % 0 %; Platelet Count 179 10^3/uL (130-400); Red Blood Cell Count 3.95 10^6/uL (4.20-5.40); Red Cell Dist. Width 13.4 % (11.5-14.5); White Blood Cell Count 8.5 10^3/uL (4.8-10.8)
[2024-09-28] MEDS: LR 1000 IV (08:33)
[2024-09-28 08:50] LABS: ALT (SGPT) 17 U/L (0-35); AST (SGOT) 25 U/L (14-36); Albumin 3.8 g/dl (3.5-5.0); Alkaline Phosphatase 75 U/L (38-126); Blood Urea Nitrogen 8 mg/dl (7-17); Calcium 9.4 mg/dl (8.4-10.2); Carbon Dioxide 27 mmol/L (22-30); Chloride 106 mmol/L (98-107); Estimated Creatinine Clearance 78 ml/min; Glucose 98 mg/dl (70-99); Potassium 3.6 mmol/L (3.5-5.1); Sodium 143 mmol/L (135-145); Total Bilirubin 0.6 mg/dl (0.2-1.3); Total Protein 6.2 g/dl (6.3-8.2); eGFR > 60.00
--- NOTE | 2024-09-28 12:03 | W.PN.HOSP.TC ---
Today's Communication/Plan
-
dc home
Assessment / Plan
Assessment / Plan
A/P: Patient is a 69y F with PMH significant for chronic pain and anxiety and recent visit for confusion who presents to ED complaining of recurrent confusion.
Acute TME likely multifactorial due to benzodiazepine withdrawal versus dehydration versus tramadol related
- Given recent history - ? benzodiazepine withdrawal as primary issue here.
- Restart Xanax TID 0.5 mg 3 times daily (was previously taking 1mg QID). And increase dosing if needed
- Follow for changes in symptoms.
- Seems to have significantly improved in mentation and cont w/ lower dose of xanax.
Suspected UTI vs. interstitial cystitis
- Recent Proteus UTI s/p 7 days of abx therapy.
- UCx with contamination.
- Continue ceftriaxone for now till culture results. Follow-up culture data.
- Due to see outpatient urologist. Pyridium prn.
Chronic Anxiety
Chronic Pain Syndrome
- Patient on combination of tramadol and alprazolam x many, many years.
- Has been without alprazolam since Thursday 09/21 - which is likely contributing to current presentation.
- Low-dose replacement / taper as noted above.
- Hold tramadol for now and monitor for any pain complaints. Continue gabapentin.
- Discontinuing 4 mg alprazolam daily that she has been taking x years will likely be a bit of a process. Stable tolerating low-dose of Xanax. Recommended to discuss with PCP to further wean off Xanax and consider getting started on SSRI as
outpatient. Also recommended to discontinue taking further tramadol which patient was agreeable. As patient says she does not have any further shoulder pain or any further discomfort.
Benign Hypertension
- Stable. Continue metoprolol.
ASCVD / Prior CVA
- Stable. Continue ASA, statin, etc.
DVT Prophylaxis: SCDs
Code Status: Full
More than 30 minutes spent in discharge including
Final examination of the patient
Summarizing hospital stay
Instructions for continuing care to all relevant caregivers
Preparation of discharge records, prescriptions, and referral forms
Total time spent (in minutes): 50
Anticipated Discharge: Today
Subjective/Interval History
-
Date of Service: September 28, 2024
feeling much better
intermittent bladder irritation
Objective Data
-
Labs:
Laboratory Results
09/28/24
07:31
WBC 8.5
Hgb 12.4
Hct 37.5
Plt Count 179
Sodium 143
Potassium 3.6
Chloride 106
Carbon Dioxide 27
BUN 8
Creatinine 0.6
Glucose 98
Calcium 9.4
Total Bilirubin 0.6
AST 25
ALT 17
Alkaline Phosphatase 75
Vital Signs:
Vital Signs
Temp Pulse Resp BP Pulse Ox
99.1 F 100 14 160/78 97
09/28/24 07:45 09/28/24 07:59 09/28/24 07:45 09/28/24 07:59 09/28/24 09:59
I&O
09/27/24 09/28/24 09/29/24
06:59 06:59 06:59
Intake Total 480 / 480
Balance 480 / 480
Physical Exam
-
General: Well Developed, Well Nourished, No Apparent Distress and Comfortable
HEENT: Normocephalic, Atraumatic, Moist Mucous Membranes, No Ptosis, PERRLA and Nose Appears Normal
Respiratory: Clear to Auscultation and Non Labored Respirations
Cardiac: Regular Rhythm and S1/S2
Breast: Deferred by me
GI: Soft, Nontender, Nondistended and Normal Bowel Sounds
Genito-urinary: No Costovertebral Tender
Musculoskeletal: No Clubbing, No Cyanosis and No Edema
Skin: Warm
Neuro: Awake, Alert, Oriented, AO x 3 and No Motor Deficits
Psych: Calm
[2024-09-28] MEDS: Pyridium 200 MG PO (12:13)
--- NOTE | 2024-09-28 12:39 | W.DCSUMMARY ---
Discharge Summary
Discharge Data
Date of Admission: 09/27/24
Date of Discharge: 09/28/24
-
Pending Results: No
Hospital Course
Patient is a 69y F with PMH significant for chronic pain and anxiety and recent visit for confusion who presents to ED complaining of recurrent confusion. Patient ran out of her benzodiazepine medication few days earlier. Upon admission patient
with pressured speech and was severely confused. Patient repeat urine sample was obtained which did not show any infection. Antibiotics were discontinued after patient received dose of Zosyn and ceftriaxone. Patient with bladder spasms and
received Pyridium. Patient mentation improved. Patient was restarted on Xanax at a lower dose of 0.5 mg 3 times daily. Patient was recommended to discontinue tramadol as patient without any further shoulder pain. Patient mentation significantly
improved and remained at baseline. Patient was able to tolerate diet. Patient confusion was deemed multifactorial secondary to mild dehydration, benzodiazepine withdrawal and related to possibly to tramadol. Tramadol was discontinued. CT head
with negative for acute intracranial abnormality. CT abdomen pelvis with no acute finding. Xanax dose was decreased and recommend to continue weaning with assistance from her primary care physician. Patient stated her PCP did call later in
additional medication for Xanax. Recommend to follow-up with urologist as outpatient. All patient questions were answered and she was agreeable and amenable to discharge planning home.
Discharge Plan
-
Patient Disposition: Home (Routine Discharge)
Discharge Diagnosis/Procedures: Acute toxic metabolic encephalopathy
Dehydration
Condition: Fair
Diet: Low Cholesterol
Activity: As tolerated
Driving Restrictions: Not until seen by your Dr
Referrals:
Litzy Rios DO [Family Provider] - in less than 1 week
Additional Discharge Medication Instructions: Tramadol was discontinued
Xanax dose was decreased to 0.5 mg 3 times daily
Prescriptions:
New
phenazopyridine 200 mg Tablet
200 mg PO TIDPRN PRN (Reason: bladder spasm) Qty: 10 0RF
Continued
therapeutic multivitamin Tablet
1 tab PO HS
atorvastatin 40 mg tablet
40 mg PO HS
metoprolol tartrate 25 mg tablet
12.5 mg PO DAILY Qty: 30 0RF
gabapentin 100 mg Capsule
100 mg PO TID 30 Days Qty: 90 0RF
cyanocobalamin (vitamin B-12) 5,000 mcg tablet, sublingual
5,000 mcg sublingual DAILY 30 Days Qty: 30 0RF
calcitriol 0.25 mcg capsule
0.25 mcg PO DAILY 30 Days Qty: 30 0RF
aspirin 81 mg Tablet,Delayed Release (Dr/Ec)
81 mg PO DAILY Qty: 0 0RF
diphenoxylate-atropine 2.5-0.025 mg Tablet
1 tab PO Q6HPRN PRN (Reason: loose stools, colitis) 10 Days Qty: 40 0RF
Changed
alprazolam [Xanax] 1 mg Tablet
0.5 mg PO TIDPRN PRN (Reason: anxiety) Qty: 0 0RF
Discontinued
tramadol 50 mg tablet
50 mg PO [id number] PRN (Reason: moderate pain)
Patient Comments:
09/06/24: patient may be taking more than prescribed, TID per her medication list
Discharge Orders:
Discharge Patient (As Directed); Ordered 09/28/24
Ordered By: Ludwin Gleason
Discharge Date and Time
Discharge Date/Time: 09/28/24 14:29
Print Language: ROMANIAN
--- NOTE | 2024-09-28 13:55 | CM ---
Patient seen at bedside.
OBS status - form explained & signed. In chart
Lives with in multi-story home, 2 steps to enter, flight to bedroom
PLOF: Independent
States was going to outpatient PT from prior stroke - script given to patient
DME: walker, cane, tub grab bars
Has had [facility] in past, [facility] in past & outpatient therapy recently
PCP: Litzy Rios
Pharmacy: [facility] [place]
PLAN: Home, script given for outpatient PT
[2024-09-28 14:19] VITALS: BP 129/85
== END 2024-09-28 14:29 | disposition home or self-care (01) ==
LOC: 3 WEST ACU 02:48
PROVIDERS: ADMITTING PHYSICIAN Hospitalist; ATTENDING PHYSICIAN Hospitalist; EMERGENCY PHYSICIAN Emergency Medicine; FAMILY PHYSICIAN Family Medicine
DX: G92.8 Other toxic encephalopathy (principal); R41.0 Disorientation, unspecified; F41.9 Anxiety disorder, unspecified; N39.0 Urinary tract infection, site not specified; I10 Essential (primary) hypertension; Z86.73 Personal history of transient ischemic attack (TIA), and cerebral infarction without residual deficits; I25.10 Atherosclerotic heart disease of native coronary artery without angina pectoris; Z79.899 Other long term (current) drug therapy; Z79.82 Long term (current) use of aspirin; F13.239 Sedative, hypnotic or anxiolytic dependence with withdrawal, unspecified
CPT/HCPCS: 70450; 74176; 80048; 80053; 81003; 81015; 83735; 84439; 84443; 85025; 85027; 87086; 96365; 99285; G0378

== ENCOUNTER → 2024-11-22 10:00 | Outpatient (REF) | payer MEDICARE, OTHER, SELFPAY | LOC: RAD 10:00 | PROVIDERS: ATTENDING PHYSICIAN Internal Medicine; FAMILY PHYSICIAN Family Medicine | DX: R19.7 Diarrhea, unspecified (principal) | CPT/HCPCS: 74018 ==

== ENCOUNTER 2024-12-24 18:36 | Emergency (ER) | payer MEDICARE, OTHER, SELFPAY ==
[2024-12-24 18:44] VITALS: BP 140/64
--- NOTE | 2024-12-24 20:28 | ED.MUSCINJ ---
HPI-Injury
General
Chief Complaint: Fall
Source: patient
Exam Limitations: none
Time Seen by Provider: 12/24/24 20:19
History of Present Illness-Injury
Initial Injury comments:
69-year-old female with history of stroke presents after a fall. She was trying to get her dog out of the vehicle and slipped and fell backwards trying to stop her fall with her right wrist but she hit her head on the back of her head. She notes a
headache with a bump on her head. She denies neck pain. She notes right wrist pain. No other
Past History
Past History
ED Past Medical History: Psychiatric (Anxiety) and Other (Back problems. Colitis, UTI, Vertigo, Lyme, Chronic fatigue, R parietal lesion)
ED Past Surgical History: Orthopedic (Left hip replacement) and Other (Multiple breast surgery, Adenoid removed, Deviated septum)
Patient has exhibited threatening behavior?: No
PSI?: No
Social History
Tobacco: Non-smoker
Alcohol: Occasional
Drug: None
Personal:
Living: with family
Employment: Employed
Phy Exam
Physical Exam
Physical Exam:
General: Well-appearing female in no acute respiratory distress
HEENT normocephalic hematoma noted to posterior scalp with overlying abrasion pupils equal round reactive to light
Musculoskeletal exam: The spine is nontender. She is tender over the radiocarpal joints of the right wrist. No deformity. Good range of motion
Neurologic alert and oriented no facial asymmetry or slurred speech
Skin: intact, warm
Injury Course
Orders/Labs/Results
Orders:
Orders
12/24/24 18:49
CR Wrist - Right Min 3 Views Urgent
Comment:
Reason For Exam: fall
12/24/24 20:28
CT Head W/o Iv Contrast Urgent
Comment:
Reason For Exam: fall
[place] Wrist Right-Tx ONCE
12/24/24 20:30
Acetaminophen [Tylenol] 650 mg PO NOW STA
MDM/Problems Addressed
Differential Diagnosis Includes:
Mechanical fall backwards with head strike history of stroke. Hematoma on exam of the scalp. Tylenol ordered for headache and will order CT of the head. X-ray of the right wrist was reviewed which shows widening of the scapholunate joint
suspicious for possible ligamentous injury. Will place in universal splint.
*Pulse Oximetry
SaO2: 99
Oxygen Mode of Delivery: Room air
Patient hypoxic: no
*Critical Care Note
Total Time (30-74mins, 75-104mins- exclusive of procedures): Not Applicable
Update Note
Update Note:
CT head negative for acute traumatic injury. Patient reassured. Recommend follow-up with hand specialist regarding possible ligament injury in the wrist. Stable for discharge
ED Attending Note
-
Portions of this chart may have been created with voice recognition software.� Occasional wrong word or��sound alike� substitutions may have occurred due to the inherent limitations of voice recognition software.
Discharge Plan
Departure
Patient Disposition: Home (Routine Discharge)
Date of Disposition: 12/24/24
Time of Disposition: 21:43
Patient with high blood pressure during this ER visit?: No
Discharge Problem:
Right wrist sprain, Head injury
Instructions: Contusion (DC)
Prescriptions:
No Action
therapeutic multivitamin Tablet
1 tab PO HS
atorvastatin 40 mg tablet
40 mg PO HS
metoprolol tartrate 25 mg tablet
12.5 mg PO DAILY Qty: 30 0RF
alprazolam [Xanax] 1 mg Tablet
0.5 mg PO TIDPRN PRN (Reason: anxiety) Qty: 0 0RF
phenazopyridine 200 mg Tablet
200 mg PO TIDPRN PRN (Reason: bladder spasm) Qty: 10 0RF
gabapentin 100 mg Capsule
100 mg PO TID 30 Days Qty: 90 0RF
cyanocobalamin (vitamin B-12) 5,000 mcg tablet, sublingual
5,000 mcg sublingual DAILY 30 Days Qty: 30 0RF
calcitriol 0.25 mcg capsule
0.25 mcg PO DAILY 30 Days Qty: 30 0RF
aspirin 81 mg Tablet,Delayed Release (Dr/Ec)
81 mg PO DAILY Qty: 0 0RF
diphenoxylate-atropine 2.5-0.025 mg Tablet
1 tab PO Q6HPRN PRN (Reason: loose stools, colitis) 10 Days Qty: 40 0RF
Referrals:
Litzy Rios DO [Family Provider, Family Practice]
Activity Restrictions/Additional Instructions:
Ice to the sore spot. You may take Tylenol or ibuprofen if needed for pain. Rest. Turn if worse otherwise follow-up with your doctor
Interventions
Interventions:
*Risk Screen - Suicide Last Done: 12/24/24 18:44
*General Assessment Last Done: 12/24/24 18:44
*Neglect/Abuse Screening Last Done: 12/24/24 18:44
*ED- Fall Risk Assessment Last Done: 12/24/24 20:27
ED-Musculoskeletal Assessment Last Done: 12/24/24 20:26
ED- Neurological Assessment Last Done: 12/24/24 20:26
ED-Skin Assessment Last Done: 12/24/24 20:27
Discharge Date and Time
Print Language: SWEDISH
[2024-12-24] MEDS: TYLENOL 650 MG PO (21:05)
== END 2024-12-24 22:16 | disposition home or self-care (01) ==
LOC: EMR 18:36
PROVIDERS: EMERGENCY PHYSICIAN Emergency Medicine; FAMILY PHYSICIAN Family Medicine
DX: S63.501A Unspecified sprain of right wrist, initial encounter (principal); S09.90XA Unspecified injury of head, initial encounter; W01.0XXA Fall on same level from slipping, tripping and stumbling without subsequent striking against object, initial encounter; Z86.73 Personal history of transient ischemic attack (TIA), and cerebral infarction without residual deficits
CPT/HCPCS: 99285; 70450; 73110

== ENCOUNTER → 2025-02-01 06:26 | Outpatient (REF) | payer MEDICARE, OTHER, SELFPAY | LOC: RAD 06:26 | PROVIDERS: ATTENDING PHYSICIAN Surgery Vascular Surgery; FAMILY PHYSICIAN Family Medicine | DX: I65.22 Occlusion and stenosis of left carotid artery (principal) | CPT/HCPCS: 93880 ==

== ENCOUNTER 2025-03-06 03:20 | Inpatient (IN) | payer MEDICARE, OTHER, SELFPAY ==
[2025-03-05 21:32] VITALS: BP 146/73
[2025-03-05 21:48] VITALS: BP 149/75
[2025-03-05 22:00] VITALS: BP 141/70
[2025-03-05 22:13] VITALS: BMI 21.4
[2025-03-05 22:20] LABS: Hematocrit 39.0 % (37.0-47.0); Hemoglobin 12.9 g/dL (12.0-16.0); Mean Corp Hgb Conc. 33.1 g/dL (33.0-37.0); Mean Corpuscular Volume 90.7 fL (81.0-99.0); Nucleated Red Blood Cells % 0 %; Platelet Count 161 10^3/uL (130-400); Red Cell Dist. Width 13.2 % (11.5-14.5)
--- NOTE | 2025-03-05 22:31 | ED.GENMED ---
History of Present Illness
General
Chief Complaint: Change in Mental Status
Source: patient and spouse
Time Seen by Provider: 03/05/25 21:46
History of Present Illness
History of Present Illness:
This patient is a 69-year-old female with a history of stroke in the past who has been doing 'great' recently. However, early last week she started to describe dysuria and a urinalysis was collected. She was prescribed fosfomycin which she took on
Friday. Her symptoms did not improve. On , she was prescribed Macrobid based on her urine culture results. Patient continues to have dysuria but otherwise was well until today when patient was noted to be confused. Here in the ER,
patient states that she does have flank discomfort bilaterally. She denies abdominal pain, nausea, vomiting, chest pain, shortness of breath, cough, sore throat, rhinorrhea, headache, dizziness, photophobia, rash, swelling, or other complaints.
Past History
Past History
ED Past Medical History: CVA, Psychiatric (Anxiety) and Other (Back problems. Colitis, UTI, Vertigo, Lyme, Chronic fatigue, R parietal lesion)
ED Past Surgical History: Orthopedic (Left hip replacement) and Other (Multiple breast surgery, Adenoid removed, Deviated septum, CEA)
Patient has exhibited threatening behavior?: No
PSI?: No
Social History
Tobacco: Non-smoker
Alcohol: Occasional
Drug: None
Personal:
Living: with family
Employment: Employed
Phy Exam
Physical Exam
Physical Exam:
GENERAL: Alert , in no apparent distress
EYE: pupils equal and reactive, no photophobia
NECK: Supple, no significant adenopathy, no rigidity, nods yes and no easily.
ENT: o/p clr, mmm.
CARDIAC: Regular rate and rhythm .
LUNGS: Clear breath sounds bilaterally, no acute respiratory distress, no wheezes/rales/rhonchi
ABDOMEN: Soft, without focal tenderness, no r/g, mild bilateral CVA tenderness
NEUROLOGICAL: Alert and oriented to place and person but not time, otherwise no focal neuro deficits
SKIN: Warm and dry, skin intact.
MUSCULOSKELETAL: No edema, well perfused.
PSYCH: Normal and appropriate interaction but slightly confused.
Sepsis
Sepsis Screening
Sepsis Assessment: Sepsis
Sepsis Screen
Sepsis Screen: Sepsis
Date: 03/06/25
Time: 23:00
Course
Orders/Labs/Results
Orders:
Orders
03/05/25 21:36
EKG [Electrocardiogram (*1)] Urgent
Reason for Study: Tachycardia
EKG- Treatment ONCE
03/05/25 22:10
Acetaminophen Urgent
Comment: ADD ON
Complete Blood Count/With Diff Urgent
Comprehensive Metabolic Panel Urgent
Lactic Acid Urgent
Blood Culture Urgent
ASH Source: Blood/Venous
Specimen Description:
03/05/25 22:30
Cardiac Monitoring- Treatment ONCE
0.9% Sodium Chloride 1000 ml [Nss] 1,700 ml IV NOW STA
Acetaminophen [Tylenol] 1,000 mg PO NOW STA
Pulse Ox/cont/shift [RESP] Urgent
Quantity: 1
03/05/25 22:31
CR Chest - 2 Views Urgent
Comment:
Reason For Exam: fever
03/05/25 22:34
CT Abd/pel Without Iv Or Oral Urgent
Comment:
Reason For Exam: uti, fever, confusion
03/05/25 22:50
Speech Screening from Marycruz Routine
03/05/25 23:54
Urinalysis Reflex To Culture Urgent
Date Specimen was Collected: 03/05/25
Time Specimen was Collected: 23:53
Urine Microscopic Reflex Cult Urgent
Urine Culture Urgent
ASH Source: U
Specimen Description:
Date Specimen was Collected: 03/05/25
Time Specimen was Collected: 23:53
03/05/25 23:55
Piperacillin/Tazo 4.5 Gram [Zosyn] 4.5 gram in 100 ml IV NOW
03/06/25 02:00
0.9% Sodium Chloride 1000 ml [Nss] 1,000 ml IV BOLUS
03/06/25 02:11
COVID-19 Antigen Urgent
Source: Nasal Swab
Influenza A+B Rapid Molecular Urgent
ASH Source: Nasal Swab
Specimen Description:
03/06/25 02:15
NORepinephrine 4 MG/250 ML [Levophed] 4 mg in 250 ml IV PER PROTOCOL
Initial dose in mcg/min, then titrate:: 2
Titrate to keep:: MAP > 65 mmHg
Titrate by mcg/min:: 1-2 mcg/min
Frequency of titrations (minutes):: 5
Maximum dose in ICU in mcg/min:: 30
Maximum dose in IMU in mcg/min:: 8
Maximum dose in IVU in mcg/min:: 4
Begin to taper infusion when:: Remained at goal for 4hrs
Taper by mcg/min:: 1-2 mcg/min
Frequency of taper (minutes) if patient maintains goal:: 30
Taper to off?: Yes
If infusion off & no longer maintaining goal:: Contact Provider
03/06/25 03:08
Admit/Transfer Patient As Directed
Co-Sign Provider:
Level of Care: Inpatient admission
Assign to:: IMU- Intermediate Care
Physician / Group: Grisel
Diagnosis: Sepsis
Reason for Hospitalization: sepsis
Expected length of stay greater than two midnights?: Yes
ELOS- Estimated Length of Stay in days: 2
I certify the patient meets the requirements for IP care: Yes
03/06/25 03:09
PRN Pain Medication Management As Directed
May give lesser potent ordered pain med per pt: Yes
preference::
Protocol:: Medication orders for pain may be administered in a
manner that supports deferring to patient preference
when the pt is:
- Requesting an ordered lesser potent pain medication.
Least to most potent pain medications are defined
as: acetaminophen < NSAID < tramadol < opioids
(morphine, oxycodone, hydromorphone).
- Requesting a lesser dose of the same medication IF
ORDERED.
- Requesting a less intrusive route of administration
if both routes are prescribed by the provider (PO <
IV).
03/06/25 03:20
PRN Pain Medication Management As Directed
May give lesser potent ordered pain med per pt: Yes
preference::
Protocol:: Medication orders for pain may be administered in a
manner that supports deferring to patient preference
when the pt is:
- Requesting an ordered lesser potent pain medication.
Least to most potent pain medications are defined
as: acetaminophen < NSAID < tramadol < opioids
(morphine, oxycodone, hydromorphone).
- Requesting a lesser dose of the same medication IF
ORDERED.
- Requesting a less intrusive route of administration
if both routes are prescribed by the provider (PO <
IV).
03/06/25 05:16
Acetaminophen [Tylenol] 650 mg PO Q6HPRN PRN
Lactated Ringers [Lr] 1,000 ml IV 100 mls/hr
NORepinephrine 4 MG/250 ML [Levophed] 4 mg in 250 ml IV PER PROTOCOL
Currently infusing. Continue current dose and titrate:: Yes
Titrate to keep:: MAP > 65 mmHg
Titrate by mcg/min:: 1-2 mcg/min
Frequency of titrations (minutes):: 5
Maximum dose in ICU in mcg/min:: 30
Maximum dose in IMU in mcg/min:: 8
Maximum dose in IVU in mcg/min:: 4
Begin to taper infusion when:: Remained at goal for 4hrs
Taper by mcg/min:: 1-2 mcg/min
Frequency of taper (minutes) if patient maintains goal:: 30
Taper to off?: Yes
If infusion off & no longer maintaining goal:: Contact Provider
Ondansetron Injectable [Zofran] 4 mg IV Q6HPRN PRN
03/06/25 05:16
Consult Notification Routine
Specialty to Notify: Infectious Disease
Date consulting provider notified: 03/06/25
Time consulting provider notified: 05:29
Notified:: Other
Comment: cancelled by Cheikh Damon
Consult Notification Routine
Specialty to Notify: Catering Administrative Assistant
Date consulting provider notified: 03/06/25
Time consulting provider notified: 13:25
Notified:: Provider
Comment: CANCELLED
INFECTIOUS DISEASE CONSULT Routine
Consulting Provider: Zee Remy
Was physician already notified: No
Reason for consult: sepsis
Intake/ Output As Directed
Frequency: Per unit guidelines
Weight As Directed
Frequency: Daily
DX Deep Vein Thrombosis Video Routine
03/06/25 05:43
Complete Blood Count/No Diff IN AM
Cortisol, Random IN AM
MRSA Screen Routine
ASH Source: Nose
Specimen Description:
03/06/25 05:57
Legionella Urinary Antigen Routine
ASH Source: Urine
Specimen Description:
Strep pneumoniae Antigen Routine
ASH Source: Urine
Specimen Description:
03/06/25 Breakfast
NPO
Allow oral meds: Yes
Allow clear liquids: Sips of Clears
Piperacillin/Tazo 3.375 Gram [Zosyn] 3.375 gram in 50 ml IV Q6H
03/06/25 15:10
Hida Scan [NM Hepatobiliary (hida)] Stat
Comment:
Reason For Exam: acalculous cholecystitis
03/06/25 18:00
Enoxaparin Sodium [Lovenox] 40 mg SC QPM
Abnormal Lab Results
03/05/25 03/05/25
22:10 23:54
Absolute Neuts (auto) 7.9 H 10^3/uL
(1.4-6.5)
Absolute Lymphs (auto) 0.4 L 10^3/uL
(1.2-3.4)
Neutrophils % 87.1 H %
(42.2-75.2)
Lymphocytes % 4.7 L %
(20.5-51.1)
Sodium 130 L mmol/L
(135-145)
Chloride 95 L mmol/L
(98-107)
Glucose 112 H mg/dl
(70-99)
AST 530 H* U/L
(14-36)
ALT 271 H U/L
(0-35)
Leukocyte Esterase Rfl 2+ A
(Negative)
Urine RBC 3-6 A /HPF
(0-2)
Urine WBC (Reflex) 26-30 A /HPF
(0-5)
Urine Bacteria (Reflex) Moderate A
(Negative)
Urine Albumin (Reflex) 1+ A
(Neg - Trace)
Acetaminophen < 10 L ug/ml
(10-30)
03/05/25 22:10
03/05/25 22:10
Vital Signs
Initial and Last Documented VS:
Initial Vital Signs
Temp Pulse Resp BP Pulse Ox
102.9 F H 131 18 146/73 92
03/05/25 21:32 03/05/25 21:32 03/05/25 21:32 03/05/25 21:32 03/05/25 21:32
Last Documented Vital Signs
Temp Pulse Resp BP Pulse Ox
98.5 F 94 15 114/86 99
03/06/25 18:55 03/06/25 21:00 03/06/25 21:00 03/06/25 21:00 03/06/25 20:00
*Pulse Oximetry
SaO2: 93
Oxygen Mode of Delivery: Room air
Patient hypoxic: no
*Critical Care Note
Total Time (30-74mins, 75-104mins- exclusive of procedures): 30
Update Note
Update Note:
Patient presents to the Emergency Department with ___fever and confusion
Number and Complexity of Problems Addressed at the Encounter
� Chronic conditions affecting care:
� Acute Exacerbation and/or Progression of Chronic Illness:
� Differential Diagnosis includes: Urosepsis, UTI, meningitis, encephalitis, pyelonephritis, kidney stone, etc. etc.
Amount and/or Complexity of Data to be Reviewed and Analyzed
� I performed an independent evaluation of and my interpretation is:
EKG: Read by me, sinus tachycardia, normal axis, nonspecific ST depressions laterally
CT:Trace amount of pleural fluid in the inferior chest bilaterally. Mild to moderate patchy atelectasis in the posterior lower lungs, right greater than left.
Coronary artery calcifications are present. Please correlate with symptoms of and risk factors for coronary artery disease, with further workup as clinically appropriate.
No evidence for urinary tract calculi. No abnormality of the unenhanced kidneys or urinary bladder.
Gallbladder is distended, similar appearance to prior CT. No evidence for calcified gallstones. No evidence for gallbladder wall thickening or pericholecystic edema.
The appendix appears normal. No evidence for bowel obstruction or free intraperitoneal air.
Elongated transverse colon, extending into the pelvis. Moderate amount of stool within the colon, suggesting a degree constipation.
Bony degenerative changes as described. Stable mild compression deformity of the T10 vertebral body.
Xrays:read by rads, LLL pna vs atelect
Laboratory Studies: Sodium noted at 130, new LFT abnormalities AST greater than ALT.
Other:
� Review of other/old records reveals: September 2024 patient was admitted with change in mental status suspicious for related to UTI however ultimately attributed to benzo withdrawal and tramadol.
� Clinical information was obtained by an independent historian: who is bedside and provides most of the history
� Prescriptions/Medications Considered but not given:
� Further testing considered but not performed:
Risk of Complications and/or Morbidity or Mortality of Patient Management
� Social determinants of health affecting care:
� Discussion with other providers (PCP, Hospitalists, Consultants, etc):
� Escalation of care including admission/observation vs risk of discharge considered: 10:34 PM highly doubt meningitis/encephalitis, patient does not exhibit nuchal rigidity, photophobia, severe headache, focal neurofindings,
etc. Differential includes urosepsis. IV fluids started, labs pending, will image kidneys.
[address] to suggest cholecystitis, no obstructing stone. Cxr suggestive of pna, which may be source of fver, etc. Urine pending. bp remains stable, ivf started, lactic nl.
202AM Long d/w , pt now sleeping. He notes pt was lucid after my last reassessment. Aware of findings and plan. Urine micro not entirely c/w UTI, as well as CT (no bladder wall thickening, obstruction, hydro, etc). CXR suggest long of pna
and she is mildly hypoxic here.
Bp now decreased, will add ivf and being levophed. Hospitalist aware.
ED Attending Note
-
Portions of this chart may have been created with voice recognition software.� Occasional wrong word or��sound alike� substitutions may have occurred due to the inherent limitations of voice recognition software.
Discharge Plan
Departure
Patient Disposition: Admit
Date of Disposition: 03/06/25
Time of Disposition: 02:03
Admit to: Telemetry
Presentation/result/management discussed w/ accepting MD/DO: Hospitalist
Condition: Fair
Discharge Problem:
Pneumonia, Sepsis
Interventions
Interventions:
*General Assessment Last Done: 03/05/25 21:32
*Neglect/Abuse Screening Last Done: 03/05/25 21:32
*ED- Fall Risk Assessment Last Done: 03/05/25 21:32
*Nursing Disposition Last Done: 03/06/25 05:56
ED- Neurological Assessment Last Done: 03/05/25 22:17
ED Swallowing Screen Last Done: 03/05/25 22:50
Discharge Date and Time
Discharge Date/Time: 03/06/25 05:57
[2025-03-05] MEDS: TYLENOL 1000 MG PO (22:38)
[2025-03-05 22:55] LABS: ALT (SGPT) 271 U/L (0-35); AST (SGOT) 530 U/L (14-36); Albumin 4.2 g/dl (3.5-5.0); Alkaline Phosphatase 123 U/L (38-126); Blood Urea Nitrogen 10 mg/dl (7-17); Calcium 9.0 mg/dl (8.4-10.2); Carbon Dioxide 28 mmol/L (22-30); Chloride 95 mmol/L (98-107); Estimated Creatinine Clearance 65 ml/min; Glucose 112 mg/dl (70-99); Potassium 3.8 mmol/L (3.5-5.1); Sodium 130 mmol/L (135-145); Total Protein 6.8 g/dl (6.3-8.2); eGFR > 60.00
[2025-03-05 23:00] VITALS: BP 130/61
[2025-03-05] MEDS: NSS 1700 ML IV (23:01)
[2025-03-05 23:55] LABS: Acetaminophen < 10 ug/ml (10-30)
[2025-03-06] VITALS (36 sets, daily range): BP systolic 80–150; BP diastolic 45–95; BMI 22.0
[2025-03-06 00:06] LABS: Urine Character Clear (Clear)
[2025-03-06] MEDS: ZOSYN 100 IV (00:41)
[2025-03-06 01:36] LABS: Urine Squamous Cell 16-20 /LPF (Few)
[2025-03-06 01:37] LABS: Urine White Cell 26-30 /HPF (0-5)
[2025-03-06] MEDS: NSS 1000 IV (02:09)
[2025-03-06] MEDS: LEVOPHED 250 IV (02:32)
[2025-03-06 02:35] LABS: COVID-19 Antigen Negative (Negative)
--- NOTE | 2025-03-06 03:02 | HPS.HSE ---
Family Physician
-
Family Physician: Litzy Rios, DO
Chief Complaint
-
Altered mental status
History of Present Illness
This is a 69-year-old female with past medical history of CVA, anxiety disorder, prior UTIs who presented to the emergency department with acute decline in mental status over the last 24 hours.
Patient apparently had urinary tract symptoms last week described as dysuria and UA was obtained and she was prescribed fosfomycin x 1. She took that on Friday without any improvement in symptoms. She was then started on Macrobid based on the
culture results. She is continue to have dysuria but was well up until today when she became increasingly confused and was brought to the emergency department. She endorsed of flank discomfort bilaterally but denies abdominal pain nausea vomiting
or diaphoresis. Denied having any fevers at home. She denies any cough or shortness of breath. She denies any rash.
In the ED she was febrile to 103 Fahrenheit. She was hypotensive requiring pressors. Oxygen saturation was 95% on room air. ECG showed sinus tach at a rate of 118. CBC was unremarkable. Electrolytes BUN/creatinine were all in the normal range.
He had elevation in AST to 530 ALT to 271. Total bilirubin was normal. UA remains positive with bacteria but also appears contaminated. COVID and flu test are negative.
Chest x-ray shows a patchy parenchymal opacity within the left lower lobe which is new compared to prior. CT scan of the abdomen and pelvis reveals some trace bilateral pleural effusion with moderate patchy atelectasis in the posterior lower lungs.
The gallbladder is distended similar in appearance to prior without evidence of calcified stones, wall thickening or pericholecystic fluid. No evidence of urinary tract calculi, hydronephrosis or pyelonephritis.
Medical History
Past Medical History
Past Medical History: Reports Other
Additional Past Medical History:
Anxiety
Chronic Pain Syndrome (Back)
CVA
Colitis
Past Surgical History: Reports Other
Additional Past Surgical History:
Left ANGEL
Shoulder Surgery
Septoplasty
Breast Surgeries
Adenoidectomy
Social History
Tobacco: Non-smoker
Alcohol: Occasional
Drug: None
Personal:
Living: With Family
Family History
Family History: Not pertinent
Allergies / Home Medications
Allergies reflects when Allergies were last updated in [facility].
Home Medications with original date entered in [facility]
Allergy/Medication List:
Allergies
Allergy/AdvReac Type Severity Reaction Status Date / Time
Sulfa (Sulfonamide Allergy Hives Verified 09/26/24 21:37
Antibiotics)
Home Medications
aspirin 81 mg tablet,delayed release 81 mg PO DAILY CVA #0 tabs 12/04/23
calcitriol 0.25 mcg capsule 0.25 mcg PO DAILY supplement 30 days #30 caps 12/04/23
cyanocobalamin (vitamin B-12) 5,000 mcg sublingual tablet 5,000 mcg sublingual DAILY Supplement 30 days #30 tabs 12/04/23
gabapentin 100 mg capsule 100 mg PO TID neuropathic pain-fingers 30 days #90 caps 12/04/23
diphenoxylate-atropine 2.5 mg-0.025 mg tablet 1 tab PO Q6HPRN PRN loose stools, colitis 10 days #40 tabs 12/05/23
atorvastatin 40 mg tablet 40 mg PO HS cholesterol 09/06/24
therapeutic multivitamin 1 tab PO HS Supplement 09/06/24
tramadol 50 mg tablet 50 mg PO [id number] PRN moderate pain 09/06/24
Outpatient physical therapy #1 ea 09/08/24
alprazolam 1 mg tablet 1 mg PO TIDPRN PRN anxiety #0 tabs 09/08/24
cefuroxime axetil 500 mg tablet 500 mg PO BID 5 days #10 tabs 09/08/24
metoprolol tartrate 25 mg tablet 12.5 mg (1/2 x 25 mg) PO DAILY blood pressure #30 tabs 09/08/24
Review of Systems
-
Unable to obtain full review of systems at this time due to: Acuity
Physical Exam
Vital Signs
Vital Signs
Temp Pulse Resp BP Pulse Ox
98.8 F 84 16 96/51 95
03/06/25 02:18 03/06/25 00:45 03/06/25 00:45 03/06/25 00:00 03/06/25 02:18
Physical Exam
General: Well Developed and No Apparent Distress
HEENT: Moist mucous membranes and PERRLA
Respiratory: Clear; No Wheezes, Rales or Rhonchi
Cardiac: S1/S2 and Regular Rhythm; No Murmur
GI: Soft, Non Tender, Non Distended and Normal Bowel Sounds
Musculoskeletal: No Clubbing, No Cyanosis and No Edema
Neuro: Awake, Alert, Nonfocal/grossly intact and Other (Difficulty answering direct questions.)
Laboratory Results
-
03/05/25 22:10
03/05/25 22:10
Laboratory Results
Lactic Acid 1.4 mmol/L (0.7-2.0) 03/05/25 22:10
Total Bilirubin 1.0 mg/dl (0.2-1.3) 03/05/25 22:10
AST 530 U/L (14-36) H* 03/05/25 22:10
ALT 271 U/L (0-35) H 03/05/25 22:10
Alkaline Phosphatase 123 U/L (38-126) 03/05/25 22:10
Data Reviewed
-
Diagnostic Radiology: Image Personally Visualized and interpreted and Report Reviewed by me
CT Scan: Report Reviewed by me
Medical Tests (Nuc Med, Echo, EKG etc): Image Personally Visualized and interpreted
Lab Data: Labs Reviewed by me
Old Records: Reviewed
Impression/Plan
-
IMPRESSION:
69-year-old female with past medical history of CVA, anxiety disorder, prior UTIs who presents to the emergency department with altered mental status in the setting of approximately 5 days of urinary symptoms and initiation of oral antibiotics. She
is febrile, tachycardic, hypotensive requiring pressors with normal lactic acid levels. UA still positive here but does appear contaminated. The rest of her labs are notable for elevated transaminases with normal bilirubin. CT scan of the abdomen
pelvis which does reveal a distended gallbladder but no calcified stones pericholecystic fluid or wall edema. COVID and flu test are negative. X-ray suggest patchy left lower lobe opacity though not confirmed as infection on CT.
PLAN:
Sepsis -urinary source versus pneumonia. Less likely acalculous cholecystitis without Olmstead's signs on examination or abdominal pain. Patient is actually alert and oriented x 3 but extremely somnolent although easily arousable. She is protecting
her airways.
- Admit to IMU
- npo for now
- speech eval in am
- Blood cultures, urine culture
- Will obtain HIDA scan in a.m.
- We will continue with IV Zosyn for now, check MRSA swab
- Monitor oxygen levels, check urinary Legionella and streptococcal antigens
- ID consultation
- Holding antihypertensives for now
DVT PPX - lovenox sq
Code status - full code
--- NOTE | 2025-03-06 05:30 | PTCARENOTE ---
pt admit from ER, aaox3, afebrile, SR HR 70s, SBP 140 & MAP 81- levo gtt off at this time. B/L IV WNL. Sat 97% on 2LNC. assisted with bedpan- urine sent. CHG cloths. POC discussed, call eric with pt, bed alarm on, care ongoing.
[2025-03-06] MEDS: ZOSYN 50 IV (05:57)
[2025-03-06] MEDS: LR 1000 IV ×2 (06:02→17:20)
[2025-03-06 06:24] LABS: Hematocrit 37.6 % (37.0-47.0); Hemoglobin 12.5 g/dL (12.0-16.0); Mean Corp Hgb Conc. 33.2 g/dL (33.0-37.0); Mean Corpuscular Volume 94.0 fL (81.0-99.0); Platelet Count 158 10^3/uL (130-400); Red Cell Dist. Width 13.2 % (11.5-14.5)
[2025-03-06 06:37] LABS: ALT (SGPT) 197 U/L (0-35); AST (SGOT) 252 U/L (14-36); Albumin 3.7 g/dl (3.5-5.0); Alkaline Phosphatase 95 U/L (38-126); Total Protein 6.0 g/dl (6.3-8.2)
[2025-03-06 07:03] LABS: Cortisol, Random 18.1 ug/dl
--- NOTE | 2025-03-06 09:00 | PTCARENOTE ---
Rec'd pt at 0745 awake alert and oriented resting in bed. Overall states she feels better and much more awake than earlier. Speech is clear. DOS SANTOS. Denies dizziness or headache. Denies distinct pain but does admit to some chronic R hand/finger
numbness since her stroke and some new bilateral foot/toe numbness and pins and needles feeling over the past week. Skin is sl pale pink wm and dry. Pt does have a chronic rash like area on her L thigh that she said she has had for a long time-
some areas are petechial in nature and some are scaley reddened. Respirs are nonlabored. Rec'd pt on 2l nc and changed over at 0800 to RA with sats of 94-95%. BS are sl decreased at the bases otherwise clear. Monitor SR with 1st'avb- pr.22. +
pulses. No edema. ABd is soft but pt states she feels bloated as she has not had a BM in several days. Does admit she is passing flatus. Denies nausea and had no difficulty with swallowing water. Voiding yellow urine on the bedpan. IV LR infusing at
100 ml/hr Via R FA IV site. L arm with capped int. Pt able to turn and reposition herself. Brushed her teeth. Partial bath given. Plan of care reviewed. Pt spoke with her via her phone. Call jeaneth in reach.
--- NOTE | 2025-03-06 11:11 | CON.ID ---
Consultation
-
Date/Time Consultation Requested: March 06, 2025 0516
Date/Time Consultation Performed: March 06, 2025 1110
Requesting Provider: Dr. Drake George
Performing Provider: Dr. Zee Remy
Reason for Consultation: Sepsis
Chief Complaint / Past History
Chief Complaint
Change in mental status and fever
History of Present Illness
69-year-old female with history of CVA, chronic back pain, UTI who presented to the ER last night due to confusion and fever. Patient reports that she started feeling unwell on Friday with low-grade fever and mild dysuria. She saw her PCP who
collected urine and then gave her a dose of fosfomycin. However she did not improve with continued bladder discomfort and dysuria. She was then prescribed nitrofurantoin still without improvement of urine symptoms. She had fever up to 103.
noted that patient was lethargic and confused. In the ER temperature 103, hypotensive, elevated LFTs. CT of the abdomen pelvis shows distended gallbladder without acute cholecystitis. Chest x-ray with left lower lobe opacity, atelectasis
versus pneumonia. She is currently on Zosyn. Patient reports she never had nitrofurantoin in the past. Her mental status has improved and back to baseline. No flank pain. She complains of constipation. No cough or shortness of breath. No
nausea or vomiting. Complaints of numbness and tingling of both feet started this week. She has chronic neuropathy right upper extremity since right CEA.
Past History
Additional Past Medical History:
CVA
Neuropathy
Chronic back pain
Anxiety
Additional Past Surgical History:
Right CEA
Left ANGEL
Shoulder Surgery
Septoplasty
Breast Surgeries
Adenoidectomy
Allergy History:
Sulfa (Sulfonamide Antibiotics) Allergy (Verified 12/24/24 18:49)
Hives
Medications Reviewed: Yes
Current Antibiotics:
Zosyn
Social History
Tobacco: Non-Smoker
Alcohol: Occasional
Drug: None
Personal:
Living: With Family
Family History
Family History: Not Pertinent
Review of Systems
Review of Systems
General: Fever, Chills and Change in Appetite
HEENT: Negative Sinus Problems, Headache or Pharyngitis
Cardiovascular: Negative Chest Pain or Dyspnea
Respiratory: Negative Dyspnea or Cough
Gasteroenterology: Negative Nausea, Vomiting or Diarrhea
Genital / Urological: Dysuria; Negative Hematuria or Flank Pain
Endocrine: Weakness
All systems: All other systems were reviewed and were negative
Vital Signs
Temp Pulse Resp BP Pulse Ox
98.4 F 84 12 107/66 96
03/06/25 08:25 03/06/25 09:00 03/06/25 09:00 03/06/25 09:00 03/06/25 09:00
Selected Entries
03/05/25
21:32 03/05/25
22:15
Temp 102.9 F H 103.0 F H
Physical Exam
Physical Exam
Constitutional: No Acute Distress
Head: Other (No frontal or max or sinus tenderness)
Eyes: No Conjunctival Hemorrhage and Sclera Anicteric
Cardiovascular: Regular Rate and S1/S2
Pulmonary: Clear
Gastrointestinal: Soft, Non Tender, Non Distended and Normal Bowel Sounds
Genito-Urinary: Negative CVA Tenderness
Extremities: Negative Edema
Musculoskeletal: Negative Spinal Tenderness
Neurological: AO x 3
Lab / Diagnostic Study Results
03/06/25 05:43
03/05/25 22:10
Abs Immat Gran (auto) 0.0 10^3/uL (0-0.05) 03/05/25 22:10
Absolute Neuts (auto) 7.9 10^3/uL (1.4-6.5) H 03/05/25 22:10
Absolute Lymphs (auto) 0.4 10^3/uL (1.2-3.4) L 03/05/25 22:10
Absolute Monos (auto) 0.5 10^3/uL (0.1-0.6) 03/05/25 22:10
Absolute Basos (auto) 0.0 10^3/uL (0-0.2) 03/05/25 22:10
Immature Gran % 0.3 % (0-0.5) 03/05/25 22:10
Neutrophils % 87.1 % (42.2-75.2) H 03/05/25 22:10
Lymphocytes % 4.7 % (20.5-51.1) L 03/05/25 22:10
Monocytes % 5.8 % (1.7-9.3) 03/05/25 22:10
Eosinophils % 1.8 % (0-6) 03/05/25 22:10
Basophils % 0.3 % (0-2) 03/05/25 22:10
PT Cancelled 03/06/25 05:24
INR Cancelled 03/06/25 05:24
Lactic Acid 1.4 mmol/L (0.7-2.0) 03/05/25 22:10
Ur Squamous Epith Cells 16-20 /LPF (Few) 03/05/25 23:54
Microbiology Results
Micro:
03/06/25 05:57 Legionella Urinary Antigen - Final
Urine Negative for Legionella pneumophila Serogroup 1 antigen.
A negative result does not rule out the possiblity of
Legionella infection due to other serogroups or species of
Legionella. Clinical correlation is recommended.
Streptococcus pneumoniae Antigen (M - Final
Negative for Streptococcus pneumoniae antigen.
A negative result does not exclude infection with
Streptococcus pneumoniae. Clinical correlation is
recommended.
03/06/25 05:43 MRSA Screen - Pending
Nose
03/06/25 02:11 Influenza Types A & B (SHAR) - Final
Nasal Swab Negative for Influenza A & B, NAAT
Negative results must be combined with clinical observations
and patient history.
Nucleic Acid Amplification test (NAAT)performed on the
[employer] platform.
03/05/25 23:54 Urine Culture - Pending
Urine
03/05/25 22:10 Blood Culture - Pending
Blood/Venous
03/05/25 CT a/p: Trace amount of pleural fluid in the inferior chest bilaterally. Mild to moderate patchy atelectasis in the posterior lower lungs, right greater than left. Gallbladder is distended, similar appearance to prior CT. No evidence for
calcified gallstones. No evidence for gallbladder wall thickening or pericholecystic edema.
03/05/25 CXR: Patchy parenchymal opacity within the left lower lobe, new since previous radiograph.
Assessment / Plan
# Complicated UTI
# Fever
- Blood cultures pending
-Urine culture pending
- Can de-escalate Zosyn to ceftriaxone
- Trend temperature
--- NOTE | 2025-03-06 11:35 | W.PN.UPDATE ---
Update Note
Progress Note Update
Patient seen and examined after postmidnight admission. Overall patient feels improved since arrival to the ER. Vital signs stable. No acute distress, awake and alert. Tachycardic, regular rhythm, normal S1-S2. Clear to auscultation
bilaterally. Note patient was only briefly on vasopressors, now off. Continue broad-spectrum antibiotics. Follow culture data. Infectious disease just saw the patient in consult and will follow the recommendations. Continue IV fluids. Diet as
tolerated. Discussed with RN.
--- NOTE | 2025-03-06 11:57 | CM ---
CM met with pt bedside
Pt resides with spouse in a 2SH with 2STE, full full flight to 2nd floor
Pt is typically independent with her ADLs without ADs
She has a WW, SPC and grab bars for use if needed
Pt has been staying in their attached 1sy floor apartment as stairs have been difficult to navigate recently
Pt has hx with [facility]AY[facility] and Oleksandr
PCP- Litzy Rios
Rx- Deuce Garcia
Pt requesting info on local PCPs as she would like to be established with new PCP in [facility] network
resident clinic info provided along with list of [facility] providers
Discharge Disposition- anticipate home, follow for needs
--- NOTE | 2025-03-06 12:30 | PTCARENOTE ---
Assessment overall is unchanged. Assisted on to the BSC for urine and a large amt of soft brown stool. Pt expressed some relief as she said she has been constipated. Voiding frequently but each time is between 100-300 mls. Admits to some pressure
intermittently with urinating and mild burning but states the Pyridium did not help her earlier in the week and overall the burning is better then when she was at home. Dr. George in to see pt and updated. IV fluids infusing as ordered. Call eric in
reach
[2025-03-06] MEDS: STERILE WATER FOR INJECTION 20 ML IV (12:40)
[2025-03-06] MEDS: ROCEPHIN 2000 MG IV (12:41)
[2025-03-06] MEDS: FLUSH (NSS) 1 FLUSH IV (12:42)
[2025-03-06] MEDS: FLUSH (NSS) IV ×2 (12:43)
--- NOTE | 2025-03-06 14:15 | PTCARENOTE ---
Pt had tolerated some clear liquids earlier but is currently NPO since 1130 for HIDA scan at 1500. Pt continues to void freqentlty. Admits to mild dizziness with standing that resolves once she up. Is asking for her Aprazolam as she said she takes
it regularly at home for anxiety along with the Gabapentin for the neuropathy. Pts in and updated. No other changes. VS as documented.
--- NOTE | 2025-03-06 15:30 | PTCARENOTE ---
Taken via wheelchair to HIDA scan. On commode for urine and some stool prior to leaving. Assessment otherwise is unchanged.
--- NOTE | 2025-03-06 17:15 | PTCARENOTE ---
Returned from HIDA scan- used the bathroom for urine and a small formed brown stool. Was going to sit oob in the chair but then stated she was too tired and just wanted her Xanax for some anxiousness- stated she is used to taking it and can feel
that she didn't have a dose since yesterday at lunch. Also admitted to numbness and pins and needles in her feet and asked for her Gabapentin as well. Medicated with Xanax 1 mg po and Gabapentin 300 mg po. Currently resting back in bed. Dinner
ordered. Call eric in reach.
[2025-03-06] MEDS: LOVENOX 40 MG SC (17:19)
[2025-03-06] MEDS: NEURONTIN 300 MG PO ×2 (17:19→21:44)
[2025-03-06] MEDS: XANAX 1 MG PO ×2 (17:19→23:02)
--- NOTE | 2025-03-06 18:30 | PTCARENOTE ---
OOb to the BSC to void and had a small amt of soft brown stool. Assisted back to bed and is ready to eat dinner. States some of the numbness is better since getting the Gabapentin. No other changes in assessment
--- NOTE | 2025-03-06 20:00 | PTCARENOTE ---
Rec'd Pt resting in bed, denies pain, has chronic numbness r hand fingers & toes, DOS SANTOS, ST ' AV block, + pulses, skin warm/dry, RA, lungs decr in bases, sat 99, hyperactive bowel sounds,mod size brown soft bm, voiding freq yellow urine
--- NOTE | 2025-03-06 23:03 | PTCARENOTE ---
xanax 1mg po given as requested, sys reviewed
[2025-03-07] VITALS (11 sets, daily range): BP systolic 105–143; BP diastolic 52–76; BMI 21.8
[2025-03-07] MEDS: LR 1000 IV (01:57)
[2025-03-07 04:23] LABS: Hematocrit 32.4 % (37.0-47.0); Hemoglobin 11.0 g/dL (12.0-16.0); Mean Corp Hgb Conc. 34.0 g/dL (33.0-37.0); Mean Corpuscular Volume 91.8 fL (81.0-99.0); Platelet Count 142 10^3/uL (130-400); Red Cell Dist. Width 13.4 % (11.5-14.5)
--- NOTE | 2025-03-07 04:23 | PTCARENOTE ---
sys reviewed, changes noted
[2025-03-07 04:38] LABS: Blood Urea Nitrogen 4 mg/dl (7-17); Calcium 8.8 mg/dl (8.4-10.2); Carbon Dioxide 27 mmol/L (22-30); Chloride 109 mmol/L (98-107); Estimated Creatinine Clearance 76 ml/min; Glucose 98 mg/dl (70-99); Magnesium 1.9 mg/dl (1.6-2.3); Potassium 3.5 mmol/L (3.5-5.1); Sodium 138 mmol/L (135-145); eGFR > 60.00
[2025-03-07] MEDS: XANAX 1 MG PO ×3 (08:39→21:12)
[2025-03-07] MEDS: NEURONTIN 300 MG PO ×3 (08:39→21:12)
--- NOTE | 2025-03-07 09:01 | W.PN.HOSP.TC ---
Today's Communication/Plan
-
see plan
Assessment / Plan
Assessment / Plan
Gen: NAD, AAOx3.
Eyes: EOMI, PERRLA, no scleral icterus.
Neck: supple.
CV: remains RRR, +S1/S2, no m/r/g.
Resp: CTAB anteriorly, no rales, wheezes, or rhonchi.
Abd: remains +BS, soft, NT, ND
Skin: No rashes.
Neuro: CN 2-12 intact, non-focal.
Psych: Normal mood and affect.
03/06/25 05:43 Nose MRSA Screen - Final
No Methicillin Resistant Staphylococcus aureus isolated.
03/05/25 22:10 Blood/Venous Blood Culture - Preliminary
No Growth in 24 hours- Final report to follow
03/06/25 05:57 Urine Legionella Urinary Antigen - Final
Negative for Legionella pneumophila Serogroup 1 antigen.
A negative result does not rule out the possiblity of
Legionella infection due to other serogroups or species of
Legionella. Clinical correlation is recommended.
03/06/25 05:57 Urine Streptococcus pneumoniae Antigen (M - Final
Negative for Streptococcus pneumoniae antigen.
A negative result does not exclude infection with
Streptococcus pneumoniae. Clinical correlation is
recommended.
03/06/25 02:11 Nasal Swab Influenza Types A & B (SHAR) - Final
Negative for Influenza A & B, NAAT
Negative results must be combined with clinical observations
and patient history.
Nucleic Acid Amplification test (NAAT)performed on the
[employer] platform.
CT A/P: Trace amount of pleural fluid in the inferior chest bilaterally. Mild to moderate patchy atelectasis in the posterior lower lungs, right greater than left. Coronary artery calcifications are present. Please correlate with symptoms of and
risk factors for coronary artery disease, with further workup as clinically appropriate. No evidence for urinary tract calculi. No abnormality of the unenhanced kidneys or urinary bladder. Gallbladder is distended, similar appearance to prior CT. No
evidence for calcified gallstones. No evidence for gallbladder wall thickening or pericholecystic edema. The appendix appears normal. No evidence for bowel obstruction or free intraperitoneal air. Elongated transverse colon, extending into the
pelvis. Moderate amount of stool within the colon, suggesting a degree constipation. Bony degenerative changes as described. Stable mild compression deformity of the T10 vertebral body.
HIDA: No scintigraphic evidence of cystic duct or common bile duct obstruction.
CXR: Patchy parenchymal opacity within the left lower lobe, new since previous radiograph. Main differential considerations of pneumonia and/or atelectasis.
Septic shock, POA, due to complicated UTI:
-Acute metabolic encephalopathy, POA, due to septic shock, now resolved
-was only very briefly on vasopressors
-cont Rocephin as per ID
-follow UCx/BCx
-stop IVFs
Other problems:
Hyponatremia, resolved
Peripheral neuropathy: Continue Neurontin
Chronic back pain
Anxiety: cont Xanax PRN
FULL/Lovenox
Anticipated Discharge: 24 - 48 hours
Subjective/Interval History
-
Date of Service: March 07, 2025
No new complaints.
Objective Data
-
Labs:
Laboratory Results
03/07/25
04:03
WBC 5.5
Hgb 11.0 L
Hct 32.4 L
Plt Count 142
Sodium 138 D
Potassium 3.5
Chloride 109 H
Carbon Dioxide 27
BUN 4 L
Creatinine 0.5 L
Glucose 98
Calcium 8.8
Vital Signs:
Vital Signs
Temp Pulse Resp BP Pulse Ox
98.2 F 84 12 143/61 97
03/07/25 07:33 03/07/25 08:00 03/07/25 08:00 03/07/25 08:00 03/07/25 04:00
I&O
03/06/25 03/07/25 03/08/25
06:59 06:59 06:59
Intake Total 0 / 100 3200 / 3300 200 / 200
Output Total 275 / 275 2825 / 2825
Balance -275 / -175 375 / 475 200 / 200
--- NOTE | 2025-03-07 11:40 | W.PN.ID1 ---
Date of Service
Date of Service: March 07, 2025
Today's Communication
Broaden ceftriaxone to Zosyn to include enterococcal coverage.
See below.
Assessment / Plan
# Complicated UTI, still symptomatic
# Fever -resolving
- Blood cultures neg to date.
-HIDA normal.
-Urine culture >100K mixed giovani contaminated specimen.
- Repeat clean-catch mid-stream urine cx.
- Pt remains symptomatic on ceftriaxone.
Broaden ceftriaxone to Zosyn to include enterococcal coverage.
# Conditions present on admission
CVA
Neuropathy
Chronic back pain
Anxiety
Right CEA
Left ANGEL
Shoulder Surgery
Septoplasty
Breast Surgeries
Adenoidectomy
Chief Complaint
-: Fever and UTI
Subjective / Review of Systems
Still with bladder discomfort. Fever resolved.
Vital Signs / Physical Exam
Vital Signs
Vital Signs
Temp Pulse Resp BP Pulse Ox
98.2 F 85 14 137/65 97
03/07/25 07:33 03/07/25 09:00 03/07/25 09:00 03/07/25 09:00 03/07/25 09:46
Physical Exam
Constitutional: No Acute Distress and Comfortable
Pulmonary: Clear
Gastrointestinal: Soft, Non Tender and Non Distended
Genito-Urinary: Negative CVA Tenderness
Extremities: Negative Edema
Neurological: AO x 3
Objective Data
Lab Data
Lab Results
03/07/25 04:03
03/07/25 04:03
PT Cancelled 03/06/25 05:24
INR Cancelled 03/06/25 05:24
APTT Cancelled 03/06/25 05:24
Estimated Creat Clear 76 ml/min 03/07/25 04:03
Lactic Acid 1.4 mmol/L (0.7-2.0) 03/05/25 22:10
Total Bilirubin 0.8 mg/dl (0.2-1.3) 03/06/25 05:43
AST 252 U/L (14-36) H 03/06/25 05:43
ALT 197 U/L (0-35) H 03/06/25 05:43
Alkaline Phosphatase 95 U/L (38-126) 03/06/25 05:43
Most recent labs reviewed.
Micro Results:
03/05/25 23:54 Urine Culture - Final
Urine
03/06/25 05:43 MRSA Screen - Final
Nose No Methicillin Resistant Staphylococcus aureus isolated.
03/05/25 22:10 Blood Culture - Preliminary
Blood/Venous No Growth in 24 hours- Final report to follow
03/06/25 05:57 Legionella Urinary Antigen - Final
Urine Negative for Legionella pneumophila Serogroup 1 antigen.
A negative result does not rule out the possiblity of
Legionella infection due to other serogroups or species of
Legionella. Clinical correlation is recommended.
Streptococcus pneumoniae Antigen (M - Final
Negative for Streptococcus pneumoniae antigen.
A negative result does not exclude infection with
Streptococcus pneumoniae. Clinical correlation is
recommended.
03/06/25 02:11 Influenza Types A & B (SHAR) - Final
Nasal Swab Negative for Influenza A & B, NAAT
Negative results must be combined with clinical observations
and patient history.
Nucleic Acid Amplification test (NAAT)performed on the
[employer] ([employer]) platform.
03/05/25 CT a/p: Trace amount of pleural fluid in the inferior chest bilaterally. Mild to moderate patchy atelectasis in the posterior lower lungs, right greater than left. Gallbladder is distended, similar appearance to prior CT. No evidence for
calcified gallstones. No evidence for gallbladder wall thickening or pericholecystic edema.
03/05/25 CXR: Patchy parenchymal opacity within the left lower lobe, new since previous radiograph.
[2025-03-07] MEDS: ROCEPHIN 2000 MG IV (11:41)
[2025-03-07] MEDS: FLUSH (NSS) 1 FLUSH IV ×2 (11:41→11:46)
[2025-03-07] MEDS: STERILE WATER FOR INJECTION 20 ML IV (11:41)
[2025-03-07] MEDS: ZOSYN 50 IV ×3 (12:32→23:48)
[2025-03-07] MEDS: TYLENOL 650 MG PO (12:50)
--- NOTE | 2025-03-07 13:48 | CM ---
Complicated UTI. Now on IV.Zosyn. Discharge POC: Home with no needs. Patient has declined any RN services.
--- NOTE | 2025-03-07 15:13 | PTCARENOTE ---
Rec'd care of patient at 0700. Patient alert and oriented. Anxious at times. VSS. Afebrile. NSR on tele. BP 130-140/60. Pulse ox 97% on RA. Voiding in bathroom. C/o burning sensation. Downgraded to medsurg level of care. IVFs capped. Ambulatory
independently in room.
--- NOTE | 2025-03-07 15:38 | TRANSFER ---
Patient transferred to with belongings. present.
[2025-03-07] MEDS: LOVENOX 40 MG SC (17:25)
--- NOTE | 2025-03-07 17:45 | VATNOTE ---
Pt c/o pain at R arm IV site, removed and heat applied. Education provided regarding s/s phlebitis and the application of heat for tx and comfort. Pt verbalizes relief from discomfort with heat application.
[2025-03-08] MEDS: ZOSYN 50 IV ×4 (05:42→23:45)
[2025-03-08 05:59] VITALS: BMI 20.6
[2025-03-08 07:07] VITALS: BP 159/75
--- NOTE | 2025-03-08 08:36 | W.PN.HOSP.TC ---
Today's Communication/Plan
-
see plan
Assessment / Plan
Assessment / Plan
Gen: remains NAD, AAOx3.
Eyes: EOMI, PERRLA, no scleral icterus.
Neck: supple.
CV: continues to remain RRR, +S1/S2, no m/r/g.
Resp: CTAB anteriorly, no rales, wheezes, or rhonchi.
Abd: continues to remain +BS, soft, NT, ND
Skin: No rashes.
Neuro: CN 2-12 intact, non-focal.
Psych: Normal mood and affect.
03/05/25 22:10 Blood/Venous Blood Culture - Preliminary
No Growth in 48 hours- Final report to follow
03/05/25 23:54 Urine Urine Culture - Final
03/06/25 05:43 Nose MRSA Screen - Final
No Methicillin Resistant Staphylococcus aureus isolated.
03/06/25 05:57 Urine Legionella Urinary Antigen - Final
Negative for Legionella pneumophila Serogroup 1 antigen.
A negative result does not rule out the possiblity of
Legionella infection due to other serogroups or species of
Legionella. Clinical correlation is recommended.
03/06/25 05:57 Urine Streptococcus pneumoniae Antigen (M - Final
Negative for Streptococcus pneumoniae antigen.
A negative result does not exclude infection with
Streptococcus pneumoniae. Clinical correlation is
recommended.
03/06/25 02:11 Nasal Swab Influenza Types A & B (SHAR) - Final
Negative for Influenza A & B, NAAT
Negative results must be combined with clinical observations
and patient history.
Nucleic Acid Amplification test (NAAT)performed on the
[employer] platform.
CT A/P: Trace amount of pleural fluid in the inferior chest bilaterally. Mild to moderate patchy atelectasis in the posterior lower lungs, right greater than left. Coronary artery calcifications are present. Please correlate with symptoms of and
risk factors for coronary artery disease, with further workup as clinically appropriate. No evidence for urinary tract calculi. No abnormality of the unenhanced kidneys or urinary bladder. Gallbladder is distended, similar appearance to prior CT. No
evidence for calcified gallstones. No evidence for gallbladder wall thickening or pericholecystic edema. The appendix appears normal. No evidence for bowel obstruction or free intraperitoneal air. Elongated transverse colon, extending into the
pelvis. Moderate amount of stool within the colon, suggesting a degree constipation. Bony degenerative changes as described. Stable mild compression deformity of the T10 vertebral body.
HIDA: No scintigraphic evidence of cystic duct or common bile duct obstruction.
CXR: Patchy parenchymal opacity within the left lower lobe, new since previous radiograph. Main differential considerations of pneumonia and/or atelectasis.
Septic shock, POA, due to complicated UTI:
-Acute metabolic encephalopathy, POA, due to septic shock, now resolved
-was only very briefly on vasopressors
-s/p IVFs
-cont Zosyn as per ID
-recheck LFTs (shock liver)
-currently with antibiotic associated diarrhea, Imodium PRN
-initial UCx contaminated, follow repeat UCx
Other problems:
Hyponatremia, resolved
Peripheral neuropathy: Continue Neurontin
Chronic back pain
Anxiety: cont Xanax PRN
FULL/Lovenox
Anticipated Discharge: 24 - 48 hours
Subjective/Interval History
-
Date of Service: March 08, 2025
Dysuria improving
Objective Data
-
Vital Signs:
Vital Signs
Temp Pulse Resp BP Pulse Ox
98.3 F 76 16 159/75 97
03/08/25 07:07 03/08/25 07:07 03/08/25 07:07 03/08/25 07:07 03/08/25 07:07
I&O
03/07/25 03/08/25 03/09/25
06:59 06:59 06:59
Intake Total 3200 / 3300 1510 / 1510
Output Total 2825 / 2825
Balance 375 / 475 1509
[2025-03-08 09:13] LABS: Hematocrit 36.2 % (37.0-47.0); Hemoglobin 12.1 g/dL (12.0-16.0); Mean Corp Hgb Conc. 33.4 g/dL (33.0-37.0); Mean Corpuscular Volume 92.3 fL (81.0-99.0); Platelet Count 166 10^3/uL (130-400); Red Cell Dist. Width 13.6 % (11.5-14.5)
[2025-03-08 09:27] LABS: ALT (SGPT) 88 U/L (0-35); AST (SGOT) 34 U/L (14-36); Albumin 3.7 g/dl (3.5-5.0); Alkaline Phosphatase 87 U/L (38-126); Blood Urea Nitrogen 2 mg/dl (7-17); Calcium 9.0 mg/dl (8.4-10.2); Carbon Dioxide 29 mmol/L (22-30); Chloride 107 mmol/L (98-107); Estimated Creatinine Clearance 76 ml/min; Glucose 110 mg/dl (70-99); Potassium 3.2 mmol/L (3.5-5.1); Sodium 139 mmol/L (135-145); Total Protein 6.2 g/dl (6.3-8.2); eGFR > 60.00
[2025-03-08] MEDS: NEURONTIN 300 MG PO ×3 (10:22→22:30)
[2025-03-08] MEDS: XANAX 1 MG PO ×3 (10:22→22:30)
[2025-03-08] MEDS: IMODIUM 2 MG PO ×2 (10:22→22:30)
[2025-03-08] MEDS: FLUSH (NSS) 1 FLUSH IV ×2 (12:31)
--- NOTE | 2025-03-08 12:49 | W.PN.ID1 ---
Date of Service
Date of Service: March 08, 2025
Today's Communication
Continue Zosyn
Assessment / Plan
# Complicated UTI
# Fever -resolved
# Diarrhea
- Blood cultures neg to date.
-HIDA normal.
-Urine culture >100K mixed givoani contaminated specimen.
- Repeat clean-catch mid-stream urine cx pending
- Urine symptoms improving with change from CTX to Zosyn. .
Continue Zosyn (d2) to include enterococcal coverage, pending Ucx data.
- Check Stool for C.diff
- Add probiotic.
# Conditions present on admission
CVA
Neuropathy
Chronic back pain
Anxiety
Right CEA
Left ANGEL
Shoulder Surgery
Septoplasty
Breast Surgeries
Adenoidectomy
Chief Complaint
-: Fever and UTI
Subjective / Review of Systems
Dysuria has improved today. However + diarrhea.
Vital Signs / Physical Exam
Vital Signs
Vital Signs
Temp Pulse Resp BP Pulse Ox
98.3 F 76 16 159/75 97
03/08/25 07:07 03/08/25 07:07 03/08/25 07:07 03/08/25 07:07 03/08/25 07:07
Physical Exam
Constitutional: No Acute Distress and Comfortable
Cardiovascular: Regular Rate and S1/S2
Pulmonary: Clear
Gastrointestinal: Soft, Non Tender and Non Distended
Extremities: Negative Edema
Neurological: AO x 3
Objective Data
Lab Data
Lab Results
03/08/25 08:54
03/08/25 08:54
PT Cancelled 03/06/25 05:24
INR Cancelled 03/06/25 05:24
APTT Cancelled 03/06/25 05:24
Estimated Creat Clear 76 ml/min 03/08/25 08:54
Lactic Acid 1.4 mmol/L (0.7-2.0) 03/05/25 22:10
Total Bilirubin 0.6 mg/dl (0.2-1.3) 03/08/25 08:54
AST 34 U/L (14-36) 03/08/25 08:54
ALT 88 U/L (0-35) H 03/08/25 08:54
Alkaline Phosphatase 87 U/L (38-126) 03/08/25 08:54
Most recent labs reviewed.
Micro Results:
03/05/25 22:10 Blood Culture - Preliminary
Blood/Venous No Growth in 48 hours- Final report to follow
03/07/25 12:36 Urine Culture - Pending
Urine
03/05/25 23:54 Urine Culture - Final
Urine
03/06/25 05:43 MRSA Screen - Final
Nose No Methicillin Resistant Staphylococcus aureus isolated.
03/06/25 05:57 Legionella Urinary Antigen - Final
Urine Negative for Legionella pneumophila Serogroup 1 antigen.
A negative result does not rule out the possiblity of
Legionella infection due to other serogroups or species of
Legionella. Clinical correlation is recommended.
Streptococcus pneumoniae Antigen (M - Final
Negative for Streptococcus pneumoniae antigen.
A negative result does not exclude infection with
Streptococcus pneumoniae. Clinical correlation is
recommended.
03/06/25 02:11 Influenza Types A & B (SHAR) - Final
Nasal Swab Negative for Influenza A & B, NAAT
Negative results must be combined with clinical observations
and patient history.
Nucleic Acid Amplification test (NAAT)performed on the
[employer] platform.
03/05/25 CT a/p: Trace amount of pleural fluid in the inferior chest bilaterally. Mild to moderate patchy atelectasis in the posterior lower lungs, right greater than left. Gallbladder is distended, similar appearance to prior CT. No evidence for
calcified gallstones. No evidence for gallbladder wall thickening or pericholecystic edema.
03/05/25 CXR: Patchy parenchymal opacity within the left lower lobe, new since previous radiograph.
--- NOTE | 2025-03-08 13:00 | PTCARENOTE ---
pt reports diarrhea. MD notified. PRN Imodium ordered and administered. Stool samples sent to lab for testing. probiotic ordered and administered. POC ongoing.
[2025-03-08] MEDS: VISBIOME 2 CAP PO (13:31)
[2025-03-08 15:16] VITALS: BP 134/74
[2025-03-08] MEDS: LOVENOX 40 MG SC (17:16)
[2025-03-08 23:26] VITALS: BP 121/68
[2025-03-09] MEDS: TYLENOL 650 MG PO (04:32)
[2025-03-09] MEDS: ZOSYN 50 IV (05:30)
[2025-03-09 06:31] VITALS: BMI 20.6
[2025-03-09 06:31] LABS: Hematocrit 33.1 % (37.0-47.0); Hemoglobin 10.9 g/dL (12.0-16.0); Mean Corp Hgb Conc. 32.9 g/dL (33.0-37.0); Mean Corpuscular Volume 91.2 fL (81.0-99.0); Platelet Count 162 10^3/uL (130-400); Red Cell Dist. Width 13.4 % (11.5-14.5)
[2025-03-09 06:53] LABS: Blood Urea Nitrogen 2 mg/dl (7-17); Calcium 8.6 mg/dl (8.4-10.2); Carbon Dioxide 28 mmol/L (22-30); Chloride 107 mmol/L (98-107); Estimated Creatinine Clearance 76 ml/min; Glucose 103 mg/dl (70-99); Potassium 3.0 mmol/L (3.5-5.1); Sodium 140 mmol/L (135-145); eGFR > 60.00
[2025-03-09 07:00] VITALS: BP 130/66
[2025-03-09] MEDS: VISBIOME 2 CAP PO (07:50)
[2025-03-09] MEDS: XANAX 1 MG PO (07:51)
[2025-03-09] MEDS: NEURONTIN 300 MG PO (07:51)
--- NOTE | 2025-03-09 08:16 | W.PN.HOSP.TC ---
Today's Communication/Plan
-
d/c
Assessment / Plan
Assessment / Plan
Gen: remains NAD, AAOx3.
Eyes: EOMI, PERRLA, no scleral icterus.
Neck: supple.
CV: continues to remain RRR, +S1/S2, no m/r/g.
Resp: CTAB anteriorly, no rales, wheezes, or rhonchi.
Abd: continues to remain +BS, soft, NT, ND
Skin: No rashes.
Neuro: CN 2-12 intact, non-focal.
Psych: Normal mood and affect.
03/05/25 22:10 Blood/Venous Blood Culture - Preliminary
No Growth in 72 hours- Final report to follow
03/08/25 14:35 Feces/Stool C. difficile GDH Antigen & Toxins - Final
Negative for toxigenic C.difficile
03/07/25 12:36 Urine Urine Culture - Final
NO GROWTH
03/05/25 23:54 Urine Urine Culture - Final
03/06/25 05:43 Nose MRSA Screen - Final
No Methicillin Resistant Staphylococcus aureus isolated.
03/06/25 05:57 Urine Legionella Urinary Antigen - Final
Negative for Legionella pneumophila Serogroup 1 antigen.
A negative result does not rule out the possiblity of
Legionella infection due to other serogroups or species of
Legionella. Clinical correlation is recommended.
03/06/25 05:57 Urine Streptococcus pneumoniae Antigen (M - Final
Negative for Streptococcus pneumoniae antigen.
A negative result does not exclude infection with
Streptococcus pneumoniae. Clinical correlation is
recommended.
03/06/25 02:11 Nasal Swab Influenza Types A & B (SHAR) - Final
Negative for Influenza A & B, NAAT
Negative results must be combined with clinical observations
and patient history.
Nucleic Acid Amplification test (NAAT)performed on the
[employer] platform.
CT A/P: Trace amount of pleural fluid in the inferior chest bilaterally. Mild to moderate patchy atelectasis in the posterior lower lungs, right greater than left. Coronary artery calcifications are present. Please correlate with symptoms of and
risk factors for coronary artery disease, with further workup as clinically appropriate. No evidence for urinary tract calculi. No abnormality of the unenhanced kidneys or urinary bladder. Gallbladder is distended, similar appearance to prior CT. No
evidence for calcified gallstones. No evidence for gallbladder wall thickening or pericholecystic edema. The appendix appears normal. No evidence for bowel obstruction or free intraperitoneal air. Elongated transverse colon, extending into the
pelvis. Moderate amount of stool within the colon, suggesting a degree constipation. Bony degenerative changes as described. Stable mild compression deformity of the T10 vertebral body.
HIDA: No scintigraphic evidence of cystic duct or common bile duct obstruction.
CXR: Patchy parenchymal opacity within the left lower lobe, new since previous radiograph. Main differential considerations of pneumonia and/or atelectasis.
Septic shock, POA, due to complicated UTI:
-Acute metabolic encephalopathy, POA, due to septic shock, now resolved
-was only very briefly on vasopressors
-s/p IVFs
-LFTs (shock liver) imroving
-currently with antibiotic associated diarrhea (C diff NEG), Imodium PRN
-initial UCx contaminated, repeat UCx (post abx) NG
-has been on Zosyn as per ID. Case discussed with Dr. Remy, marta/valerie on PO abx today.
Other problems:
Hyponatremia, resolved
Peripheral neuropathy: Continue Neurontin
Chronic back pain
Anxiety: cont Xanax PRN
FULL/Lovenox
Total time spent on d/c = 32 min. This included today's physical exam, progress note, review of laboratory and diagnostic data, preparation of discharge documents and prescriptions, and discussions about the pt's hospital course and discharge plan
with the patient and other medical appliance maker involved in the patient's care.
Anticipated Discharge: Today
Subjective/Interval History
-
Date of Service: March 09, 2025
Objective Data
-
Labs:
Laboratory Results
03/09/25
05:49
WBC 5.3
Hgb 10.9 L
Hct 33.1 L
Plt Count 162
Sodium 140
Potassium 3.0 L
Chloride 107
Carbon Dioxide 28
BUN 2 L
Creatinine 0.6
Glucose 103 H
Calcium 8.6
Vital Signs:
Vital Signs
Temp Pulse Resp BP Pulse Ox
98.1 F 76 19 130/66 95
03/09/25 07:00 03/09/25 07:00 03/09/25 07:00 03/09/25 07:00 03/09/25 07:00
I&O
03/08/25 03/09/25 03/10/25
06:59 06:59 06:59
Intake Total 1510 / 1510 1230 / 1230
Balance 1510 / 1510 1230 / 1230
--- NOTE | 2025-03-09 09:19 | W.PN.ID1 ---
Date of Service
Date of Service: March 09, 2025
Today's Communication
Transition Zosyn (d3) to Augmentin 875mg po bid x 7 more days.
Assessment / Plan
# Complicated UTI
# Fever -resolved
# Diarrhea - C. diff neg
- Blood cultures neg to date.
-HIDA normal.
-Urine culture >100K mixed giovani contaminated specimen.
- Repeat clean-catch mid-stream urine cx negative
- Urine symptoms resolvedwith change from CTX to Zosyn. .
Transition Zosyn (d3) to Augmentin 875mg po bid x 7 more days.
# Conditions present on admission
CVA
Neuropathy
Chronic back pain
Anxiety
Right CEA
Left ANGEL
Shoulder Surgery
Septoplasty
Breast Surgeries
Adenoidectomy
Chief Complaint
-: UTI
Subjective / Review of Systems
Feels much improved. Urine sxs resolved.
Vital Signs / Physical Exam
Vital Signs
Vital Signs
Temp Pulse Resp BP Pulse Ox
98.1 F 76 19 130/66 95
03/09/25 07:00 03/09/25 07:00 03/09/25 07:00 03/09/25 07:00 03/09/25 07:00
Physical Exam
Constitutional: No Acute Distress and Comfortable
Cardiovascular: Regular Rate and S1/S2
Pulmonary: Clear
Gastrointestinal: Soft, Non Tender and Non Distended
Extremities: Negative Edema
Neurological: AO x 3
Objective Data
Lab Data
Lab Results
03/09/25 05:49
03/09/25 05:49
PT Cancelled 03/06/25 05:24
INR Cancelled 03/06/25 05:24
APTT Cancelled 03/06/25 05:24
Estimated Creat Clear 76 ml/min 03/09/25 05:49
Lactic Acid 1.4 mmol/L (0.7-2.0) 03/05/25 22:10
Total Bilirubin 0.6 mg/dl (0.2-1.3) 03/08/25 08:54
AST 34 U/L (14-36) 03/08/25 08:54
ALT 88 U/L (0-35) H 03/08/25 08:54
Alkaline Phosphatase 87 U/L (38-126) 03/08/25 08:54
Most recent labs reviewed.
Micro Results:
03/05/25 22:10 Blood Culture - Preliminary
Blood/Venous No Growth in 72 hours- Final report to follow
03/08/25 14:35 C. difficile GDH Antigen & Toxins - Final
Feces/Stool Negative for toxigenic C.difficile
03/07/25 12:36 Urine Culture - Final
Urine NO GROWTH
03/05/25 23:54 Urine Culture - Final
Urine
03/06/25 05:43 MRSA Screen - Final
Nose No Methicillin Resistant Staphylococcus aureus isolated.
03/06/25 05:57 Legionella Urinary Antigen - Final
Urine Negative for Legionella pneumophila Serogroup 1 antigen.
A negative result does not rule out the possiblity of
Legionella infection due to other serogroups or species of
Legionella. Clinical correlation is recommended.
Streptococcus pneumoniae Antigen (M - Final
Negative for Streptococcus pneumoniae antigen.
A negative result does not exclude infection with
Streptococcus pneumoniae. Clinical correlation is
recommended.
03/06/25 02:11 Influenza Types A & B (SHAR) - Final
Nasal Swab Negative for Influenza A & B, NAAT
Negative results must be combined with clinical observations
and patient history.
Nucleic Acid Amplification test (NAAT)performed on the
[employer] platform.
03/05/25 CT a/p: Trace amount of pleural fluid in the inferior chest bilaterally. Mild to moderate patchy atelectasis in the posterior lower lungs, right greater than left. Gallbladder is distended, similar appearance to prior CT. No evidence for
calcified gallstones. No evidence for gallbladder wall thickening or pericholecystic edema.
03/05/25 CXR: Patchy parenchymal opacity within the left lower lobe, new since previous radiograph.
--- NOTE | 2025-03-09 11:42 | W.DCSUMMARY ---
Discharge Summary
Discharge Data
Date of Admission: 03/06/25
Date of Discharge: 03/09/25
-
Pending Results: No
Hospital Course
Primary diagnoses:
Septic shock and acute metabolic encephalopathy due to complicated urinary tract infection
Secondary diagnoses:
Shock liver
Antibiotic-associated diarrhea
Hyponatremia
Peripheral neuropathy
Chronic back pain
Anxiety
Consultants:
Infectious disease
Imaging:
CT A/P: Trace amount of pleural fluid in the inferior chest bilaterally. Mild to moderate patchy atelectasis in the posterior lower lungs, right greater than left. Coronary artery calcifications are present. Please correlate with symptoms of and
risk factors for coronary artery disease, with further workup as clinically appropriate. No evidence for urinary tract calculi. No abnormality of the unenhanced kidneys or urinary bladder. Gallbladder is distended, similar appearance to prior CT. No
evidence for calcified gallstones. No evidence for gallbladder wall thickening or pericholecystic edema. The appendix appears normal. No evidence for bowel obstruction or free intraperitoneal air. Elongated transverse colon, extending into the
pelvis. Moderate amount of stool within the colon, suggesting a degree constipation. Bony degenerative changes as described. Stable mild compression deformity of the T10 vertebral body.
HIDA: No scintigraphic evidence of cystic duct or common bile duct obstruction.
CXR: Patchy parenchymal opacity within the left lower lobe, new since previous radiograph. Main differential considerations of pneumonia and/or atelectasis.
Hospital course: 69-year-old female presented with a chief complaint of altered mental status as outlined in H&P done on admission. She was found to be in septic shock due to complicated urinary tract infection. She was briefly on vasopressors.
She received IV fluids. She was placed on broad-spectrum antibiotics. Her initial urine culture was contaminated and repeat urine culture was no growth. Her shock liver improved. She was transitioned to Augmentin for 7 further days at the time
of discharge. She was discharged in medically stable condition.
Discharge Plan
-
Patient Disposition: Home (Routine Discharge)
Discharge Diagnosis/Procedures: Septic shock due to complicated UTI
Condition: Good
Diet: Regular
Activity: As tolerated
Driving Restrictions: As prior to admission
Referrals:
Litzy Rios DO [Family Provider, [facility]] - in less than 1 week
Prescriptions:
New
amoxicillin-pot clavulanate 875-125 mg tablet
1 tab PO BID Qty: 14 0RF
Continued
therapeutic multivitamin Tablet
1 tab PO HS
atorvastatin 40 mg tablet
40 mg PO HS
metoprolol tartrate 25 mg tablet
12.5 mg PO DAILY Qty: 30 0RF
alprazolam 1 mg Tablet
1 mg PO Q6H PRN (Reason: anxiety)
gabapentin 100 mg Capsule
300 mg PO TID
cyanocobalamin (vitamin B-12) 5,000 mcg tablet, sublingual
5,000 mcg sublingual DAILY 30 Days Qty: 30 0RF
aspirin 81 mg Tablet,Delayed Release (Dr/Ec)
81 mg PO DAILY Qty: 0 0RF
Discharge Orders:
Discharge Patient (As Directed); Ordered 03/09/25
Ordered By: Drake George
Discharge Date and Time
Print Language: ANDORRAN
[2025-03-09 11:55] VITALS: BP 124/95
[2025-03-09] MEDS: IMODIUM 2 MG PO (12:12)
== END 2025-03-09 12:57 | disposition home or self-care (01) | DRG 871 ==
LOC: 3 WEST ACU 03:20
PROVIDERS: Nurse Practitioner Family; ADMITTING PHYSICIAN Internal Medicine; ATTENDING PHYSICIAN Internal Medicine; CONSULT PHYSICIAN Internal Medicine Infectious Disease; EMERGENCY PHYSICIAN Emergency Medicine; FAMILY PHYSICIAN Family Medicine
DX: A41.9 Sepsis, unspecified organism (principal); G93.41 Metabolic encephalopathy; R65.21 Severe sepsis with septic shock; K72.00 Acute and subacute hepatic failure without coma; N39.0 Urinary tract infection, site not specified; K52.1 Toxic gastroenteritis and colitis; E87.1 Hypo-osmolality and hyponatremia; T36.95XA Adverse effect of unspecified systemic antibiotic, initial encounter; G62.9 Polyneuropathy, unspecified; G89.4 Chronic pain syndrome; F41.9 Anxiety disorder, unspecified; Z86.73 Personal history of transient ischemic attack (TIA), and cerebral infarction without residual deficits; Z87.440 Personal history of urinary (tract) infections; Z79.82 Long term (current) use of aspirin; Z79.899 Other long term (current) drug therapy; Z11.52 Encounter for screening for COVID-19; K59.00 Constipation, unspecified; R53.82 Chronic fatigue, unspecified; Z96.642 Presence of left artificial hip joint
CPT/HCPCS: 71046; 74176; 78226; 80048; 80053; 80076; 80143; 81003; 81015; 82533; 83605; 83735; 85025; 85027; 87040; 87070; 87086; 87324; 87449; 87502; 87811; 87899; 93005; 96361; 96365; 96366; 96367; 99291; A9537

== ENCOUNTER 2025-05-30 06:12 | Day surgery (SDC) | payer MEDICARE, OTHER, SELFPAY ==
--- NOTE | 2025-05-24 12:25 | PTCARENOTE ---
Patients 03/09 abelardo 3.0Trev Branch @ Dr. Nye office notified
--- NOTE | 2025-05-24 15:55 | PTCARENOTE ---
Addendum entered by Anali Steven 05/26/25 14:49:
Patient to have repeat K+ done as Outpatient 05/26.
Original Note:
Abnormal K+ 3.0 collected 03/09/25, reported to Dr Clark,order for repeat to be done 05/25/25.
Sarina at Dr Rayo's office notified that patient will need repeat K+ and possible supplement from PCP.
Abnormal ECG done 03/05/[address] Clark, no further interventions requested.
[2025-05-30] VITALS (9 sets, daily range): BP systolic 110–124; BP diastolic 47–64; BMI 19.2
[2025-05-30] MEDS: NORMOSOL-R/PLASMALYTE-A 1000 IV (07:29)
[2025-05-30] MEDS: TYLENOL 650 MG PO (12:13)
== END 2025-05-30 13:29 | disposition home or self-care (01) ==
LOC: SDS 06:12
PROVIDERS: ATTENDING PHYSICIAN Obstetrics & Gynecology; FAMILY PHYSICIAN Family Medicine
DX: N18.2 Chronic kidney disease, stage 2 (mild) (principal); N39.3 Stress incontinence (female) (male); N36.41 Hypermobility of urethra
CPT/HCPCS: 57282; 57260; 57288; C1771